=== PATIENT | male | born 1935 | race Caucasian/White ===

== ENCOUNTER → 2016-06-16 | Outpatient (CLI) | payer BC ==
[~2016-06-16] MED LIST: ADVIN10/60 INH; ALBINS/ PO; ASPI81TA28 PO; ATV5X PO; CALC-342 PO; CLOB-65 TOP; CRG25 PO; LEVO112T4 PO; LISI-729 PO; MULT-506 PO; ZLF/50 PO
--- NOTE | 2016-06-16 14:09 | DIAGNOSTIC IMAGING REPORT ---
LEFT HAND MIN 3 VIEWS ROUTINE CLINICAL HISTORY: M12.9 Hand arthritis pain COMPARISON: None. DISCUSSION: Findings of mild marginal erosive change of the interphalangeal joints. Bone mineralization throughout is diminished. Considerable degenerative change first carpometacarpal joint. No evidence for subluxation. Mild soft tissue edema IMPRESSION: Findings suggesting developing rheumatoid change. Electronically signed by: Taurus Jolly M.D. 06/16/2016 2:08 PM Dictated Date/Time: 06/16/2016 2:07 PM
--- NOTE | 2016-06-16 14:10 | DIAGNOSTIC IMAGING REPORT ---
RIGHT HAND MIN 3 VIEWS ROUTINE CLINICAL HISTORY: M12.9 Hand arthritis Right pain COMPARISON: None. DISCUSSION: Moderate degenerative change interphalangeal joints throughout. Multiple marginal erosions. Mineralization throughout is diminished. The 10th IMPRESSION: Moderate rheumatoid change. Mild soft tissue edema Electronically signed by: Taurus Jolly M.D. 06/16/2016 2:09 PM Dictated Date/Time: 06/16/2016 2:08 PM
== END | disposition home or self-care (01) ==
LOC: C.RAD1850 13:32
PROVIDERS: ATTEND Internal Medicine
DX: M12.9 Arthropathy, unspecified (principal)

== ENCOUNTER → 2016-07-26 | Outpatient (CLI) | payer BC ==
[2016-07-26 12:37] LABS: BASO % 0.5 %; BASO ABS # 0.03 K/uL (0-0.2); COMPLETE YES; EOS % 10.1 %; HEMATOCRIT 33.5 % (42-52); IG% 0.2 %; LYMPH % 10.9 %; LYMPH ABS # 0.65 K/uL (1.2-3.4); MEAN CELL VOLUME 85.9 fL (80-100); MEAN CORPUSCULAR HEMOGLOBIN 27.9 pg (25-34); MEAN CORPUSCULAR HGB CONC 32.5 g/dl (32-36); MEAN PLATELET VOLUME 10.7 fL (7.4-10.4); MONO % 5.5 %; NEUT % 72.8 %; PLATELET COUNT 276 K/uL (130-400); WHITE BLOOD COUNT 5.97 K/uL (4.8-10.8)
[2016-07-26 12:45] LABS: BLOOD UREA NITROGEN 33 mg/dl (7-18); BUN/CREATININE RATIO 23.8 (10-20); CALCIUM 8.9 mg/dl (8.5-10.1); CARBON DIOXIDE 30 mmol/L (21-32); CHLORIDE 101 mmol/L (98-107); GLUCOSE 122 mg/dl (70-99); POTASSIUM 4.1 mmol/L (3.5-5.1); SODIUM 139 mmol/L (136-145)
[2016-07-26 12:50] LABS: FERRITIN 123.6 ng/ml (8.0-388.0); RHEUMATOID FACTOR < 10.0 U/mL (0-15); TOTAL IRON BINDING CAPACITY 225 mcg/dl (250-450)
[2016-07-26 13:19] LABS: ESTIMATED AVERAGE GLUCOSE 120 mg/dl; HA1C FLAG Normal (Normal)
--- NOTE | 2016-07-30 12:47 | CODING QUERY MEDICAL NECESSITY ---
SUPPORTING DIAGNOSIS NEEDED A supporting diagnosis is required for the test/procedure performed on this patient in order for us to be reimbursed by the patient's insurance. Please provide a supporting diagnosis for the following test/procedure listed below next to the test name along with your signature. *If there is no additional diagnosis for this patient that would support the following test/procedure please document that below next to the test/procedure. Test(s)/Procedure(s) that require a supporting diagnosis: * VITAMIN B-12 LEVEL DIAGNOSIS: * FOLATE LEVEL DIAGNOSIS: * DOS: 07/26/16 Provider Signature: Date: Thank you Ambkia Thomas Health Information Management Once completed, please kindly fax back to [phone] For questions please call [phone]
== END | disposition home or self-care (01) ==
LOC: C.LABBFT 10:25
PROVIDERS: ATTEND Internal Medicine
DX: D64.9 Anemia, unspecified (principal); R73.9 Hyperglycemia, unspecified; I50.22 Chronic systolic (congestive) heart failure; M12.9 Arthropathy, unspecified; M81.0 Age-related osteoporosis without current pathological fracture

== ENCOUNTER → 2017-01-19 | Outpatient (CLI) | payer BC ==
[2017-01-19 12:11] LABS: BASO % 0.4 %; BASO ABS # 0.04 K/uL (0-0.2); COMPLETE YES; IG% 0.3 %; LYMPH % 3.9 %; LYMPH ABS # 0.35 K/uL (1.2-3.4); MEAN CELL VOLUME 91.7 fL (80-100); MEAN CORPUSCULAR HGB CONC 32.7 g/dl (32-36); MONO % 10.6 %; NEUT % 75.8 %; PLATELET COUNT 297 K/uL (130-400); WHITE BLOOD COUNT 8.96 K/uL (4.8-10.8)
[2017-01-19 12:28] LABS: ALT/SGPT 16 U/L (12-78); AST/SGOT 12 U/L (15-37); BLOOD UREA NITROGEN 44 mg/dl (7-18); BUN/CREATININE RATIO 27.4 (10-20); CALCIUM 8.6 mg/dl (8.5-10.1); CARBON DIOXIDE 27 mmol/L (21-32); CHLORIDE 105 mmol/L (98-107); GLUCOSE 111 mg/dl (70-99); POTASSIUM 4.6 mmol/L (3.5-5.1); SODIUM 139 mmol/L (136-145)
[2017-01-19 12:39] LABS: ALB/GLOB RATIO 0.8 (0.9-2); ALKALINE PHOSPHATASE 49 U/L (45-117); CHOLESTEROL 172 mg/dl (0-200); CHOLESTEROL/HDL RATIO 3.2; HDL CHOLESTEROL 54 mg/dl; LDL CHOLESTEROL CALCULATED 104 mg/dl; THYROID STIMULATING HORMONE 0.682 uIu/ml (0.300-4.500); TRIGLYCERIDES 69 mg/dl (0-150); VERY LOW DENSITY LIPOPROT CALC 14 mg/dl
[2017-01-19 13:45] LABS: ESTIMATED AVERAGE GLUCOSE 111 mg/dl; HA1C FLAG Normal (Normal)
== END | disposition home or self-care (01) ==
LOC: C.LABBFT 10:34
PROVIDERS: ATTEND Internal Medicine
DX: D64.9 Anemia, unspecified (principal); R73.03 Prediabetes; E03.9 Hypothyroidism, unspecified; E78.00 Pure hypercholesterolemia, unspecified

== ENCOUNTER → 2017-01-26 | Outpatient (CLI) | payer BC ==
[2017-01-26 12:38] LABS: BLOOD UREA NITROGEN 35 mg/dl (7-18); BUN/CREATININE RATIO 26.6 (10-20); CALCIUM 8.9 mg/dl (8.5-10.1); CARBON DIOXIDE 28 mmol/L (21-32); CHLORIDE 104 mmol/L (98-107); GLUCOSE 87 mg/dl (70-99); POTASSIUM 4.4 mmol/L (3.5-5.1); SODIUM 140 mmol/L (136-145)
== END ==
LOC: C.LABBFT 08:51
PROVIDERS: ATTEND Internal Medicine
DX: N28.9 Disorder of kidney and ureter, unspecified (principal)

== ENCOUNTER → 2017-05-30 | Outpatient (CLI) | payer BC ==
[2017-05-30 17:39] LABS: BASO % 0.5 %; BASO ABS # 0.04 K/uL (0-0.2); EOS % 4.6 %; EOS ABS # 0.36 K/uL (0-0.5); HEMOGLOBIN 10.4 g/dL (14.0-18.0); IG# 0.01 K/uL (0.00-0.02); LYMPH % 4.2 %; LYMPH ABS # 0.33 K/uL (1.2-3.4); MEAN CELL VOLUME 91.2 fL (80-100); MEAN CORPUSCULAR HEMOGLOBIN 28.7 pg (25-34); MEAN CORPUSCULAR HGB CONC 31.5 g/dl (32-36); MEAN PLATELET VOLUME 10.4 fL (7.4-10.4); MONO % 10.3 %; MONO ABS # 0.81 K/uL (0.11-0.59); NEUT % 80.3 %; NEUT ABS # 6.29 K/uL (1.4-6.5); PLATELET COUNT 244 K/uL (130-400); RED CELL DISTRIBUTION WIDTH CV 15.7 % (11.5-14.5); RED CELL DISTRIBUTION WIDTH SD 52.4 fL (36.4-46.3); RETIC COUNT % 0.7 % (0.5-2.0); WHITE BLOOD COUNT 7.84 K/uL (4.8-10.8)
[2017-05-30 17:50] LABS: ALBUMIN 3.1 gm/dl (3.4-5.0); ALT/SGPT 19 U/L (12-78); BLOOD UREA NITROGEN 32 mg/dl (7-18); CALCIUM 8.4 mg/dl (8.5-10.1); CARBON DIOXIDE 30 mmol/L (21-32); CREATININE 1.62 mg/dl (0.60-1.40); GLUCOSE 79 mg/dl (70-99); POTASSIUM 4.7 mmol/L (3.5-5.1); SODIUM 138 mmol/L (136-145)
[2017-05-30 17:58] LABS: ALKALINE PHOSPHATASE 49 U/L (45-117); AST/SGOT 15 U/L (15-37); TRANSFERRIN 187 mg/dl (200-360)
== END | disposition home or self-care (01) ==
LOC: C.LABBFT 13:47
PROVIDERS: ATTEND Internal Medicine
DX: N18.3 Chronic kidney disease, stage 3 (moderate) (principal); E03.9 Hypothyroidism, unspecified; D64.9 Anemia, unspecified; M81.0 Age-related osteoporosis without current pathological fracture

== ENCOUNTER → 2017-06-15 | Outpatient (CLI) | payer BC ==
--- NOTE | 2017-06-15 13:11 | DIAGNOSTIC IMAGING REPORT ---
EXAMINATION: RENAL ULTRASOUND CLINICAL HISTORY: N18.3 Chronic kidney disease, stage 3 COMPARISON STUDY: CT scan performed April 2013 FINDINGS: The right kidney measures 10 cm. The left kidney measures 10.5 cm. There is no evidence of hydronephrosis. There is mild renal cortical thinning. There is borderline increase in renal cortical echogenicity. There is a 3 cm left renal cyst. Prostate is enlarged. Neither ureteral jet was visualized IMPRESSION : 1. Mild renal cortical thinning and borderline increase in renal cortical echogenicity 2. No evidence of hydronephrosis. 3. 3 cm left renal cyst Electronically signed by: Trenton Claros M.D. 06/15/2017 1:09 PM Dictated Date/Time: 06/15/2017 1:07 PM
== END | disposition home or self-care (01) ==
LOC: C.ULTR 12:11
PROVIDERS: ATTEND Internal Medicine
DX: N18.3 Chronic kidney disease, stage 3 (moderate) (principal); N28.1 Cyst of kidney, acquired

== ENCOUNTER 2020-03-27 14:48 | Inpatient (IN) ==
[2020-03-27] MEDS ORDERED: ACETAMINOPHEN 65 ML IV ONE (15:05)
[2020-03-27] MEDS ORDERED: ONDANSETRON INJ 2 MG/ML 2 ML VIAL IV STA (15:05)
--- NOTE | 2020-03-27 15:09 | Emergency Department Note ---
Impression & Plan Diffuse abdominal pain, Large bowel obstruction, Abdominal distension, Elevated troponin ED Provider Note NAME: OCHOA AMADOR JR AGE: 84 SEX: M : 1935 ARRIVES VIA: Walk-In INFORMANT: [Patient] ED PROVIDER(S): [Colten Kunz MD] CHIEF COMPLAINT: Constipation HISTORY OF PRESENT ILLNESS: The patient is an 84-year-old male who has had 3 days of constipation. He has had 2 days of colicky diffuse abdominal pain and some bloating. No pain radiation. The pain gets as bad as a 9 on a scale of 1 out of 10. Patient tried some milk of magnesia without any relief. The patient does not have a history of constipation. He does not really feel like he has to have a bowel movement. The patient denies any fever, cough or congestion. There has been no chest pain or shortness of breath. There has been some occasional nausea but no vomiting. REVIEW OF SYSTEMS: See HPI for pertinent positives and negatives. A total of ten systems were reviewed and were otherwise negative. PMHx/PSHx: See Below SOCIAL HISTORY: See Below. PHYSICAL EXAM: GENERAL: Patient is in no acute distress. HEENT: No acute trauma, normocephalic atraumatic, mucous membranes moist, no nasal congestion, no scleral icterus. NECK: No stridor, no adenopathy, no meningismus, trachea is midline. LUNGS: Clear to auscultation bilaterally, no wheeze, no rhonchi, breath sounds equal. HEART: 2 or 6 systolic murmur, the rhythm seems regular with an occasional extra beat. Normal rate. ABDOMEN: Soft, mildly diffusely tender, there is significant abdominal distention with tympany to percussion, bowel sounds positive, no hernias, no peritonitis. EXTREMITIES: No cyanosis or edema, full range of motion of all the joints without pain or difficulty, no signs for acute trauma. NEUROLOGIC: Oriented x 3, no acute motor or sensory deficits, no focal weakness. SKIN: No rash, no jaundice, no diaphoresis. Rectal: There is no rectal mass felt. The prostate is enlarged. There is a sc ant amount of stool in the rectal vault. The stool was brown in color. DIFFERENTIAL DIAGNOSIS: Appendicitis, testicular torsion, infections, diverticulitis, UTI, obstruction, mesenteric ischemia, aortic pathology, inflammatory bowel disease, renal colic, PUD, pancreatitis, biliary pathology, hernia, volvulus, constipation, as well as other pathologies. EMERGENCY DEPARTMENT COURSE/PROCEDURES: ECG: Indication was abdominal pain. The ECG shows a sinus bradycardia with some sinus arrhythmia. The rate is 55. The QTc is 447. There are inverted T waves laterally. LVH is present. No ST elevation. Compared to an ECG from 06 November 2015, T wave inversions are more prominent. The rate has decreased. Continuous Cardiac Monitoring: An order was placed for continuous cardiac monitoring. The monitor shows a rate of 59 with sinus bradycardia. Critical Care Note: I have personally spent 39 minutes of critical care time in the direct management of this patient. This includes bedside care, interpretation of diagnostic studies, and testing, discussion with consultants, patient, and family members, and other required patient management activities. This 39 minutes is in excess of all separately billable procedures. MEDICAL DECISION MAKING: There is a slight white blood cell count elevation at 11,000, this would be consistent with his pain or infection. The patient does have an anemia with a hemoglobin of 11.7. The anemia is baseline. There is a normal platelet count. Creatinine is elevated at 1.59, this is baseline looking back at previous testing. No worrisome liver enzyme elevation. ECG shows a sinus bradycardia, no acute ST elevation. He does have a very mild troponin elevation. The elevated troponin could be from from mismatch or possibly from cardiac strain/injury. There was no pancreatitis. Covid testing was negative. Chest film did not show pneumonia, there was no free air. Abdominal and pelvis CT shows a colonic obstruction at the area of the sigmoid. There is no small bowel obstruction seen. No free air. The patient presents with abdominal pain and distention. He was concerned for constipation. On my exam, there was no significant stool in the rectal vault. Patient received a 500 cc saline bolus. He was given IV Zosyn as empiric antibiotic coverage. He received IV Zofran for nausea. He received a dose of IV Tylenol. I spoke with general surgery, I spoke with GI on-call. The patient is going to be hospitalized. He will likely undergo emergent GI intervention for bowel decompression. I spoke to the patient about his findings, he is aware of the diagnosis and our concerns. I did speak with case management. The on-call hospitalist has been consulted. Past Med/Surg History Medical History Anemia CAD, multiple vessel Surgical History Cataract Hx of CABG Family History Mother Hypertension Sister Hyperlipemia Other Coronary heart disease Dementia Heart disease Myocardial infarction Social History Smoking Status: Never smoker Second Hand Exposure: No; Hx Alcohol Use: Yes Hx Substance Use: No Preferred Language: Mauritian Communication Ability: Effective Hearing Ability: Normal marital status: / Current Living Situation: Alone current occupational status: retired Feels Safe at Home: Yes Childhood Exposure to Second-Hand Smoke: No Dental Care, Regularly: Yes Seatbelt Use: always Sunscreen Use: No Allergies Allergies Allergy/AdvReac Type Severity Reaction Status Date / Time atorvastatin Allergy Mild rash Verified 10/25/19 12:04 Sulfa (Sulfonamide Allergy Mild Unverified 10/25/19 12:04 Antibiotics) sulfamethoxazole Allergy Mild Unverified 10/25/19 12:04 theophylline Allergy Mild RASH Verified 10/25/19 12:04 trimethoprim Allergy Mild Unverified 10/25/19 12:04 Home Meds Home Medications Medication Instructions Recorded Confirmed aspirin 81 mg tablet,delayed 81 mg PO QAM tab 01/10/19 03/27/20 release calcium carbonate 600 mg (1,500 1 tab PO BID tab 01/10/19 03/27/20 mg)-vitamin D3 200 unit tablet multivitamin 1 tab PO DAILY 01/10/19 03/27/20 furosemide See Rx Instructions .ROUTE .COMPLEX 03/27/20 03/27/20 levothyroxine 137 mcg PO QAM 03/27/20 03/27/20 lisinopril 5 mg PO DAILY 03/27/20 03/27/20 Previous Rx's Medication Instructions Recorded carvedilol 25 mg tablet 25 mg PO BID #180 tab 10/24/19 Advair Diskus 250 mcg-50 mcg/dose 1 puffs INH BID #60 ea NS 11/27/19 powder for inhalation Results & Data (ED) Vital Signs Vital Signs - 24 hr 03/27/20 14:51 03/27/20 16:02 03/27/20 17:51 Temperature 36.7 C Temperature Source Temporal Artery Scan Pulse Rate 71 52 L 55 L Respiratory Rate 18 24 13 Respiratory Effort / Characteristics Non-Labored Respiratory Depth Normal Blood Pressure 132/81 117/58 L 95/51 L Blood Pressure Mean 98 77 62 Pulse Oximetry 97 Oxygen Delivery Method Sepsis Recent Fever Within 48 Hours No Sepsis New/Unexplained Change in Mental Status No Sepsis Action Taken by Nursing No Action Required 03/27/20 17:52 03/27/20 18:00 03/27/20 18:30 Temperature Temperature Source Pulse Rate 54 L 57 L 55 L Respiratory Rate 13 12 18 Respiratory Effort / Characteristics Respiratory Depth Blood Pressure Blood Pressure Mean Pulse Oximetry Oxygen Delivery Method Sepsis Recent Fever Within 48 Hours Sepsis New/Unexplained Change in Mental Status Sepsis Action Taken by Nursing 03/27/20 18:46 03/27/20 20:04 Temperature Temperature Source Pulse Rate 59 L Respiratory Rate 22 Respiratory Effort / Characteristics Respiratory Depth Blood Pressure 100/53 L Blood Pressure Mean 63 Pulse Oximetry Oxygen Delivery Method Room Air Sepsis Recent Fever Within 48 Hours Sepsis New/Unexplained Change in Mental Status Sepsis Action Taken by [facility] Medications Current Medication List: was personally reviewed by me Laboratory Data Attestation: I reviewed the patient's lab results. Result diagrams: 03/27/20 15:47 03/27/20 15:47 Lab Results 03/27/20 03/27/20 03/27/20 Range/Units 15:47 15:47 18:49 WBC 11.50 H (4.8-10.8) K/uL RBC 3.86 L (4.7-6.1) M/uL Hgb 11.7 L (14.0-18.0) g/dL Hct 35.9 L (42-52) % MCV 93.0 (80-100) fL MCH 30.3 (25-34) pg MCHC 32.6 (32-36) g/dL RDW Std Deviation 56.8 H (36.4-46.3) fL RDW Coeff of Ayaz 16.5 H (11.5-14.5) % Plt Count 234 (130-400) K/uL MPV 10.2 (7.4-10.4) fL Immature Gran % (Auto) 0.2 % Neut % (Auto) 93.3 % Lymph % (Auto) 6.1 % [place] % (Auto) 0.2 % Eos % (Auto) 0.0 % Baso % (Auto) 0.2 % Neut # (Auto) 10.74 H (1.4-6.5) K/uL Lymph # (Auto) 0.70 L (1.2-3.4) K/uL [place] # (Auto) 0.02 L (0.11-0.59) K/uL Eos # (Auto) 0.00 (0-0.5) K/uL Baso # (Auto) 0.02 (0-0.2) K/uL Immature Gran # (Auto) 0.02 (0.00-0.02) K/uL Sodium 141 (136-145) mmol/L Potassium 3.7 (3.5-5.1) mmol/L Chloride 103 (98-107) mmol/L Carbon Dioxide 29 (21-32) mmol/L Anion Gap 9.0 (3-11) BUN 40 H (7-18) mg/dl Creatinine 1.59 H (0.6-1.4) mg/dl Est Cr Clr Drug Dosing 24.1 ml/min Est GFR ( Amer) 44.9 Est GFR (Non-Af Amer) 38.7 BUN/Creatinine Ratio 25.3 H (10-20) Glucose 147 H (70-99) mg/dl Calcium 8.9 (8.5-10.1) mg/dl Total Bilirubin 0.7 (0.2-1) mg/dl AST 11 L (15-37) U/L ALT 14 (12-78) U/L Alkaline Phosphatase 53 (45-117) U/L Troponin I 0.049 H* (0-0.045) ng/ml Total Protein 7.7 (6.4-8.2) gm/dl Albumin 3.1 L (3.4-5.0) gm/dl Globulin 4.6 H (2.5-4.0) gm/dl Albumin/Globulin Ratio 0.7 L (0.9-2) Lipase 76 (73-393) U/L SARS-CoV-2 Ag (Rapid) Negative (Negative) Administered Medications Discontinued Medications Sodium Chloride (Nss) 500 mls @ 999 mls/hr IV .Q31M NAVIN Stop: 03/27/20 15:45 Last Infusion: 03/27/20 16:33 Dose: 0 mls/hr Documented by: [id number] Admin: 03/27/20 15:53 Dose: 999 mls/hr Documented by: [id number] Acetaminophen (Ofirmev) 65 mls @ 200 mls/hr IV NOW ONE; Protocol Stop: 03/27/20 15:24 Last Infusion: 03/27/20 16:32 Dose: 0 mls/hr Documented by: [id number] Admin: 03/27/20 15:59 Dose: 200 mls/hr Documented by: [id number] Piperacillin Sod/Tazobactam Sod (Zosyn) 4.5 gm in 120 mls @ 240 mls/hr IV NOW ONE Stop: 03/27/20 18:50 Last Infusion: 03/27/20 22:15 Dose: 0 mls/hr Documented by: [id number] Admin: 03/27/20 19:35 Dose: 240 mls/hr Documented by: [id number] Mineral Oil (Mineral Oil 30 Ml Udc) Confirm Administered Dose 30 ml .ROUTE .STK- MED ONE Stop: 03/27/20 19:42 Last Admin: 03/27/20 22:17 Dose: Not Given Documented by: [id number] Ondansetron HCl (Ondansetron Inj 2 Mg/Ml 2 Ml Vial) 4 mg IV NOW STA Stop: 03/27/20 15:06 Last Admin: 03/27/20 15:59 Dose: 4 mg Documented by: [id number] Imaging Data Radiologist's Impression: XR chest 1V portable CLINICAL HISTORY: Pain, radiating to the abdomen COMPARISON STUDY: 11/05/2015 FINDINGS: The heart is mildly enlarged. There is no failure. There is no focal pulmonary consolidation. There are no pleural effusions. There are old rib fractures. There is no free intraperitoneal air. There is gaseous distention of the visualized bowel.[ IMPRESSION: 1. No active disease in the chest 2. No evidence of free intraperitoneal air 3. Gaseous distention of the visualized bowel CT SCAN OF THE ABDOMEN AND PELVIS WITHOUT IV CONTRAST CLINICAL HISTORY: Abdominal distention. COMPARISON STUDY: Abdominal CT dated 05/08/2013. TECHNIQUE: CT scan of the abdomen and pelvis is performed from the lung bases to the proximal femora. Images are reviewed in the axial, sagittal, and coronal planes. IV contrast was not administered for this examination. Note that the examination is suboptimal without oral and IV contrast. There is also motion artifact. A dose lowering technique was utilized adhering to the principles of ALARA. CT DOSE: 230.47 mGy.cm FINDINGS: Lung bases: The heart is enlarged and without pericardial effusion. There is trace right pleural effusion. The lung bases are otherwise clear noting bibasilar scarring/atelectasis. A small hiatal hernia is noted. Liver: The unenhanced liver is normal in size, contour, and attenuation. There is no intrahepatic biliary ductal dilatation. Scattered hepatic cysts are unchanged from 2014 and measure up to 1.4 cm. A calcified granuloma is noted in the left lobe. Gallbladder: Unremarkable. Spleen: Normal in size and attenuation. Pancreas: The unenhanced pancreas is moderately atrophic and grossly unremarkable. Adrenal glands: Unremarkable. Kidneys: The unenhanced kidneys are atrophic and without hydronephrosis. There are no renal calculi identified. There is no evidence of contour deforming renal mass lesion. Abdominal vasculature: There is advanced atherosclerotic calcification and mild ectasia of the abdominal aorta. Bowel: The colon is markedly distended, filled with gas and stool. The cecum measures up to 9 cm in diameter. There is a transition point identified in the proximal sigmoid colon on image #267 and the appearance is consistent with a colonic obstruction. The small bowel loops are normal in caliber. There is mild diverticulosis of the colon without CT evidence of acute diverticulitis. Wall thickening of the colon with pericolonic infiltration suggests stercoral colitis. The appendix is not clearly visualized. Peritoneum: There is no intraperitoneal free air or abdominal ascites. Lymphadenopathy: None. Pelvic viscera: The prostate gland is markedly enlarged and heterogeneous noting median lobe hypertrophy. The bladder wall is thickened and trabeculated indicating chronic outlet obstruction. There are bilateral inguinal hernias. The hernia on the right contains a small segment of bowel. Skeletal structures: The skeletal structures are osteopenic. There are chronic appearing supra compression deformities of T12, L2, and L4. No lytic or blastic lesions are seen. Soft tissues: The patient is cachectic. IMPRESSION: 1. Findings are consistent with a distal colonic obstruction at the level of the sigmoid colon. 2. An abrupt transition point in the sigmoid colon could represent stricture or possibly mass lesion. GI follow-up is recommended. 3. Wall thickening of the colon with pericolonic infiltration suggests stercoral colitis. 4. The small bowel loops are normal in caliber. 5. There is no intraperitoneal free air or abdominal ascites. 6. A right inguinal hernia contains a nonobstructed segment of small bowel. 7. Cardiomegaly and trace right pleural effusion. 8. Additional findings as above. Discharge Plan Visit Data Chief Complaint: Constipation Stated Complaint: CONSTIPATION x3DAYS,ABD PAIN ED Provider: Colten Kunz Discharge Problem: Diffuse abdominal pain, Large bowel obstruction, Abdominal distension, Elevated troponin Patient Disposition: Admitted As Inpatient Condition: Fair Discharge Instructions Interventions: ED Discharge Assessment Last Done: 03/27/20 20:04
[2020-03-27] MEDS ORDERED: SODIUM CHLORIDE 0.9% 500 ML IV SCH (15:15)
--- NOTE | 2020-03-27 15:40 | XRay Report ---
XR chest 1V portable CLINICAL HISTORY: Pain, radiating to the abdomen COMPARISON STUDY: 11/05/2015 FINDINGS: The heart is mildly enlarged. There is no failure. There is no focal pulmonary consolidatio n. There are no pleural effusions. There are old rib fractures. There is no free intraperitoneal air. There is gaseous distention of the visualized bowel.[ IMPRESSION: 1. No active disease in the chest 2. No evidence of free intraperitoneal air 3. Gaseous distention of the visualized bowel ACT 112: Negative or not required by law. Electronically signed by: Trenton Claros M.D. 03/27/2020 3:38 PM
[2020-03-27 15:57] LABS: Basophils # (auto) 0.02 K/uL (0-0.2); Basophils % (auto) 0.2 %; Hematocrit (blood only) 35.9 % (42-52); Hemoglobin 11.7 g/dL (14.0-18.0); Immature Granulocytes # (auto) 0.02 K/uL (0.00-0.02); Immature Granulocytes % (auto) 0.2 %; Lymphocytes % (auto) 6.1 %; Mean Corpuscular Hemoglobin 30.3 pg (25-34); Mean Corpuscular Hgb Conc 32.6 g/dL (32-36); Mean Platelet Volume 10.2 fL (7.4-10.4); Monocytes # (auto) 0.02 K/uL (0.11-0.59); Monocytes % (auto) 0.2 %; Neutrophils # (auto) 10.74 K/uL (1.4-6.5); Neutrophils % (auto) 93.3 %; Platelet Count 234 K/uL (130-400); RDW Coefficient of Variation 16.5 % (11.5-14.5); RDW Standard Deviation 56.8 fL (36.4-46.3); Red Blood Count 3.86 M/uL (4.7-6.1)
--- NOTE | 2020-03-27 16:00 | Electrocardiogram Report ---
Test Reason : Blood Pressure : / mmHG Vent. Rate : 055 BPM Atrial Rate : 055 BPM P-R Int : 178 ms QRS Dur : 118 ms QT Int : 468 ms P-R-T Axes : 074 -15 178 degrees QTc Int : 447 ms Sinus bradycardia with marked sinus arrhythmia Left ventricular hypertrophy with QRS widening and repolarization abnormality Abnormal ECG When compared with ECG of 06-NOV-2015 06:55, QRS duration has increased ST no longer depressed in Anterior leads T wave inversion more evident in Lateral leads Confirmed by Keith Espinosa ([id number]) on 03/27/2020 4:00:16 PM Referred By: REFERRED SELF Confirmed By:Sukumar Espinosa
[2020-03-27 16:16] LABS: Albumin Level 3.1 gm/dl (3.4-5.0); BUN Creatinine Ratio 25.3 (10-20); Calcium 8.9 mg/dl (8.5-10.1); Creatinine Clr Calc Pharmacy 24.1 ml/min; Est GFR (African American) 44.9; Est GFR (Non-African American) 38.7; Potassium 3.7 mmol/L (3.5-5.1)
[2020-03-27 16:27] LABS: Albumin Globulin Ratio 0.7 (0.9-2); Bilirubin,Total 0.7 mg/dl (0.2-1); Globulin 4.6 gm/dl (2.5-4.0); Total Protein 7.7 gm/dl (6.4-8.2); Troponin I 0.049 ng/ml (0-0.045)
--- NOTE | 2020-03-27 16:56 | CT Scan Report ---
CT SCAN OF THE ABDOMEN AND PELVIS WITHOUT IV CONTRAST CLINICAL HISTORY: Abdominal distention. COMPARISON STUDY: Abdominal CT dated 05/08/2013. TECHNIQUE: CT scan of the abdomen and pelvis is performed from the lung bases to the proximal femora. Images are reviewed in the axial, sagittal, and coronal planes. IV contrast was not administered for this examination. Note that the examination is suboptimal without oral and IV contrast. There is als o motion artifact. A dose lowering technique was utilized adhering to the principles of ALARA. CT DOSE: 230.47 mGy.cm FINDINGS: Lung bases: The heart is enlarged and without pericardial effusion. There is trace right pleural effu annetta. The lung bases are otherwise clear noting bibasilar scarring/atelectasis. A small hiatal hernia is noted. Liver: The unenhanced liver is normal in size, contour, and attenuation. There is no intrahepatic derek iary ductal dilatation. Scattered hepatic cysts are unchanged from 2014 and measure up to 1.4 cm. A c alcified granuloma is noted in the left lobe. Gallbladder: Unremarkable. Spleen: Normal in size and attenuation. Pancreas: The unenhanced pancreas is moderately atrophic and grossly unremarkable. Adrenal glands: Unremarkable. Kidneys: The unenhanced kidneys are atrophic and without hydronephrosis. There are no renal calculi i dentified. There is no evidence of contour deforming renal mass lesion. Abdominal vasculature: There is advanced atherosclerotic calcification and mild ectasia of the abdomi nal aorta. Bowel: The colon is markedly distended, filled with gas and stool. The cecum measures up to 9 cm in d iameter. There is a transition point identified in the proximal sigmoid colon on image #267 and the a ppearance is consistent with a colonic obstruction. The small bowel loops are normal in caliber. Ther e is mild diverticulosis of the colon without CT evidence of acute diverticulitis. Wall thickening of the colon with pericolonic infiltration suggests stercoral colitis. The appendix is not clearly vis ualized. Peritoneum: There is no intraperitoneal free air or abdominal ascites. Lymphadenopathy: None. Pelvic viscera: The prostate gland is markedly enlarged and heterogeneous noting median lobe hypertro phy. The bladder wall is thickened and trabeculated indicating chronic outlet obstruction. There are bilateral inguinal hernias. The hernia on the right contains a small segment of bowel. Skeletal structures: The skeletal structures are osteopenic. There are chronic appearing supra compre ssion deformities of T12, L2, and L4. No lytic or blastic lesions are seen. Soft tissues: The patient is cachectic. IMPRESSION: 1. Findings are consistent with a distal colonic obstruction at the level of the sigmoid colon. 2. An abrupt transition point in the sigmoid colon could represent stricture or possibly mass lesion. GI follow-up is recommended. 3. Wall thickening of the colon with pericolonic infiltration suggests stercoral colitis. 4. The small bowel loops are normal in caliber. 5. There is no intraperitoneal free air or abdominal ascites. 6. A right inguinal hernia contains a nonobstructed segment of small bowel. 7. Cardiomegaly and trace right pleural effusion. 8. Additional findings as above. ACT 112: Negative or not required by law. Electronically signed by: Colten Lee M.D. 03/27/2020 4:54 PM
--- NOTE | 2020-03-27 18:02 | Surgery Consultation ---
Date of Consultation March 27, 2020 Assessment & Plan (1) Colonic obstruction: pt is a 84 year-old male who presents to ER with 3-4 days constipation , no passed BM, IMP: colonic obstruction Plan, the caused colonic obstruction possible, mass, inflammation, or structure? D/W GI doctor for possible sigmoidoscopy for decompress colon, hospitalist will admit pt to hospital, NPO, IV fluid, Zosyn iv treatment, repeat labs in morning, no emergent surgery indication now, may need surgery depend on GI finding, will F/U, pt agrees with the plan, i answered all questions, D/W ER attending. Present on Admission?: Yes History of Present Illness History of Present Illness CHIEF COMPLAINT: Constipation HISTORY OF PRESENT ILLNESS: The patient is an 84-year-old male who has had 3 days of constipation. He has had 2 days of colicky diffuse abdominal pain and some bloating. No pain radiation. The pain gets as bad as a 9 on a scale of 1 out of 10. Patient tried some milk of magnesia without any relief. The patient does not have a history of constipation. He does not really feel like he has to have a bowel movement. The patient denies any fever, cough or congestion. There has been no chest pain or shortness of breath. There has been some occasional nausea but no vomiting. I ( Celestino Arthur MD) got a call for consult colonic obstruction, I reviewed pt's H/P, labs, CT scan with pt, Allergies Allergy/AdvReac Type Severity Reaction Status Date / Time atorvastatin Allergy Mild rash Verified 10/25/19 12:04 Sulfa (Sulfonamide Allergy Mild Unverified 10/25/19 12:04 Antibiotics) sulfamethoxazole Allergy Mild Unverified 10/25/19 12:04 theophylline Allergy Mild RASH Verified 10/25/19 12:04 trimethoprim Allergy Mild Unverified 10/25/19 12:04 Home Medications Medication Instructions Recorded Confirmed Type aspirin 81 mg tablet,delayed 81 mg PO QAM tab 01/10/19 03/27/20 History release calcium carbonate 600 mg (1,500 1 tab PO BID tab 01/10/19 03/27/20 History mg)-vitamin D3 200 unit tablet multivitamin 1 tab PO DAILY 01/10/19 03/27/20 History carvedilol 25 mg tablet 25 mg PO BID #180 tab 10/24/19 03/27/20 Rx Advair Diskus 250 mcg-50 mcg/dose 1 puffs INH BID #60 ea NS 11/27/19 03/27/20 Rx powder for inhalation furosemide See Rx Instructions .ROUTE .COMPLEX 03/27/20 03/27/20 History levothyroxine 137 mcg PO QAM 03/27/20 03/27/20 History lisinopril 5 mg PO DAILY 03/27/20 03/27/20 History Patient History Medical History (Updated 03/27/20 @ 18:19 by Celestino Arthur MD) Asthma exacerbation Surgical History Cataract Hx of CABG Family History Mother Hypertension Sister Hyperlipemia Other Coronary heart disease Dementia Heart disease Myocardial infarction Social History Smoking Status: Never smoker Second Hand Exposure: No; Hx Alcohol Use: Yes Hx Substance Use: No Preferred Language: Hungarian Communication Ability: Effective Hearing Ability: Normal marital status: / Current Living Situation: Alone current occupational status: retired Feels Safe at Home: Yes Childhood Exposure to Second-Hand Smoke: No Dental Care, Regularly: Yes Seatbelt Use: always Sunscreen Use: No Review of Systems Review of Systems: All systems reviewed & are unremarkable except as noted in HPI & below Constitutional: as per Subjective / HPI and + sweats Eyes: as per Subjective / HPI Ear, Nose, Mouth, Throat: as per Subjective / HPI Respiratory: as per Subjective / HPI Cardiovascular: as per Subjective / HPI Additional Comments: CAD, cardiomyopathy, HTN, ventricular tachycardia, tricuspid regurgitation, ischemic cardiomyopathy, , aneurysm of aortic arch Gastrointestinal: as per Subjective / HPI diverticulosis Genitourinary: + as per Subjective / HPI and + problem reported (elevated PSA, hematuria) Musculoskeletal: as per Subjective / HPI Integumentary: as per Subjective / HPI Neurologic: as per Subjective / HPI Psychiatric: as per Subjective / HPI depression Endocrine: as per Subjective / HPI hypothyroidism, Hematologic / Lymphatic: as per Subjective / HPI anemia Allergy / Immunological: as per Subjective / HPI Physical Exam Constitutional: WD/WN, vitals as above well developed Eyes: PERRL, conjunctivae normal, anicteric sclerae ENMT: external ear and nose normal, oropharynx normal Neck: trachea midline, no thyromegaly Respiratory: normal respiratory effort, lungs clear to auscultation normal respiratory effort Cardiovascular: RRR, no murmur, no edema Rate/Rhythm: regular rate and regular rhythm Gastrointestinal (Abdomen): distend, no significant tenderness and no rebound pain, BS +, rectal exam: normal rectal tone, no palpable mass, no bleeding, Musculoskeletal: no cyanosis or clubbing, extremities motor strength 5/5 Skin: no rashes, warm and dry Neurologic: awake Psychiatric: Orientation: alert and oriented x 3 Results & Data ([facility]) Vital Signs (Past 12 Hours) Vital Signs Temp Pulse Resp BP Pulse Ox 03/27/20 17:51 55 L 13 95/51 L 03/27/20 16:02 52 L 24 117/58 L 03/27/20 14:51 36.7 C 71 18 132/81 97 Laboratory Results Abnormal lab results 03/27/20 03/27/20 Range/Units 15:47 15:47 WBC 11.50 H (4.8-10.8) K/uL RBC 3.86 L (4.7-6.1) M/uL Hgb 11.7 L (14.0-18.0) g/dL Hct 35.9 L (42-52) % RDW Std Deviation 56.8 H (36.4-46.3) fL RDW Coeff of Ayaz 16.5 H (11.5-14.5) % Neut # (Auto) 10.74 H (1.4-6.5) K/uL Lymph # (Auto) 0.70 L (1.2-3.4) K/uL [place] # (Auto) 0.02 L (0.11-0.59) K/uL BUN 40 H (7-18) mg/dl Creatinine 1.59 H (0.6-1.4) mg/dl BUN/Creatinine Ratio 25.3 H (10-20) Glucose 147 H (70-99) mg/dl AST 11 L (15-37) U/L Troponin I 0.049 H* (0-0.045) ng/ml Albumin 3.1 L (3.4-5.0) gm/dl Globulin 4.6 H (2.5-4.0) gm/dl Albumin/Globulin Ratio 0.7 L (0.9-2) Diagnostic Findings CT SCAN OF THE ABDOMEN AND PELVIS WITHOUT IV CONTRAST CLINICAL HISTORY: Abdominal distention. COMPARISON STUDY: Abdominal CT dated 05/08/2013. TECHNIQUE: CT scan of the abdomen and pelvis is performed from the lung bases to the proximal femora. Images are reviewed in the axial, sagittal, and coronal planes. IV contrast was not administered for this examination. Note that the examination is suboptimal without oral and IV contrast. There is also motion artifact. A dose lowering technique was utilized adhering to the principles of ALARA. CT DOSE: 230.47 mGy.cm FINDINGS: Lung bases: The heart is enlarged and without pericardial effusion. There is trace right pleural effusion. The lung bases are otherwise clear noting bibasilar scarring/atelectasis. A small hiatal hernia is noted. Liver: The unenhanced liver is normal in size, contour, and attenuation. There is no intrahepatic biliary ductal dilatation. Scattered hepatic cysts are unchanged from 2014 and measure up to 1.4 cm. A calcified granuloma is noted in the left lobe. Gallbladder: Unremarkable. Spleen: Normal in size and attenuation. Pancreas: The unenhanced pancreas is moderately atrophic and grossly unremarkable. Adrenal glands: Unremarkable. Kidneys: The unenhanced kidneys are atrophic and without hydronephrosis. There are no renal calculi identified. There is no evidence of contour deforming renal mass lesion. Abdominal vasculature: There is advanced atherosclerotic calcification and mild ectasia of the abdominal aorta. Bowel: The colon is markedly distended, filled with gas and stool. The cecum measures up to 9 cm in diameter. There is a transition point identified in the proximal sigmoid colon on image #267 and the appearance is consistent with a colonic obstruction. The small bowel loops are normal in caliber. There is mild diverticulosis of the colon without CT evidence of acute diverticulitis. Wall thickening of the colon with pericolonic infiltration suggests stercoral colitis. The appendix is not clearly visualized. Peritoneum: There is no intraperitoneal free air or abdominal ascites. Lymphadenopathy: None. Pelvic viscera: The prostate gland is markedly enlarged and heterogeneous noting median lobe hypertrophy. The bladder wall is thickened and trabeculated indicating chronic outlet obstruction. There are bilateral inguinal hernias. The hernia on the right contains a small segment of bowel. Skeletal structures: The skeletal structures are osteopenic. There are chronic appearing supra compression deformities of T12, L2, and L4. No lytic or blastic lesions are seen. Soft tissues: The patient is cachectic. IMPRESSION: 1. Findings are consistent with a distal colonic obstruction at the level of the sigmoid colon. 2. An abrupt transition point in the sigmoid colon could represent stricture or possibly mass lesion. GI follow-up is recommended. 3. Wall thickening of the colon with pericolonic infiltration suggests stercoral colitis. 4. The small bowel loops are normal in caliber. 5. There is no intraperitoneal free air or abdominal ascites. 6. A right inguinal hernia contains a nonobstructed segment of small bowel. 7. Cardiomegaly and trace right pleural effusion. 8. Additional findings as above.
[2020-03-27] MEDS ORDERED: PIPERACILLIN/TAZOBACTAM 4.5 GM/120 ML BAG IV ONE (18:21)
[2020-03-27] MEDS ORDERED: PIPERACILL/TAZOBAC CONSULT ACTIVE PRN ×2 (18:21→22:10)
--- NOTE | 2020-03-27 18:51 | History & Physical Report ---
Date of Service March 27, 2020 Assessment & Plan (1) Large bowel obstruction: Patient with large bowel obstruction, stercolic colitis with bowel wall thickening. S/P decompression in OR with GI -PCU -NPO -Gentle hydration and electrolyte repletion -GI consultation appreciated -General Surgery consultation appreciated -Empiric Zosyn Present on Admission?: Yes (2) Hypertension: Chronic. BP low in ER -Hold Lisinopril for now -Continue to monitor Present on Admission?: Yes (3) Hypothyroidism: Chronic -Continue Synthroid Present on Admission?: Yes (4) Ischemic cardiomyopathy: Patient appears euvolemic on exam -Continue Carvedilol -Hold Lilsinopril as above Present on Admission?: Yes (5) Asthma: Chronic. Stable -Continue Advair -Continue to monitor Present on Admission?: Yes (6) CAD, multiple vessel: Chronic. Patient with elevated troponin. EKG with deep TW inversions. He denies chest pain -Telemetry monitoring -Trend troponin -Hold ASA for now for procedure - may resume in AM -Continue Carvedilol -Hold Lisinopril for borderline low blood pressure Present on Admission?: Yes (7) Elevated troponin: Patient denies chest pain -Trend troponin -Hold ASA for now -Continue Carvedilol -Consider Cardiology consult pending troponin trend History of Present Illness Chief Complaint: abdominal pain bloating Primary Care Provider: Keith Soto MD Jose Leo is a pleasant 84yo male with history of CAD, ICM with EF of 20-25% presenting with large bowel obstruction. He reports abdominal bloating and pain as well as nausea for the last few days. Last BM x 1 week ago. Found with large bowel obstruction, distal colon with wall thickening. Allergies Allergy/AdvReac Type Severity Reaction Status Date / Time atorvastatin Allergy Mild rash Verified 10/25/19 12:04 Sulfa (Sulfonamide Allergy Mild Unverified 10/25/19 12:04 Antibiotics) sulfamethoxazole Allergy Mild Unverified 10/25/19 12:04 theophylline Allergy Mild RASH Verified 10/25/19 12:04 trimethoprim Allergy Mild Unverified 10/25/19 12:04 Home Medications Medication Instructions Recorded Confirmed Type aspirin 81 mg tablet,delayed 81 mg PO QAM tab 01/10/19 03/27/20 History release calcium carbonate 600 mg (1,500 1 tab PO BID tab 01/10/19 03/27/20 History mg)-vitamin D3 200 unit tablet multivitamin 1 tab PO DAILY 01/10/19 03/27/20 History carvedilol 25 mg tablet 25 mg PO BID #180 tab 10/24/19 03/27/20 Rx Advair Diskus 250 mcg-50 mcg/dose 1 puffs INH BID #60 ea NS 11/27/19 03/27/20 Rx powder for inhalation furosemide See Rx Instructions .ROUTE .COMPLEX 03/27/20 03/27/20 History levothyroxine 137 mcg PO QAM 03/27/20 03/27/20 History lisinopril 5 mg PO DAILY 03/27/20 03/27/20 History Past Med/Surg History Medical History (Updated 03/27/20 @ 23:33 by Mary Andrade DO) Anemia Aortic stenosis Asthma (12/25/12) CAD, multiple vessel Ischemic cardiomyopathy Surgical History Cataract Hx of CABG Family History Mother Hypertension Sister Hyperlipemia Other Coronary heart disease Dementia Heart disease Myocardial infarction Social History Smoking Status: Never smoker Second Hand Exposure: No; Do You Dip or Chew Tobacco: No; Hx Alcohol Use: No Hx Substance Use: No Preferred Language: Divehi Communication Ability: Effective Hearing Ability: Normal Beliefs That Will Affect Care: None marital status: / Current Living Situation: Alone current occupational status: retired Other Information That Helps Us Care for You: No Feels Safe at Home: Yes Safety Concerns: Feels Safe At This Time Childhood Exposure to Second-Hand Smoke: No Dental Care, Regularly: Yes Seatbelt Use: always Sunscreen Use: No Assistive Devices: None Review of Systems Review of Systems: All systems reviewed & are unremarkable except as noted in HPI & below Physical Exam Physical Exam: General: patient resting comfortably, NAD, non-toxic in appearance, AA&O x 4 Skin: warm, dry, intact, no rashes or lesions HEENT: NC/AT, PERRL, EOMI, anicteric sclera, conjunctiva without injection, external ear normal to inspection and nontender, nares patent, moist mucus membranes, dentition intact, no oropharyngeal lesions, neck supple, trachea midline, no LAD, no thyromegaly, no JVD Heart: +S1/S2, regular,3/6 SANDRINE a left sternal border Lungs: equal air entry bilaterally, no rales/rhonchi/wheezes Abd: +abdominal distention, diminished bowel sounds, soft, diffusely tender without rebound/guarding Ext: warm, 2+ pulses in UE/LE bilaterally, no clubbing/cyanosis or edema Neuro: nonfocal, patient AA&O x 4, speech intact, no facial droop, moving all extremities on command with equal strength 5/5 Results & Data Results & Data ([facility]) Vital Signs (Past 12 Hours) Vital Signs Temp Pulse Resp BP Pulse Ox 03/27/20 18:46 59 L 22 100/53 L 03/27/20 18:30 55 L 18 03/27/20 18:00 57 L 12 03/27/20 17:52 54 L 13 03/27/20 17:51 55 L 13 95/51 L 03/27/20 16:02 52 L 24 117/58 L 03/27/20 14:51 36.7 C 71 18 132/81 97 Laboratory Results Lab Results 03/27/20 03/27/20 03/27/20 Range/Units 15:47 15:47 18:49 WBC 11.50 H (4.8-10.8) K/uL RBC 3.86 L (4.7-6.1) M/uL Hgb 11.7 L (14.0-18.0) g/dL Hct 35.9 L (42-52) % MCV 93.0 (80-100) fL MCH 30.3 (25-34) pg MCHC 32.6 (32-36) g/dL RDW Std Deviation 56.8 H (36.4-46.3) fL RDW Coeff of Ayaz 16.5 H (11.5-14.5) % Plt Count 234 (130-400) K/uL MPV 10.2 (7.4-10.4) fL Immature Gran % (Auto) 0.2 % Neut % (Auto) 93.3 % Lymph % (Auto) 6.1 % Rich % (Auto) 0.2 % Eos % (Auto) 0.0 % Baso % (Auto) 0.2 % Neut # (Auto) 10.74 H (1.4-6.5) K/uL Lymph # (Auto) 0.70 L (1.2-3.4) K/uL Rich # (Auto) 0.02 L (0.11-0.59) K/uL Eos # (Auto) 0.00 (0-0.5) K/uL Baso # (Auto) 0.02 (0-0.2) K/uL Immature Gran # (Auto) 0.02 (0.00-0.02) K/uL Sodium 141 (136-145) mmol/L Potassium 3.7 (3.5-5.1) mmol/L Chloride 103 (98-107) mmol/L Carbon Dioxide 29 (21-32) mmol/L Anion Gap 9.0 (3-11) BUN 40 H (7-18) mg/dl Creatinine 1.59 H (0.6-1.4) mg/dl Est Cr Clr Drug Dosing 24.1 ml/min Est GFR ( Amer) 44.9 Est GFR (Non-Af Amer) 38.7 BUN/Creatinine Ratio 25.3 H (10-20) Glucose 147 H (70-99) mg/dl Lactate (0.4-2.0) mmol/L Calcium 8.9 (8.5-10.1) mg/dl Total Bilirubin 0.7 (0.2-1) mg/dl AST 11 L (15-37) U/L ALT 14 (12-78) U/L Alkaline Phosphatase 53 (45-117) U/L Troponin I 0.049 H* (0-0.045) ng/ml Total Protein 7.7 (6.4-8.2) gm/dl Albumin 3.1 L (3.4-5.0) gm/dl Globulin 4.6 H (2.5-4.0) gm/dl Albumin/Globulin Ratio 0.7 L (0.9-2) Lipase 76 (73-393) U/L SARS-CoV-2 Ag (Rapid) Negative (Negative) 03/27/20 Range/Units 22:45 WBC (4.8-10.8) K/uL RBC (4.7-6.1) M/uL Hgb (14.0-18.0) g/dL Hct (42-52) % MCV (80-100) fL MCH (25-34) pg MCHC (32-36) g/dL RDW Std Deviation (36.4-46.3) fL RDW Coeff of Ayaz (11.5-14.5) % Plt Count (130-400) K/uL MPV (7.4-10.4) fL Immature Gran % (Auto) % Neut % (Auto) % Lymph % (Auto) % Rich % (Auto) % Eos % (Auto) % Baso % (Auto) % Neut # (Auto) (1.4-6.5) K/uL Lymph # (Auto) (1.2-3.4) K/uL Rich # (Auto) (0.11-0.59) K/uL Eos # (Auto) (0-0.5) K/uL Baso # (Auto) (0-0.2) K/uL Immature Gran # (Auto) (0.00-0.02) K/uL Sodium (136-145) mmol/L Potassium (3.5-5.1) mmol/L Chloride (98-107) mmol/L Carbon Dioxide (21-32) mmol/L Anion Gap (3-11) BUN (7-18) mg/dl Creatinine (0.6-1.4) mg/dl Est Cr Clr Drug Dosing ml/min Est GFR ( Amer) Est GFR (Non-Af Amer) BUN/Creatinine Ratio (10-20) Glucose (70-99) mg/dl Lactate 1.9 (0.4-2.0) mmol/L Calcium (8.5-10.1) mg/dl Total Bilirubin (0.2-1) mg/dl AST (15-37) U/L ALT (12-78) U/L Alkaline Phosphatase (45-117) U/L Troponin I (0-0.045) ng/ml Total Protein (6.4-8.2) gm/dl Albumin (3.4-5.0) gm/dl Globulin (2.5-4.0) gm/dl Albumin/Globulin Ratio (0.9-2) Lipase (73-393) U/L SARS-CoV-2 Ag (Rapid) (Negative) Diagnostic Findings CT SCAN OF THE ABDOMEN AND PELVIS WITHOUT IV CONTRAST CLINICAL HISTORY: Abdominal distention. COMPARISON STUDY: Abdominal CT dated 05/08/2013. TECHNIQUE: CT scan of the abdomen and pelvis is performed from the lung bases to the proximal femora. Images are reviewed in the axial, sagittal, and coronal planes. IV contrast was not administered for this examination. Note that the examination is suboptimal without oral and IV contrast. There is also motion artifact. A dose lowering technique was utilized adhering to the principles of ALARA. CT DOSE: 230.47 mGy.cm FINDINGS: Lung bases: The heart is enlarged and without pericardial effusion. There is trace right pleural effusion. The lung bases are otherwise clear noting bibasilar scarring/atelectasis. A small hiatal hernia is noted. Liver: The unenhanced liver is normal in size, contour, and attenuation. There is no intrahepatic biliary ductal dilatation. Scattered hepatic cysts are unchanged from 2014 and measure up to 1.4 cm. A calcified granuloma is noted in the left lobe. Gallbladder: Unremarkable. Spleen: Normal in size and attenuation. Pancreas: The unenhanced pancreas is moderately atrophic and grossly unremarkable. Adrenal glands: Unremarkable. Kidneys: The unenhanced kidneys are atrophic and without hydronephrosis. There are no renal calculi identified. There is no evidence of contour deforming renal mass lesion. Abdominal vasculature: There is advanced atherosclerotic calcification and mild ectasia of the abdominal aorta. Bowel: The colon is markedly distended, filled with gas and stool. The cecum measures up to 9 cm in diameter. There is a transition point identified in the proximal sigmoid colon on image #267 and the appearance is consistent with a colonic obstruction. The small bowel loops are normal in caliber. There is mild diverticulosis of the colon without CT evidence of acute diverticulitis. Wall thickening of the colon with pericolonic infiltration suggests stercoral colitis. The appendix is not clearly visualized. Peritoneum: There is no intraperitoneal free air or abdominal ascites. Lymphadenopathy: None. Pelvic viscera: The prostate gland is markedly enlarged and heterogeneous noting median lobe hypertrophy. The bladder wall is thickened and trabeculated indicating chronic outlet obstruction. There are bilateral inguinal hernias. The hernia on the right contains a small segment of bowel. Skeletal structures: The skeletal structures are osteopenic. There are chronic appearing supra compression deformities of T12, L2, and L4. No lytic or blastic lesions are seen. Soft tissues: The patient is cachectic. IMPRESSION: 1. Findings are consistent with a distal colonic obstruction at the level of the sigmoid colon. 2. An abrupt transition point in the sigmoid colon could represent stricture or possibly mass lesion. GI follow-up is recommended. 3. Wall thickening of the colon with pericolonic infiltration suggests stercoral colitis. 4. The small bowel loops are normal in caliber. 5. There is no intraperitoneal free air or abdominal ascites. 6. A right inguinal hernia contains a nonobstructed segment of small bowel. XR chest 1V portable CLINICAL HISTORY: Pain, radiating to the abdomen COMPARISON STUDY: 11/05/2015 FINDINGS: The heart is mildly enlarged. There is no failure. There is no focal pulmonary consolidation. There are no pleural effusions. There are old rib fractures. There is no free intraperitoneal air. There is gaseous distention of the visualized bowel.[ IMPRESSION: 1. No active disease in the chest 2. No evidence of free intraperitoneal air 3. Gaseous distention of the visualized bowel ACT 112: Negative or not required by law. Electronically signed by: Trenton Claros M.D. 03/27/2020 3:38 PM Dictated: 03/27/20 1538Transcribed: 03/27/201537 Code Status & VTE Plan VTE Prophylaxis Plan VTE Prophylaxis will be ordered: Yes PG Care Time/CCT Total # of Minutes Spent Total Time Spent with Patient: Total time spent is greater than 50% in coordination of care (as documented) at patient's floor/unit and/or counseling patient: Coding Level of Care Code 25031 Initial Inpt Care Lvl 3 Diagnoses Large bowel obstruction K56.609 Hypertension I10 Hypertension type: unspecified Hypothyroidism E03.9 Hypothyroidism type: unspecified Ischemic cardiomyopathy I25.5 Asthma J45.909 Asthma complication type: unspecified Asthma persistence: unspecified Asthma severity: unspecified severity CAD, multiple vessel I25.10 Elevated troponin R77.8 (1) Hypothyroidism Hypothyroidism type: unspecified Qualified Code(s): E03.9 - Hypothyroidism, unspecified (2) Hypertension Hypertension type: unspecified Qualified Code(s): I10 - Essential (primary) hypertension (3) Asthma Asthma complication type: unspecified Asthma persistence: unspecified Asthma severity: unspecified severity Qualified Code(s): J45.909 - Unspecified asthma, uncomplicated
[2020-03-27] MEDS ORDERED: MINERAL OIL 30 ML UDC ONE (19:41)
--- NOTE | 2020-03-27 20:19 | Gastrointestinal Consultation ---
Date of Consultation March 27, 2020 Assessment & Plan (1) Colonic obstruction: Emergent colonoscopy in the OR for decompression and diagnostics. History of Present Illness Reason for Consultation: colonic obstruction Requesting Physician: Dr. Arthur Attending Physician: Geovanny History of Present Illness 84 yo male with CAD who presented to the ER with complaints of worsening abd pain and no BM for 3 days. imaging concerning for sigmoid obstruction. Last colonoscopy over 10 yrs ago. No nausea or vomiting. No fevers. Labs and imaging reviewed. Allergies Allergy/AdvReac Type Severity Reaction Status Date / Time atorvastatin Allergy Mild rash Verified 10/25/19 12:04 Sulfa (Sulfonamide Allergy Mild Unverified 10/25/19 12:04 Antibiotics) sulfamethoxazole Allergy Mild Unverified 10/25/19 12:04 theophylline Allergy Mild RASH Verified 10/25/19 12:04 trimethoprim Allergy Mild Unverified 10/25/19 12:04 Home Medications Medication Instructions Recorded Confirmed Type aspirin 81 mg tablet,delayed 81 mg PO QAM tab 01/10/19 03/27/20 History release calcium carbonate 600 mg (1,500 1 tab PO BID tab 01/10/19 03/27/20 History mg)-vitamin D3 200 unit tablet multivitamin 1 tab PO DAILY 01/10/19 03/27/20 History carvedilol 25 mg tablet 25 mg PO BID #180 tab 10/24/19 03/27/20 Rx Advair Diskus 250 mcg-50 mcg/dose 1 puffs INH BID #60 ea NS 11/27/19 03/27/20 Rx powder for inhalation furosemide See Rx Instructions .ROUTE .COMPLEX 03/27/20 03/27/20 History levothyroxine 137 mcg PO QAM 03/27/20 03/27/20 History lisinopril 5 mg PO DAILY 03/27/20 03/27/20 History Patient History Medical History (Updated 03/27/20 @ 18:19 by Celestino Arthur MD) Asthma exacerbation Surgical History Cataract Hx of CABG Family History Mother Hypertension Sister Hyperlipemia Other Coronary heart disease Dementia Heart disease Myocardial infarction Social History Smoking Status: Never smoker Second Hand Exposure: No; Hx Alcohol Use: Yes Hx Substance Use: No Preferred Language: Kazakh Communication Ability: Effective Hearing Ability: Normal marital status: / Current Living Situation: Alone current occupational status: retired Feels Safe at Home: Yes Childhood Exposure to Second-Hand Smoke: No Dental Care, Regularly: Yes Seatbelt Use: always Sunscreen Use: No Review of Systems Review of Systems: All systems reviewed & are unremarkable except as noted in HPI & below Physical Exam Constitutional: WD/WN, vitals as above Eyes: PERRL, conjunctivae normal, anicteric sclerae Neck: trachea midline, no thyromegaly Respiratory: normal respiratory effort, lungs clear to auscultation Cardiovascular: RRR, no murmur, no edema Gastrointestinal (Abdomen): Inspection/Auscultation: + abdomen distended and + high-pitched sounds Percussion/Palpation: + abdomen tender Musculoskeletal: no cyanosis or clubbing, extremities motor strength 5/5 Neurologic: CN's II-XI intact bilaterally Results & Data ([facility]) Vital Signs (Past 12 Hours) Vital Signs Temp Pulse Resp BP Pulse Ox 03/27/20 18:46 59 L 22 100/53 L 03/27/20 18:30 55 L 18 03/27/20 18:00 57 L 12 03/27/20 17:52 54 L 13 03/27/20 17:51 55 L 13 95/51 L 03/27/20 16:02 52 L 24 117/58 L 03/27/20 14:51 36.7 C 71 18 132/81 97
[2020-03-27] MEDS ORDERED: fentaNYL citrate 100 MCG/2 ML VIAL IV PRN (20:21)
[2020-03-27] MEDS ORDERED: ePHEDrine sulfate 50 MG/ML AMP IV PRN (20:21)
[2020-03-27] MEDS ORDERED: ATROPINE SULFATE 0.1 MG/ML 10ML SYR IV PRN (20:21)
[2020-03-27] MEDS ORDERED: ONDANSETRON INJ 2 MG/ML 2 ML VIAL IV PRN ×2 (20:21→22:10)
--- NOTE | 2020-03-27 20:21 | Anesthesiology Consultation ---
Date of Service March 27, 2020 Assessment & Plan (1) Encounter for pre-operative examination: Chart Review Chart Review: Acceptable Risk for Surgery and Patient NOT seen in Pre Admission Testing Consults Requested none ASA ASA4 Proposed Anesthesia Anesthesia Type: General Risk / Benefits Reviewed With: PT / POA / Parent / Guardian, Accepts Plan and Informed Consent Obtained History Surgery Operation Date: 03/27/20 20:00 Proposed Procedures p Colonoscopy(Not Applicable) - Ofe Small, DO Height/Weight Height: 5 ft 9 in Weight: 51 kg Allergies Allergy/AdvReac Type Severity Reaction Status Date / Time atorvastatin Allergy Mild rash Verified 10/25/19 12:04 Sulfa (Sulfonamide Allergy Mild Unverified 10/25/19 12:04 Antibiotics) sulfamethoxazole Allergy Mild Unverified 10/25/19 12:04 theophylline Allergy Mild RASH Verified 10/25/19 12:04 trimethoprim Allergy Mild Unverified 10/25/19 12:04 Medications Home Medications Medication Instructions Recorded Confirmed Last Taken aspirin 81 mg tablet,delayed 81 mg PO QAM tab 01/10/19 03/27/20 Unknown release calcium carbonate 600 mg (1,500 1 tab PO BID tab 01/10/19 03/27/20 Unknown mg)-vitamin D3 200 unit tablet multivitamin 1 tab PO DAILY 01/10/19 03/27/20 Unknown carvedilol 25 mg tablet 25 mg PO BID #180 tab 10/24/19 03/27/20 Unknown Advair Diskus 250 mcg-50 mcg/dose 1 puffs INH BID #60 ea NS 11/27/19 03/27/20 Unknown powder for inhalation furosemide See Rx Instructions .ROUTE .COMPLEX 03/27/20 03/27/20 Unknown levothyroxine 137 mcg PO QAM 03/27/20 03/27/20 Unknown lisinopril 5 mg PO DAILY 03/27/20 03/27/20 Unknown Past Medical History Medical History (Updated 03/27/20 @ 20:20 by Perez Snow MD) Asthma exacerbation Exercise / Class Metabolic Activity II 4-5 Yardwork/Stairs/Walk up hill Past Family History Family History Mother Hypertension Sister Hyperlipemia Other Coronary heart disease Dementia Heart disease Myocardial infarction Past Surgical History Surgical History Cataract Hx of CABG Past Anesthesia History No Hx of Anesthesia Complications and No Family Hx of Anesthesia Complications History of PONV No Hx of PONV and No Hx of Motion Sickness Social History Smoking Status: Never smoker Hx Alcohol Use: Yes Hx Substance Use: No Physical Exam Vital Signs Last Vital Signs Temp 36.7 C 03/27/20 14:51 Pulse 59 L 03/27/20 18:46 Resp 22 03/27/20 18:46 BP 100/53 L 03/27/20 18:46 Pulse Ox 97 03/27/20 14:51 ENMT Mouth: no dentition abnormality Thyromental Distance: > or= 3.5 Finger Breadths Mallampati Class: II Neck normal visual inspection Respiratory normal respiratory effort Auscultation: lungs clear to auscultation bilaterally Cardiovascular Rate/Rhythm: regular rate and regular rhythm Psychiatric Orientation: alert Testing Laboratory Results 03/27/20 15:47 03/27/20 15:47
[2020-03-27] MEDS ORDERED: PROPOFOL IV EMULSION 10 MG/ML 20 ML VIAL IV ONE (20:28)
[2020-03-27] MEDS ORDERED: fentaNYL citrate 100 MCG/2 ML VIAL ONE (20:28)
[2020-03-27] MEDS ORDERED: LIDOCAINE HCL 2% 2 ML VIAL/AMP(20MG/ML) INFIL ONE (20:28)
[2020-03-27] MEDS ORDERED: ONDANSETRON INJ 2 MG/ML 2 ML VIAL ONE (21:06)
[2020-03-27] MEDS ORDERED: SUCCINYLCHOLINE 100MG/5ML SYR IV ONE (21:06)
--- NOTE | 2020-03-27 21:07 | GI REPORT ---
Patient Name: Jose Leo Procedure Date: 03/27/2020 8:06 PM Date of : 1935 Admit Type: Emergency Department Age: 84 Gender: Male Attending MD: Ofe Small DO Procedure: Colonoscopy Providers: Ofe Small DO Referring MD: Colten Kunz Md Indications: Abnormal CT of the GI tract, Suspected colonic obstruction Medicines: Propofol per Anesthesia Complications: No immediate complications. Estimated blood loss: None. Estimated Blood Loss: Estimated blood loss: none. Procedure: Pre-Anesthesia Assessment: - Prior to the procedure, a History and Physical was performed, and patient medications, allergies and sensitivities were reviewed. The patient's tolerance of previous anesthesia was reviewed. - The risks and benefits of the procedure and the sedation options and risks were discussed with the patient. All questions were answered and informed consent was obtained. - Patient identification and proposed procedure were verified prior to the procedure by the physician and the nurse. The procedure was verified in the pre-procedure area in the procedure room. - Mental Status Examination: alert and oriented. Airway Examination: normal oropharyngeal airway and neck mobility. Respiratory Examination: clear to auscultation. CV Examination: normal. Abdominal Examination: bowel sounds present, abdomen soft and non-tender, no masses or organomegaly noted. - ASA Grade Assessment: E - Emergency. After I obtained informed consent, the scope was passed under direct vision. Throughout the procedure, the patient's blood pressure, pulse, and oxygen saturations were monitored continuously. The Colonoscope was introduced through the anus and advanced to the splenic flexure to examine a stricture. This was the intended extent. The colonoscopy was performed without difficulty. The patient tolerated the procedure well. The quality of the bowel preparation was inadequate. Findings: The perianal and digital rectal examinations were normal. Pertinent negatives include normal sphincter tone and no palpable rectal lesions. Extensive amounts of liquid semi-liquid semi-solid solid stool was found in the entire colon, making visualization difficult. A colonic decompression tube was placed. Multiple small and large-mouthed diverticula were found in the sigmoid colon. A benign-appearing, intrinsic moderate stenosis was found in the sigmoid colon and was traversed. Impression: - Preparation of the colon was inadequate. - Stool in the entire examined colon. - Diverticulosis in the sigmoid colon. - Edematous sigmoid colon with transition point then dilation colon. Air and copious stool aspirated and removed. Decompression tube placed. Recommendation: - Leave decompression tube in place - [facility] patient [facility] for [facility] care. Ofe Small D.O. Ofe Small, 03/27/2020 9:07:01 PM This report has been signed electronically. Note Initiated On: 03/27/2020 8:06 PM Number of Addenda: 0 I attest to the content of the Intraoperative Record and orders documented therein, exceptions below {[id number]}
--- NOTE | 2020-03-27 21:24 | Anesthesiology Progress Note ---
Date of Service March 27, 2020 Anesthesia Post Procedure Vital Signs Vital Signs: Temp Pulse Resp BP Pulse Ox 03/27/20 18:46 59 L 22 100/53 L 03/27/20 18:30 55 L 18 03/27/20 18:00 57 L 12 03/27/20 17:52 54 L 13 03/27/20 17:51 55 L 13 95/51 L 03/27/20 16:02 52 L 24 117/58 L 03/27/20 14:51 36.7 C 71 18 132/81 97 Transfer of Care Handoff Completed per policy Notes Mental Status: alert / awake / arousable Patient Amnestic to Procedure: Yes Nausea / Vomiting: adequately controlled Pain: adequately controlled Airway Patency, RR, SpO2: stable & adequate BP & HR: stable & adequate Hydration State: stable & adequate Anesthetic Complications: no major complications apparent
[2020-03-27] MEDS: PIPERACILLIN/TAZOBACTAM 3.375 GM in DEXTROSE 5% 100 ML IV SCH (23:12)
[2020-03-27] MEDS: carvediloL 25 MG TAB PO SCH (23:12)
[2020-03-28 00:34] LABS: Magnesium 2.8 mg/dl (1.8-2.4); Phosphorus 3.5 mg/dl (2.5-4.9); Troponin I 0.065 ng/ml (0-0.045)
[2020-03-28 00:47] LABS: Appearance Urine Cloudy (Clear); Bacteria Urine Automated 3+ (Negative); Bilirubin Urine Negative (Negative); Blood Urine 1+ (Negative); Color Urine Yellow; Epithelial Cell Urine Auto 0-5 /lpf (0-5); Glucose Urine UA Negative (Negative); Ketones Urine 1+ (Negative); Leukocyte Esterase Urine 1+ (Negative); Nitrite Urine Positive (Negative); Protein Urine 1+ (Negative); Specific Gravity Urine 1.027 (1.000-1.030); Urobilinogen Urine Negative (Negative); WBC Urine Automated >30 /hpf (0-5)
[2020-03-28 01:21] LABS: RBC Urine Automated 0-4 /hpf (0-4)
[2020-03-28] MEDS ORDERED: ALBUTEROL 0.083% NEBU SOLN 3 ML VIAL NEB ONE (05:30)
[2020-03-28] MEDS ORDERED: BUDESONIDE 0.25 MG/2 ML VIAL (PULMICORT) NEB ONE (05:30)
[2020-03-28] MEDS: LEVOTHYROXINE SODIUM 137 MCG TABLET PO SCH (06:07)
[2020-03-28 07:01] LABS: Thyroid Stimulating Hormone 0.107 uIu/ml (0.300-4.500); Troponin I 0.072 ng/ml (0-0.045)
[2020-03-28] MEDS: PIPERACILLIN/TAZOBACTAM 3.375 GM in DEXTROSE 5% 100 ML IV SCH ×3 (08:10→23:11)
--- NOTE | 2020-03-28 08:11 | Hospitalist Progress Note ---
Date of Service March 28, 2020 Assessment & Plan (1) Large bowel obstruction: Patient with large bowel obstruction, stercolic colitis with bowel wall thickening. GI consulted -- * s/p emergent decompression in OR with GI -- edema and possibly related to stricture from possible old diverticulosis (noted on c-scope 2004 but patient unaware of this diagnosis in the past) * Rectal tube in place * Plans for miralax via rectal tube, however patient with large BM this afternoon and rectal tube discontinued * Continue PO miralax BID * Gentle hydration with NSS @80cc/hr for total 500cc (patient with ICM with EF 20-25%) * WBC 11.0K, H/h 10.5/32.6 likely some dilutional from IVF. Cr stable 1.78, up from yesterday but appears around baseline (prior values 1.5-1.84 since May 2017) * Monitor CBC, BMP on AM labs Has been sinus arrhythmia with PACs in the 50s overnight on telemetry Currently 60s with PACs (2) Hypertension: * Chronic. BP low in ER * BP currently 123/62 * Will hold lisinopril 5mg for today as patient NPO, but plan for resuming tomorrow as patient with ICM with ED 20-25% and would like to avoid any CHF exacerbation as patient on IVF today as well. (Of note, dry weight 115 and is 115.9lb currently) * Continue carvedilol 25mg BID * Continue to monitor (3) Hypothyroidism: * Chronic. TSH low at 0.107 (previously low on previous 2 lab draws), but FT4 wnl -- recommend repeat outpatient TFT in 6 weeks with PCP * Continue Synthroid 137mcg daily (4) Ischemic cardiomyopathy: * Patient appears dry on exam and will provide gentle hydration with NSS @80cc/hr for total 500cc * Continue carvedilol 25mg BID. Lisinopril 5mg on hold for today but plans for resuming in AM 12/ * Continue to monitor on telemetry (5) Asthma: * Chronic. Stable * Continue Advair * 94% on RA * Continue to monitor (6) CAD, multiple vessel: * Chronic. GREYSON, 1995. * EKG with deep TW inversions. He denies chest pain. Patient with elevated troponin, likely demand as it peaked at 0.072 and trended back down on repeat 0.062 * Follows with Dr. Barbosa locally * Resume ASA, lisinopril in AM. Continue carvedilol BID as above * Continue to monitor on telemetry (7) Elevated troponin: * Patient denies chest pain * See above under CAD * Will hold off on cardiology consult at this time Of note, elevated WBC could be related to LBO, however urine does look like he may have cystitis as he denies any urinary symptoms. 1+ protein, ketone, blood, nitrite, leuk esterase. >30WBC, 10-30 hyaline case. 3+ bacteria. Unasyn should be adequate but will need to follow culture -- pending currently Dispo: repeat KUB in AM Admission and Anticipated Discharge Date Admission Date: March 27, 2020 Subjective Patient evaluated this morning. Pain 10/02 currently (reportedly controlled) compared to 02/01 yesterday prior to emergent colonoscopy. No further nausea or vomiting, just pain. Asking when rectal tube can be discontinued. Discussed will depend on output but possibly later today vs tomorrow and will obtain repeat imaging. No fever, chills, chest pain, shortness of breath, nausea, vomiting, or dysuria or other urinary symptoms reported. Review of Systems Review of Systems: All systems reviewed & are unremarkable except as noted in HPI & below Physical Exam Constitutional: + thin, + cachectic and cooperative; no acute distress Eyes: PERRL, conjunctivae normal, anicteric sclerae ENMT: Mallampati Class: II dry mm Neck: trachea midline, no thyromegaly normal visual inspection and trachea midline Respiratory: normal respiratory effort; no respiratory distress and no labored breathing Auscultation: lungs clear to auscultation bilaterally and + diminished lung sounds Cardiovascular: Rate/Rhythm: regular rate and regular rhythm Heart Sounds: + murmur (systolic, 3/6 ejection murmur LUSB) Vessels: no JVD Extremities: no edema Gastrointestinal (Abdomen): Inspection/Auscultation: + abdomen distended and + high-pitched sounds Percussion/Palpation: + abdomen tender (improved from yesterday) and abdomen soft; no guarding and abdomen not rigid rectal tube with smear in bag, minimal in tubing Musculoskeletal: no cyanosis or clubbing, extremities motor strength 5/5 Skin: no rashes, warm and dry Neurologic: CN's II-XI intact bilaterally and awake Psychiatric: Orientation: alert and oriented x 3 Results & Data Results & Data ([facility]) Vital Signs (Past 12 Hours) Vital Signs Temp Pulse Pulse Resp BP BP Pulse Ox 03/28/20 07:47 36.8 C 64 19 120/60 96 03/28/20 05:59 78 16 94 03/28/20 03:02 37.1 C 56 L 18 122/60 96 03/28/20 01:58 37.1 C 53 L 18 118/49 L 95 03/28/20 00:56 37.2 C 52 L 18 127/46 L 95 03/28/20 00:36 67 03/28/20 00:01 37.1 C 54 L 18 118/57 L 95 03/27/20 23:00 36.9 C 52 L 18 143/62 H 96 03/27/20 22:30 36.9 C 50 L 18 130/55 L 98 03/27/20 22:00 37.0 C 51 L 18 135/51 L 96 03/27/20 21:40 36.6 C 59 L 18 120/60 94 03/27/20 21:30 68 18 116/63 99 03/27/20 21:20 59 L 18 136/61 99 03/27/20 21:10 36.6 C 69 18 135/65 99 Laboratory Results 03/28/20 03/28/20 03/28/20 Range/Units 07:00 06:05 06:05 WBC (4.8-10.8) K/uL RBC (4.7-6.1) M/uL Hgb (14.0-18.0) g/dL Hct (42-52) % MCV (80-100) fL MCH (25-34) pg MCHC (32-36) g/dL RDW Std Deviation (36.4-46.3) fL RDW Coeff of Ayaz (11.5-14.5) % Plt Count (130-400) K/uL MPV (7.4-10.4) fL Immature Gran % (Auto) % Neut % (Auto) % Lymph % (Auto) % [place] % (Auto) % Eos % (Auto) % Baso % (Auto) % Neut # (Auto) (1.4-6.5) K/uL Lymph # (Auto) (1.2-3.4) K/uL [place] # (Auto) (0.11-0.59) K/uL Eos # (Auto) (0-0.5) K/uL Baso # (Auto) (0-0.2) K/uL Immature Gran # (Auto) (0.00-0.02) K/uL Sodium (136-145) mmol/L Potassium (3.5-5.1) mmol/L Chloride (98-107) mmol/L Carbon Dioxide (21-32) mmol/L Anion Gap (3-11) BUN (7-18) mg/dl Creatinine (0.6-1.4) mg/dl Est Cr Clr Drug Dosing ml/min Est GFR ( Amer) Est GFR (Non-Af Amer) BUN/Creatinine Ratio (10-20) Glucose (70-99) mg/dl POC Glucose 113 H (70-99) mg/dl Lactate (0.4-2.0) mmol/L Calcium (8.5-10.1) mg/dl Phosphorus (2.5-4.9) mg/dl Magnesium (1.8-2.4) mg/dl Total Bilirubin (0.2-1) mg/dl AST (15-37) U/L ALT (12-78) U/L Alkaline Phosphatase (45-117) U/L Troponin I 0.072 H* (0-0.045) ng/ml Total Protein (6.4-8.2) gm/dl Albumin (3.4-5.0) gm/dl Globulin (2.5-4.0) gm/dl Albumin/Globulin Ratio (0.9-2) Lipase (73-393) U/L TSH 0.107 L Cancelled Urine Color Urine Appearance (Clear) Urine pH (4.5-7.5) Ur Specific [place] (1.000-1.030) Urine Protein (Negative) Urine Glucose (UA) (Negative) Urine Ketones (Negative) Urine Blood (Negative) Urine Nitrite (Negative) Urine Bilirubin (Negative) Urine Urobilinogen (Negative) Ur Leukocyte Esterase (Negative) Urine WBC (Auto) (0-5) /hpf Urine RBC (Auto) (0-4) /hpf U Hyaline Cast (Auto) (0-5) /lpf U Epithel Cells (Auto) (0-5) /lpf Urine Bacteria (Auto) (Negative) SARS-CoV-2 Ag (Rapid) (Negative) Blood Type Antibody Screen 03/28/20 03/28/20 03/27/20 Range/Units 00:25 00:00 22:45 WBC (4.8-10.8) K/uL RBC (4.7-6.1) M/uL Hgb (14.0-18.0) g/dL Hct (42-52) % MCV (80-100) fL MCH (25-34) pg MCHC (32-36) g/dL RDW Std Deviation (36.4-46.3) fL RDW Coeff of Ayaz (11.5-14.5) % Plt Count (130-400) K/uL MPV (7.4-10.4) fL Immature Gran % (Auto) % Neut % (Auto) % Lymph % (Auto) % [place] % (Auto) % Eos % (Auto) % Baso % (Auto) % Neut # (Auto) (1.4-6.5) K/uL Lymph # (Auto) (1.2-3.4) K/uL [place] # (Auto) (0.11-0.59) K/uL Eos # (Auto) (0-0.5) K/uL Baso # (Auto) (0-0.2) K/uL Immature Gran # (Auto) (0.00-0.02) K/uL Sodium (136-145) mmol/L Potassium (3.5-5.1) mmol/L Chloride (98-107) mmol/L Carbon Dioxide (21-32) mmol/L Anion Gap (3-11) BUN (7-18) mg/dl Creatinine (0.6-1.4) mg/dl Est Cr Clr Drug Dosing ml/min Est GFR ( Amer) Est GFR (Non-Af Amer) BUN/Creatinine Ratio (10-20) Glucose (70-99) mg/dl POC Glucose 132 H (70-99) mg/dl Lactate (0.4-2.0) mmol/L Calcium (8.5-10.1) mg/dl Phosphorus 3.5 (2.5-4.9) mg/dl Magnesium 2.8 H (1.8-2.4) mg/dl Total Bilirubin (0.2-1) mg/dl AST (15-37) U/L ALT (12-78) U/L Alkaline Phosphatase (45-117) U/L Troponin I 0.065 H* (0-0.045) ng/ml Total Protein (6.4-8.2) gm/dl Albumin (3.4-5.0) gm/dl Globulin (2.5-4.0) gm/dl Albumin/Globulin Ratio (0.9-2) Lipase (73-393) U/L TSH Urine Color Yellow Urine Appearance Cloudy A (Clear) Urine pH 5.0 (4.5-7.5) Ur Specific [place] 1.027 (1.000-1.030) Urine Protein 1+ H (Negative) Urine Glucose (UA) Negative (Negative) Urine Ketones 1+ H (Negative) Urine Blood 1+ H (Negative) Urine Nitrite Positive A (Negative) Urine Bilirubin Negative (Negative) Urine Urobilinogen Negative (Negative) Ur Leukocyte Esterase 1+ H (Negative) Urine WBC (Auto) >30 H (0-5) /hpf Urine RBC (Auto) 0-4 (0-4) /hpf U Hyaline Cast (Auto) 10-30 H (0-5) /lpf U Epithel Cells (Auto) 0-5 (0-5) /lpf Urine Bacteria (Auto) 3+ H (Negative) SARS-CoV-2 Ag (Rapid) (Negative) Blood Type Antibody Screen 03/27/20 03/27/20 03/27/20 Range/Units 22:45 22:45 18:49 WBC (4.8-10.8) K/uL RBC (4.7-6.1) M/uL Hgb (14.0-18.0) g/dL Hct (42-52) % MCV (80-100) fL MCH (25-34) pg MCHC (32-36) g/dL RDW Std Deviation (36.4-46.3) fL RDW Coeff of Ayaz (11.5-14.5) % Plt Count (130-400) K/uL MPV (7.4-10.4) fL Immature Gran % (Auto) % Neut % (Auto) % Lymph % (Auto) % [place] % (Auto) % Eos % (Auto) % Baso % (Auto) % Neut # (Auto) (1.4-6.5) K/uL Lymph # (Auto) (1.2-3.4) K/uL [place] # (Auto) (0.11-0.59) K/uL Eos # (Auto) (0-0.5) K/uL Baso # (Auto) (0-0.2) K/uL Immature Gran # (Auto) (0.00-0.02) K/uL Sodium (136-145) mmol/L Potassium (3.5-5.1) mmol/L Chloride (98-107) mmol/L Carbon Dioxide (21-32) mmol/L Anion Gap (3-11) BUN (7-18) mg/dl Creatinine (0.6-1.4) mg/dl Est Cr Clr Drug Dosing ml/min Est GFR ( Amer) Est GFR (Non-Af Amer) BUN/Creatinine Ratio (10-20) Glucose (70-99) mg/dl POC Glucose (70-99) mg/dl Lactate 1.9 (0.4-2.0) mmol/L Calcium (8.5-10.1) mg/dl Phosphorus (2.5-4.9) mg/dl Magnesium (1.8-2.4) mg/dl Total Bilirubin (0.2-1) mg/dl AST (15-37) U/L ALT (12-78) U/L Alkaline Phosphatase (45-117) U/L Troponin I (0-0.045) ng/ml Total Protein (6.4-8.2) gm/dl Albumin (3.4-5.0) gm/dl Globulin (2.5-4.0) gm/dl Albumin/Globulin Ratio (0.9-2) Lipase (73-393) U/L TSH Urine Color Urine Appearance (Clear) Urine pH (4.5-7.5) Ur Specific [place] (1.000-1.030) Urine Protein (Negative) Urine Glucose (UA) (Negative) Urine Ketones (Negative) Urine Blood (Negative) Urine Nitrite (Negative) Urine Bilirubin (Negative) Urine Urobilinogen (Negative) Ur Leukocyte Esterase (Negative) Urine WBC (Auto) (0-5) /hpf Urine RBC (Auto) (0-4) /hpf U Hyaline Cast (Auto) (0-5) /lpf U Epithel Cells (Auto) (0-5) /lpf Urine Bacteria (Auto) (Negative) SARS-CoV-2 Ag (Rapid) Negative (Negative) Blood Type A Negative Antibody Screen NEGATIVE 03/27/20 03/27/20 Range/Units 15:47 15:47 WBC 11.50 H (4.8-10.8) K/uL RBC 3.86 L (4.7-6.1) M/uL Hgb 11.7 L (14.0-18.0) g/dL Hct 35.9 L (42-52) % MCV 93.0 (80-100) fL MCH 30.3 (25-34) pg MCHC 32.6 (32-36) g/dL RDW Std Deviation 56.8 H (36.4-46.3) fL RDW Coeff of Ayaz 16.5 H (11.5-14.5) % Plt Count 234 (130-400) K/uL MPV 10.2 (7.4-10.4) fL Immature Gran % (Auto) 0.2 % Neut % (Auto) 93.3 % Lymph % (Auto) 6.1 % [place] % (Auto) 0.2 % Eos % (Auto) 0.0 % Baso % (Auto) 0.2 % Neut # (Auto) 10.74 H (1.4-6.5) K/uL Lymph # (Auto) 0.70 L (1.2-3.4) K/uL [place] # (Auto) 0.02 L (0.11-0.59) K/uL Eos # (Auto) 0.00 (0-0.5) K/uL Baso # (Auto) 0.02 (0-0.2) K/uL Immature Gran # (Auto) 0.02 (0.00-0.02) K/uL Sodium 141 (136-145) mmol/L Potassium 3.7 (3.5-5.1) mmol/L Chloride 103 (98-107) mmol/L Carbon Dioxide 29 (21-32) mmol/L Anion Gap 9.0 (3-11) BUN 40 H (7-18) mg/dl Creatinine 1.59 H (0.6-1.4) mg/dl Est Cr Clr Drug Dosing 24.1 ml/min Est GFR ( Amer) 44.9 Est GFR (Non-Af Amer) 38.7 BUN/Creatinine Ratio 25.3 H (10-20) Glucose 147 H (70-99) mg/dl POC Glucose (70-99) mg/dl Lactate (0.4-2.0) mmol/L Calcium 8.9 (8.5-10.1) mg/dl Phosphorus (2.5-4.9) mg/dl Magnesium (1.8-2.4) mg/dl Total Bilirubin 0.7 (0.2-1) mg/dl AST 11 L (15-37) U/L ALT 14 (12-78) U/L Alkaline Phosphatase 53 (45-117) U/L Troponin I 0.049 H* (0-0.045) ng/ml Total Protein 7.7 (6.4-8.2) gm/dl Albumin 3.1 L (3.4-5.0) gm/dl Globulin 4.6 H (2.5-4.0) gm/dl Albumin/Globulin Ratio 0.7 L (0.9-2) Lipase 76 (73-393) U/L TSH Urine Color Urine Appearance (Clear) Urine pH (4.5-7.5) Ur Specific [place] (1.000-1.030) Urine Protein (Negative) Urine Glucose (UA) (Negative) Urine Ketones (Negative) Urine Blood (Negative) Urine Nitrite (Negative) Urine Bilirubin (Negative) Urine Urobilinogen (Negative) Ur Leukocyte Esterase (Negative) Urine WBC (Auto) (0-5) /hpf Urine RBC (Auto) (0-4) /hpf U Hyaline Cast (Auto) (0-5) /lpf U Epithel Cells (Auto) (0-5) /lpf Urine Bacteria (Auto) (Negative) SARS-CoV-2 Ag (Rapid) (Negative) Blood Type Antibody Screen Diagnostic Findings CT SCAN OF THE ABDOMEN AND PELVIS WITHOUT IV CONTRAST CLINICAL HISTORY: Abdominal distention. COMPARISON STUDY: Abdominal CT dated 05/08/2013. TECHNIQUE: CT scan of the abdomen and pelvis is performed from the lung bases to the proximal femora. Images are reviewed in the axial, sagittal, and coronal planes. IV contrast was not administered for this examination. Note that the examination is suboptimal without oral and IV contrast. There is also motion ar tifact. A dose lowering technique was utilized adhering to the principles of ALARA. FINDINGS: Lung bases: The heart is enlarged and without pericardial effusion. There is trace right pleural effusion. The lung bases are otherwise clear noting bibasilar scarring/atelectasis. A small hiatal hernia is noted. Liver: The unenhanced liver is normal in size, contour, and attenuation. There is no intrahepatic biliary ductal dilatation. Scattered hepatic cysts are unchanged from 2014 and measure up to 1.4 cm. A calcified granuloma is noted in the left lobe. Gallbladder: Unremarkable. Spleen: Normal in size and attenuation. Pancreas: The unenhanced pancreas is moderately atrophic and grossly unremarkable.Adrenal glands: Unremarkable. Kidneys: The unenhanced kidneys are atrophic and without hydronephrosis. There are no renal calculi identified. There is no evidence of contour deforming renal mass lesion. Abdominal vasculature: There is advanced atherosclerotic calcification and mild ectasia of the abdominal aorta. Bowel: The colon is markedly distended, filled with gas and stool. The cecum measures up to 9 cm in diameter. There is a transition point identified in the proximal sigmoid colon on image #[id number] and the appearance is consistent with a colonic obstruction. The small bowel loops are normal in caliber. There is mild diverticulosis of the colon without CT evidence of acute diverticulitis. Wall thickening of the colon with pericolonic infiltration suggests stercoral colitis. The appendix is not clearly visualized. Peritoneum: There is no intraperitoneal free air or abdominal ascites. Lymphadenopathy: None. Pelvic viscera: The prostate gland is markedly enlarged and heterogeneous noting median lobe hypertrophy. The bladder wall is thickened and trabeculated indicating chronic outlet obstruction. There are bilateral inguinal hernias. The hernia on the right contains a small segment of bowel. Skeletal structures: The skeletal structures are osteopenic. There are chronic appearing supra compression deformities of T12, L2, and L4. No lytic or blastic lesions are seen. Soft tissues: The patient is cachectic. IMPRESSION: 1. Findings are consistent with a distal colonic obstruction at the level of the sigmoid colon. 2. An abrupt transition point in the sigmoid colon could represent stricture or possibly mass lesion. GI follow-up is recommended. 3. Wall thickening of the colon with pericolonic infiltration suggests stercoral colitis. 4. The small bowel loops are normal in caliber. 5. There is no intraperitoneal free air or abdominal ascites. 6. A right inguinal hernia contains a nonobstructed segment of small bowel. 7. Cardiomegaly and trace right pleural effusion. 8. Additional findings as above. CXR 03/27 IMPRESSION: 1. No active disease in the chest 2. No evidence of free intraperitoneal air 3. Gaseous distention of the visualized bowel KUB 03/28 IMPRESSION: 1. Interval placement of a colonic tube 2. Mild gaseous distention of the colon. The cecum measures 11 cm PG Care Time/CCT Total # of Minutes Spent Total Time Spent with Patient: Total time spent is greater than 50% in coordination of care (as documented) at patient's floor/unit and/or counseling patient: Coding Level of Care Code 67116 Subseq Hosp Care Lvl 2 Diagnoses Large bowel obstruction K56.609 Hypertension I10 Hypertension type: unspecified Hypothyroidism E03.9 Hypothyroidism type: unspecified Ischemic cardiomyopathy I25.5 Asthma J45.909 Asthma severity: unspecified severity Asthma persistence: unspecified Asthma complication type: unspecified CAD, multiple vessel I25.10 Elevated troponin R77.8 (1) Hypertension Hypertension type: unspecified Qualified Code(s): I10 - Essential (primary) hypertension (2) Hypothyroidism Hypothyroidism type: unspecified Qualified Code(s): E03.9 - Hypothyroidism, unspecified (3) Asthma Asthma severity: unspecified severity Asthma persistence: unspecified Asthma complication type: unspecified Qualified Code(s): J45.909 - Unspecified asthma, uncomplicated
[2020-03-28] MEDS: carvediloL 25 MG TAB PO SCH ×2 (08:13→20:24)
[2020-03-28] MEDS: FLUTICASONE/VILANTEROL 200/25MCG 14 PUFFS/INHALER INH SCH (08:14)
--- NOTE | 2020-03-28 08:32 | Gastroenterology Progress Note ---
Date of Service March 28, 2020 Assessment & Plan (1) Large bowel obstruction: 84 year old male admitted w/ abd pain, distention, constipation, CTAP w/ large bowel obstruction S/P decompression in OR with GI w/ evidence of edema but no mass/lesion appreciated - Appreciate general surgery consultation - ANDREW this AM - Gentle hydration and electrolyte repletion - Gentle bowel regimen w/ miralax flush up rectal tube when present and miralax 1 capful twice daily PO - Will follow. Admission and Anticipated Discharge Date Admission Date: March 27, 2020 Supervising Physician Co-Signing Physician Notes Abdomen soft nt nd +bs Feels like he could pass a bowel movement. Trial of miralax flushes today - would attempt to keep tube in and see how he does. Agree with further plan of care as per Liliana's plan of care. Subjective S/P colon for decompression No obvious mass or lesion but inflammation Able to pass scope Tube placed No black or bloody stools No report of prior blood work Last colon 2004 w/ sigmoid diverticulosis Review of Systems Constitutional: no fever, no chills and no fatigue Respiratory: no cough and no dyspnea Cardiovascular: no chest pain and no dyspnea Physical Exam Constitutional: no acute distress Neck: trachea midline Gastrointestinal (Abdomen): Percussion/Palpation: + abdomen tender (improved from yesterday) and abdomen soft; no guarding and abdomen not rigid Results & Data ([facility]) Vital Signs (Past 12 Hours) Vital Signs Temp Pulse Pulse Resp BP BP Pulse Ox 03/28/20 07:47 36.8 C 64 19 120/60 96 03/28/20 05:59 78 16 94 03/28/20 03:02 37.1 C 56 L 18 122/60 96 03/28/20 01:58 37.1 C 53 L 18 118/49 L 95 03/28/20 00:56 37.2 C 52 L 18 127/46 L 95 03/28/20 00:36 67 03/28/20 00:01 37.1 C 54 L 18 118/57 L 95 03/27/20 23:00 36.9 C 52 L 18 143/62 H 96 03/27/20 22:30 36.9 C 50 L 18 130/55 L 98 03/27/20 22:00 37.0 C 51 L 18 135/51 L 96 03/27/20 21:40 36.6 C 59 L 18 120/60 94 03/27/20 21:30 68 18 116/63 99 03/27/20 21:20 59 L 18 136/61 99 03/27/20 21:10 36.6 C 69 18 135/65 99 Laboratory Results 03/28/20 03/28/20 03/28/20 Range/Units 07:00 06:05 06:05 WBC Pending (4.8-10.8) K/uL RBC Pending (4.7-6.1) M/uL Hgb Pending (14.0-18.0) g/dL Hct Pending (42-52) % MCV Pending (80-100) fL MCH Pending (25-34) pg MCHC Pending (32-36) g/dL RDW Std Deviation (36.4-46.3) fL RDW Coeff of Ayaz (11.5-14.5) % Plt Count Pending (130-400) K/uL MPV (7.4-10.4) fL Immature Gran % (Auto) % Neut % (Auto) % Lymph % (Auto) % Scott % (Auto) % Eos % (Auto) % Baso % (Auto) % Neut # (Auto) (1.4-6.5) K/uL Lymph # (Auto) (1.2-3.4) K/uL Scott # (Auto) (0.11-0.59) K/uL Eos # (Auto) (0-0.5) K/uL Baso # (Auto) (0-0.2) K/uL Immature Gran # (Auto) (0.00-0.02) K/uL Sodium Pending (136-145) mmol/L Potassium Pending (3.5-5.1) mmol/L Chloride Pending (98-107) mmol/L Carbon Dioxide Pending (21-32) mmol/L Anion Gap Pending (3-11) BUN Pending (7-18) mg/dl Creatinine Pending (0.6-1.4) mg/dl Est Cr Clr Drug Dosing Pending ml/min Est GFR ( Amer) Pending Est GFR (Non-Af Amer) Pending BUN/Creatinine Ratio Pending (10-20) Glucose Pending (70-99) mg/dl POC Glucose 113 H (70-99) mg/dl Lactate (0.4-2.0) mmol/L Calcium Pending (8.5-10.1) mg/dl Phosphorus Pending (2.5-4.9) mg/dl Magnesium Pending (1.8-2.4) mg/dl Total Bilirubin Pending (0.2-1) mg/dl AST Pending (15-37) U/L ALT Pending (12-78) U/L Alkaline Phosphatase Pending (45-117) U/L Troponin I (0-0.045) ng/ml Total Protein Pending (6.4-8.2) gm/dl Albumin Pending (3.4-5.0) gm/dl Globulin Pending (2.5-4.0) gm/dl Albumin/Globulin Ratio Pending (0.9-2) Lipase (73-393) U/L TSH Free T4 Pending Urine Color Urine Appearance (Clear) Urine pH (4.5-7.5) Ur Specific [place] (1.000-1.030) Urine Protein (Negative) Urine Glucose (UA) (Negative) Urine Ketones (Negative) Urine Blood (Negative) Urine Nitrite (Negative) Urine Bilirubin (Negative) Urine Urobilinogen (Negative) Ur Leukocyte Esterase (Negative) Urine WBC (Auto) (0-5) /hpf Urine RBC (Auto) (0-4) /hpf U Hyaline Cast (Auto) (0-5) /lpf U Epithel Cells (Auto) (0-5) /lpf Urine Bacteria (Auto) (Negative) SARS-CoV-2 Ag (Rapid) (Negative) Blood Type Antibody Screen 03/28/20 03/28/20 03/28/20 Range/Units 06:05 06:05 00:25 WBC (4.8-10.8) K/uL RBC (4.7-6.1) M/uL Hgb (14.0-18.0) g/dL Hct (42-52) % MCV (80-100) fL MCH (25-34) pg MCHC (32-36) g/dL RDW Std Deviation (36.4-46.3) fL RDW Coeff of Ayaz (11.5-14.5) % Plt Count (130-400) K/uL MPV (7.4-10.4) fL Immature Gran % (Auto) % Neut % (Auto) % Lymph % (Auto) % Scott % (Auto) % Eos % (Auto) % Baso % (Auto) % Neut # (Auto) (1.4-6.5) K/uL Lymph # (Auto) (1.2-3.4) K/uL Scott # (Auto) (0.11-0.59) K/uL Eos # (Auto) (0-0.5) K/uL Baso # (Auto) (0-0.2) K/uL Immature Gran # (Auto) (0.00-0.02) K/uL Sodium (136-145) mmol/L Potassium (3.5-5.1) mmol/L Chloride (98-107) mmol/L Carbon Dioxide (21-32) mmol/L Anion Gap (3-11) BUN (7-18) mg/dl Creatinine (0.6-1.4) mg/dl Est Cr Clr Drug Dosing ml/min Est GFR ( Amer) Est GFR (Non-Af Amer) BUN/Creatinine Ratio (10-20) Glucose (70-99) mg/dl POC Glucose (70-99) mg/dl Lactate (0.4-2.0) mmol/L Calcium (8.5-10.1) mg/dl Phosphorus (2.5-4.9) mg/dl Magnesium (1.8-2.4) mg/dl Total Bilirubin (0.2-1) mg/dl AST (15-37) U/L ALT (12-78) U/L Alkaline Phosphatase (45-117) U/L Troponin I 0.072 H* (0-0.045) ng/ml Total Protein (6.4-8.2) gm/dl Albumin (3.4-5.0) gm/dl Globulin (2.5-4.0) gm/dl Albumin/Globulin Ratio (0.9-2) Lipase (73-393) U/L TSH 0.107 L Cancelled Free T4 Urine Color Yellow Urine Appearance Cloudy A (Clear) Urine pH 5.0 (4.5-7.5) Ur Specific [place] 1.027 (1.000-1.030) Urine Protein 1+ H (Negative) Urine Glucose (UA) Negative (Negative) Urine Ketones 1+ H (Negative) Urine Blood 1+ H (Negative) Urine Nitrite Positive A (Negative) Urine Bilirubin Negative (Negative) Urine Urobilinogen Negative (Negative) Ur Leukocyte Esterase 1+ H (Negative) Urine WBC (Auto) >30 H (0-5) /hpf Urine RBC (Auto) 0-4 (0-4) /hpf U Hyaline Cast (Auto) 10-30 H (0-5) /lpf U Epithel Cells (Auto) 0-5 (0-5) /lpf Urine Bacteria (Auto) 3+ H (Negative) SARS-CoV-2 Ag (Rapid) (Negative) Blood Type Antibody Screen 03/28/20 03/27/20 03/27/20 Range/Units 00:00 22:45 22:45 WBC (4.8-10.8) K/uL RBC (4.7-6.1) M/uL Hgb (14.0-18.0) g/dL Hct (42-52) % MCV (80-100) fL MCH (25-34) pg MCHC (32-36) g/dL RDW Std Deviation (36.4-46.3) fL RDW Coeff of Ayaz (11.5-14.5) % Plt Count (130-400) K/uL MPV (7.4-10.4) fL Immature Gran % (Auto) % Neut % (Auto) % Lymph % (Auto) % Scott % (Auto) % Eos % (Auto) % Baso % (Auto) % Neut # (Auto) (1.4-6.5) K/uL Lymph # (Auto) (1.2-3.4) K/uL Scott # (Auto) (0.11-0.59) K/uL Eos # (Auto) (0-0.5) K/uL Baso # (Auto) (0-0.2) K/uL Immature Gran # (Auto) (0.00-0.02) K/uL Sodium (136-145) mmol/L Potassium (3.5-5.1) mmol/L Chloride (98-107) mmol/L Carbon Dioxide (21-32) mmol/L Anion Gap (3-11) BUN (7-18) mg/dl Creatinine (0.6-1.4) mg/dl Est Cr Clr Drug Dosing ml/min Est GFR ( Amer) Est GFR (Non-Af Amer) BUN/Creatinine Ratio (10-20) Glucose (70-99) mg/dl POC Glucose 132 H (70-99) mg/dl Lactate (0.4-2.0) mmol/L Calcium (8.5-10.1) mg/dl Phosphorus 3.5 (2.5-4.9) mg/dl Magnesium 2.8 H (1.8-2.4) mg/dl Total Bilirubin (0.2-1) mg/dl AST (15-37) U/L ALT (12-78) U/L Alkaline Phosphatase (45-117) U/L Troponin I 0.065 H* (0-0.045) ng/ml Total Protein (6.4-8.2) gm/dl Albumin (3.4-5.0) gm/dl Globulin (2.5-4.0) gm/dl Albumin/Globulin Ratio (0.9-2) Lipase (73-393) U/L TSH Free T4 Urine Color Urine Appearance (Clear) Urine pH (4.5-7.5) Ur Specific [place] (1.000-1.030) Urine Protein (Negative) Urine Glucose (UA) (Negative) Urine Ketones (Negative) Urine Blood (Negative) Urine Nitrite (Negative) Urine Bilirubin (Negative) Urine Urobilinogen (Negative) Ur Leukocyte Esterase (Negative) Urine WBC (Auto) (0-5) /hpf Urine RBC (Auto) (0-4) /hpf U Hyaline Cast (Auto) (0-5) /lpf U Epithel Cells (Auto) (0-5) /lpf Urine Bacteria (Auto) (Negative) SARS-CoV-2 Ag (Rapid) (Negative) Blood Type A Negative Antibody Screen NEGATIVE 03/27/20 03/27/20 03/27/20 Range/Units 22:45 18:49 15:47 WBC (4.8-10.8) K/uL RBC (4.7-6.1) M/uL Hgb (14.0-18.0) g/dL Hct (42-52) % MCV (80-100) fL MCH (25-34) pg MCHC (32-36) g/dL RDW Std Deviation (36.4-46.3) fL RDW Coeff of Ayaz (11.5-14.5) % Plt Count (130-400) K/uL MPV (7.4-10.4) fL Immature Gran % (Auto) % Neut % (Auto) % Lymph % (Auto) % Scott % (Auto) % Eos % (Auto) % Baso % (Auto) % Neut # (Auto) (1.4-6.5) K/uL Lymph # (Auto) (1.2-3.4) K/uL Scott # (Auto) (0.11-0.59) K/uL Eos # (Auto) (0-0.5) K/uL Baso # (Auto) (0-0.2) K/uL Immature Gran # (Auto) (0.00-0.02) K/uL Sodium 141 (136-145) mmol/L Potassium 3.7 (3.5-5.1) mmol/L Chloride 103 (98-107) mmol/L Carbon Dioxide 29 (21-32) mmol/L Anion Gap 9.0 (3-11) BUN 40 H (7-18) mg/dl Creatinine 1.59 H (0.6-1.4) mg/dl Est Cr Clr Drug Dosing 24.1 ml/min Est GFR ( Amer) 44.9 Est GFR (Non-Af Amer) 38.7 BUN/Creatinine Ratio 25.3 H (10-20) Glucose 147 H (70-99) mg/dl POC Glucose (70-99) mg/dl Lactate 1.9 (0.4-2.0) mmol/L Calcium 8.9 (8.5-10.1) mg/dl Phosphorus (2.5-4.9) mg/dl Magnesium (1.8-2.4) mg/dl Total Bilirubin 0.7 (0.2-1) mg/dl AST 11 L (15-37) U/L ALT 14 (12-78) U/L Alkaline Phosphatase 53 (45-117) U/L Troponin I 0.049 H* (0-0.045) ng/ml Total Protein 7.7 (6.4-8.2) gm/dl Albumin 3.1 L (3.4-5.0) gm/dl Globulin 4.6 H (2.5-4.0) gm/dl Albumin/Globulin Ratio 0.7 L (0.9-2) Lipase 76 (73-393) U/L TSH Free T4 Urine Color Urine Appearance (Clear) Urine pH (4.5-7.5) Ur Specific [place] (1.000-1.030) Urine Protein (Negative) Urine Glucose (UA) (Negative) Urine Ketones (Negative) Urine Blood (Negative) Urine Nitrite (Negative) Urine Bilirubin (Negative) Urine Urobilinogen (Negative) Ur Leukocyte Esterase (Negative) Urine WBC (Auto) (0-5) /hpf Urine RBC (Auto) (0-4) /hpf U Hyaline Cast (Auto) (0-5) /lpf U Epithel Cells (Auto) (0-5) /lpf Urine Bacteria (Auto) (Negative) SARS-CoV-2 Ag (Rapid) Negative (Negative) Blood Type Antibody Screen 03/27/20 Range/Units 15:47 WBC 11.50 H (4.8-10.8) K/uL RBC 3.86 L (4.7-6.1) M/uL Hgb 11.7 L (14.0-18.0) g/dL Hct 35.9 L (42-52) % MCV 93.0 (80-100) fL MCH 30.3 (25-34) pg MCHC 32.6 (32-36) g/dL RDW Std Deviation 56.8 H (36.4-46.3) fL RDW Coeff of Ayaz 16.5 H (11.5-14.5) % Plt Count 234 (130-400) K/uL MPV 10.2 (7.4-10.4) fL Immature Gran % (Auto) 0.2 % Neut % (Auto) 93.3 % Lymph % (Auto) 6.1 % Scott % (Auto) 0.2 % Eos % (Auto) 0.0 % Baso % (Auto) 0.2 % Neut # (Auto) 10.74 H (1.4-6.5) K/uL Lymph # (Auto) 0.70 L (1.2-3.4) K/uL Scott # (Auto) 0.02 L (0.11-0.59) K/uL Eos # (Auto) 0.00 (0-0.5) K/uL Baso # (Auto) 0.02 (0-0.2) K/uL Immature Gran # (Auto) 0.02 (0.00-0.02) K/uL Sodium (136-145) mmol/L Potassium (3.5-5.1) mmol/L Chloride (98-107) mmol/L Carbon Dioxide (21-32) mmol/L Anion Gap (3-11) BUN (7-18) mg/dl Creatinine (0.6-1.4) mg/dl Est Cr Clr Drug Dosing ml/min Est GFR ( Amer) Est GFR (Non-Af Amer) BUN/Creatinine Ratio (10-20) Glucose (70-99) mg/dl POC Glucose (70-99) mg/dl Lactate (0.4-2.0) mmol/L Calcium (8.5-10.1) mg/dl Phosphorus (2.5-4.9) mg/dl Magnesium (1.8-2.4) mg/dl Total Bilirubin (0.2-1) mg/dl AST (15-37) U/L ALT (12-78) U/L Alkaline Phosphatase (45-117) U/L Troponin I (0-0.045) ng/ml Total Protein (6.4-8.2) gm/dl Albumin (3.4-5.0) gm/dl Globulin (2.5-4.0) gm/dl Albumin/Globulin Ratio (0.9-2) Lipase (73-393) U/L TSH Free T4 Urine Color Urine Appearance (Clear) Urine pH (4.5-7.5) Ur Specific [place] (1.000-1.030) Urine Protein (Negative) Urine Glucose (UA) (Negative) Urine Ketones (Negative) Urine Blood (Negative) Urine Nitrite (Negative) Urine Bilirubin (Negative) Urine Urobilinogen (Negative) Ur Leukocyte Esterase (Negative) Urine WBC (Auto) (0-5) /hpf Urine RBC (Auto) (0-4) /hpf U Hyaline Cast (Auto) (0-5) /lpf U Epithel Cells (Auto) (0-5) /lpf Urine Bacteria (Auto) (Negative) SARS-CoV-2 Ag (Rapid) (Negative) Blood Type Antibody Screen
[2020-03-28 08:44] LABS: Albumin Level 2.8 gm/dl (3.4-5.0); Basophils # (auto) 0.02 K/uL (0-0.2); Basophils % (auto) 0.2 %; Calcium 8.5 mg/dl (8.5-10.1); Creatinine Clr Calc Pharmacy 22.2 ml/min; Eosinophils # (auto) 0.02 K/uL (0-0.5); Eosinophils % (auto) 0.2 %; Est GFR (African American) 39.2; Est GFR (Non-African American) 33.8; Hematocrit (blood only) 32.6 % (42-52); Hemoglobin 10.5 g/dL (14.0-18.0); Immature Granulocytes # (auto) 0.02 K/uL (0.00-0.02); Immature Granulocytes % (auto) 0.2 %; Lymphocytes # (auto) 0.59 K/uL (1.2-3.4); Lymphocytes % (auto) 5.4 %; Magnesium 2.9 mg/dl (1.8-2.4); Mean Corpuscular Hemoglobin 30.3 pg (25-34); Mean Corpuscular Hgb Conc 32.2 g/dL (32-36); Mean Corpuscular Volume 94.2 fL (80-100); Mean Platelet Volume 10.8 fL (7.4-10.4); Monocytes # (auto) 0.81 K/uL (0.11-0.59); Monocytes % (auto) 7.4 %; Neutrophils # (auto) 9.56 K/uL (1.4-6.5); Neutrophils % (auto) 86.6 %; Platelet Count 234 K/uL (130-400); Potassium 3.9 mmol/L (3.5-5.1); RDW Coefficient of Variation 16.8 % (11.5-14.5); RDW Standard Deviation 57.7 fL (36.4-46.3); Red Blood Count 3.46 M/uL (4.7-6.1); White Blood Count 11.02 K/uL (4.8-10.8)
[2020-03-28 08:54] LABS: Albumin Globulin Ratio 0.7 (0.9-2); Bilirubin,Total 0.7 mg/dl (0.2-1); Globulin 4.1 gm/dl (2.5-4.0); Phosphorus 2.8 mg/dl (2.5-4.9); T4 Free Thyroxine 1.41 ng/dl (0.8-1.6); Total Protein 6.9 gm/dl (6.4-8.2)
[2020-03-28] MEDS ORDERED: FLUTICASONE/SALMETEROL 250/50 (ADVAIR) 14 PUFF/1 INHALER INH SCH (09:00)
[2020-03-28] MEDS ORDERED: FLUTICASONE/VILANTEROL 200/25MCG 14 PUFFS/INHALER INH SCH (09:00)
--- NOTE | 2020-03-28 09:07 | Anesthesiology Progress Note ---
Date of Service March 28, 2020 Anesthesia Post Procedure Vital Signs Vital Signs: Temp Pulse Pulse Resp BP BP BP 03/28/20 07:47 36.8 C 64 19 120/60 03/28/20 05:59 78 16 03/28/20 03:02 37.1 C 56 L 18 122/60 03/28/20 01:58 37.1 C 53 L 18 118/49 L 03/28/20 00:56 37.2 C 52 L 18 127/46 L 03/28/20 00:36 67 03/28/20 00:01 37.1 C 54 L 18 118/57 L 03/27/20 23:00 36.9 C 52 L 18 143/62 H 03/27/20 22:30 36.9 C 50 L 18 130/55 L 03/27/20 22:00 37.0 C 51 L 18 135/51 L 03/27/20 21:40 36.6 C 59 L 18 120/60 03/27/20 21:30 68 18 116/63 03/27/20 21:20 59 L 18 136/61 03/27/20 21:10 36.6 C 69 18 135/65 03/27/20 18:46 59 L 22 100/53 L 03/27/20 18:30 55 L 18 03/27/20 18:00 57 L 12 03/27/20 17:52 54 L 13 03/27/20 17:51 55 L 13 95/51 L 03/27/20 16:02 52 L 24 117/58 L 03/27/20 14:51 36.7 C 71 18 132/81 Pulse Ox 03/28/20 07:47 96 03/28/20 05:59 94 03/28/20 03:02 96 03/28/20 01:58 95 03/28/20 00:56 95 03/28/20 00:36 03/28/20 00:01 95 03/27/20 23:00 96 03/27/20 22:30 98 03/27/20 22:00 96 03/27/20 21:40 94 03/27/20 21:30 99 03/27/20 21:20 99 03/27/20 21:10 99 03/27/20 18:46 03/27/20 18:30 03/27/20 18:00 03/27/20 17:52 03/27/20 17:51 03/27/20 16:02 03/27/20 14:51 97 Transfer of Care Handoff Completed per policy Notes Mental Status: alert / awake / arousable Patient Amnestic to Procedure: Yes Nausea / Vomiting: adequately controlled Pain: adequately controlled Airway Patency, RR, SpO2: stable & adequate BP & HR: stable & adequate Hydration State: stable & adequate Anesthetic Complications: no major complications apparent
--- NOTE | 2020-03-28 09:32 | XRay Report ---
XR KUB/Abdomen 1 view CLINICAL HISTORY: s/p colonic decompression COMPARISON STUDY: CT scan dated 04/23/2020 FINDINGS: There has been interval placement of a colonic tube. The tube loops back upon itself at the splenic flexure with the distal tip being located at the sigmoid level. There is gaseous prominence of colon. The cecum measures 11 cm IMPRESSION: 1. Interval placement of a colonic tube 2. Mild gaseous distention of the colon. The cecum measures 11 cm ACT 112: Negative or not required by law. Electronically signed by: Trenton Claros M.D. 03/28/2020 9:31 AM
--- NOTE | 2020-03-28 11:07 | Surgery Progress Note ---
Date of Service S/P colonoscopy, rectal tube insertion, pt feels better, no significant abdominal pain, less distend, no nausea, no vomiting, March 28, 2020 Assessment & Plan (1) Colonic obstruction: pt is a 84 year-old male who presents to ER with 3-4 days constipation , no passed BM, IMP: colonic obstruction Plan, the caused colonic obstruction possible, mass, inflammation, or structure? D/W GI doctor for possible sigmoidoscopy for decompress colon, hospitalist will admit pt to hospital, NPO, IV fluid, Zosyn iv treatment, repeat labs in morning, no emergent surgery indication now, may need surgery depend on GI finding, will F/U, pt agrees with the plan, i answered all questions, D/W ER attending. 03/28/2020 11:04am S/P colonoscopy, rectal tube insertion, feels better, continue treatment, IV fluid, may try miralax 17 Gm po, senior professional services consultant surgeon cover this weekend, Thanks Admission and Anticipated Discharge Date Admission Date: March 27, 2020 Subjective S/P colon for decompression No obvious mass or lesion but inflammation Able to pass scope Tube placed No black or bloody stools No report of prior blood work Last colon 2004 w/ sigmoid diverticulosis Review of Systems Constitutional: as per Subjective / HPI and + sweats Eyes: as per Subjective / HPI Ear, Nose, Mouth, Throat: as per Subjective / HPI Respiratory: as per Subjective / HPI Cardiovascular: as per Subjective / HPI Additional Comments: CAD, cardiomyopathy, HTN, ventricular tachycardia, tricuspid regurgitation, ischemic cardiomyopathy, , aneurysm of aortic arch Gastrointestinal: as per Subjective / HPI diverticulosis Genitourinary: + as per Subjective / HPI and + problem reported (elevated PSA, hematuria) Musculoskeletal: as per Subjective / HPI Integumentary: as per Subjective / HPI Neurologic: as per Subjective / HPI Psychiatric: as per Subjective / HPI depression Endocrine: as per Subjective / HPI hypothyroidism, Hematologic / Lymphatic: as per Subjective / HPI anemia Allergy / Immunological: as per Subjective / HPI Physical Exam Constitutional: WD/WN, vitals as above well developed Eyes: PERRL, conjunctivae normal, anicteric sclerae ENMT: external ear and nose normal, oropharynx normal Neck: trachea midline, no thyromegaly Respiratory: normal respiratory effort, lungs clear to auscultation normal respiratory effort Cardiovascular: RRR, no murmur, no edema Rate/Rhythm: regular rate and regular rhythm Gastrointestinal (Abdomen): normal bowel sounds, soft, nontender, no hepatosplenomegaly Percussion/Palpation: abdomen soft mild distend, BS +, rectal tube in placed. no tenderness, no rebound pain, Musculoskeletal: no cyanosis or clubbing, extremities motor strength 5/5 Skin: no rashes, warm and dry Neurologic: awake Psychiatric: Orientation: alert and oriented x 3 Results & Data ([facility]) Vital Signs (Past 12 Hours) Vital Signs Temp Pulse Pulse Resp BP BP Pulse Ox 03/28/20 08:00 63 03/28/20 07:47 36.8 C 64 19 120/60 96 03/28/20 05:59 78 16 94 03/28/20 03:02 37.1 C 56 L 18 122/60 96 03/28/20 01:58 37.1 C 53 L 18 118/49 L 95 03/28/20 00:56 37.2 C 52 L 18 127/46 L 95 03/28/20 00:36 67 03/28/20 00:01 37.1 C 54 L 18 118/57 L 95
[2020-03-28] MEDS: SODIUM CHLORIDE 0.9% 1000ML 1,000 ML IV SCH ×2 (11:10→23:11)
[2020-03-28] MEDS: POLYETHYLENE (MIRALAX) 17 GM PACK PO SCH (12:16)
[2020-03-29] MEDS: PIPERACILLIN/TAZOBACTAM 3.375 GM in DEXTROSE 5% 100 ML IV SCH ×3 (08:00→23:28)
[2020-03-29] MEDS: carvediloL 25 MG TAB PO SCH ×2 (09:00→20:39)
[2020-03-29] MEDS: FLUTICASONE/VILANTEROL 200/25MCG 14 PUFFS/INHALER INH SCH (09:00)
[2020-03-29] MEDS: ASPIRIN 81 MG ECTAB PO SCH (09:00)
[2020-03-29] MEDS: POLYETHYLENE (MIRALAX) 17 GM PACK PO SCH (09:00)
[2020-03-29] MEDS: lisinopril 5 MG TAB PO SCH (09:00)
--- NOTE | 2020-03-29 18:03 | Hospitalist Progress Note ---
Date of Service March 29, 2020 Assessment & Plan (1) Large bowel obstruction: Patient with large bowel obstruction, stercolic colitis with bowel wall thickening. General surgery consulted-- adv to clear diet today GI consulted -- * POD #2 s/p emergent decompression in OR with GI on 03/27 -- edema and possibly related to stricture from possible old diverticulosis (noted on c-scope 2004 but patient unaware of this diagnosis in the past) * Rectal tube in place * Plans for miralax via rectal tube, however patient with large BM this afternoon and rectal tube discontinued * Continue PO miralax BID * Clear liquid diet * D/C IVF now that patient with PO intake (Hx ICM with EF 20-25%) * WBC 11.0K, H/h 10.5/32.6 likely some dilutional from IVF. Cr stable 1.78, up from yesterday but appears around baseline (prior values 1.5-1.84 since May 2017) * Monitor CBC, BMP on AM labs -- had not been drawn this morning. Added to system and will monitor, replace electrolytes as needed. (2) Hypertension: * Chronic. BP low in ER * BP currently 117/65 * Resumed lisinopril 5mg this morning as patient with ICM with ED 20-25% and would like to avoid any CHF exacerbation as patient on IVF today as well. (Of note, dry weight 115 and is 115.9lb currently) * Continue carvedilol 25mg BID * Continue to monitor (3) Hypothyroidism: * Chronic. TSH low at 0.107 (previously low on previous 2 lab draws), but FT4 wnl -- recommend repeat outpatient TFT in 6 weeks with PCP * Continue Synthroid 137mcg daily (4) Ischemic cardiomyopathy: * Patient appears dry on exam and will provide gentle hydration with NSS @80cc/hr for total 500cc * Continue carvedilol 25mg BID. Lisinopril 5mg * Continue to monitor on telemetry (5) Asthma: * Chronic. Stable * Continue Advair * 94% on RA * Continue to monitor (6) CAD, multiple vessel: * Chronic. GREYSON, 1995. * EKG with deep TW inversions. He denies chest pain. Patient with elevated troponin, likely demand as it peaked at 0.072 and trended back down on repeat 0.062 * Follows with Dr. Barbosa locally * Resumed ASA, lisinopril today * Continue carvedilol BID as above * Continue to monitor on telemetry (7) Elevated troponin: * Patient denies chest pain * See above under CAD * Will hold off on cardiology consult at this time Of note, elevated WBC could be related to LBO, however urine does look like he may have cystitis as he denies any urinary symptoms. 1+ protein, ketone, blood, nitrite, leuk esterase. >30WBC, 10-30 hyaline case. 3+ bacteria. Unasyn should be adequate but will need to follow culture -- pending currently Dispo: repeat KUB in AM Admission and Anticipated Discharge Date Admission Date: March 27, 2020 Subjective Patient seen this morning. Still with pain but much more comfortable now with rectal tube out. 4+ liquid BM this morning. Tolerated clear liquids for breakfast but reports broth too salty and he is to limit his salt intake given his ICM and EF 25%. Will change diet. No fever, chill, cp, sob, n/v reported. States he is making adequate urine and did have unmeasured void this morning. Review of Systems Review of Systems: All systems reviewed & are unremarkable except as noted in HPI & below Physical Exam Constitutional: WD/WN, vitals as above + thin, + cachectic and cooperative; no acute distress Eyes: PERRL, conjunctivae normal, anicteric sclerae ENMT: Mallampati Class: II Neck: trachea midline, no thyromegaly normal visual inspection and trachea midline Respiratory: normal respiratory effort; no respiratory distress and no labored breathing Auscultation: lungs clear to auscultation bilaterally and + diminished lung sounds Cardiovascular: Rate/Rhythm: regular rate and regular rhythm Heart Sounds: + murmur (systolic, 3/6 ejection murmur LUSB) Vessels: no JVD Extremities: no edema Gastrointestinal (Abdomen): Inspection/Auscultation: + abdomen distended and + high-pitched sounds Percussion/Palpation: + abdomen tender (improved from yesterday) and abdomen soft; no guarding and abdomen not rigid Musculoskeletal: no cyanosis or clubbing, extremities motor strength 5/5 Skin: no rashes, warm and dry Neurologic: CN's II-XI intact bilaterally and awake Psychiatric: Orientation: alert and oriented x 3 PG Care Time/CCT Total # of Minutes Spent Total Time Spent with Patient: Total time spent is greater than 50% in coordination of care (as documented) at patient's floor/unit and/or counseling patient: Coding Level of Care Code 27279 Subseq Hosp Care Lvl 2 Diagnoses Large bowel obstruction K56.609 Hypertension I10 Hypertension type: unspecified Hypothyroidism E03.9 Hypothyroidism type: unspecified Ischemic cardiomyopathy I25.5 Asthma J45.909 Asthma severity: unspecified severity Asthma persistence: unspecified Asthma complication type: unspecified CAD, multiple vessel I25.10 Elevated troponin R77.8 (1) Hypertension Hypertension type: unspecified Qualified Code(s): I10 - Essential (primary) hypertension (2) Hypothyroidism Hypothyroidism type: unspecified Qualified Code(s): E03.9 - Hypothyroidism, unspecified (3) Asthma Asthma severity: unspecified severity Asthma persistence: unspecified Asthma complication type: unspecified Qualified Code(s): J45.909 - Unspecified asthma, uncomplicated
[2020-03-29 19:16] LABS: Hematocrit (blood only) 30.3 % (42-52); Hemoglobin 9.5 g/dL (14.0-18.0); Mean Corpuscular Hemoglobin 30.1 pg (25-34); Mean Corpuscular Hgb Conc 31.4 g/dL (32-36); Mean Corpuscular Volume 95.9 fL (80-100); Mean Platelet Volume 10.1 fL (7.4-10.4); Platelet Count 188 K/uL (130-400); RDW Coefficient of Variation 16.6 % (11.5-14.5); RDW Standard Deviation 58.9 fL (36.4-46.3); Red Blood Count 3.16 M/uL (4.7-6.1); White Blood Count 6.51 K/uL (4.8-10.8)
[2020-03-29 19:34] LABS: BUN Creatinine Ratio 19.9 (10-20); Calcium 7.7 mg/dl (8.5-10.1); Creatinine Clr Calc Pharmacy 22.8 ml/min; Est GFR (African American) 40.5; Potassium 4.2 mmol/L (3.5-5.1)
--- NOTE | 2020-03-29 20:34 | XRay Report ---
XR KUB CLINICAL HISTORY: Abdominal distention COMPARISON STUDY: 03/28/2020 FINDINGS: There is been interval removal of the colonic tube. There is persistent gaseous distention of the colon. The cecum measures 11 cm in diameter. IMPRESSION: 1. Persistent gaseous distention of the colon. The cecum measures 11 cm 2. Interval removal of the colonic tube ACT 112: Negative or not required by law. Electronically signed by: Trenton Claros M.D. 03/29/2020 9:16 AM REGGIE
[2020-03-29] MEDS: SODIUM CHLORIDE 0.9% 1000ML 1,000 ML IV SCH (21:39)
--- NOTE | 2020-03-30 06:27 | Surgery Progress Note ---
Date of Service March 30, 2020 Assessment & Plan (1) Large bowel obstruction: -pt. s/p colonoscopy with rectal tube decompression -clinical improvement noted -continue with slow diet advancement -currently no need for surgical intervention Dr. Devine-patient is having bowel movements, his abdomen is soft-he does not have any complaints and is tolerating his liquids His colon is gas-filled with a moderately dilated cecum he is asymptomatic Advance to full liquids and then as per medical team. MiraLAX is ordered but was not given yesterday likely secondary to having bowel movements Admission and Anticipated Discharge Date Admission Date: March 27, 2020 Subjective Pt. notes he is tolerating liquids without N/V or worsening abdominal pain. He reports having a BM this am. Physical Exam Gastrointestinal (Abdomen): Inspection/Auscultation: normal bowel sounds Percussion/Palpation: abdomen soft; abdomen nontender no pin with palpation Results & Data ([facility]) Vital Signs (Past 12 Hours) Vital Signs Temp Pulse Pulse Resp BP Pulse Ox 03/30/20 03:17 36.7 C 64 18 119/58 L 96 03/29/20 23:20 37.1 C 59 L 18 109/58 L 96 03/29/20 23:19 59 L 03/29/20 20:01 37 C 62 20 95/48 L 96 PG Care Time/CCT Total # of Minutes Spent Total Time Spent with Patient: Total time spent is greater than 50% in coordination of care (as documented) at patient's floor/unit and/or counseling patient: Coding Level of Care Code 63344 Subseq Hosp Care Lvl 1 Diagnoses Large bowel obstruction K56.609
[2020-03-30] MEDS: lisinopril 5 MG TAB PO SCH (07:33)
[2020-03-30] MEDS: carvediloL 25 MG TAB PO SCH ×2 (07:33→20:36)
[2020-03-30] MEDS: ASPIRIN 81 MG ECTAB PO SCH (07:33)
[2020-03-30] MEDS: FLUTICASONE/VILANTEROL 200/25MCG 14 PUFFS/INHALER INH SCH (07:35)
[2020-03-30] MEDS: POLYETHYLENE (MIRALAX) 17 GM PACK PO SCH (07:37)
[2020-03-30] MEDS: PIPERACILLIN/TAZOBACTAM 3.375 GM in DEXTROSE 5% 100 ML IV SCH ×3 (07:45→23:40)
--- NOTE | 2020-03-30 08:37 | Hospitalist Progress Note ---
Date of Service March 30, 2020 Assessment & Plan (1) Large bowel obstruction: Patient with large bowel obstruction, stercolic colitis with bowel wall thickening. General surgery consulted-- tolerating adv diet GI consulted -- * s/p emergent decompression in OR with GI on 03/27 -- edema and possibly related to stricture from old diverticulosis (noted on c-scope 2004 but patient unaware of this diagnosis in the past) * patient with large BM 03/29 and rectal tube discontinued * Continues on PO miralax BID * advancing diet * remains on bowel appropriate zosyn (2) Hypertension: * lisinopril 5mg * ICD with EF 20-25% * carvedilol 25mg BID (3) Hypothyroidism: * Chronic. TSH low at 0.107 (previously low on previous 2 lab draws), but FT4 wnl -- recommend repeat outpatient TFT in 6 weeks with PCP * Continue Synthroid 137mcg daily (4) Ischemic cardiomyopathy: (5) Asthma: * Chronic. Stable Advair (6) CAD, multiple vessel: * Chronic. GREYSON, 1995. * EKG with deep TW inversions. elevated troponin, likely demand as it peaked at 0.072 and trended back down on repeat 0.062 * ASA, lisinopril carvedilol BID, typically follows with Familia (7) DVT prophylaxis: will have encouraged ambulation and PT evaluation Admission and Anticipated Discharge Date Admission Date: March 27, 2020 Subjective Patient has been having multiple bowel movements have has had improvement in his distention his abdomen is tolerating food and is eager to walk about Review of Systems Review of Systems: Mild distress and fatigue no headache, blurry or double vision no speech or swallowing issues no chest pain, pressure or palpitations no shortness of breath, cough or wheezes Lessening abdominal pain, without nausea or vomiting, is having frequent bowel movements no dysuria, hematuria or frequency no focal joint pain or swelling no back pain, CVA tenderness or radicular pain no bruising, bleeding or rashes no focal signs of weakness or numbness or altered sensation no complaints of anxiety or depression.. Physical Exam Physical Exam: The patient appeared well nourished and normally developed. Vital signs as documented. Head exam is normocephalic atraumatic no scleral icterus Neck is without JVD, thyromegaly, or carotid bruits. Lungs are clear minutes at the bases, no focal loss of breath sounds Cardiac exam, Rhythm is regular.. systolic ejection murmur Abdominal exam reveals normal bowel sounds, still with slight distention, soft non tender, no masses Extremities are nonedematous and both pedal pulses are present Neurologic exam is alert and oriented, no focal loss of strength or sensation Skin is without bruises or rashes Psychologically is without concerns for anxiety or depression. Results & Data Results & Data ([facility]) Vital Signs (Past 12 Hours) Vital Signs Temp Pulse Pulse Resp BP Pulse Ox 03/30/20 07:26 98.4 F 59 L 18 95/53 L 96 03/30/20 07:18 51 L 03/30/20 03:17 98.1 F 64 18 119/58 L 96 03/29/20 23:20 98.8 F 59 L 18 109/58 L 96 03/29/20 23:19 59 L PG Care Time/CCT Total # of Minutes Spent Total Time Spent with Patient: Total time spent is greater than 50% in coordination of care (as documented) at patient's floor/unit and/or counseling patient: Coding Level of Care Code 26954 Subseq Hosp Care Lvl 2 Diagnoses Large bowel obstruction K56.609 Hypertension I10 Hypertension type: unspecified Hypothyroidism E03.9 Hypothyroidism type: unspecified Ischemic cardiomyopathy I25.5 Asthma J45.909 Asthma complication type: unspecified Asthma persistence: unspecified Asthma severity: unspecified severity CAD, multiple vessel I25.10 DVT prophylaxis Z29.9 (1) Hypothyroidism Hypothyroidism type: unspecified Qualified Code(s): E03.9 - Hypothyroidism, unspecified (2) Hypertension Hypertension type: unspecified Qualified Code(s): I10 - Essential (primary) hypertension (3) Asthma Asthma complication type: unspecified Asthma persistence: unspecified Asthma severity: unspecified severity Qualified Code(s): J45.909 - Unspecified asthma, uncomplicated
--- NOTE | 2020-03-30 09:03 | XRay Report ---
KUB CLINICAL HISTORY: f/u LBO COMPARISON STUDY: CT of the abdomen and pelvis March 27, 2020. KUB March 29, 2020. FINDINGS: Colonic distention has moderately improved since exam of March 29, 2020. Cecum measures 6 .7 cm in diameter. There is persistent mild colonic dilatation. No dilated loops of small bowel are n oted. Although sensitivity is diminished on this supine exam, there is no evidence for free air. IMPRESSION: Moderate improvement in colonic dilatation since exam of March 29, 2020. Mild residual colonic dilatation. ACT 112: Negative or not required by law. Electronically signed by: Smith Crisostomo M.D. 03/30/2020 9:01 AM
[2020-03-30] MEDS: HEPARIN SOD 5,000 UNIT/0.5 ML VIAL SQ SCH ×2 (09:17→20:36)
[2020-03-31] MEDS: LEVOTHYROXINE SODIUM 137 MCG TABLET PO SCH (06:27)
[2020-03-31 06:56] LABS: Creatinine Clr Calc Pharmacy 31.9 ml/min; Est GFR (African American) 61.8; Est GFR (Non-African American) 53.4
[2020-03-31] MEDS: POLYETHYLENE (MIRALAX) 17 GM PACK PO SCH (08:57)
[2020-03-31] MEDS: PIPERACILLIN/TAZOBACTAM 3.375 GM in DEXTROSE 5% 100 ML IV SCH (08:58)
[2020-03-31] MEDS: FLUTICASONE/VILANTEROL 200/25MCG 14 PUFFS/INHALER INH SCH (08:58)
[2020-03-31] MEDS: ASPIRIN 81 MG ECTAB PO SCH (08:58)
[2020-03-31] MEDS: HEPARIN SOD 5,000 UNIT/0.5 ML VIAL SQ SCH (08:59)
[2020-03-31] MEDS: lisinopril 5 MG TAB PO SCH (08:59)
[2020-03-31] MEDS: carvediloL 25 MG TAB PO SCH (08:59)
--- NOTE | 2020-03-31 12:28 | Surgery Progress Note ---
Date of Service doing better, passed BM, no abdominal pain, no nausea, no vomiting, tolerated diet. March 31, 2020 Assessment & Plan (1) Colonic obstruction: pt is a 84 year-old male who presents to ER with 3-4 days constipation , no passed BM, IMP: colonic obstruction Plan, the caused colonic obstruction possible, mass, inflammation, or structure? D/W GI doctor for possible sigmoidoscopy for decompress colon, hospitalist will admit pt to hospital, NPO, IV fluid, Zosyn iv treatment, repeat labs in morning, no emergent surgery indication now, may need surgery depend on GI finding, will F/U, pt agrees with the plan, i answered all questions, D/W ER attending. 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 Trial of miralax flushes today - would attempt to keep tube in and see how he does. Agree with further plan of care as per Liliana's plan of care. Subjective Patient has been having multiple bowel movements have has had improvement in his distention his abdomen is tolerating food and is eager to walk about Review of Systems Constitutional: as per Subjective / HPI and + sweats Eyes: as per Subjective / HPI Ear, Nose, Mouth, Throat: as per Subjective / HPI Respiratory: as per Subjective / HPI Cardiovascular: as per Subjective / HPI Additional Comments: CAD, cardiomyopathy, HTN, ventricular tachycardia, tricuspid regurgitation, ischemic cardiomyopathy, , aneurysm of aortic arch Gastrointestinal: as per Subjective / HPI diverticulosis Genitourinary: + as per Subjective / HPI and + problem reported (elevated PSA, hematuria) Musculoskeletal: as per Subjective / HPI Integumentary: as per Subjective / HPI Neurologic: as per Subjective / HPI Psychiatric: as per Subjective / HPI depression Endocrine: as per Subjective / HPI hypothyroidism, Hematologic / Lymphatic: as per Subjective / HPI anemia Allergy / Immunological: as per Subjective / HPI Physical Exam Constitutional: WD/WN, vitals as above well developed Eyes: PERRL, conjunctivae normal, anicteric sclerae ENMT: external ear and nose normal, oropharynx normal Neck: trachea midline, no thyromegaly Respiratory: normal respiratory effort, lungs clear to auscultation normal respiratory effort Cardiovascular: RRR, no murmur, no edema Rate/Rhythm: regular rate and regular rhythm Gastrointestinal (Abdomen): normal bowel sounds, soft, nontender, no hepatosplenomegaly Percussion/Palpation: abdomen soft no distend Musculoskeletal: no cyanosis or clubbing, extremities motor strength 5/5 Skin: no rashes, warm and dry Neurologic: awake Psychiatric: Orientation: alert and oriented x 3 Results & Data ([facility]) Vital Signs (Past 12 Hours) Vital Signs Temp Pulse Resp BP Pulse Ox 03/31/20 07:31 36.3 C L 50 L 18 118/65 97
--- NOTE | 2020-03-31 12:54 | Discharge Summary ---
Date of Service March 31, 2020 Admission HPI Per Admitting Provider Jose Leo is a pleasant 84yo male with history of CAD, ICM with EF of 20-25% presenting with large bowel obstruction. He reports abdominal bloating and pain as well as nausea for the last few days. Last BM x 1 week ago. Found with large bowel obstruction, distal colon with wall thickening. Principal Diagnosis Pt is doing well today. No further abd pain/bloating. He has been tolerating PO without issue. He had 2 bowel movements this morning at 8am and 11am. He would like to go home. Pt denies fever, SOB, chest pain, n/v/c/d, LE pain or swelling. Discharge Exam Constitutional WD/WN, vitals as above Eyes normal visual mckeon by confrontation and + anicteric sclerae Neck normal visual inspection and trachea midline Respiratory normal respiratory effort, lungs clear to auscultation Cardiovascular Rate/Rhythm: regular rate and regular rhythm Gastrointestinal (Abdomen) Inspection/Auscultation: abdomen not distended Percussion/Palpation: abdomen soft; abdomen nontender Musculoskeletal Head/Neck/Chest: normocephalic and head atraumatic Skin no rashes, warm and dry Neurologic awake; not confused Speech / Cognition: normal speech Psychiatric A+Ox3, euthymic affect Discharge Data Allergies Allergy/AdvReac Type Severity Reaction Status Date / Time atorvastatin Allergy Mild rash Verified 10/25/19 12:04 Sulfa (Sulfonamide Allergy Mild Unverified 10/25/19 12:04 Antibiotics) sulfamethoxazole Allergy Mild Unverified 10/25/19 12:04 theophylline Allergy Mild RASH Verified 10/25/19 12:04 trimethoprim Allergy Mild Unverified 10/25/19 12:04 Consultations 03/27/20 18:14 ED Decision to Admit Stat 03/27/20 22:10 Consult Gastroenterology Routine Consult General Surgery Routine Procedures Performed Operation Date: 03/27/20 20:00 Actual Procedures p Colonoscopy(Not Applicable) - Ofe Small DO Ordered Studies 03/27/20 15:05 CT abd pelvis wo con Stat Hospital Course (1) Large bowel obstruction: Patient with large bowel obstruction, stercolic colitis with bowel wall thickening. General surgery consulted-- tolerating adv diet GI consulted -- * s/p emergent decompression in OR with GI on 03/27 -- edema and possibly related to stricture from old diverticulosis (noted on c-scope 2004 but patient unaware of this diagnosis in the past) * patient with large BM 03/29 and rectal tube discontinued * Continues on PO miralax BID * advancing diet * was on zosyn through 03/31, no signs of perf * Request for f/u with Dr. Arthur in 2 weeks (2) Hypertension: * lisinopril 5mg * ICD with EF 20-25% * carvedilol 25mg BID (3) Hypothyroidism: * Chronic. TSH low at 0.107 (previously low on previous 2 lab draws), but FT4 wnl -- recommend repeat outpatient TFT in 6 weeks with PCP * Continue Synthroid 137mcg daily (4) Ischemic cardiomyopathy: * Patient appears dry on exam and will provide gentle hydration with NSS @80cc/hr for total 500cc * Continue carvedilol 25mg BID. Lisinopril 5mg * Continue to monitor on telemetry (5) Asthma: * Chronic. Stable Advair (6) CAD, multiple vessel: * Chronic. RUBI, 1995. * EKG with deep TW inversions. elevated troponin, likely demand as it peaked at 0.072 and trended back down on repeat 0.062 * ASA, lisinopril carvedilol BID, typically follows with Dr. Barbosa (7) DVT prophylaxis: will have encouraged ambulation and PT evaluation (8) UTI (urinary tract infection): Noted on cx done at admission Cx is >100K ecoli and bradford sensitive, will finish 14 day course with keflex after having zosyn since admission on 03/27 Total Time Total Time Spent Total Time Spent (In Minutes): >30 Total Time Includes: Examination of the Patient, Discharge Planning, Medication Reconciliation, Communication With Other Providers and Other Discharge Plan Discharge Items Patient Disposition: Home - Self-Care Reason For Visit: LARGE BOWEL OBSTRUCTION Discharge Diagnosis: Large bowel obstruction, UTI Condition on Discharge: Fair Activity: Resume your previous activity Non-emergency contact: Primary Care Provider and Surgeon Call non-emergency contact if: you have any medication questions, your symptoms worsen and your pain is not controlled Follow-up/Referrals: Vik Soto MD [Primary Care Provider] - 04/02/20 10:50 am (2-3 days ) Celestino Arthur MD [Physician] - 04/23/20 11:00 am (2 weeks) Diet: Heart Healthy Add Attending Provider Instructions: You should follow up with Dr. Arthur in 2 weeks You should follow up with Dr. Soto in 2-3 days You should eat small meals for the next 2 weeks to allow your gut time to rest after this obstruction. You should also eat more "light" foods that are lower in fat and easier to digest, avoiding greasy or fried foods or large amounts of very fibrous foods like lettuce, broccoli, or cauliflower. You should start taking a probiotic, especially while you are taking an antibiotic. The one I recommend for most patients is Jarrow EPS 5 billion. It is a mix of 8 different bacteria. You can find this product at [employer] in [place]. You should start with 1 a day and you should take it away from your antibiotic--30 minutes prior to taking the antibiotic is a good timing. If you begin to have diarrhea while you are on the antibiotic, you should take an additional probiotic. The goal is to have 1 solid bowel movement a day. If you are unable to get that specific probiotic, you should look for one that is a mix of bacteria, speficially Lactobacillus and Bifidobacter families. This should be listed in the ingredients label on the packaging, but if not, a pharmacist should be able to help you find this information. Pending Studies at Discharge: No Stand-Alone Forms: My [facility], Smoking Cessation, Virtual Emergency Department, Important Visit Information Medications and DC Order Prescriptions: New cephalexin [Keflex] 750 mg capsule 750 mg PO Q12H 10 Days Qty: 20 RF: 0 Continued carvedilol 25 mg tablet 25 mg PO BID Qty: 180 RF: 3 fluticasone propion-salmeterol [Advair Diskus] 250-50 mcg/dose blister with device 1 puffs INH BID Qty: 60 RF: 5 aspirin 81 mg tablet,delayed release (DR/EC) 81 mg PO QAM RF: 0 calcium carbonate-vitamin D3 600 mg(1,500mg) -200 unit tablet 1 tab PO BID RF: 0 multivitamin tablet 1 tab PO DAILY RF: 0 levothyroxine 137 mcg tablet 137 mcg PO QAM RF: 0 lisinopril 5 mg tablet 5 mg PO DAILY RF: 0 furosemide 20 mg tablet See Rx Instructions .ROUTE .COMPLEX RF: 0 Discharge Orders: Discharge Order (Routine); Ordered 03/31/20 Ordered By: Teresa Olivares Admission Data Admit Date/Time: 03/27/20 20:05 Attending Provider: Teresa Olivares Admit Provider: Mary Andrade Primary Care Provider: Vik Soto Other Providers: Mary Andrade ; Ofe Small ; Celestino Arthur Other Interventions: Discharge Summary Assessment (RN) Last Done: 03/31/20 12:43 Coding Level of Care Code D/C Day Management >30 mins Diagnoses Large bowel obstruction K56.609 Hypertension I10 Hypertension type: unspecified Hypothyroidism E03.9 Hypothyroidism type: unspecified Ischemic cardiomyopathy I25.5 Asthma J45.909 Asthma complication type: unspecified Asthma persistence: unspecified Asthma severity: unspecified severity CAD, multiple vessel I25.10 DVT prophylaxis Z29.9 UTI (urinary tract infection) N39.0
== END 2020-03-31 14:35 | disposition home or self-care (01) | DRG 389 ==
LOC: ED 14:48 → ASU 20:04 → SUATTDRO 20:05 → 2S 20:05 → 3N 03-30 16:26

== ENCOUNTER 2020-06-09 12:13 | Inpatient (IN) ==
--- NOTE | 2020-06-09 12:52 | XRay Report ---
XR knee LT 1 or 2V routine CLINICAL HISTORY: injury COMPARISON: None FINDINGS: There is valgus left knee deformity. An acute significantly depressed lateral tibial plate au fracture is noted. Fracture also extends to the medial tibial plateau. A large left knee joint eff usion with lipohemarthrosis is noted. There is also an acute proximal left fibular fracture. This inv olves the head and neck of the left fibula. IMPRESSION: 1. Acute significantly depressed lateral tibial plateau fracture. Fracture also extends to the medial tibial plateau. 2. Associated large left knee joint effusion with lipohemarthrosis. 3. Acute minimally displaced proximal left fibular fracture. ACT 112: Negative or not required by law. Electronically signed by: Smith Crisostomo M.D. 06/09/2020 12:51 PM
--- NOTE | 2020-06-09 12:52 | XRay Report ---
XR tibia fibula LT 2V CLINICAL HISTORY: Left lower leg pain status post trauma COMPARISON: None. DISCUSSION: The bones are osteopenic. There is a comminuted depressed fracture of the lateral tibial plateau. There is also a probable fracture the medial tibial plateau There is a nondisplaced proximal fibular fracture. No distal fractures are evident. IMPRESSION: Comminuted depressed lateral tibial plateau fracture. A fracture the medial plateau may a lso be present. Nondisplaced proximal fibular fracture. ACT 112: Negative or not required by law. Electronically signed by: Trenton Claros M.D. 06/09/2020 12:51 PM
--- NOTE | 2020-06-09 12:59 | Emergency Department Note ---
History of Present Illness General Chief Complaint: Fall Time Seen by Provider: 06/09/20 12:15 Source: patient Mode of arrival: ambulatory Limitations: no limitations History of Present Illness Provider complaint: fall This is an 84-year-old male who presents to the ED with a chief complaint of left knee pain after a fall this morning. The patient states that he was going down his driveway to get his mail when he slipped and he fell onto his left knee. He states that he was outside for about 20 minutes until someone drove by and helped him get to his house. The patient reports left knee pain. He was transported here by EMS. His pain is worse with movement. Denies other injuries. Did not strike his head or have a loss of consciousness. Denies any neck or back pains. No chest pains or shortness of breath. No abdominal pains. No other extremity injuries. Home Medications Medication Instructions Recorded Confirmed Type aspirin 81 mg tablet,delayed 81 mg PO QAM tab 01/10/19 06/09/20 History release calcium carbonate 600 mg (1,500 1 tab PO BID tab 01/10/19 06/09/20 History mg)-vitamin D3 200 unit tablet multivitamin 1 tab PO QAM 01/10/19 06/09/20 History carvedilol 25 mg tablet 25 mg PO BID #180 tab 10/24/19 06/09/20 Rx furosemide See Rx Instructions .ROUTE .COMPLEX 03/27/20 06/09/20 History levothyroxine 137 mcg PO QAM 03/27/20 06/09/20 History lisinopril 5 mg PO QAM 03/27/20 06/09/20 History polyethylene glycol 3350 17 17 g PO DAILY PRN #510 g 04/02/20 06/09/20 Rx gram/dose oral powder Advair Diskus 250 mcg-50 mcg/dose 1 inh INH BID #180 ea NS 05/16/20 06/09/20 Rx powder for inhalation Allergies Allergy/AdvReac Type Severity Reaction Status Date / Time atorvastatin Allergy Mild rash Verified 04/04/20 12:21 Sulfa (Sulfonamide Allergy Mild Unknown Unverified 04/04/20 12:21 Antibiotics) sulfamethoxazole Allergy Mild Unknown Unverified 04/04/20 12:21 theophylline Allergy Mild RASH Verified 04/04/20 12:21 trimethoprim Allergy Mild Unknown Unverified 04/04/20 12:21 Past Med/Surg History Medical History Anemia Aortic stenosis Asthma (12/25/12) CAD, multiple vessel Constipated Ischemic cardiomyopathy Surgical History Cataract Hx of CABG Family History Mother Hypertension Sister Hyperlipemia Other Coronary heart disease Dementia Heart disease Myocardial infarction Social History Smoking Status: Never smoker Second Hand Exposure: No; Hx Alcohol Use: No Hx Substance Use: No Preferred Language: Gambian Communication Ability: Effective Visual Impairment: No Limitations Hearing Ability: Normal Beliefs That Will Affect Care: None marital status: / Current Living Situation: Alone current occupational status: retired Feels Safe at Home: Yes Childhood Exposure to Second-Hand Smoke: No Dental Care, Regularly: Yes Seatbelt Use: always Sunscreen Use: No Assistive Devices: None Review of Systems A total of 10 systems reviewed and were otherwise negative Physical Exam Vital Signs Vital Signs - 24 hr 06/09/20 12:22 Temperature 36.4 C L Temperature Source Oral Pulse Rate 54 L Pulse Rhythm Regular Pulse Strength Normal Respiratory Rate 16 Respiratory Effort / Characteristics Non-Labored Respiratory Depth Normal Respiratory Pattern Regular Blood Pressure 139/66 Blood Pressure Mean 90 Blood Pressure Position Lying Pulse Oximetry 100 Oxygen Delivery Method Room Air Sepsis Recent Fever Within 48 Hours No Sepsis New/Unexplained Change in Mental Status N/A Sepsis Action Taken by Nursing No Action Required CONSTITUTIONAL/VITAL SIGNS: Reviewed / noted above. GENERAL: Non-toxic in appearance. INTEGUMENTARY: Warm, dry, and [place]. HEAD: Normocephalic. EYES: without scleral icterus or trauma. ENT/OROPHARYNX: clear and moist. LYMPHADENOPATHY/NECK: Is supple without lymphadenopathy or meningismus. RESPIRATORY: Lungs clear and equal. CARDIOVASCULAR: Regular rate and rhythm. GI/ABDOMEN: Soft and nontender. No organomegaly or pulsatile mass. No rebound or guarding. Normal bowel sounds. EXTREMITIES: Warm and well perfused. The patient has deformity to the left lateral knee with tenderness on palpation. Limited range of motion due to pain. No open wounds. BACK: No CVA tenderness. NEUROLOGICAL: Intact without focal deficits. PSYCHIATRIC: normal affect. MUSCULOSKELETAL: Normally developed with good muscle tone. TRIAGE NURSING DOCUMENTATION REVIEWED. Medical Decision Making Differential Diagnosis Fracture, subluxation, dislocation, contusion, ligamentous injury, neurovascular, compartment syndrome, rhabdomyolysis, as well as other pathologies. Medical Records Attestation: I reviewed the patient's medical records. Home Medications Current Medication List: was personally reviewed by me Imaging Data Attestation: I personally reviewed and interpreted this imaging study as follows: My Impression: Left tibial plateau fracture Radiologist's Impression: XR tibia fibula LT 2V CLINICAL HISTORY: Left lower leg pain status post trauma COMPARISON: None. DISCUSSION: The bones are osteopenic. There is a comminuted depressed fracture of the lateral tibial plateau. There is also a probable fracture the medial tibial plateau There is a nondisplaced proximal fibular fracture. No distal fractures are evident. IMPRESSION: Comminuted depressed lateral tibial plateau fracture. A fracture the medial plateau may also be present. Nondisplaced proximal fibular fracture. XR knee LT 1 or 2V routine CLINICAL HISTORY: injury COMPARISON: None FINDINGS: There is valgus left knee deformity. An acute significantly depressed lateral tibial plateau fracture is noted. Fracture also extends to the medial tibial plateau. A large left knee joint effusion with lipohemarthrosis is noted. There is also an acute proximal left fibular fracture. This involves the head and neck of the left fibula. IMPRESSION: 1. Acute significantly depressed lateral tibial plateau fracture. Fracture also extends to the medial tibial plateau. 2. Associated large left knee joint effusion with lipohemarthrosis. 3. Acute minimally displaced proximal left fibular fracture. MDM Narrative Patient presents after fall. Left knee injury. X-ray shows a significant depressed lateral tibial plateau fracture. This is consistent with the patient's abnormal exam. There is also a medial tibial plateau fracture and a large left knee joint effusion with lipohemarthrosis as well as an acute minimally displaced proximal left fibula fracture. The patient was evaluated in the emergency department by orthopedic service. They will admit the patient for further evaluation and care. Impression & Plan Closed fracture of tibial plateau, Fibula fracture Discharge Plan Visit Data Chief Complaint: Fall ED Provider: Michael Seth Discharge Problem: Closed fracture of tibial plateau, Fibula fracture Patient Disposition: Being Evaluated by Surgeon Forms Stand Alone Forms: My [facility] Prescriptions Prescriptions: No Action carvedilol 25 mg tablet 25 mg PO BID Qty: 180 RF: 3 fluticasone propion-salmeterol [Advair Diskus] 250-50 mcg/dose blister with device 1 inh INH BID Qty: 180 RF: 1 polyethylene glycol 3350 [Miralax] 17 gram/dose powder 17 g PO DAILY PRN (Reason: constipation) Qty: 510 RF: 0 aspirin 81 mg tablet,delayed release (DR/EC) 81 mg PO QAM RF: 0 calcium carbonate-vitamin D3 600 mg(1,500mg) -200 unit tablet 1 tab PO BID RF: 0 multivitamin tablet 1 tab PO QAM RF: 0 levothyroxine 137 mcg tablet 137 mcg PO QAM RF: 0 lisinopril 5 mg tablet 5 mg PO QAM RF: 0 furosemide 20 mg tablet See Rx Instructions .ROUTE .COMPLEX RF: 0 Referrals Referrals: Vik Soto MD [Primary Care Provider] -
--- NOTE | 2020-06-09 13:19 | CT Scan Report ---
CT knee LT wo con CT DOSE: 153.32 mGy.cm CLINICAL HISTORY: Left knee pain status post trauma TECHNIQUE: Helical images were acquired in transverse plane. Sagittal coronal reformatted images were reviewed. A dose lowering technique was utilized adhering to the principles of ALARA. COMPARISON STUDY: Conventional x-ray study performed same day FINDINGS: The bones are osteopenic. There is a lipohemarthrosis. There is essentially nondisplaced proximal fibular fracture. There is a comminuted lateral tibial plateau fracture with 14 mm of maximal depression. The fracture extends to the tibial spines to the level of the lateral aspect of the medial tibial plateau. IMPRESSION: 1. Comminuted lateral tibial plateau fracture demonstrating approximately 14 mm of depression. The fr acture extends through the base of the the tibial spines to the lateral aspect of the medial tibial p lateau 2. Nondisplaced proximal fibular fracture 3. Lipohemarthrosis ACT 112: Negative or not required by law. Electronically signed by: Trenton Claros M.D. 06/09/2020 1:18 PM
--- NOTE | 2020-06-09 16:12 | History & Physical Report ---
Date of Service June 09, 2020 Assessment & Plan (1) Tibial plateau fracture, left: After speaking with the patient, we are going to proceed to admit him to the hospital. Patient states that he is indepenent and ambulated without difficulty prior to fall today. He lives alone. We will plan on an ORIF of his left tibial plateau tomorrow pending cardiac and covid clearance. Patient has a hx of cardiac disease and has a hx of a CABG. Denies being a diabetic. History of Present Illness Chief Complaint: Patent presents with an acute injury do his left lower extremity s/p fall in driveway Primary Care Provider: Keith Soto MD Jose is an 84 y/o male who fell around 11am this morning in his driveway. He states that is was icy in his driveway and his left leg slipped out to the side. He says that he was unable to get up from that point due to pain in his LLE. Patient states that he is an independent ambulator. He lives alone and is very self sufficient. He states that he has basement stairs in his house he uses frequently Allergies Allergy/AdvReac Type Severity Reaction Status Date / Time atorvastatin Allergy Mild rash Verified 04/04/20 12:21 Sulfa (Sulfonamide Allergy Mild Unknown Unverified 04/04/20 12:21 Antibiotics) sulfamethoxazole Allergy Mild Unknown Unverified 04/04/20 12:21 theophylline Allergy Mild RASH Verified 04/04/20 12:21 trimethoprim Allergy Mild Unknown Unverified 04/04/20 12:21 Home Medications Medication Instructions Recorded Confirmed Type aspirin 81 mg tablet,delayed 81 mg PO QAM tab 01/10/19 06/09/20 History release calcium carbonate 600 mg (1,500 1 tab PO BID tab 01/10/19 06/09/20 History mg)-vitamin D3 200 unit tablet multivitamin 1 tab PO QAM 01/10/19 06/09/20 History carvedilol 25 mg tablet 25 mg PO BID #180 tab 10/24/19 06/09/20 Rx furosemide See Rx Instructions .ROUTE .COMPLEX 03/27/20 06/09/20 History levothyroxine 137 mcg PO QAM 03/27/20 06/09/20 History lisinopril 5 mg PO QAM 03/27/20 06/09/20 History polyethylene glycol 3350 17 17 g PO DAILY PRN #510 g 04/02/20 06/09/20 Rx gram/dose oral powder Advair Diskus 250 mcg-50 mcg/dose 1 inh INH BID #180 ea NS 05/16/20 06/09/20 Rx powder for inhalation Past Med/Surg History Medical History Anemia Aortic stenosis Asthma (12/25/12) CAD, multiple vessel Constipated Ischemic cardiomyopathy Surgical History Cataract Hx of CABG Family History Mother Hypertension Sister Hyperlipemia Other Coronary heart disease Dementia Heart disease Myocardial infarction Social History Smoking Status: Never smoker Second Hand Exposure: No; Hx Alcohol Use: No Hx Substance Use: No Preferred Language: Tamaz[place] Communication Ability: Effective Visual Impairment: No Limitations Hearing Ability: Normal Beliefs That Will Affect Care: None marital status: / Current Living Situation: Alone current occupational status: retired Feels Safe at Home: Yes Childhood Exposure to Second-Hand Smoke: No Dental Care, Regularly: Yes Seatbelt Use: always Sunscreen Use: No Assistive Devices: None Review of Systems All systems reviewed & are unremarkable except as noted in HPI & below. Physical Exam Swelling distal to his left knee. Pain with palpation over the proximal and lateral tibia. No obvious deformities. Pain with flexion and extension of his left knee. Unable to test ligaments due to pain. Neurovascularly intact LLE Results & Data Results & Data Laboratory Results . Diagnostic Findings Xrays of knee demonstrate comminuted and impacted fracture of the left proximal and lateral tibia. Displaced fracture of proximal fibular head. PG Care Time/CCT Total # of Minutes Spent Total Time Spent with Patient: Total time spent is greater than 50% in coordination of care (as documented) at patient's floor/unit and/or counseling patient: Supervising Physician Co-Signing Physician Notes Ravindra Gates DO Coding Level of Care Code 59829 Initial Inpt Care Lvl 3 Diagnoses Tibial plateau fracture, left S82.142A
[2020-06-09] MEDS ORDERED: METOCLOPRAMIDE HCL INJ 5 MG/ML 2 ML VIAL IV PRN (18:03)
[2020-06-09] MEDS ORDERED: ONDANSETRON INJ 2 MG/ML 2 ML VIAL IV PRN (18:03)
--- NOTE | 2020-06-09 18:07 | XRay Report ---
XR chest 1V portable HISTORY: 84 years-old Male Resp sx c/w COVID-19 acute sepsis. COVID Positive. COMPARISON: Acute abdominal series radiographs 04/04/2020 TECHNIQUE: Portable AP view of the chest FINDINGS: Cardiac right is enlarged. Single sternotomy wire is noted. Trace pleural effusions. No pneumot horax or overt pulmonary edema. Hyperinflation with mild chronic interstitial coarsening. Chronic rig ht-sided rib fracture deformities. Degenerative changes of the shoulders and spine. IMPRESSION: Cardiomegaly with trace pleural effusions. ACT 112: Negative or not required by law. The above report was generated using voice recognition software. It may contain grammatical, syntax o r spelling errors. Electronically signed by: Dheeraj Hansen M.D. 06/09/2020 6:05 PM
--- NOTE | 2020-06-09 18:39 | Hospitalist Consultation ---
Date of Consultation June 09, 2020 Assessment & Plan (1) Closed fracture of tibial plateau: Revised cardiac risk score 2 - 10.1% 30 day risk of , [place] or cardiac arrest. He is medically optimized for surgery at this time. Appreciate orthopedics management of this. Pain medication per orthopedics - close monitoring of BM given recent history of bowel obstruction, start MiraLAX daily. (2) Hypertension: Hold furosemide pre-operatively, can likely be resumed POD #1 pending stable BP. (3) Hypothyroidism: TSH recently low in setting of small bowel obstruction however free T4 normal. Recommend repeating as outpatient. Continue levothyroxine 137 mcg PO QAM. (4) Ischemic cardiomyopathy: LVEF 20-25% per last cardiology note with mild aortic stenosis. Continue carvedilol 25mg PO BID and lisinopril 5mg PO daily with hold parameters (5) Aortic stenosis: Mild per last cardiology note. No symptoms of this getting worse. (6) CAD, multiple vessel: Remote CABG in 1995. Follows with cardiology and last seen by Dr Barbosa in 10/2019 with stable symptoms at that time. No recent worsening of symptoms to suggest progression. No further cardiac workup required. (7) Osteoporosis: Notable history of such. Consider outpatient DEXA scan as not recently performed on EHR. Vitamin D level WNL in 2019, will repeat with AM labs. Continue supplementation. (8) Asthma: No recent exacerbation of such. Continue Advair Diskus or hospital formulary equivalent. (9) DVT prophylaxis: Deferred to orthopedics History of Present Illness Reason for Consultation: Medical clearance for surgery Attending Physician: Ravindra Gates, History of Present Illness Jose Leo is an 84-year-old male who presents to the ER earlier today after a fall at 11 AM after slipping on ice. Admitted under orthopedics but medicine consulted for preoperative clearance. He denies any shortness of breath, chest pain or dizziness prior to falling. He has a history of prediabetes, asthma, hyperlipidemia, coronary artery disease s/p CABG (RUBI to LAD in 1995), ischemic cardiomyopathy (20-25%), osteoporosis, seizure disorder, hypothyroidism, prurigo nodularis, CKD, elevated PSA, hypertension and anemia. He was recently admitted in March 2020 for large bowel obstruction and underwent colonoscopy with subsequent colonic decompression tube placed and intrinsic moderate stenosis found. No pathology taken at that time. He reports having regular bowel movements since this time, no nausea, vomiting or abdominal pain. With regards to his coronary artery disease he reports no chest pains or shortness of breath on exertion. He walks up and down stairs to his basement all the time without any problems. He lives alone and is independant of activities of daily living. Pre-operative labs are stable. EKG shows no change and CXR appears unremarkable. Allergies Allergy/AdvReac Type Severity Reaction Status Date / Time atorvastatin Allergy Mild rash Verified 04/04/20 12:21 Sulfa (Sulfonamide Allergy Mild Unknown Unverified 04/04/20 12:21 Antibiotics) sulfamethoxazole Allergy Mild Unknown Unverified 04/04/20 12:21 theophylline Allergy Mild RASH Verified 04/04/20 12:21 trimethoprim Allergy Mild Unknown Unverified 04/04/20 12:21 Home Medications Medication Instructions Recorded Confirmed Type aspirin 81 mg tablet,delayed 81 mg PO QAM tab 01/10/19 06/09/20 History release calcium carbonate 600 mg (1,500 1 tab PO BID tab 01/10/19 06/09/20 History mg)-vitamin D3 200 unit tablet multivitamin 1 tab PO QAM 01/10/19 06/09/20 History carvedilol 25 mg tablet 25 mg PO BID #180 tab 10/24/19 06/09/20 Rx furosemide See Rx Instructions .ROUTE .COMPLEX 03/27/20 06/09/20 History levothyroxine 137 mcg PO QAM 03/27/20 06/09/20 History lisinopril 5 mg PO QAM 03/27/20 06/09/20 History polyethylene glycol 3350 17 17 g PO DAILY PRN #510 g 04/02/20 06/09/20 Rx gram/dose oral powder Advair Diskus 250 mcg-50 mcg/dose 1 inh INH BID #180 ea NS 05/16/20 06/09/20 Rx powder for inhalation Patient History Medical History Anemia Aortic stenosis Asthma (12/25/12) CAD, multiple vessel Constipated Ischemic cardiomyopathy Surgical History Cataract Hx of CABG Family History Mother Hypertension Sister Hyperlipemia Other Coronary heart disease Dementia Heart disease Myocardial infarction Social History Smoking Status: Never smoker Second Hand Exposure: No; Do You Dip or Chew Tobacco: No; Hx Alcohol Use: No Hx Substance Use: No Preferred Language: Austrian Communication Ability: Effective Visual Impairment: No Limitations Hearing Ability: Normal Contract Assistant Required: No Beliefs That Will Affect Care: None marital status: / Current Living Situation: Alone current occupational status: retired Other Information That Helps Us Care for You: No Feels Safe at Home: Yes Safety Concerns: Feels Safe At This Time Childhood Exposure to Second-Hand Smoke: No Dental Care, Regularly: Yes Seatbelt Use: always Sunscreen Use: No Assistive Devices: Glasses Review of Systems Review of Systems: All systems reviewed & are unremarkable except as noted in HPI & below Physical Exam Constitutional: well developed and well nourished; no acute distress Eyes: + anicteric sclerae; normal pupil size ENMT: external ear and nose normal, oropharynx normal Neck: trachea midline Respiratory: normal respiratory effort, lungs clear to auscultation Cardiovascular: Rate/Rhythm: regular rate and regular rhythm Heart Sounds: + murmur (systolic 2/6 LUSB) Vessels: no JVD Extremities: normal capillary refill and + pedal edema (trace pre-tibial); no calf tenderness Gastrointestinal (Abdomen): normal bowel sounds, soft, nontender, no hepatosplenomegaly Musculoskeletal: Knee: + effusion (Left, pain on palpation but comfortable at rest) NV intact distal to fracture Skin: no rashes, warm and dry Neurologic: moves all extremities (LLE extremity not examined due to fracture) and awake; not confused Psychiatric: A+Ox3, euthymic affect Results & Data Results & Data ([facility]) Vital Signs (Past 12 Hours) Vital Signs Temp Pulse Resp BP Pulse Ox 06/09/20 12:22 36.4 C L 54 L 16 139/66 100 Diagnostic Findings XR chest 1V portable IMPRESSION: Cardiomegaly with trace pleural effusions. Medications Administered ER Medications Given: None ECG Indication: other (Pre-op clearance) Rate (beats per minute): 79 Rhythm: normal sinus Findings: + ST depression (Lateral) and + T-wave inversion (Lateral) Comparison ECG Date: from (Mar 27, 2020) Change: no significant change PG Care Time/CCT Total # of Minutes Spent Total Time Spent with Patient: Total time spent is greater than 50% in coordination of care (as documented) at patient's floor/unit and/or counseling patient: Coding Level of Care Code 90351 Inpt Consult Level 4 Diagnoses Closed fracture of tibial plateau S82.142A Encounter type: initial encounter Laterality: left Hypertension I10 Hypertension type: unspecified Hypothyroidism E03.9 Hypothyroidism type: unspecified Ischemic cardiomyopathy I25.5 Aortic stenosis I35.0 CAD, multiple vessel I25.10 Osteoporosis M81.0 Asthma J45.909 Asthma severity: unspecified severity Asthma persistence: unspecified Asthma complication type: unspecified DVT prophylaxis Z29.9 (1) Hypothyroidism Hypothyroidism type: unspecified Qualified Code(s): E03.9 - Hypothyroidism, unspecified (2) Closed fracture of tibial plateau Encounter type: initial encounter Laterality: left Qualified Code(s): S82.142A - Displaced bicondylar fracture of left tibia, initial encounter for closed fracture (3) Hypertension Hypertension type: unspecified Qualified Code(s): I10 - Essential (primary) hypertension (4) Asthma Asthma severity: unspecified severity Asthma persistence: unspecified Asthma complication type: unspecified Qualified Code(s): J45.909 - Unspecified asthma, uncomplicated
[2020-06-09 18:43] LABS: Basophils # (auto) 0.03 K/uL (0-0.2); Basophils % (auto) 0.3 %; Eosinophils % (auto) 2.2 %; Hematocrit (blood only) 33.6 % (42-52); Hemoglobin 10.9 g/dL (14.0-18.0); Immature Granulocytes # (auto) 0.01 K/uL (0.00-0.02); Immature Granulocytes % (auto) 0.1 %; Lymphocytes % (auto) 13.5 %; Mean Corpuscular Hemoglobin 30.8 pg (25-34); Mean Corpuscular Hgb Conc 32.4 g/dL (32-36); Mean Corpuscular Volume 94.9 fL (80-100); Mean Platelet Volume 9.9 fL (7.4-10.4); Monocytes # (auto) 0.17 K/uL (0.11-0.59); Monocytes % (auto) 1.9 %; Neutrophils # (auto) 7.28 K/uL (1.4-6.5); Platelet Count 257 K/uL (130-400); RDW Coefficient of Variation 15.7 % (11.5-14.5); RDW Standard Deviation 54.9 fL (36.4-46.3); Red Blood Count 3.54 M/uL (4.7-6.1); White Blood Count 8.89 K/uL (4.8-10.8)
[2020-06-09] MEDS: SODIUM CHLORIDE 0.9% 1000ML 1,000 ML IV SCH (18:46)
[2020-06-09 18:54] LABS: Prothrombin Time 9.8 Seconds (9.0-12.0)
[2020-06-09 19:00] LABS: BUN Creatinine Ratio 25.4 (10-20); Creatinine Clr Calc Pharmacy 25.9 ml/min; Est GFR (African American) 51.5; Est GFR (Non-African American) 44.4; Potassium 5.1 mmol/L (3.5-5.1)
--- NOTE | 2020-06-09 19:25 | XRay Report ---
XR chest 1V not portable HISTORY: 84 years-old Male pre-op preoperative exam COMPARISON: Chest radiograph of same day at 5:09 PM, CT chest 01/25/2015 TECHNIQUE: Lateral view of th e chest was obtained FINDINGS: Blunting of the posterior costophrenic angles. Hyperinflation with diaphragmatic flattening. No airsp santhosh consolidation. Demineralized appearance of the bones with numerous likely chronic mid thoracic co mpression deformities. Prior median sternotomy with surgical clips projecting over the anterior media stinum. IMPRESSION: 1. Cardiomegaly. 2. Hypoinflation with chronic blunting of the costophrenic angles suggestive of atelectasis versus tr santhosh effusions. ACT 112: Negative or not required by law. The above report was generated using voice recognition software. It may contain grammatical, syntax o r spelling errors. Electronically signed by: Dheeraj Hansen M.D. 06/09/2020 7:23 PM
[2020-06-09] MEDS: CALCIUM 600MG + VIT D 400 IU TAB PO SCH (21:43)
[2020-06-09] MEDS: carvediloL 25 MG TAB PO SCH (21:43)
[2020-06-10] MEDS: SODIUM CHLORIDE 0.9% 1000ML 1,000 ML IV SCH ×2 (05:47→18:27)
[2020-06-10] MEDS: LEVOTHYROXINE SODIUM 137 MCG TABLET PO SCH (05:47)
[2020-06-10] MEDS ORDERED: ceFAZolin 2000MG 2,000 MG/15 ML SYR IV SCH (06:00)
[2020-06-10] MEDS ORDERED: POLYETHYLENE (MIRALAX) 17 GM PACK PO SCH (09:00)
[2020-06-10] MEDS ORDERED: FUROSEMIDE 20 MG TAB PO SCH (09:00)
[2020-06-10] MEDS ORDERED: ASPIRIN 81 MG ECTAB PO SCH (09:00)
[2020-06-10] MEDS: FLUTICASONE/VILANTEROL 200/25MCG 14 PUFFS/INHALER INH SCH (09:14)
[2020-06-10] MEDS: CALCIUM 600MG + VIT D 400 IU TAB PO SCH ×2 (09:15→21:08)
[2020-06-10] MEDS: carvediloL 25 MG TAB PO SCH ×2 (09:15→21:07)
[2020-06-10] MEDS: MULTIVITAMIN TAB PO SCH (09:15)
[2020-06-10] MEDS: lisinopril 5 MG TAB PO SCH ×2 (09:15→10:25)
--- NOTE | 2020-06-10 10:38 | Anesthesiology Consultation ---
Date of Service June 10, 2020 Covid 19 negative on 06/09/20. I spoke with Colten Cobb, the patient was slightly confused this morning but is now oriented. He has been hemodynamically stable and was given his carvedilol while his lisinopril was withheld. Assessment & Plan (1) Encounter for pre-operative examination: Chart Review Chart Review: Acceptable Risk for Surgery and Patient NOT seen in Pre Admission Testing Consults Requested none medicine is following History Surgery Operation Date: 06/10/20 07:00 Proposed Procedures p Left ORIF Tibial Plateau Fracture - Michael Rabago MD Height/Weight Height: 5 ft 4 in Weight: 49 kg Allergies Allergy/AdvReac Type Severity Reaction Status Date / Time atorvastatin Allergy Mild rash Verified 06/10/20 11:44 Sulfa (Sulfonamide Allergy Mild Rash Verified 06/10/20 11:44 Antibiotics) sulfamethoxazole Allergy Mild Rash Verified 06/10/20 11:44 theophylline Allergy Mild RASH Verified 06/10/20 11:44 trimethoprim Allergy Mild Rash Verified 06/10/20 11:44 Medications Home Medications Medication Instructions Recorded Confirmed Last Taken aspirin 81 mg tablet,delayed 81 mg PO QAM tab 01/10/19 06/09/20 04/04/20 release calcium carbonate 600 mg (1,500 1 tab PO BID tab 01/10/19 06/09/20 04/04/20 mg)-vitamin D3 200 unit tablet multivitamin 1 tab PO QAM 01/10/19 06/09/20 04/04/20 carvedilol 25 mg tablet 25 mg PO BID #180 tab 10/24/19 06/09/20 04/04/20 furosemide See Rx Instructions .ROUTE .COMPLEX 03/27/20 06/09/20 04/04/20 levothyroxine 137 mcg PO QAM 03/27/20 06/09/20 04/04/20 lisinopril 5 mg PO QAM 03/27/20 06/09/20 04/04/20 polyethylene glycol 3350 17 17 g PO DAILY PRN #510 g 04/02/20 06/09/20 04/03/20 16:00 gram/dose oral powder Advair Diskus 250 mcg-50 mcg/dose 1 inh INH BID #180 ea NS 05/16/20 06/09/20 Unknown powder for inhalation Active Medications Generic Name Dose Route Start Last Admin Trade Name Freq PRN Reason Stop Dose Admin Aspirin 81 mg 06/10/20 09:00 06/10/20 09:15 Aspirin 81 Mg Ectab PO 07/10/20 08:59 81 mg QAM NAVIN Administration Carvedilol 25 mg 06/09/20 21:00 06/10/20 09:15 Carvedilol 25 Mg Tab PO 07/09/20 20:59 25 mg BID NAVIN Administration Fluticasone/Vilanterol 1 puffs 06/10/20 09:00 06/10/20 09:14 Fluticasone/Vilanterol 200/25mcg 14 Puffs/Inhaler INH 07/10/20 08:59 1 puffs DAILY NAVIN Administration Protocol Sodium Chloride 1,000 mls @ 80 mls/hr 06/09/20 18:03 06/10/20 05:47 Nss 1000ml IV 07/09/20 18:02 80 mls/hr .[id number] NAVIN Administration Levothyroxine Sodium 137 mcg 06/10/20 06:30 06/10/20 05:47 Levothyroxine Sodium 137 Mcg Tablet PO 07/10/20 06:29 137 mcg DAILYBB NAVIN Administration Lisinopril 5 mg 06/10/20 09:00 06/10/20 10:25 Lisinopril 5 Mg Tab PO 07/10/20 08:59 Not Given QAM [facility] Multivitamins 1 tab 06/10/20 09:00 06/10/20 09:15 Multivitamin Tab PO 07/10/20 08:59 1 tab QAM NAVIN Administration Multivitamins/Minerals 1 tab 06/09/20 21:00 06/10/20 09:15 Calcium 600mg + Vit D 400 Iu Tab PO 07/09/20 20:59 1 tab BID NAVIN Administration Polyethylene Glycol 17 gm 06/10/20 09:00 06/10/20 09:03 Polyethylene (Miralax) 17 Gm Pack PO 07/10/20 08:59 Not Given QAM [facility] Past Medical History Medical History Anemia Aortic stenosis mild Asthma (12/25/12) CAD, multiple vessel Constipated History of intestinal obstruction Ischemic cardiomyopathy EF 20-25% Systolic heart failure EF 20-25% from ischemic cardiomyopathy Past Family History Family History Mother Hypertension Sister Hyperlipemia Other Coronary heart disease Dementia Heart disease Myocardial infarction Past Surgical History Surgical History Cataract Hx of CABG Social History Smoking Status: Never smoker Do You Dip or Chew Tobacco: No Hx Alcohol Use: No alcohol intake frequency: 0-2 drinks per day Hx Substance Use: No Physical Exam Vital Signs Last Vital Signs Temp 37 C 06/10/20 11:44 Pulse 66 06/10/20 11:44 Resp 18 06/10/20 11:44 BP 111/58 L 06/10/20 11:44 Pulse Ox 95 06/10/20 11:44 Testing Laboratory Results 06/09/20 18:34 06/09/20 18:34 PT 9.8 Seconds (9.0-12.0) 06/09/20 18:34 INR 1.0 (0.9-1.1) 06/09/20 18:34 Blood Type A Negative 06/10/20 07:16 Antibody Screen NEGATIVE 06/10/20 07:16
--- NOTE | 2020-06-10 10:45 | Hospitalist Progress Note ---
Date of Service June 10, 2020 Assessment & Plan (1) Closed fracture of tibial plateau: Impression: This is an 84-year-old male that lives in [facility]. Yesterday he fell on the ice at 11 AM and presented to the emergency department for evaluation treatment. He was found to have a tibial plateau fracture. Orthopedics was consulted. It is anticipated that he will be an add-on for surgical stabilization later today. Whole leg immobilizer placed on the left leg Dr. 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 Follows with [facility] [place] Continue home medications with hold parameters (4) Asthma: No recent exacerbation Patient is not on any pulmonary medications or inhalers or nebulizer treatments at home Empirically started on Brio Ellipta (ICS/LABA) No bronchospasm on exam No record of pulmonary function testing or pulmonary follow-up No need for optimizing prior to surgery Oxygenating well on room air (5) Hypertension: Systolic blood pressure 120 this morning Home medications include carvedilol, lisinopril, furosemide Lisinopril held this morning Continue to monitor vital signs per protocol (6) Seizure disorder: No recent seizures per patient report No antiepileptic medications on his home record (7) Hypothyroidism: Continue levothyroxine at 137 mcg daily TSH 0.107 (8) Polymyalgia rheumatica: Patient is not on any regular NSAIDs Is not on any methotrexate or other medication No current complaints today (9) DVT prophylaxis: Patient is currently on aspirin 81 mg p.o. daily for CAD Further chemical prophylaxis per orthopedics Consider SCDs/DAY vigil Thank you for including us in the care of this patient. We will continue to follow along with you perioperatively. Admission and Anticipated Discharge Date Admission Date: June 09, 2020 Subjective Attending: Dr. Dumont Patient seen and examined at bedside. He is still having some left lower extremity pain from his fracture. He has good sensation in the foot. He has no feelings of coolness or chilliness of that leg. He does appear to have some level of dementia but overall answers questions appropriately. He denies any fever or chills. He has no nausea or vomiting. He has no shortness of breath. He has no chest pain. Blood pressure is stable this morning with a systolic blood pressure of 120. He is unaware of any arrhythmias. He has no other acute complaints. Review of Systems Review of Systems: All systems reviewed & are unremarkable except as noted in Subjective Physical Exam Physical Exam: GENERAL : No acute distress EYES: No icterus, gaze conjugate NOSE: No evidence of epistaxis MOUTH: No lesions or candidiasis NECK: Supple LUNGS: CTA B/L, no wheezes or rhonchi. No appreciation of any rales at the bases. HEART: Regular, rate controlled. No murmurs gallops or rubs appreciated. ABDOMEN: Soft, NT, ND, BS Present EXTREMITIES: No RLE edema, pedal pulses intact and equal bilaterally. There is some edema of the left lower extremity consistent with fracture. NEURO: Awake and alert. Does have some periods of confusion but easily reoriented. Results & Data Results & Data ([facility]) Vital Signs (Past 12 Hours) Vital Signs Temp Pulse Resp BP Pulse Ox 06/10/20 07:13 36.6 C 79 16 120/69 94 06/09/20 22:48 37.7 C H 90 16 104/64 94 Laboratory Results 06/09/20 18:34 06/09/20 18:34 Diagnostic Findings XR tibia fibula LT 2V CLINICAL HISTORY: Left lower leg pain status post trauma COMPARISON: None. DISCUSSION: The bones are osteopenic. There is a comminuted depressed fracture of the lateral tibial plateau. There is also a probable fracture the medial tibial plateau There is a nondisplaced proximal fibular fracture. No distal fractures are evident. IMPRESSION: Comminuted depressed lateral tibial plateau fracture. A fracture the medial plateau may also be present. Nondisplaced proximal fibular fracture. Electronically signed by: Trenton Claros M.D. 06/09/2020 12:51 PM XR chest 1V not portable HISTORY: 84 years-old Male pre-op preoperative exam COMPARISON: Chest radiograph of same day at 5:09 PM, CT chest 01/25/2015 TECHNIQUE: Lateral view of the chest was obtained FINDINGS: Blunting of the posterior costophrenic angles. Hyperinflation with diaphragmatic flattening. No airspace consolidation. Demineralized appearance of the bones with numerous likely chronic mid thoracic compression deformities. Prior median sternotomy with surgical clips projecting over the anterior mediastinum. IMPRESSION: 1. Cardiomegaly. 2. Hypoinflation with chronic blunting of the costophrenic angles suggestive of atelectasis versus trace effusions. Electronically signed by: Dheeraj Hansen M.D. 06/09/2020 7:23 PM PG Care Time/CCT Total # of Minutes Spent Total Time Spent with Patient: Total time spent is greater than 50% in coordination of care (as documented) at patient's floor/unit and/or counseling patient: 25 minutes including discussion with nursing staff and other providers. 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 I25.812 Asthma J45.909 Asthma severity: unspecified severity Asthma persistence: unspecified Asthma complication type: unspecified Hypertension I10 Hypertension type: unspecified Seizure disorder G40.909 Hypothyroidism E03.9 Hypothyroidism type: unspecified Polymyalgia rheumatica M35.3 DVT prophylaxis Z29.9 Time Spent (min) 25 (1) Closed fracture of tibial plateau Encounter type: initial encounter Laterality: left Qualified Code(s): S82.142A - Displaced bicondylar fracture of left tibia, initial encounter for closed fracture (2) Asthma Asthma severity: unspecified severity Asthma persistence: unspecified Asthma complication type: unspecified Qualified Code(s): J45.909 - Unspecified asthma, uncomplicated (3) Hypertension Hypertension type: unspecified Qualified Code(s): I10 - Essential (primary) hypertension (4) Hypothyroidism Hypothyroidism type: unspecified Qualified Code(s): E03.9 - Hypothyroidism, unspecified
[2020-06-10] MEDS ORDERED: ONDANSETRON INJ 2 MG/ML 2 ML VIAL IV PRN (12:05)
[2020-06-10] MEDS ORDERED: fentaNYL citrate 100 MCG/2 ML VIAL IV PRN (12:05)
[2020-06-10] MEDS ORDERED: MEPERIDINE HCL 25 MG/ML CARP/VIAL IV PRN (12:05)
[2020-06-10] MEDS ORDERED: ePHEDrine sulfate 50 MG/ML AMP IV PRN (12:05)
[2020-06-10] MEDS ORDERED: LABETALOL HCL IV 5 MG/ML 20ML IV PRN (12:05)
[2020-06-10] MEDS ORDERED: HYDROmorphone INJ 1 MG/ML SYRINGE IV PRN (12:05)
[2020-06-10] MEDS ORDERED: PHENYLEPHRINE 100MCG/ML 5ML SYR IV PRN (12:05)
[2020-06-10] MEDS ORDERED: ATROPINE SULFATE 0.1 MG/ML 10ML SYR IV PRN (12:05)
--- NOTE | 2020-06-10 12:47 | History & Physical Bridge Note ---
Date of Service June 10, 2020 History & Physical Bridge Note I have examined the patient, reviewed the History & Physical and in the interval since the performance of the History & Physical I have noted the following changes of clinical significance: no changes noted. Patient is aware of COVID-19 risks. Patient is asymptomatic for COVID-19. Patient has been tested for COVID-19 - [NEGATIVE]. I evaluated and discussed the diagnosis and surgical plan with Mr. Leo. I explained the risks and benefits of LEFT TIBIAL PLATEAU ORIF WITH POSSIBLE USE OF ALLOGRAFT BONE OR BONE CEMENT in detail. Informed consent was documented in the preop area. I will assume care from Dr. Gates.
[2020-06-10] MEDS ORDERED: ONDANSETRON INJ 2 MG/ML 2 ML VIAL ONE (12:53)
[2020-06-10] MEDS ORDERED: fentaNYL citrate 100 MCG/2 ML VIAL ONE ×2 (12:53→15:02)
[2020-06-10] MEDS ORDERED: GLYCOPYRROLATE 0.2 MG/ML VIAL ONE (12:53)
[2020-06-10] MEDS ORDERED: ROCURONIUM BROMIDE 10 MG/ML 5 ML VIAL IV ONE (12:53)
[2020-06-10] MEDS ORDERED: NEOSTIGMINE METHYLSULFATE 5 MG/5 ML SYR ONE (12:53)
[2020-06-10] MEDS ORDERED: PROPOFOL IV EMULSION 10 MG/ML 20 ML VIAL IV ONE (12:53)
[2020-06-10] MEDS ORDERED: LIDOCAINE HCL 2% 2 ML VIAL/AMP(20MG/ML) INFIL ONE (12:53)
[2020-06-10] MEDS ORDERED: BUPIVACAINE 0.25% 30 ML VIAL ONE (13:20)
[2020-06-10] MEDS ORDERED: EPINEPHrine INJ 1 MG/ML AMP ONE (13:20)
[2020-06-10] MEDS ORDERED: BUPIVACAINE 0.5 % 5 MG/1 ML MPF 30ML VIAL ONE (13:26)
[2020-06-10] MEDS ORDERED: ACETAMINOPHEN 1000 MG/100 ML IV IV ONE (15:31)
--- NOTE | 2020-06-10 16:21 | Fluoroscopy Report ---
FL tibia/fibula LT 2V CLINICAL HISTORY: LT ORIF TIBIAL PLATEAU FX COMPARISON STUDY: Left knee CT 06/09/2020. FLUOROSCOPY TIME: 1 minute and 33 seconds. FINDINGS: 4 fluoroscopic spot images of the left lower leg were submitted. There is a lateral cortica l plate and screws transfixing a tibial plateau fracture. There is also cement placement at the tibia l plateau fracture. The hardware appears intact. IMPRESSION: Fluoroscopy provided for internal fixation of a lateral tibial plateau fracture. ACT 112: Negative or not required by law. Electronically signed by: James Bowen M.D. 06/10/2020 4:19 PM
--- NOTE | 2020-06-10 16:45 | Post Operative Brief Note ---
PG Immediate Post Op with CF Date of Surgery June 10, 2020 Pre & Post Diagnosis Operation Date: 06/10/20 07:00 Pre-Op Diagnosis: LEFT TIBIAL PLATEAU FRACTURE Post-Op Diagnosis: LEFT TIBIAL PLATEAU FRACTURE I identified the patient and participated in the time-out.: Yes Procedure Operation Date: 06/10/20 07:00 Actual Procedures p Left Open Reduction Internal Fixation Tibial Plateau Fracture, allograft bone impaction(Left) - Michael Rabago MD Surgeon Michael Rabago MD Manager Universal Angel Luis Garcia PA-C Estimated Blood Loss 100 Findings See Below Specimens Specimen Description: None Drains Salazar Catheter and Butch-Stauffer Drain (15 fr round)
--- NOTE | 2020-06-10 16:58 | Operative Report ---
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 There was no viable lateral tibial cortex. All Synthes implants: 3.5 mm proximal tibial lobe and lateral locking plate, 3.5 locking screws, 3.5 cortex screws, 30 cc of allograft cancellous chips, and 5 cc of Norian calcium phosphate cement. Specimens none Drains 14 Somali round JOÃO drain Anesthesia Type General Complications none Disposition Accompanied Patient To Recovery: No Disposition: Recovery Room Indications 84-year-old male sustained a slip and fall in his driveway resulting immediate pain and inability ambulate. He was taken to the [facility] emergency room where a lateral tibial plateau fracture was diagnosed. Orthopedics admitted the patient under Dr. Gates for operative fixation. Based on the OR schedule, I was more available and able to take on this fracture. I had a new discussion on the diagnosis, prognosis and treatment recommendation for open reduction and fixation with use of allograft bone and calcium phosphate cement with the patient in the preoperative holding area. The patient was in agreement to proceed today with surgery with me. Informed consent was documented preop holding area. Description of Procedure On the day of surgery, the patient was greeted in the preoperative holding area. The informed consent was reviewed and confirmed by myself and the patient. The patient identified the surgical site and was marked by me. The patient was then turned over to anesthesia. He was taken the operative room, placed on the OR table, and anesthesia was induced. The airway was secured. He was positioned supine. All bony problems were well-padded. A radial arterial line was established by anesthesia. Nonsterile tourniquet is placed high in the operative thigh. The left lower extremities then prepped and draped in usual sterile. Incision was planned to include a lateral approach to the tibia. The Esmarch bandage used to exsanguinate the extremity and tourniquet was inflated to 250 mmHg for a total of 2 hours. Incision was made over the lateral tibial plateau and carried distally towards the diaphyseal crest. Bovie electrocautery was used for hemostasis through the subcutaneous dissection. The anterior compartment was approached. It was dissected using electrocautery off the lateral tibia to expose the fracture fragments. The main anterior facing fracture line was then booked open using lamina spreaders to access the medullary space. We irrigated the hematoma using gravity flow irrigation. There was abundant hematoma that was evacuated. A lot of comminuted bone is also easily washed away unfortunately. There is a severe comminution and fragmentation of the lateral wall and there was no viable reducible fragment. The lateral rim had no significant structural bone and there was only a thin layer periosteum to pull back into the reduction. The lateral tibial plateau articular segment was significantly impacted by several centimeters into the metaphysis. A Peters elevator was used to reduce this the best we could under fluoroscopic guidance. This left an extreme avoid to the metaphysis. Allograft bone chips were then impacted underneath this fragment. The seem to lose reduction with the impacted fragment followed back down to the metaphysis. Therefore placed a provisional K wire from lateral to medial underneath the main articular fragment and then proceeded to pack more bone chips underneath it. The metaphysis again was cavernous and seemed to take all the bone graft. We then try to provisionally place a plate however the K wire was blocking our access. Placed another K wire from anterior to posterior to hold the articular fragment. Again had to place more cancellous bone chips. Fracture was then closed down once again. I placed a 3.5 mm proximal tibia lobe and lateral locking plate under fluoroscopic guidance. The fracture once again seem to lose reduction despite the impact of bone chips. Plate was then left in place and the periarticular clamp was then used to compress and lift the lateral plateau. This did seem to reduce the fracture better. K wires removed. The bone tamp was used once again with the plate in place to tamp up the articular segment. I then placed the cortical screw in the sliding hole of the tibia plate. This fixed the plate the bone is able to advance the plate up more the lateral column. The seem to position it well. We evaluated under fluoroscopy. The plate seem to be in suboptimal position and needed to slide more proximal. For that reason the sliding hole screw was loosened and the plate was advanced further under fluoroscopic guidance and I placed another cortical screw to fix the plate down to bone which did position a more anatomical location. The seem to reduce the joint line better. At that point I placed rafting screws in the most proximal locking holes. There was very poor bone quality in the far medial cortex. The kickstand screws were then placed next. Then, additional shaft screws were placed. Due to bone quality use locking screws distally. Total of 3 locking screws and 1 cortical screw was used in the distal shaft. We used all the kickstand screws and all 4 rafting screws of the plate. On fluoroscopic visualization, it did seem to be some loss of reduction until final fixation. At that point though I felt was adequately restored to some reasonable anatomy for bone stock. Additional allograft chips were then placed underneath the plate and impacted firmly. There still was a significant void in the proximal tibia so I called for the Norian calcium phosphate bone cement. The periosteal and fascial layers were then approximated around the plate to give it some closure using #1 Vicryl suture in an interrupted fashion. The Norian bone cement was mixed on the back table and loaded into a Sandeep syringe. I used an anterior access point at the bend of the plate to infuse the Norian on under fluoroscopic imaging. It did seem to fill the cavity well and did not have any apparent joint infiltration. Final fluoroscopic views were taken. Seem to be acceptable elevation of the articular fragment and stabilization with the plate was secured. At that point thorough gravity flow irrigation was carried out. Wound closure was accomplished using 2-0 Vicryl suture in the deep dermal layer followed by interrupted 2-0 nylon suture in a vertical mattress fashion. We did have to place 2 trauma sutures to pull skin edges in approximation. Closure was performed over a 14 Somali round JOÃO drain in case of hematoma formation. Drain stitch was placed at its exit point in the lateral thigh. Wounds were dressed with sterile Xeroform, sterile gauze, ABD and contained by web roll. An David wrap was placed from toes to thigh. Extremities placed back into his knee immobilizer. The patient tolerated procedure well, was extubated after without complication, and transported the PACU in stable condition. Disposition: The patient will return to the floor for postoperative recovery. We will monitor his H&H and drain output for 24 to 48 hours. He should be nonweightbearing and remain in the knee immobilizer for all ambulatory activity. The knee immobilizer can be removed while in bed and he can be range of motion as tolerated. We will begin DVT prophylaxis on postop day 1 consisting of Lovenox 40 mg daily, with weight adjustment by the pharmacy. He can likely be discharged on twice daily aspirin and then stop Lovenox. Physician assistant operations manager attestation: Angel Luis Garcia PA-C was present and scrubbed for the duration of the case. He was essential to prepping/draping, patient positioning, retraction, and assistance with wound closure. I attest to the content of the Intraoperative Record and any orders documented therein. Any exceptions are noted below.
--- NOTE | 2020-06-10 17:25 | Anesthesiology Progress Note ---
Date of Service June 10, 2020 Anesthesia Post Procedure Vital Signs Vital Signs: Temp Pulse Pulse Resp BP Pulse Ox 06/10/20 17:20 55 L 23 101/53 L 99 06/10/20 17:10 57 L 24 103/51 L 98 06/10/20 17:00 59 L 19 98/47 L 99 06/10/20 16:50 97.3 F L 62 16 109/60 99 06/10/20 11:44 98.6 F 66 18 111/58 L 95 06/10/20 07:13 97.9 F 79 16 120/69 94 06/09/20 22:48 99.9 F H 90 16 104/64 94 06/09/20 21:42 72 101/61 06/09/20 18:24 98.4 F 62 16 111/58 L 99 Pain Intensity Left Leg: Pain Intensity: 0 Transfer of Care Handoff Completed per policy Notes Mental Status: alert / awake / arousable and participated in evaluation Patient Amnestic to Procedure: Yes Nausea / Vomiting: adequately controlled Pain: adequately controlled Airway Patency, RR, SpO2: stable & adequate BP & HR: stable & adequate Hydration State: stable & adequate Anesthetic Complications: no major complications apparent and Pt Satisfied with anesthetic care
[2020-06-10] MEDS ORDERED: ACETAMINOPHEN 500 MG TAB PO PRN (17:57)
[2020-06-10] MEDS ORDERED: HYDROmorphone INJ 0.5 MG/0.5 ML SYR IV PRN (17:57)
--- NOTE | 2020-06-10 18:16 | XRay Report ---
XR knee LT 1 or 2V routine CLINICAL HISTORY: Post-op. Left tibial plateau fracture. COMPARISON STUDY: CT Left knee 06/09/2020 FINDINGS: Status post internal fixation of a left tibial plateau fracture with cortical plate and scr ews. There is cement both within and adjacent to the lateral tibial plateau. There is persistent depr ession of the lateral tibial plateau measuring up to 8 mm. Left fibular neck fracture is also noted. A surgical drain is in place. IMPRESSION: Status post internal fixation of the lateral tibial plateau fracture with a cortical sherine te, screws, and cement. The lateral tibial plateau remains depressed up to 8 mm. ACT 112: Negative or not required by law. Electronically signed by: James Bowen M.D. 06/10/2020 6:15 PM
[2020-06-10] MEDS ORDERED: ceFAZolin 2000MG 2,000 MG/15 ML SYR IV ONE (21:00)
[2020-06-11] MEDS: SODIUM CHLORIDE 0.9% 1000ML 1,000 ML IV SCH ×2 (05:58→18:29)
[2020-06-11] MEDS: LEVOTHYROXINE SODIUM 137 MCG TABLET PO SCH (05:58)
--- NOTE | 2020-06-11 06:02 | Electrocardiogram Report ---
Test Reason : Blood Pressure : / mmHG Vent. Rate : 079 BPM Atrial Rate : 079 BPM P-R Int : 188 ms QRS Dur : 118 ms QT Int : 420 ms P-R-T Axes : 067 004 169 degrees QTc Int : 481 ms Normal sinus rhythm Left ventricular hypertrophy with QRS widening and repolarization abnormality Abnormal ECG When compared with ECG of 27-MAR-2020 15:33, No significant change was found Confirmed by Kranthi Moran ([id number]) on 06/11/2020 6:02:23 AM Referred By: REFERRED SELF Confirmed By:Kranthi Moran
[2020-06-11 08:12] LABS: Hemoglobin 8.5 g/dL (14.0-18.0)
[2020-06-11] MEDS: carvediloL 25 MG TAB PO SCH ×2 (08:20→19:54)
[2020-06-11] MEDS: lisinopril 5 MG TAB PO SCH (08:20)
[2020-06-11] MEDS: MULTIVITAMIN TAB PO SCH (08:20)
[2020-06-11] MEDS: CALCIUM 600MG + VIT D 400 IU TAB PO SCH ×2 (08:20→19:57)
[2020-06-11] MEDS: FUROSEMIDE 20 MG TAB PO SCH (08:20)
[2020-06-11] MEDS: FLUTICASONE/VILANTEROL 200/25MCG 14 PUFFS/INHALER INH SCH (08:21)
[2020-06-11] MEDS: ENOXAPARIN INJ 40 MG/0.4 ML SYR SQ SCH (08:21)
--- NOTE | 2020-06-11 08:30 | Anesthesiology Progress Note ---
Date of Service June 11, 2020 Anesthesia Post Procedure Vital Signs Vital Signs: Temp Pulse Pulse Pulse Resp BP Pulse Ox 06/11/20 07:24 37.0 C 95 H 16 111/65 98 06/11/20 04:03 36.6 C 95 H 20 111/67 98 06/11/20 00:00 58 L 06/10/20 22:54 36.6 C 66 18 129/64 100 06/10/20 20:20 36.4 C L 58 L 16 118/56 L 100 06/10/20 19:19 36.3 C L 56 L 18 104/50 L 100 06/10/20 18:18 36.4 C L 56 L 18 110/55 L 100 06/10/20 18:03 36.5 C 55 L 18 108/50 L 100 06/10/20 17:45 36.4 C L 54 L 18 113/64 100 06/10/20 17:30 36.3 C L 55 L 21 111/50 L 99 06/10/20 17:20 55 L 23 101/53 L 99 06/10/20 17:10 57 L 24 103/51 L 98 06/10/20 17:00 59 L 19 98/47 L 99 06/10/20 16:50 36.3 C L 62 16 109/60 99 06/10/20 11:44 37 C 66 18 111/58 L 95 Pain Intensity Left Leg: Pain Intensity: 0 Notes Mental Status: alert / awake / arousable and participated in evaluation Patient Amnestic to Procedure: Yes Nausea / Vomiting: see Notes below Pain: adequately controlled Airway Patency, RR, SpO2: stable & adequate BP & HR: stable & adequate Hydration State: stable & adequate Anesthetic Complications: no major complications apparent and Pt Satisfied with anesthetic care
[2020-06-11 08:44] LABS: BUN Creatinine Ratio 18.8 (10-20); Calcium 8.3 mg/dl (8.5-10.1); Creatinine Clr Calc Pharmacy 30.9 ml/min; Est GFR (African American) 62.5; Est GFR (Non-African American) 53.9; Potassium 4.6 mmol/L (3.5-5.1)
--- NOTE | 2020-06-11 09:07 | Orthopedic Progress Note ---
Date of Service June 11, 2020 Assessment & Plan (1) Closed fracture of tibial plateau: Making good progress on POD1 - expected blood loss that needs to be monitored but so far asymptomatic. - Finish 24h abx ppx - Begin DVT ppx today - OOB with PT/OT - NWBing to LLE. May place foot for balance only. May be ROM as tolerated when NWBing. - Plan for continued JOÃO drain monitoring - likely d/c with dressing change tomorrow by ortho team - Appreciate Hospitalist Consult - continue monitored bed at least until H/H is stabilized Dispo: Continue inpatient monitoring for drain output, progress with PT/OT, acute blood loss of fracture and surgery. Expect to need SNF vs Rehab for next level of care. Repeat xrays in ortho clinic in 10-14 days. Subjective Reports that he feels 'fine.' Only has pain if he moves. No complaints. Good appetite Review of Systems All systems reviewed & are unremarkable except as noted in HPI & below. Physical Exam LLE: knee immobilizer and dressing c/d/i. JOÃO drain with serosanguinous drainage - 10-12 ml. + DF/PF/EHL. Constitutional WD/WN, vitals as above no acute distress and not intoxicated appearing Respiratory normal respiratory effort; no labored breathing Cardiovascular Extremities: normal capillary refill Results & Data Results & Data Laboratory Results H & H 06/09/20 06/11/20 Range/Units 18:34 08:03 Hgb 10.9 L 8.5 L (14.0-18.0) g/dL Hct 33.6 L 26.0 L (42-52) % Coagulation 06/09/20 Range/Units 18:34 INR 1.0 (0.9-1.1) Diagnostic Findings . PG Care Time/CCT Total # of Minutes Spent Total Time Spent with Patient: Total time spent is greater than 50% in coordination of care (as documented) at patient's floor/unit and/or counseling patient: Coding Level of Care Code 81548 Post Operative Follow-Up Diagnoses Closed fracture of tibial plateau S82.142A Encounter type: initial encounter Laterality: left (1) Closed fracture of tibial plateau Encounter type: initial encounter Laterality: left Qualified Code(s): S82.142A - Displaced bicondylar fracture of left tibia, initial encounter for closed fracture
--- NOTE | 2020-06-11 10:58 | Hospitalist Progress Note ---
Date of Service June 11, 2020 Assessment & Plan (1) Closed fracture of tibial plateau: Impression: This is an 84-year-old male that lives in [facility]. Yesterday he fell on the ice at 11 AM and presented to the emergency department for evaluation treatment. He was found to have a tibial plateau fracture. Orthopedics was consulted. It is anticipated that he will be an add-on for surgical stabilization later today. Whole leg immobilizer placed on the left leg POD #1 from open reduction internal fixation with Dr. Rabago. Further management per orthopedics including ice and elevation Patient is starting to complain of some pain at the left knee. Continue with pain control per orthopedics JOÃO drain in place. 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 Follows with [facility] cardiology Continue all home medications with hold parameters (4) Asthma: Patient denies any shortness of breath Benign exam with auscultation Patient is not on any pulmonary medications or inhalers or nebulizer treatments at home Empirically started on Brio Ellipta (ICS/LABA) No bronchospasm on exam No record of pulmonary function testing or pulmonary follow-up No need for optimizing prior to surgery Oxygenating well on room air (5) Hypertension: Systolic blood pressure 111 this morning Home medications include carvedilol, lisinopril, furosemide We will continue all home medications with hold parameters Continue to monitor vital signs per protocol (6) Seizure disorder: No recent seizures per patient report No antiepileptic medications on his home record (7) Hypothyroidism: Continue levothyroxine at 137 mcg daily TSH 0.107 (8) Polymyalgia rheumatica: Patient is not on any regular NSAIDs Is not on any methotrexate or other medication No current complaints today (9) DVT prophylaxis: Patient is currently on aspirin 81 mg p.o. daily for CAD Further chemical prophylaxis per orthopedics Consider SCDs/DAY vigil Thank you for including us in the care of this patient. We will continue to follow along with you perioperatively. (10) Anemia: Patient had a drop in hemoglobin of 2 g/Carlos EBL was 100 cc This is most likely dilutional We will check a repeat H&H at 1400 Hemodynamically stable We will not consider transfusion unless hemoglobin drops below 7 g/Carlos or realization of active bleeding Thank you for including us in the care of this patient. We will continue to follow along with you. Admission and Anticipated Discharge Date Admission Date: June 09, 2020 Subjective Attending: Dr. Dumont Patient seen and examined at bedside. He is postoperative day #1 from a closed tibial plateau fracture repair with Dr. Rabago. JOÃO drain is in place with minimal drainage in the bulb. Patient does state that he is starting to have some pain of his left knee area. He has no fever chills. He has no chest pain or tightness. He has no shortness of breath. He denies any nausea or vomiting. He is very pleased with the surgical outcome in the process yesterday. He is complaining of a mild sore throat. He has no other acute complaints at this time. Review of Systems Review of Systems: All systems reviewed & are unremarkable except as noted in Subjective Physical Exam Physical Exam: GENERAL : No acute distress. Pleasant. Talkative EYES: No icterus, gaze conjugate NOSE: No evidence of epistaxis MOUTH: No lesions or candidiasis. Mucosa is moist. No evidence of irritation of the posterior oropharynx. No evidence of infection. NECK: Supple LUNGS: CTA B/L, no wheezes, rales or rhonchi. Good inspiratory effort HEART: Regular, rate controlled ABDOMEN: Soft, NT, ND, BS Present EXTREMITIES: No LE edema, pedal pulses intact and equal bilaterally. There is an David wrap down to the toes on the left leg. There is also a complete leg immobilizer on the left leg. JOÃO drain has minimal drainage that is serosanguineous. Patient does have some tenderness to light palpation over the left tibial plateau. NEURO: A&OX3 Results & Data Results & Data ([facility]) Vital Signs (Past 12 Hours) Vital Signs Temp Pulse Pulse Pulse Resp BP Pulse Ox 06/11/20 08:37 85 06/11/20 07:24 37.0 C 95 H 16 111/65 98 06/11/20 04:03 36.6 C 95 H 20 111/67 98 06/11/20 00:00 58 L Laboratory Results 06/11/20 08:03 06/11/20 08:03 Diagnostic Findings No new diagnostic imaging since yesterday. 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 I25.812 Asthma J45.909 Asthma severity: unspecified severity Asthma persistence: unspecified Asthma complication type: unspecified Hypertension I10 Hypertension type: unspecified Seizure disorder G40.909 Hypothyroidism E03.9 Hypothyroidism type: unspecified Polymyalgia rheumatica M35.3 DVT prophylaxis Z29.9 Anemia D64.9 Time Spent (min) 20 (1) Closed fracture of tibial plateau Encounter type: initial encounter Laterality: left Qualified Code(s): S82.142A - Displaced bicondylar fracture of left tibia, initial encounter for closed fracture (2) Asthma Asthma severity: unspecified severity Asthma persistence: unspecified Asthma complication type: unspecified Qualified Code(s): J45.909 - Unspecified asthma, uncomplicated (3) Hypertension Hypertension type: unspecified Qualified Code(s): I10 - Essential (primary) hypertension (4) Hypothyroidism Hypothyroidism type: unspecified Qualified Code(s): E03.9 - Hypothyroidism, unspecified
[2020-06-11] MEDS: oxyCODONE HCL IR 5 MG TAB (IMMEDIATE RELEASE) PO PRN ×2 (11:15→17:29)
[2020-06-11 14:39] LABS: Hemoglobin 7.5 g/dL (14.0-18.0)
[2020-06-11 20:20] LABS: Hematocrit (blood only) 21.8 % (42-52); Hemoglobin 7.1 g/dL (14.0-18.0)
[2020-06-12] MEDS: LEVOTHYROXINE SODIUM 137 MCG TABLET PO SCH (05:37)
[2020-06-12] MEDS: SODIUM CHLORIDE 0.9% 1000ML 1,000 ML IV SCH (06:35)
[2020-06-12 07:00] LABS: Hematocrit (blood only) 23.3 % (42-52); Hemoglobin 7.6 g/dL (14.0-18.0); Mean Corpuscular Hemoglobin 30.6 pg (25-34); Mean Corpuscular Hgb Conc 32.6 g/dL (32-36); Mean Platelet Volume 10.3 fL (7.4-10.4); Platelet Count 192 K/uL (130-400); RDW Coefficient of Variation 15.8 % (11.5-14.5); Red Blood Count 2.48 M/uL (4.7-6.1); White Blood Count 8.37 K/uL (4.8-10.8)
--- NOTE | 2020-06-12 07:33 | Orthopedic Progress Note ---
Date of Service June 12, 2020 Assessment & Plan (1) Tibial plateau fracture, left: (2) Fibula fracture: Making good progress on POD2 - expected blood loss that needs to be monitored but so far asymptomatic. - Continue DVT ppx today - OOB with PT/OT - NWBing to LLE. May place foot for balance only. May be ROM as tolerated when NWBing. - Plan for continued JOÃO drain monitoring - likely d/c with dressing change tomorrow by ortho team - Appreciate Hospitalist Consult - continue monitored bed at least until H/H is stabilized Dispo: Continue inpatient monitoring for drain output, progress with PT/OT, acute blood loss of fracture and surgery. Expect to need SNF vs Rehab for next level of care. Repeat xrays in ortho clinic in 10-14 days. Subjective 84 year old white male who is POD #2 of left tibia plateau ORIF. He is doing well this morning. He has no complaints or concerns. He says that he has been working with PT. Nursing reports that he has had about 110 cc of fluid from his JOÃO drain in the last 24 hours and 55 cc of fluid in the last 8 hours. Review of Systems All systems reviewed & are unremarkable except as noted in HPI & below. Physical Exam Pleasant. Awake. Alert and Oriented MSK: Neurovascularly intact left lower extremity and is able to wiggle his toes with sensation to touch grossly intact. No pain with log roll. Immobilizer is in place over the left knee. JOÃO drain shows about 10 cc of erythematous fluid. Results & Data Results & Data Laboratory Results H&H at 7.6 & 23.3 are up from previous lab draw down yesterday which had H&H at 7.1 & 21.8. Diagnostic Findings . PG Care Time/CCT Total # of Minutes Spent Total Time Spent with Patient: Total time spent is greater than 50% in coordination of care (as documented) at patient's floor/unit and/or counseling patient: Supervising Physician Co-Signing Physician Notes Patient seen and dressing change performed with Angel Luis Garcia PA-C. He is making uncomplicated progress. Due to output, continue drain until at least tomorrow am - will pull if <30cc/8hr. Continue to mobilize. Likely ready for transition to rehab tomorrow. Coding Level of Care Code 67211 Post Operative Follow-Up Diagnoses Tibial plateau fracture, left S82.142A Fibula fracture S82.832A Encounter type: initial encounter Fibula location: proximal Fracture morphology: unspecified fracture morphology Fracture type: closed Laterality: left (1) Fibula fracture Encounter type: initial encounter Fibula location: proximal Fracture mo rphology: unspecified fracture morphology Fracture type: closed Laterality: left Qualified Code(s): S82.832A - Other fracture of upper and lower end of left fibula, initial encounter for closed fracture
[2020-06-12] MEDS: CALCIUM 600MG + VIT D 400 IU TAB PO SCH ×2 (08:58→20:10)
[2020-06-12] MEDS: FUROSEMIDE 20 MG TAB PO SCH (08:58)
[2020-06-12] MEDS: MULTIVITAMIN TAB PO SCH (08:58)
[2020-06-12] MEDS: lisinopril 5 MG TAB PO SCH (08:58)
[2020-06-12] MEDS: FLUTICASONE/VILANTEROL 200/25MCG 14 PUFFS/INHALER INH SCH (08:59)
[2020-06-12] MEDS: carvediloL 25 MG TAB PO SCH ×2 (08:59→20:08)
[2020-06-12] MEDS: ENOXAPARIN INJ 40 MG/0.4 ML SYR SQ SCH (09:00)
--- NOTE | 2020-06-12 12:51 | Discharge Summary ---
Date of Service June 12, 2020 Admission HPI (Per Admitting) Jose is an 84 y/o male who fell around 11am this morning in his driveway. He states that is was icy in his driveway and his left leg slipped out to the side. He says that he was unable to get up from that point due to pain in his LLE. Patient states that he is an independent ambulator. He lives alone and is very self sufficient. He states that he has basement stairs in his house he uses frequently Admission Exam (Per Admitting) Swelling distal to his left knee. Pain with palpation over the proximal and lateral tibia. No obvious deformities. Pain with flexion and extension of his left knee. Unable to test ligaments due to pain. Neurovascularly intact LLE Principal Diagnosis Same as "Discharge Diagnosis" noted below under Discharge Instructions. Discharge Exam Pleasant. Awake. Alert and Oriented MSK: Neurovascularly intact left lower extremity and is able to wiggle his toes with sensation to touch grossly intact. No pain with log roll. Immobilizer is in place over the left knee. The JOÃO drain have been removed. His wound was well approximated without erythema or active drainage. Sutures remain in place. Discharge Data Consultations 06/09/20 16:16 ED Decision to Admit Stat 06/09/20 18:03 Consult Case Management - Discharge Planning Routine Consult Internal Medicine Routine Procedures Performed Operation Date: 06/10/20 07:00 Actual Procedures p Left Open Reduction Internal Fixation Tibial Plateau Fracture(Left) - Michael Rabago MD Ordered Studies 06/09/20 12:40 CT knee LT wo con Stat 06/10/20 12:30 FL fluoroscopy <1hr Routine FL tibia/fibula LT 2V Routine Hospital Course (1) Fibula fracture: Treated with stabilization of the tibia. Encounter type: initial encounter Fibula location: proximal Fracture morphology: unspecified fracture morphology Fracture type: closed Laterality: left Qualified Code(s): S82.832A - Other fracture of upper and lower end of left fibula, initial encounter for closed fracture (2) Tibial plateau fracture, left: Patient was admitted preoperatively for pain control and medical optimization for open reduction of fixation. I assumed care on the day of surgery from Dr. Gates. Hospitalist consult was obtained for his cardiac and pulmonary history. Anesthesia consult was also placed preoperatively. He underwent uncomplicated open reduction internal fixation of the left lateral tibial plateau point 06/10/2020. He remained inpatient for pain control, postoperative mobilization, and observation of his blood loss and drain output. On postoperative day 3, he was found stable for discharge to inpatient rehabilitation. Unfortunately, he developed significant anxiety in the morning of postop day 4. Cardiology consult was obtained. Evaluation demonstrate he may have had a myocardial infarction. He remained inpatient for several days for diuresis and management. Once he was found medically stable for discharge, arrangements have been made for him to go to inpatient rehab. 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 If you need to change this appointment, please call [phone].) Vik Soto MD [Primary Care Provider] - Helen Burgess PA-C [Physician Heeler Machine] - 06/25/20 2:00 pm (Congestive Heart Failure Program Appointment Information Early follow up is essential to managing your heart failure. An appointment has been scheduled for you with the [facility] within 7 days of discharge. Anticipate this visit to be 30-60 minutes long. Please expect a street light lamp cleaner phone call from one of our nurses approximately 48 hours from discharge. They will also be placing an order for lab work to be completed 1-2 days prior to your heart failure follow up appointment. Please be sure to have this done so we can go over the results when you come in. Office Location The cardiology office building is located in front of the hospital at [address]. Bring the following with you to your follow-up doctor appointments: Please bring your daily weight log any discharge paperwork all of your medication bottles with you to this visit. ) Diet: Regular Addtl Attending Provider Instructions: Non-weight bearing on the left leg. Range of motion as tolerated. Knee immobilizer at all times for ambulation. Lovenox 40 mg inj subcut once daily for 30 days. Follow-up with Dr. Rabago in 2-3 weeks with x-ray and suture removal Addtl Nutrition Director Provider Instructions: Call your Primary Care doctor if any of the following symptoms or problems start or get worse: * Shortness of breath or difficulty breathing * Wake up at night short of breath * Chest pain * Cough * Swelling of your hands, feet, or legs * More fatigued or tired with your normal activity * Palpitations - sudden fast heart beats WEIGHT * Weigh yourself every morning after using the bathroom. * Use the same scale. * Wear the same amount of clothing. * Write your weight down on a chart. * Call your Primary Care doctor if you gain more than 2-3 pounds in 1-2 days. MEDICATIONS * Use this discharge instruction sheet for medication instructions. * Take your medications at the time your doctor ordered. * Do not skip a dose of your medicines. * If you miss a dose of medicine, take it as soon as possible, but DO NOT DOUBLE A DOSE. * Read your medicine information when you get home. * Know all of the side effects of your medicine. If in doubt, ask your pharmacist * Call your Primary Care doctor's office if you have any side effects. * Be sure all of your doctors know what medicine and herbs you take (including cold, flu, and herbal medicine). Take the following with you to your follow-up doctor appointments: * Weight Chart * Medication List * List of questions Do not drink excessive alcohol, beer or wine. Pending Studies at Discharge: No Stand-Alone Forms: My [facility] Skilled Items Patient informed of condition?: Yes DNR: Yes Discharge Level of Care: Acute rehab Communicable Disease: No Discharge Prognosis: Stable Lines: None Urinary Catheter: No Medications and DC Order Prescriptions: New oxycodone 5 mg Tablet 5 mg PO Q4H PRN (Reason: pain) Qty: 10 RF: 0 acetaminophen 500 mg Tablet 500 mg PO Q4H PRN (Reason: pain) Qty: 30 RF: 0 ferrous gluconate 324 mg (38 mg iron) Tablet 324 mg PO BIDM Qty: 60 RF: 0 clopidogrel 75 mg Tablet 75 mg PO QAM Qty: 30 RF: 0 ipratropium-albuterol 0.5 mg-3 mg(2.5 mg base)/3 mL Solution For Nebulization 3 ml NEB Q4R PRN (Reason: shortness of breath) Qty: 15 RF: 0 aspirin 81 mg tablet,delayed release (DR/EC) 81 mg PO BID Qty: 60 RF: 0 Continued carvedilol 25 mg tablet 25 mg PO BID Qty: 180 RF: 3 fluticasone propion-salmeterol [Advair Diskus] 250-50 mcg/dose blister with device 1 inh INH BID Qty: 180 RF: 1 polyethylene glycol 3350 [Miralax] 17 gram/dose powder 17 g PO DAILY PRN (Reason: constipation) Qty: 510 RF: 0 calcium carbonate-vitamin D3 600 mg(1,500mg) -200 unit tablet 1 tab PO BID RF: 0 multivitamin tablet 1 tab PO QAM RF: 0 levothyroxine 137 mcg tablet 137 mcg PO QAM RF: 0 lisinopril 5 mg tablet 5 mg PO QAM RF: 0 Changed furosemide 20 mg tablet 20 mg PO DAILY Qty: 30 RF: 5 Discharge Orders: Discharge Order (Routine); Ordered 06/18/20 Ordered By: Tim Cavazos Admission Data Admit Date/Time: 06/09/20 16:24 Attending Provider: Ravindra Gates Admit Provider: Ravindra Gates Primary Care Provider: Vik Soto Other Providers: Ravindra Gates ; [facility] ; [facility], ; [facility] ; [facility] ; [facility] ; Deangelo Young ; Martin Wang ; Jnoes Barbosa ; [place] ; Denilson Teran ; Jm Kim Jr ; Kranthi Moran ; Kisha Centeno ; Kortney Galicia ; Vik Carlos ; Vik Espinosa ; Dany Mcgee ; Gomez Vizcarra ; Helen Burgess ; Una Mae ; Glenn Hugo ; Raymond Lepe ; Jhonny Kendrick ; Tim Cavazos. Other Interventions: Discharge Summary Assessment (RN) Last Done: 06/18/20 14:02
--- NOTE | 2020-06-12 12:54 | Hospitalist Progress Note ---
Date of Service June 12, 2020 Assessment & Plan (1) Closed fracture of tibial plateau: Postoperative day #2 after open reduction internal fixation of left tibial plateau fracture. Orthopedic management. Pain control measures. (2) Hypertension: Lasix held preoperatively and restarted postoperatively. Lisinopril dosage decreased due to low blood pressure. (3) Hypothyroidism: TSH recently low in setting of small bowel obstruction however free T4 normal. Recommend repeating as outpatient. Continue levothyroxine 137 mcg PO QAM. (4) Ischemic cardiomyopathy: LVEF 20-25% per last cardiology note with mild aortic stenosis. Continue carvedilol 25mg PO BID and lisinopril 2.5mg PO daily with hold parameters (5) Aortic stenosis: Mild per last cardiology note. No symptoms of this getting worse. (6) CAD, multiple vessel: Remote CABG in 1995. Follows with cardiology and last seen by Dr Barbosa in 10/2019 with stable symptoms at that time. No recent worsening of symptoms to suggest progression. No further cardiac workup required. (7) Osteoporosis: Notable history of such. Consider outpatient DEXA scan as not recently performed on EHR. Vitamin D level WNL in 2019, will repeat with AM labs. Continue supplementation. (8) Asthma: No recent exacerbation of such. Continue Advair Diskus or hospital formulary equivalent. (9) DVT prophylaxis: Deferred to orthopedics (10) Anemia: Acute postoperative blood loss anemia. IV fluids discontinued which may be contributing. Start iron replacement. Serial lab studies. Admission and Anticipated Discharge Date Admission Date: June 09, 2020 Subjective Alert and pleasant. Eating well. Continuous IV fluids discontinued. Will avoid overhydration and fluid overload due to known systolic dysfunction with ejection fraction of 25%. Blood pressure is on the low side. Lisinopril dose decreased today. Hemoglobin remains low postoperatively from acute blood loss anemia. Iron replacement started. Review of Systems Review of Systems: Constitutional-no fever or chills ENT-no blurred vision, no double vision, no epistaxis, no sore throat Respiratory-no cough, no wheezing, no shortness of breath Cardiac-no palpitations, no chest pain, no syncope GI-no nausea, vomiting, diarrhea, melena, hematochezia -no urinary retention, no urinary incontinence, no dysuria, no hematuria Musculoskeletal-left knee brace in place with limited range of motion. Skin-no bruising, no rashes, no pruritus Neuro-no isolated weakness, no paresthesia, no weakness Psych-no depression, no anxiety Physical Exam Physical Exam: General-alert and oriented x3, no fevers, no chills HEENT-head atraumatic and normocephalic, TMs intact bilaterally, pupils equal and reactive to light, extraocular muscles intact Neck-no lymphadenopathy or thyromegaly, trachea midline Chest-clear to auscultation percussion. No rales wheezing or rhonchi Cardiac-regular rate and rhythm, normal S1 and S2, no murmurs Abdomen-normal bowel sounds, nontender, no hepatosplenomegaly Extremities-left knee brace in place with limited range of motion Neuro-cranial nerves II through XII intact, motor and sensory function within normal limits, strength symmetrical 5/5, no focal deficits Psych-normal affect, normal mood Results & Data Results & Data ([facility]) Vital Signs (Past 12 Hours) Vital Signs Temp Pulse Pulse Pulse Resp BP Pulse Ox 06/12/20 11:17 36.9 C 98 H 18 88/58 L 92 06/12/20 07:59 37.0 C 101 H 18 99/64 L 92 06/12/20 07:09 103 H 06/12/20 04:12 36.8 C 97 H 18 93/51 L 95 Laboratory Results 06/12/20 06:36 06/11/20 08:03 PG Care Time/CCT Total # of Minutes Spent Total Time Spent with Patient: Total time spent is greater than 50% in coordination of care (as documented) at patient's floor/unit and/or counseling patient: Coding Level of Care Code 11349 Subs Hosp Care Lvl 3 Diagnoses Closed fracture of tibial plateau S82.142A Encounter type: initial encounter Laterality: left Hypertension I10 Hypertension type: unspecified Hypothyroidism E03.9 Hypothyroidism type: unspecified Ischemic cardiomyopathy I25.5 Aortic stenosis I35.0 CAD, multiple vessel I25.10 Osteoporosis M81.0 Asthma J45.909 Asthma severity: unspecified severity Asthma persistence: unspecified Asthma complication type: unspecified DVT prophylaxis Z29.9 Anemia D64.9 (1) Closed fracture of tibial plateau Encounter type: initial encounter Laterality: left Qualified Code(s): S82.142A - Displaced bicondylar fracture of left tibia, initial encounter for closed fracture (2) Hypertension Hypertension type: unspecified Qualified Code(s): I10 - Essential (primary) hypertension (3) Hypothyroidism Hypothyroidism type: unspecified Qualified Code(s): E03.9 - Hypothyroidism, unspecified (4) Asthma Asthma severity: unspecified severity Asthma persistence: unspecified Asthma complication type: unspecified Qualified Code(s): J45.909 - Unspecified asthma, uncomplicated
[2020-06-12] MEDS ORDERED: ALBUT/IPRATROP 3MG/0.5MG NEB 3 ML VIAL ONE (13:58)
[2020-06-12] MEDS: ALBUT/IPRATROP 3MG/0.5MG NEB 3 ML VIAL NEB PRN ×2 (14:02→18:18)
[2020-06-12] MEDS: FERROUS GLUCONATE 324 MG TAB PO SCH (18:09)
[2020-06-13] MEDS: ALBUT/IPRATROP 3MG/0.5MG NEB 3 ML VIAL NEB PRN ×3 (00:12→09:07)
[2020-06-13] MEDS: LEVOTHYROXINE SODIUM 137 MCG TABLET PO SCH (06:19)
[2020-06-13 07:18] LABS: Basophils # (auto) 0.05 K/uL (0-0.2); Basophils % (auto) 0.7 %; Eosinophils # (auto) 0.04 K/uL (0-0.5); Eosinophils % (auto) 0.6 %; Hematocrit (blood only) 22.5 % (42-52); Hemoglobin 7.5 g/dL (14.0-18.0); Immature Granulocytes # (auto) 0.02 K/uL (0.00-0.02); Immature Granulocytes % (auto) 0.3 %; Lymphocytes # (auto) 0.31 K/uL (1.2-3.4); Lymphocytes % (auto) 4.3 %; Mean Corpuscular Hemoglobin 30.9 pg (25-34); Mean Corpuscular Hgb Conc 33.3 g/dL (32-36); Mean Corpuscular Volume 92.6 fL (80-100); Mean Platelet Volume 10.4 fL (7.4-10.4); Monocytes # (auto) 1.12 K/uL (0.11-0.59); Monocytes % (auto) 15.5 %; Neutrophils # (auto) 5.68 K/uL (1.4-6.5); Neutrophils % (auto) 78.6 %; Platelet Count 227 K/uL (130-400); RDW Coefficient of Variation 15.5 % (11.5-14.5); RDW Standard Deviation 52.7 fL (36.4-46.3); Red Blood Count 2.43 M/uL (4.7-6.1); White Blood Count 7.22 K/uL (4.8-10.8)
[2020-06-13 07:44] LABS: BUN Creatinine Ratio 23.2 (10-20); Calcium 8.3 mg/dl (8.5-10.1); Est GFR (African American) 50.2; Est GFR (Non-African American) 43.3; Potassium 4.4 mmol/L (3.5-5.1)
[2020-06-13 07:45] LABS: Hypochromasia Present
[2020-06-13] MEDS: FERROUS GLUCONATE 324 MG TAB PO SCH ×2 (08:17→16:36)
[2020-06-13] MEDS: CALCIUM 600MG + VIT D 400 IU TAB PO SCH ×2 (08:17→20:54)
[2020-06-13] MEDS: FUROSEMIDE 20 MG TAB PO SCH (08:17)
[2020-06-13] MEDS: MULTIVITAMIN TAB PO SCH (08:18)
[2020-06-13] MEDS: lisinopril 2.5 MG TAB PO SCH (08:18)
[2020-06-13] MEDS: ENOXAPARIN INJ 40 MG/0.4 ML SYR SQ SCH (08:18)
[2020-06-13] MEDS: carvediloL 25 MG TAB PO SCH ×2 (08:18→20:54)
[2020-06-13] MEDS: FLUTICASONE/VILANTEROL 200/25MCG 14 PUFFS/INHALER INH SCH (08:18)
--- NOTE | 2020-06-13 09:36 | Orthopedic Progress Note ---
Date of Service June 13, 2020 Assessment & Plan (1) Closed fracture of tibial plateau: (2) Fibula fracture: Making good progress on POD3 - expected blood loss that needs to be monitored but so far asymptomatic. - Continue DVT ppx - OOB with PT/OT - NWBing to LLE. May place foot for balance only. May be ROM as tolerated when NWBing. - I did remove his JOÃO drain today after cutting the suture tying in place. The drain slid out easily. I covered the wound with Xeroform and a sterile 4 x 4 before covering it with an David wrap. He tolerated this well. - Appreciate Hospitalist Consult - continue monitored bed at least until H/H is stabilized Dispo: progress with PT/OT, acute blood loss of fracture and surgery. Expect to need SNF vs Rehab for next level of care. Repeat xrays in ortho clinic in 10-14 days. Subjective 84-year-old pleasant gentleman who is postop day #4 from his left tibial plateau ORIF. I saw him this morning. He was doing well at that time. I reviewed his input and output from his JOÃO drain which was only 20 cc of fluid in the last 8 hours. He has no questions or concerns and is awaiting discharge to extended- care facility. Review of Systems All systems reviewed & are unremarkable except as noted in HPI & below. Physical Exam On physical exam he is neurovascular intact left lower extremity. Is able to move the left ankle. Dressing is in place and immobilizer is in place over the left knee. JOÃO drain is still in place with minimal amount of fluid noted since it had last been emptied. No erythema, tenderness, or warmth are noted in the left lower extremity. Results & Data Results & Data Laboratory Results H&H is down to 7.5 & 22.5 which is down from yesterday mornings draw. Diagnostic Findings . PG Care Time/CCT Total # of Minutes Spent Total Time Spent with Patient: Total time spent is greater than 50% in coordination of care (as documented) at patient's floor/unit and/or counseling patient: Coding Level of Care Code 60276 Post Operative Follow-Up Diagnoses Closed fracture of tibial plateau S82.142A Encounter type: initial encounter Laterality: left Fibula fracture S82.832A Encounter type: initial encounter Fibula location: proximal Fracture morphology: unspecified fracture morphology Fracture type: closed Laterality: left (1) Closed fracture of tibial plateau Encounter type: initial encounter Laterality: left Qualified Code(s): S82.142A - Displaced bicondylar fracture of left tibia, initial encounter for closed fracture (2) Fibula fracture Encounter type: initial encounter Fibula location: proximal Fracture morphology: unspecified fracture morphology Fracture type: closed Laterality: left Qualified Code(s): S82.832A - Other fracture of upper and lower end of left fibula, initial encounter for closed fracture
[2020-06-13] MEDS ORDERED: LORazepam 0.5 MG TAB ONE (09:39)
--- NOTE | 2020-06-13 09:49 | XRay Report ---
XR chest 1V portable CLINICAL HISTORY: Shortness of breath COMPARISON STUDY: 06/09/2020 FINDINGS: The heart is enlarged. There is a sternal suture. There are old right-sided rib fractures. There is no failure. There is no lobar consolidation. There is blunting of both lateral costophrenic angle suggesting trace effusions[ IMPRESSION: Cardiomegaly and trace bilateral pleural effusions. No evidence of focal pulmonary consol idation ACT 112: Negative or not required by law. Electronically signed by: Trenton Claros M.D. 06/13/2020 9:48 AM
[2020-06-13] MEDS ORDERED: OPTIRAY 320 125ml IV ONE (10:11)
--- NOTE | 2020-06-13 10:23 | CT Scan Report ---
CT ANGIOGRAM OF THE CHEST CLINICAL HISTORY: Cough, shortness of breath. Possible pulmonary embolism COMPARISON STUDY: Chest x-ray dated 06/13/2020, CT scan dated 01/25/2015 TECHNIQUE: Following the IV administration of 120 mL of Optiray-320, CT angiogram of the thorax was p erformed from the thoracic inlet to the lung bases utilizing the pulmonary embolus protocol. Images a re reviewed in the axial, sagittal, and coronal planes. IV contrast was administered without complica tion. MIP imaging was performed. A dose lowering technique was utilized adhering to the principles o f ALARA. CT DOSE: 249.92 mGy.cm FINDINGS: The heart is enlarged. There are coronary artery calcifications. No pathologically enlarged axillary mediastinal or hilar lymph nodes were visualized. There was no evidence of thoracic aortic dilatation. 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 The study is comp romised due to respiratory motion artifact. There are small bilateral pleural effusions. There are basilar airspace opacities, likely atelectatic. There is reflux of contrast into the IVC and hepatic veins. This suggests elevated right heart pressu res. The bones are osteopenic. Multiple vertebral body compression fractures are visualized. These are lik raquel old. IMPRESSION: 1. Motion degraded study 2. No evidence of acute pulmonary embolism given the technical limitations of the examination 3. Small bilateral pleural effusions and bibasilar opacities likely atelectatic 4. Cardiomegaly and coronary artery calcifications. ACT 112: Negative or not required by law. Electronically signed by: Trenton Claros M.D. 06/13/2020 10:22 AM
[2020-06-13] MEDS ORDERED: Heparin IV Adult Wt-Based Standard *NO* Bolus Protocol IV SCH (12:45)
[2020-06-13] MEDS ORDERED: SODIUM CHLORIDE 0.9% 250 ML IV PRN (12:45)
--- NOTE | 2020-06-13 12:58 | Hospitalist Progress Note ---
Date of Service June 13, 2020 Assessment & Plan (1) Closed fracture of tibial plateau: Postoperative day #3 after open reduction internal fixation of left tibial plateau fracture. Orthopedic management. Pain control measures. (2) Hypertension: Lasix held preoperatively and restarted postoperatively. Lisinopril dosage decreased due to low blood pressure. (3) Hypothyroidism: TSH recently low in setting of small bowel obstruction however free T4 normal. Recommend repeating as outpatient. Continue levothyroxine 137 mcg PO QAM. (4) Ischemic cardiomyopathy: LVEF 20-25% per last cardiology note with mild aortic stenosis. Continue carvedilol 25mg PO BID and lisinopril 2.5mg PO daily with hold parameters (5) Aortic stenosis: Mild per last cardiology note. No symptoms of this getting worse. (6) CAD, multiple vessel: Remote CABG in 1995. Follows with cardiology and last seen by Dr Barbosa in 10/2019 with stable symptoms at that time. No recent worsening of symptoms to suggest progression. No further cardiac workup required. (7) Osteoporosis: Notable history of such. Consider outpatient DEXA scan as not recently performed on EHR. Vitamin D level WNL in 2019, will repeat with AM labs. Continue supplementation. (8) Asthma: No recent exacerbation of such. Continue Advair Diskus or hospital formulary equivalent. (9) DVT prophylaxis: Deferred to orthopedics (10) Anemia: Acute postoperative blood loss anemia. Continue iron replacement. Serial lab studies. Transfused 2 units packed red blood cells today, June 13 (11) Acute myocardial infarction: Shortness of breath and vague chest discomfort developed this morning. Chest x-ray negative for CHF and chest CTA negative for PE. Troponin however is markedly elevated. Cardiology consultation requested along with cardiac echo. We will start heparin infusion and transfused 2 units packed red blood cells for hemoglobin 7.5 which is due to postoperative anemia. Continue other medications Present on Admission?: No Admission and Anticipated Discharge Date Admission Date: June 09, 2020 Subjective The patient was short of breath and anxious this morning. Vague chest discomfort. Stat chest x-ray negative for CHF. Stat chest CTA negative for PE. However the troponin is markedly elevated consistent with [place]. He has known severe underlying coronary artery disease with ischemic cardiomyopathy and known severe left ventricular systolic dysfunction with estimated EF 25%. Cardiology consult requested along with cardiac echo. We will start heparin drip if okay with orthopedics after recent left tibial plateau fracture surgery, postoperative day #3. Transfuse 2 units packed red blood cells for hemoglobin 7.5. Serial troponins ordered. Review of Systems Review of Systems: Constitutional-no fever or chills ENT-no blurred vision, no double vision, no epistaxis, no sore throat Respiratory-no cough, no wheezing. Shortness of breath Cardiac-no palpitations, no syncope. The patient describes vague chest discom fort GI-no nausea, vomiting, diarrhea, melena, hematochezia -no urinary retention, no urinary incontinence, no dysuria, no hematuria Musculoskeletal-no joint pain, no muscle tenderness Skin-no bruising, no rashes, no pruritus Neuro-no isolated weakness, no paresthesia, no weakness Psych-anxious Physical Exam Physical Exam: General-alert and oriented x3, appears anxious. Appears short of breath at rest HEENT-head atraumatic and normocephalic, TMs intact bilaterally, pupils equal and reactive to light, extraocular muscles intact Neck-no lymphadenopathy or thyromegaly, trachea midline Chest-clear to auscultation percussion. No rales , wheezing or rhonchi Cardiac-mildly tachycardic rate, regular rhythm. Normal S1 and S2 Abdomen-normal bowel sounds, nontender, no hepatosplenomegaly Extremities-left knee immobilized with brace Neuro-cranial nerves II through XII intact, motor and sensory function within normal limits, no focal deficits Psych-appears anxious Results & Data Results & Data ([facility]) Vital Signs (Past 12 Hours) Vital Signs Temp Pulse Pulse Pulse Resp BP BP 06/13/20 11:41 36.1 C L 98 H 18 98/64 L 06/13/20 09:07 100 H 26 H 06/13/20 09:00 100 H 20 136/89 06/13/20 07:41 36.7 C 97 H 18 104/69 06/13/20 07:23 96 H 06/13/20 04:00 36.7 C 95 H 18 107/67 06/13/20 03:16 91 H 18 06/13/20 03:14 84 Pulse Ox 06/13/20 11:41 100 06/13/20 09:07 99 06/13/20 09:00 99 06/13/20 07:41 92 06/13/20 07:23 06/13/20 04:00 97 06/13/20 03:16 96 06/13/20 03:14 Laboratory Results 06/13/20 07:00 PG Care Time/CCT Total # of Minutes Spent Total Time Spent with Patient: Total time spent is greater than 50% in coordination of care (as documented) at patient's floor/unit and/or counseling patient: Coding Level of Care Code 42451 Subseq Hosp Care Lvl 3 Diagnoses Closed fracture of tibial plateau S82.142A Encounter type: initial encounter Laterality: left Hypertension I10 Hypertension type: unspecified Hypothyroidism E03.9 Hypothyroidism type: unspecified Ischemic cardiomyopathy I25.5 Aortic stenosis I35.0 CAD, multiple vessel I25.10 Osteoporosis M81.0 Asthma J45.909 Asthma severity: unspecified severity Asthma persistence: unspecified Asthma complication type: unspecified DVT prophylaxis Z29.9 Anemia D64.9 Acute myocardial infarction I21.9 (1) Closed fracture of tibial plateau Encounter type: initial encounter Laterality: left Qualified Code(s): S82.142A - Displaced bicondylar fracture of left tibia, initial encounter for closed fracture (2) Hypertension Hypertension type: unspecified Qualified Code(s): I10 - Essential (primary) hypertension (3) Hypothyroidism Hypothyroidism type: unspecified Qualified Code(s): E03.9 - Hypothyroidism, unspecified (4) Asthma Asthma severity: unspecified severity Asthma persistence: unspecified Asthma complication type: unspecified Qualified Code(s): J45.909 - Unspecified asthma, uncomplicated
[2020-06-13] MEDS: HEPARIN SODIUM/DEXTROSE 25,000 UNITS/500 ML BAG IV SCH ×2 (13:13→23:35)
--- NOTE | 2020-06-13 15:17 | Cardiology Consultation ---
Date of Consultation June 13, 2020 Assessment & Plan (1) Non-ST elevation (NSTEMI) myocardial infarction: (2) CAD (coronary artery disease): (3) Hx of CABG: (4) Chronic systolic CHF (congestive heart failure): (5) Aortic stenosis: (6) Ischemic cardiomyopathy: (7) Hypercholesterolemia: (8) Hypertension: ASSESSMENT/PLAN: 1. NSTEMI: Postop HI, with symptom consisting of acute shortness of breath. Currently now only dyspneic on exertion and otherwise comfortable in bed. No o rthopnea and appears euvolemic on exam. Recommend restarting aspirin 81 mg daily. Recommend that he receive beta-ellen. Hold parameters were adjusted to hold carvedilol for heart rate less than 50 and systolic blood pressure less than 90. If he meets these parameters, recommend discussion with provider so that the dose can be adjusted if appropriate at that time. He is intolerant or has declined statin therapy in the past. We discussed treatment strategies overall and he prefers medical therapy. He does not wish to undergo cardiac catheterization. His HI is likely due to the stress of his overall fracture/surgery, in the setting of acute blood loss anemia and underlying CAD. Agree with transfusion. Echo interpretation pending. 2. CAD s/p CABG (RUBI): Details of his CABG are not known but 1 vessel bypass in 1995. No angina but did present with acute shortness of breath today. Treatment as above. Appears euvolemic on examination. He prefers medical therapy. Heparin drip has been started by the hospitalist service after conferring with orthopedics. Can continue heparin drip for 48 hours. Continue beta-ellen as noted. 3. Chronic systolic CHF: He appears euvolemic. Monitor volume status carefully, especially with transfusion. Low-sodium diet. 4. Cardiomyopathy: Reported history of ischemic cardiomyopathy. Continue carvedilol as noted. On low-dose lisinopril, as tolerated. He has declined ICD for primary prevention. 5. Aortic stenosis: Reported in the past is non severe. A repeat echo was ordered by hospitalist service and pending interpretation. 6. Dyslipidemia: Apparently did not tolerate atorvastatin in the past and has refused other treatment per primary cardiology note. 7. Hypertension: Has a history of hypertension but has been normotensive or mildly hypotensive here. Plan as above. 8. Disposition: I will be away from the hospital after today. Please contact Dr. Espinosa who will be on-call for [facility] for any questions or concerns. Patient care communicated with Dr. Cabezas of the hospitalist service. Highly complex medical issues. Thank you for allowing me to participate in the care of your patient. Please call for any other questions or concerns. Sincerely, Azael Moran M.D. History of Present Illness Reason for Consultation: Acute HI post op Requesting Physician: Dr. Cabezas Attending Physician: Ravindra Gates, History of Present Illness Mr. Leo is a very pleasant 84-year-old gentleman with history significant for CAD s/p CABG (RUBI in 1995), ischemic cardiomyopathy (reported EF 20-25%), aortic stenosis, dyslipidemia (intolerant to statin), chronic systolic CHF, and hypertension. His primary hair machine operator is Dr. Barbosa. He was admitted on 06/09/2020 after falling on the ice and undergoing a closed fracture of his left tibial plateau. He denies syncope and states that the fall was mechanical. He lives alone and is active at his home, denying chest pain or shortness of breath. He underwent a left open reduction and internal fixation of his tibial plateau fracture on 06/10/[address] Rabago. He apparently did well until this morning. He reports acute shortness of breath this morning and then later stated it only occurs when out of bed to do physical therapy. According to a neighboring patient, he was in bed when he first started feeling short of breath at approximately 7:00 a.m. this morning. Mr. Leo denies any sort of chest discomfort, cleaning only shortness of breath. He denies orthopnea but according to nursing notes, stated that he felt as though he may today. A troponin was checked by the hospitalist service and found to be elevated at 17.1 late this morning. When I presented to the bedside this afternoon, he was just returning to bed from physical therapy. He was visibly tachypneic at that time but within a few minutes, appeared much improved. After sitting for a few minutes he denies shortness of breath. He continues to deny chest pain. He was noted to have a hemoglobin 7.5 this morning and a low of 7.1 last evening. 2 units of packed red blood cells have been ordered, but not yet given. His baseline hemoglobin appears to be 10-11. He denies syncope, near-syncope, palpitations, edema, or bleeding. During this hospitalization, aspirin therapy was held. Carvedilol was held on 5 separate occasions as well due to heart rate in the 50s or mild hypotension with systolic blood pressure in the 90s. During our conversation, he made it clear that he prefers conservative management stating hell I'm almost 85. Review of systems: As above. Review of systems otherwise negative/unremarkable. Family history: Positive for CAD. Social history: Denies tobacco, alcohol, or drug abuse. . Lives alone. One daughter who works as a laboratory scientist for [employer]. No grandchildren. Allergies Allergy/AdvReac Type Severity Reaction Status Date / Time atorvastatin Allergy Mild rash Verified 06/10/20 11:44 Sulfa (Sulfonamide Allergy Mild Rash Verified 06/10/20 11:44 Antibiotics) sulfamethoxazole Allergy Mild Rash Verified 06/10/20 11:44 theophylline Allergy Mild RASH Verified 06/10/20 11:44 trimethoprim Allergy Mild Rash Verified 06/10/20 11:44 Home Medications Medication Instructions Recorded Confirmed Type aspirin 81 mg tablet,delayed 81 mg PO QAM tab 01/10/19 06/09/20 History release calcium carbonate 600 mg (1,500 1 tab PO BID tab 01/10/19 06/09/20 History mg)-vitamin D3 200 unit tablet multivitamin 1 tab PO QAM 01/10/19 06/09/20 History carvedilol 25 mg tablet 25 mg PO BID #180 tab 10/24/19 06/09/20 Rx furosemide See Rx Instructions .ROUTE .COMPLEX 03/27/20 06/09/20 History levothyroxine 137 mcg PO QAM 03/27/20 06/09/20 History lisinopril 5 mg PO QAM 03/27/20 06/09/20 History polyethylene glycol 3350 17 17 g PO DAILY PRN #510 g 04/02/20 06/09/20 Rx gram/dose oral powder Advair Diskus 250 mcg-50 mcg/dose 1 inh INH BID #180 ea NS 05/16/20 06/09/20 Rx powder for inhalation Patient History Medical History Anemia Aortic stenosis Asthma (12/25/12) CAD (coronary artery disease) Chronic systolic CHF (congestive heart failure) Constipated History of intestinal obstruction Hypercholesterolemia Hypertension Hypothyroidism (12/25/12) Ischemic cardiomyopathy EF 20-25% Surgical History (Updated 06/13/20 @ 15:36 by Kranthi Moran MD) Cataract Hx of CABG Family History Mother Hypertension Sister Hyperlipemia Other Coronary heart disease Dementia Heart disease Myocardial infarction Social History Smoking Status: Never smoker Second Hand Exposure: No; Do You Dip or Chew Tobacco: No; Hx Alcohol Use: No Hx Substance Use: No Preferred Language: Scottish Communication Ability: Effective Visual Impairment: No Limitations Hearing Ability: Normal [employer] Scientist Required: No Beliefs That Will Affect Care: None marital status: Current Living Situation: Alone current occupational status: retired Other Information That Helps Us Care for You: No Feels Safe at Home: Yes Safety Concerns: Feels Safe At This Time Childhood Exposure to Second-Hand Smoke: No Dental Care, Regularly: Yes Seatbelt Use: always Sunscreen Use: No Assistive Devices: Brace/Splint/Immobilizer and Glasses Results & Data ([facility]) Vital Signs (Past 12 Hours) Vital Signs Temp Pulse Pulse Pulse Resp BP BP 06/13/20 11:41 36.1 C L 98 H 18 98/64 L 06/13/20 09:07 100 H 26 H 06/13/20 09:00 100 H 20 136/89 06/13/20 07:41 36.7 C 97 H 18 104/69 06/13/20 07:23 96 H 06/13/20 04:00 36.7 C 95 H 18 107/67 06/13/20 03:16 91 H 18 Pulse Ox 06/13/20 11:41 100 06/13/20 09:07 99 06/13/20 09:00 99 06/13/20 07:41 92 06/13/20 07:23 06/13/20 04:00 97 06/13/20 03:16 96 Laboratory Results Laboratory Results - last 24 hr 06/13/20 06/13/20 06/13/20 07:00 07:00 11:36 WBC 7.22 RBC 2.43 L Hgb 7.5 L Hct 22.5 L MCV 92.6 MCH 30.9 MCHC 33.3 RDW Std Deviation 52.7 H RDW Coeff of Ayaz 15.5 H Plt Count 227 MPV 10.4 Immature Gran % (Auto) 0.3 Neut % (Auto) 78.6 Lymph % (Auto) 4.3 [place] % (Auto) 15.5 Eos % (Auto) 0.6 Baso % (Auto) 0.7 Neut # (Auto) 5.68 Lymph # (Auto) 0.31 L [place] # (Auto) 1.12 H Eos # (Auto) 0.04 Baso # (Auto) 0.05 Immature Gran # (Auto) 0.02 Hypochromasia Present Sodium 140 Potassium 4.4 Chloride 110 H Carbon Dioxide 23 Anion Gap 7.0 BUN 34 H Creatinine 1.45 H Est Cr Clr Drug Dosing 26.0 Est GFR ( Amer) 50.2 Est GFR (Non-Af Amer) 43.3 BUN/Creatinine Ratio 23.2 H Glucose 102 H Calcium 8.3 L Troponin I 17.100 H* Blood Type Antibody Screen Crossmatch 06/13/20 12:57 WBC RBC Hgb Hct MCV MCH MCHC RDW Std Deviation RDW Coeff of Ayaz Plt Count MPV Immature Gran % (Auto) Neut % (Auto) Lymph % (Auto) [place] % (Auto) Eos % (Auto) Baso % (Auto) Neut # (Auto) Lymph # (Auto) [place] # (Auto) Eos # (Auto) Baso # (Auto) Immature Gran # (Auto) Hypochromasia Sodium Potassium Chloride Carbon Dioxide Anion Gap BUN Creatinine Est Cr Clr Drug Dosing Est GFR ( Amer) Est GFR (Non-Af Amer) BUN/Creatinine Ratio Glucose Calcium Troponin I Blood Type A Negative Antibody Screen NEGATIVE Crossmatch See Detail Diagnostic Findings Telemetry personally reviewed: Sinus rhythm with occasional episodes of tachycardia with widened QRS that persists even in sinus rhythm for some time, possibly rate related. Morphology remained similar, suggesting atrial rhythm. ECGs personally reviewed: ECG 06/10/2020 at 6:50 a.m.: Sinus rhythm 79 beats per minute. LVH with repolarization abnormality. Inferolateral ST/T-wave abnormality. ECG 06/13/2020 at 9:19 a.m.: Sinus rhythm with PACs at 98 beats per minute. RBBB. Inferior infarct. Lateral ST/T-wave abnormality. CTA chest 06/13/2020: Motion degraded study. No PE per Radiology. Small bilateral pleural effusions and bibasilar opacities, likely atelectatic. Chest x-ray 06/13/2020 personally reviewed: No obvious infiltrate. Per Radiology, no evidence of CHF. Medications Administered Current Inpatient Medications Acetaminophen (Acetaminophen 500 Mg Tab) 500 mg PO Q4H PRN PRN Reason: pain Stop: 07/10/20 17:56 Albuterol (Albut/Ipratrop 3mg/0.5mg Neb 3 Ml Vial) 3 ml NEB Q4R PRN PRN Reason: Shortness Of Breath Or Wheezing Stop: 07/12/20 14:59 Last Admin: 06/13/20 09:07 Dose: 3 ml Documented by: Aspirin (Aspirin 81 Mg Ectab) 81 mg PO QAM [facility] Stop: 07/13/20 15:59 Carvedilol (Carvedilol 25 Mg Tab) 25 mg PO BID NAVIN Stop: 07/09/20 20:59 Last Admin: 06/13/20 08:18 Dose: 25 mg Documented by: Ferrous Gluconate (Ferrous Gluconate 324 Mg Tab) 324 mg PO BIDM NAVIN Stop: 07/12/20 16:59 Last Admin: 06/13/20 08:17 Dose: 324 mg Documented by: Fluticasone/Vilanterol (Fluticasone/Vilanterol 200/25mcg 14 Puffs/Inhaler) 1 puffs INH DAILY [facility]; Protocol Stop: 07/10/20 08:59 Last Admin: 06/13/20 08:18 Dose: 1 puffs Documented by: Furosemide (Furosemide 20 Mg Tab) 20 mg PO DAILY NAVIN Stop: 07/11/20 08:59 Last Admin: 06/13/20 08:17 Dose: 20 mg Documented by: Hydromorphone HCl (Hydromorphone Inj 0.5 Mg/0.5 Ml Syr) 0.5 mg IV Q3H PRN PRN Reason: Breakthrough Pain Stop: 06/24/20 17:56 Sodium Chloride (Nss) 250 mls @ 15 mls/hr IV .[id number] PRN PRN Reason: For Transfusion Stop: 06/13/20 22:45 Heparin Sodium/Dextrose (Heparin Sodium/Dextrose) 25,000 units in 500 mls @ 18 mls/hr IV .Q24H NAVIN; Protocol Stop: 07/13/20 12:59 Last Admin: 06/13/20 13:13 Dose: 900 units/hr, 18 mls/hr Documented by: Levothyroxine Sodium (Levothyroxine Sodium 137 Mcg Tablet) 137 mcg PO DAILYBB [facility] Stop: 07/10/20 06:29 Last Admin: 06/13/20 06:19 Dose: 137 mcg Documented by: Lisinopril (Lisinopril 2.5 Mg Tab) 2.5 mg PO QAM [facility] Stop: 07/13/20 08:59 Last Admin: 06/13/20 08:18 Dose: 2.5 mg Documented by: Lorazepam (Lorazepam 0.5 Mg Tab) 0.5 mg PO Q6 PRN PRN Reason: Anxiety Stop: 07/13/20 09:35 Multivitamins (Multivitamin Tab) 1 tab PO QAM [facility] Stop: 07/10/20 08:59 Last Admin: 06/13/20 08:18 Dose: 1 tab Documented by: Multivitamins/Minerals (Calcium 600mg + Vit D 400 Iu Tab) 1 tab PO BID [facility] Stop: 07/09/20 20:59 Last Admin: 06/13/20 08:17 Dose: 1 tab Documented by: Ondansetron HCl (Ondansetron Inj 2 Mg/Ml 2 Ml Vial) 4 mg IV Q6H PRN PRN Reason: Nausea/Vomiting Stop: 07/09/20 18:02 Oxycodone HCl (Oxycodone Hcl Ir 5 Mg Tab (Immediate Release)) 5 mg PO Q4H PRN PRN Reason: Pain Stop: 06/24/20 17:56 Last Admin: 06/11/20 17:29 Dose: 5 mg Documented by: Polyethylene Glycol (Polyethylene (Miralax) 17 Gm Pack) 17 gm PO DAILY PRN PRN Reason: constipation Stop: 07/09/20 18:02 PG Care Time/CCT Total # of Minutes Spent Total Time Spent with Patient: Total time spent is greater than 50% in coord ination of care (as documented) at patient's floor/unit and/or counseling patient: Coding Level of Care Code 77325 Initial Inpt Care Lvl 3 Diagnoses Non-ST elevation (NSTEMI) myocardial infarction I21.4 CAD (coronary artery disease) I25.10 Hx of CABG Z95.1 Chronic systolic CHF (congestive heart failure) I50.22 Aortic stenosis I35.0 Ischemic cardiomyopathy I25.5 Hypercholesterolemia E78.00 Hypertension I10 Hypertension type: unspecified (1) Hypertension Hypertension type: unspecified Qualified Code(s): I10 - Essential (primary) hypertension
[2020-06-13] MEDS: ASPIRIN 81 MG ECTAB PO SCH (16:36)
--- NOTE | 2020-06-13 19:02 | XCELERA ---
[id number] \\[id number]
[2020-06-13 23:18] LABS: Partial Thromboplastin Ratio 1.7; Partial Thromboplastin Time 44.4 Seconds (21.0-31.0)
[2020-06-14] MEDS: ALBUT/IPRATROP 3MG/0.5MG NEB 3 ML VIAL NEB PRN ×3 (04:35→18:14)
--- NOTE | 2020-06-14 05:13 | Electrocardiogram Report ---
Test Reason : Blood Pressure : / mmHG Vent. Rate : 098 BPM Atrial Rate : 098 BPM P-R Int : 176 ms QRS Dur : 158 ms QT Int : 416 ms P-R-T Axes : 057 -86 089 degrees QTc Int : 531 ms Sinus rhythm with Premature atrial complexes Left axis deviation Right bundle branch block Inferior infarct , age undetermined T wave abnormality, consider lateral ischemia Abnormal ECG When compared with ECG of 10-JUN-2020 06:50, Premature atrial complexes are now Present Right bundle branch block is now Present Inferior infarct is now Present Confirmed by Kranthi Moran ([id number]) on 06/14/2020 5:13:06 AM Referred By: REFERRED SELF Confirmed By:Kranthi Moran
[2020-06-14] MEDS: LEVOTHYROXINE SODIUM 137 MCG TABLET PO SCH (06:04)
[2020-06-14 06:34] LABS: Basophils # (auto) 0.02 K/uL (0-0.2); Basophils % (auto) 0.2 %; Eosinophils # (auto) 0.01 K/uL (0-0.5); Eosinophils % (auto) 0.1 %; Hemoglobin 10.5 g/dL (14.0-18.0); Immature Granulocytes # (auto) 0.03 K/uL (0.00-0.02); Immature Granulocytes % (auto) 0.3 %; Lymphocytes % (auto) 6.5 %; Mean Corpuscular Hemoglobin 30.6 pg (25-34); Mean Corpuscular Hgb Conc 33.9 g/dL (32-36); Mean Corpuscular Volume 90.4 fL (80-100); Mean Platelet Volume 10.9 fL (7.4-10.4); Monocytes # (auto) 0.46 K/uL (0.11-0.59); Neutrophils # (auto) 8.08 K/uL (1.4-6.5); Neutrophils % (auto) 87.9 %; Platelet Count 230 K/uL (130-400); RDW Coefficient of Variation 15.7 % (11.5-14.5); RDW Standard Deviation 52.4 fL (36.4-46.3); Red Blood Count 3.43 M/uL (4.7-6.1)
[2020-06-14 07:09] LABS: BUN Creatinine Ratio 23.5 (10-20); Calcium 8.4 mg/dl (8.5-10.1); Est GFR (African American) 43.2; Est GFR (Non-African American) 37.3; Potassium 4.3 mmol/L (3.5-5.1); Troponin I 15.2 ng/ml (0-0.045)
[2020-06-14 07:59] LABS: Partial Thromboplastin Time 78.4 Seconds (21.0-31.0)
[2020-06-14] MEDS: carvediloL 25 MG TAB PO SCH ×2 (08:16→20:55)
[2020-06-14] MEDS: FLUTICASONE/VILANTEROL 200/25MCG 14 PUFFS/INHALER INH SCH (08:16)
[2020-06-14] MEDS: MULTIVITAMIN TAB PO SCH (08:17)
[2020-06-14] MEDS: FUROSEMIDE 20 MG TAB PO SCH (08:17)
[2020-06-14] MEDS: CALCIUM 600MG + VIT D 400 IU TAB PO SCH ×2 (08:17→20:55)
[2020-06-14] MEDS: lisinopril 2.5 MG TAB PO SCH (08:17)
[2020-06-14] MEDS: FERROUS GLUCONATE 324 MG TAB PO SCH ×2 (08:17→16:06)
--- NOTE | 2020-06-14 09:16 | Orthopedic Progress Note ---
Date of Service June 14, 2020 Assessment & Plan (1) Closed fracture of tibial plateau: Overall he is doing as well as expected with his left knee. He is to be nonweightbearing on his left leg but he can be a little toe-touch for balance. There is a bed available for him at [facility]. Unfortunately he had elevated troponin levels yesterday and he is currently staying for cardiac reasons. From an orthopedic standpoint he is stable for discharge. He can be discharged to [facility] when medically ready. Abeba Garcia was seen and examined at bedside this morning. Overall he is doing fairly well. Is not having much pain in the left knee. He is wearing his knee immobilizer as instructed. He has no complaints.. Review of Systems All systems reviewed & are unremarkable except as noted in HPI & below. Physical Exam On physical examination of the left leg, there is a little bit of swelling around his ankle and his foot. He has active dorsiflexion plantarflexion of his left ankle. Sensations intact throughout.. Results & Data Results & Data Laboratory Results . Diagnostic Findings . PG Care Time/CCT Total # of Minutes Spent Total Time Spent with Patient: Total time spent is greater than 50% in coordination of care (as documented) at patient's floor/unit and/or counseling patient: Coding Level of Care Code 49877 Post Operative Follow-Up Diagnoses Closed fracture of tibial plateau S82.142A Encounter type: initial encounter Laterality: left (1) Closed fracture of tibial plateau Encounter type: initial encounter Laterality: left Qualified Code(s): S82.1 42A - Displaced bicondylar fracture of left tibia, initial encounter for closed fracture
[2020-06-14] MEDS: oxyCODONE HCL IR 5 MG TAB (IMMEDIATE RELEASE) PO PRN (09:18)
[2020-06-14] MEDS: ASPIRIN 81 MG ECTAB PO SCH (09:19)
--- NOTE | 2020-06-14 10:46 | Cardiology Progress Note ---
Date of Service June 14, 2020 Assessment & Plan (1) Non-ST elevation (NSTEMI) myocardial infarction: (2) CAD (coronary artery disease): (3) Hx of CABG: (4) Chronic systolic CHF (congestive heart failure): (5) Aortic stenosis: (6) Ischemic cardiomyopathy: (7) Hypercholesterolemia: (8) Hypertension: ASSESSMENT/PLAN: 1. NSTEMI: Unclear etiology. Certainly could be related to the stress of surgery, the anemia, has underlying ischemic heart disease and absence of beta-blockade for few days. His biomarkers are slowly trending down words which would suggest that any acute event occurred earlier than previously recognized. He is not currently have symptoms of angina or ongoing ischemia. Think we will continue his heparin for another day. Continue his beta-ellen and aspirin. 2. CAD s/p CABG (RUBI): Known coronary disease with prior bypass surgery. Unclear if his recent event represent an acute coronary syndrome. In any event, he was not interested in invasive evaluation. I think at this point will simply monitor his response to medical therapy. He is otherwise stable we can consider initiating dual anti-platelet therapy. 3. Chronic systolic CHF: He is not appear volume overloaded although he did receive a blood transfusion. His lung examination is relatively benign but he does report significant breathing difficulty with activity. This continues to be true despite a normal hemoglobin currently. Would have a low threshold for additional attempts at diuresis. We will need to monitor his volume status quite closely. 4. Cardiomyopathy: Ejection fraction 20 25% on echocardiogram performed yesterday. This is consistent with prior evaluations. Will continue his heart failure therapy consisting of carvedilol and lisinopril. Monitor his volume status closely as noted in 3.. 5. Aortic stenosis: Only sclerosis noted on echocardiogram performed yesterday. 6. Dyslipidemia: Intolerant prior therapies. 7. Hypertension: Currently normotensive Admission and Anticipated Discharge Date Admission Date: June 09, 2020 Subjective This morning the patient states that he had significant breathing difficulty even with minimal activity such as bathing and sitting up in bed. He has not ambulated due to symptoms associated with ambulation earlier this week. He denies dizziness. No symptoms at rest. No chest pain. Review of Systems Review of Systems: Per HPI Physical Exam Physical Exam: The patient is alert and oriented. Mood and affect appeared normal. He answered all questions appropriately. HEENT: Pupils are equal and reactive to light and accommodation. Extraocular movements are intact. The sclerae are anicteric. Neuro: Cranial nerves intact Neck: Patient's neck is supple. He has palpable carotid pulses bilaterally without bruits on auscultation. There is no evidence of jugular venous distention. The thyroid is not enlarged. Lungs: Clear to auscultation bilaterally. He has good air movement without use of accessory muscles. No rales wheezes or rhonchi. Cardiac: Heart demonstrates a regular rate and rhythm. Normal S1 and S2. Very soft crescendo systolic murmur Pulses: The patient has palpable radial pulses bilaterally that are equal in intensity Extremities: There was no evidence of hypoperfusion. There is no cyanosis or clubbing. There is no edema. Skin: I did not appreciate any rashes on examination today. Results & Data ([facility]) Vital Signs (Past 12 Hours) Vital Signs Temp Pulse Pulse Pulse Resp BP BP 06/14/20 07:21 91 H 06/14/20 07:19 37.0 C 92 H 18 113/62 06/14/20 04:40 89 18 06/14/20 04:34 36.4 C L 90 18 125/83 06/14/20 01:01 86 Pulse Ox 06/14/20 07:21 06/14/20 07:19 96 06/14/20 04:40 98 06/14/20 04:34 99 06/14/20 01:01 Laboratory Results Abnormal Lab Results 06/13/20 06/13/20 06/13/20 11:36 12:57 19:02 WBC RBC Hgb Hct MCV MCH MCHC RDW Std Deviation RDW Coeff of Ayaz Plt Count MPV Immature Gran % (Auto) Neut % (Auto) Lymph % (Auto) [place] % (Auto) Eos % (Auto) Baso % (Auto) Neut # (Auto) Lymph # (Auto) [place] # (Auto) Eos # (Auto) Baso # (Auto) Immature Gran # (Auto) APTT PTT Ratio Sodium Potassium Chloride Carbon Dioxide Anion Gap BUN Creatinine Est Cr Clr Drug Dosing Est GFR ( Amer) Est GFR (Non-Af Amer) BUN/Creatinine Ratio Glucose Calcium Troponin I 17.100 H* 16.600 H* Specimen Hemolysis Blood Type A Negative Antibody Screen NEGATIVE Crossmatch See Detail 06/13/20 06/14/20 06/14/20 19:02 05:53 05:53 WBC 9.20 RBC 3.43 L Hgb 10.5 L D Hct 31.0 L MCV 90.4 MCH 30.6 MCHC 33.9 RDW Std Deviation 52.4 H RDW Coeff of Ayaz 15.7 H Plt Count 230 MPV 10.9 H Immature Gran % (Auto) 0.3 Neut % (Auto) 87.9 Lymph % (Auto) 6.5 [place] % (Auto) 5.0 Eos % (Auto) 0.1 Baso % (Auto) 0.2 Neut # (Auto) 8.08 H Lymph # (Auto) 0.60 L [place] # (Auto) 0.46 Eos # (Auto) 0.01 Baso # (Auto) 0.02 Immature Gran # (Auto) 0.03 H APTT 44.4 H PTT Ratio 1.7 Sodium 139 Potassium 4.3 Chloride 107 Carbon Dioxide 23 Anion Gap 9.0 BUN 39 H Creatinine 1.64 H Est Cr Clr Drug Dosing 23.0 Est GFR ( Amer) 43.2 Est GFR (Non-Af Amer) 37.3 BUN/Creatinine Ratio 23.5 H Glucose 101 H Calcium 8.4 L Troponin I 15.200 H* Specimen Hemolysis Blood Type Antibody Screen Crossmatch 06/14/20 07:01 WBC RBC Hgb Hct MCV MCH MCHC RDW Std Deviation RDW Coeff of Ayaz Plt Count MPV Immature Gran % (Auto) Neut % (Auto) Lymph % (Auto) [place] % (Auto) Eos % (Auto) Baso % (Auto) Neut # (Auto) Lymph # (Auto) [place] # (Auto) Eos # (Auto) Baso # (Auto) Immature Gran # (Auto) APTT 78.4 H* PTT Ratio 3.0 Sodium Potassium Chloride Carbon Dioxide Anion Gap BUN Creatinine Est Cr Clr Drug Dosing Est GFR ( Amer) Est GFR (Non-Af Amer) BUN/Creatinine Ratio Glucose Calcium Troponin I Specimen Hemolysis Blood Type Antibody Screen Crossmatch PG Care Time/CCT Total # of Minutes Spent Total Time Spent with Patient: Total time spent is greater than 50% in coordination of care (as documented) at patient's floor/unit and/or counseling patient: Coding Level of Care Code 87359 Subseq Hosp Care Lvl 3 Diagnoses Non-ST elevation (NSTEMI) myocardial infarction I21.4 CAD (coronary artery disease) I25.10 Hx of CABG Z95.1 Chronic systolic CHF (congestive heart failure) I50.22 Aortic stenosis I35.0 Ischemic cardiomyopathy I25.5 Hypercholesterolemia E78.00 Hypertension I10 Hypertension type: unspecified (1) Hypertension Hypertension type: unspecified Qualified Code(s): I10 - Essential (primary) hypertension
[2020-06-14] MEDS: POLYETHYLENE (MIRALAX) 17 GM PACK PO PRN (12:19)
[2020-06-14 14:33] LABS: Partial Thromboplastin Ratio 2.7
[2020-06-14] MEDS: HEPARIN SODIUM/DEXTROSE 25,000 UNITS/500 ML BAG IV SCH (17:16)
[2020-06-14] MEDS: LORazepam 0.5 MG TAB PO PRN (20:56)
[2020-06-14 21:26] LABS: Partial Thromboplastin Ratio 2.1
[2020-06-14 21:43] LABS: Partial Thromboplastin Time 55.9 Seconds (21.0-31.0)
[2020-06-15 04:02] LABS: Basophils # (auto) 0.02 K/uL (0-0.2); Basophils % (auto) 0.2 %; Eosinophils # (auto) 0.05 K/uL (0-0.5); Eosinophils % (auto) 0.6 %; Hemoglobin 10.3 g/dL (14.0-18.0); Immature Granulocytes # (auto) 0.03 K/uL (0.00-0.02); Immature Granulocytes % (auto) 0.4 %; Lymphocytes # (auto) 0.77 K/uL (1.2-3.4); Lymphocytes % (auto) 9.6 %; Mean Corpuscular Hemoglobin 31.4 pg (25-34); Mean Corpuscular Hgb Conc 34.3 g/dL (32-36); Mean Corpuscular Volume 91.5 fL (80-100); Mean Platelet Volume 10.9 fL (7.4-10.4); Monocytes # (auto) 0.33 K/uL (0.11-0.59); Monocytes % (auto) 4.1 %; Neutrophils # (auto) 6.84 K/uL (1.4-6.5); Neutrophils % (auto) 85.1 %; Platelet Count 248 K/uL (130-400); RDW Coefficient of Variation 15.7 % (11.5-14.5); RDW Standard Deviation 52.5 fL (36.4-46.3); Red Blood Count 3.28 M/uL (4.7-6.1); White Blood Count 8.04 K/uL (4.8-10.8)
[2020-06-15 04:21] LABS: BUN Creatinine Ratio 28.8 (10-20); Calcium 8.1 mg/dl (8.5-10.1); Creatinine Clr Calc Pharmacy 25.8 ml/min; Est GFR (African American) 43.9; Est GFR (Non-African American) 37.9; Potassium 3.9 mmol/L (3.5-5.1)
[2020-06-15 04:28] LABS: Partial Thromboplastin Ratio 2.5
[2020-06-15 04:37] LABS: Partial Thromboplastin Time 66.1 Seconds (21.0-31.0)
[2020-06-15] MEDS: LEVOTHYROXINE SODIUM 137 MCG TABLET PO SCH (05:49)
--- NOTE | 2020-06-15 08:13 | Orthopedic Progress Note ---
Date of Service June 15, 2020 Assessment & Plan (1) Closed fracture of tibial plateau: With regards to his left leg he is doing as well as expected. He is supposed to be nonweightbearing on his left leg but he can toe-touch for transfers. He is to be in the knee immobilizer at all times when he is up and out of bed. He is orthopedically ready for discharge, however, he will be staying an extra day on heparin due to his AL. Full orthopedic discharge instructions are in the discharge summary. Abeba Garcia was seen and examined at bedside this morning. He was having some trouble breathing and was requesting a respiratory treatment. He has been refusing physical therapy but is waiting to do it when he gets discharged to a rehab facility. He has no new complaints with regards to his left knee. Review of Systems All systems reviewed & are unremarkable except as noted in HPI & below. Physical Exam On physical examination of the left knee, the knee immobilizer is in place. His legs in full extension. He has active dorsiflexion and plantarflexion of the left ankle.. Results & Data Results & Data Laboratory Results . Diagnostic Findings . PG Care Time/CCT Total # of Minutes Spent Total Time Spent with Patient: Total time spent is greater than 50% in coordinat ion of care (as documented) at patient's floor/unit and/or counseling patient: Coding Level of Care Code 01881 Post Operative Follow-Up Diagnoses Closed fracture of tibial plateau S82.142A Encounter type: initial encounter Laterality: left (1) Closed fracture of tibial plateau Encounter type: initial encounter Laterality: left Qualified Code(s): S82.142A - Displaced bicondylar fracture of left tibia, initial encounter for closed fracture
[2020-06-15] MEDS: ALBUT/IPRATROP 3MG/0.5MG NEB 3 ML VIAL NEB PRN ×2 (08:19→21:34)
[2020-06-15] MEDS: ASPIRIN 81 MG ECTAB PO SCH (09:00)
[2020-06-15] MEDS: lisinopril 2.5 MG TAB PO SCH (09:00)
[2020-06-15] MEDS: MULTIVITAMIN TAB PO SCH (09:00)
[2020-06-15] MEDS: carvediloL 25 MG TAB PO SCH ×2 (09:00→21:06)
[2020-06-15] MEDS: FUROSEMIDE 20 MG TAB PO SCH (09:00)
[2020-06-15] MEDS: FERROUS GLUCONATE 324 MG TAB PO SCH ×2 (09:01→16:56)
[2020-06-15] MEDS: CALCIUM 600MG + VIT D 400 IU TAB PO SCH ×2 (09:01→21:06)
[2020-06-15] MEDS: FLUTICASONE/VILANTEROL 200/25MCG 14 PUFFS/INHALER INH SCH (09:01)
[2020-06-15] MEDS: LORazepam 0.5 MG TAB PO PRN (09:06)
--- NOTE | 2020-06-15 09:30 | XRay Report ---
XR chest 1V portable HISTORY: 84 years-old Male Shortness of breath, increased work of kumar acute shortness of breath COMPARISON: Chest radiograph and CTA chest 06/13/2020 TECHNIQUE: Portable AP view of the chest FINDINGS: Cardiac silhouette is enlarged. Pulmonary vascular congestion. Right greater than left pleural effusi ons have mildly increased in size from comparison. Right greater left bibasilar consolidation. No pne umothorax. Degenerative changes of the shoulders and spine. Chronic right-sided rib fractures. IMPRESSION: 1. Cardiomegaly with pulmonary vascular congestion. 2. Right greater than left bilateral pleural effusions with bibasilar consolidation. ACT 112: Negative or not required by law. The above report was generated using voice recognition software. It may contain grammatical, syntax o r spelling errors. Electronically signed by: Dheeraj Hansen M.D. 06/15/2020 9:29 AM
[2020-06-15 09:31] LABS: HCO3 VBG 23 mmol/L; PCO2 VBG 38 mmHg (38-50); PO2 VBG 26 mmHg; pH VBG 7.39 (7.36-7.41)
[2020-06-15 09:32] LABS: Oxygen Saturation VBG < 60.0 %
[2020-06-15 09:55] LABS: NT Pro B Type Natriuretic Pept > 35000 pg/ml (0-1800)
[2020-06-15] MEDS ORDERED: FUROSEMIDE 40 MG in SYRINGE 0 ML IV ONE ×2 (10:45→16:45)
--- NOTE | 2020-06-15 10:55 | Hospitalist Progress Note ---
Date of Service June 15, 2020 Assessment & Plan (1) Closed fracture of tibial plateau: S/p open reduction internal fixation of left tibial plateau fracture on 06/[address] Gates. - Orthopedic management. - Pain control measures. Per ortho: * Non-weightbearing on his left leg but he can toe-touch for transfers. * He is to be in the knee immobilizer at all times when he is up and out of bed. Stable for discharge from ortho standpoint. (2) Ischemic cardiomyopathy: LVEF 20-25% per echo on 06/13 with akinesis of inferolateral wall, inferior wall, basal inferoseptum, and apex, global hypokinesis, & mild aortic stenosis. - Continue carvedilol 25 mg PO BID - Continue lisinopril 2.5 mg PO daily - Lasix 40 mg IV x1 added by cardiology on 06/15 for shortness of breath. Exam not overtly overloaded, but with poor EF probably has low tolerance for hypervolemia. (3) Acute myocardial infarction: Shortness of breath and vague chest discomfort developed on 06/13. Chest x-ray negative for CHF and chest CTA negative for PE. Troponin was elevated to 17. - Cardiology consultation requested along with cardiac echo. - Presently on heparin infusion with plan to end today. - Transfused 2 units packed red blood cells at that time. - Cardiology following - Appreciate recs. - Continua ASA - Rash with atorvastatin (4) Anemia: Acute postoperative blood loss anemia. Transfused 2 units of PRBCs on 06/13 for anemia in the setting of ACS. - Continue iron replacement. - Monitor -> Hgb > 10 mg/dL on 06/15. (5) Chronic kidney disease, stage 3: Baseline Cr ~1.2 - 1.6. - Presently on upper end of baseline. - Monitor with diuresis (6) Hypertension: BP today is 130/80. - Continue beta-ellen and ACEi as above - Lasix as above (7) Hypothyroidism: TSH recently low (0.11 in 03/2020) in setting of small bowel obstruction; however, free T4 normal. Recommend repeating as outpatient. - Continue levothyroxine 137 mcg PO QAM. (8) CAD, multiple vessel: Remote CABG in 1995. Follows with cardiology and last seen by Dr. Barbosa in 10/2019 with stable symptoms at that time. - As above for NSTEMI (9) Osteoporosis: Notable history of such. Vitamin D was 76 this admission. - Consider outpatient DEXA scan as not recently performed on EHR. - Continue supplementation. (10) Asthma: No recent exacerbation. - Continue Advair Diskus or hospital formulary equivalent. - DuoNebs PRN (11) DVT prophylaxis: Presently on heparin gtt Admission and Anticipated Discharge Date Admission Date: June 09, 2020 Subjective Feeling very short of breath. No pain though. Reports no fevers/chills, chest pain, abdominal pain, nausea, or vomiting. Physical Exam Constitutional: WD/WN, vitals as above Eyes: EOM intact bilaterally; no conjunctival abnormality ENMT: external ear and nose normal, oropharynx normal Neck: trachea midline, no thyromegaly normal visual inspection Respiratory: + labored breathing; no respiratory distress Auscultation: + diminished lung sounds; no wheezes Cardiovascular: RRR, no murmur, no edema Gastrointestinal (Abdomen): Inspection/Auscultation: abdomen normal to inspection; abdomen not distended Musculoskeletal: no cyanosis or clubbing, extremities motor strength 5/5 Skin: no rashes, warm and dry Neurologic: moves all extremities and awake Psychiatric: Orientation: alert, oriented to person and cooperative Results & Data Results & Data ([facility]) Vital Signs (Past 12 Hours) Vital Signs Temp Pulse Pulse Pulse Resp BP BP 06/15/20 09:33 36.4 C L 92 H 22 114/78 06/15/20 08:20 91 H 18 06/15/20 07:15 36.7 C 86 18 128/78 06/15/20 07:12 87 06/15/20 04:13 36.4 C L 88 16 130/81 06/14/20 23:14 36.3 C L 92 H 18 109/68 Pulse Ox 06/15/20 09:33 100 06/15/20 08:20 98 06/15/20 07:15 96 06/15/20 07:12 06/15/20 04:13 98 06/14/20 23:14 97 PG Care Time/CCT Total # of Minutes Spent Total Time Spent with Patient: Total time spent is greater than 50% in coordination of care (as documented) at patient's floor/unit and/or counseling patient: Coding Level of Care Code 47383 Subseq Hosp Care Lvl 3 Diagnoses Closed fracture of tibial plateau S82.142A Encounter type: initial encounter Laterality: left Ischemic cardiomyopathy I25.5 Acute myocardial infarction I21.9 Anemia D64.9 Chronic kidney disease, stage 3 N18.3 Hypertension I10 Hypertension type: unspecified Hypothyroidism E03.9 Hypothyroidism type: unspecified CAD, multiple vessel I25.10 Osteoporosis M81.0 Asthma J45.909 Asthma severity: unspecified severity Asthma persistence: unspecified Asthma complication type: unspecified DVT prophylaxis Z29.9 (1) Closed fracture of tibial plateau Encounter type: initial encounter Laterality: left Qualified Code(s): S82.142A - Displaced bicondylar fracture of left tibia, initial encounter for closed fracture (2) Hypertension Hypertension type: unspecified Qualified Code(s): I10 - Essential (primary) hypertension (3) Hypothyroidism Hypothyroidism type: unspecified Qualified Code(s): E03.9 - Hypothyroidism, u nspecified (4) Asthma Asthma severity: unspecified severity Asthma persistence: unspecified Asthma complication type: unspecified Qualified Code(s): J45.909 - Unspecified asthma, uncomplicated
[2020-06-15] MEDS ORDERED: FUROSEMIDE 40 MG/4 ML VIAL IV SCH (11:00)
[2020-06-15 11:30] LABS: Partial Thromboplastin Ratio 2.6
[2020-06-15 11:34] LABS: Partial Thromboplastin Time 68.9 Seconds (21.0-31.0)
--- NOTE | 2020-06-15 13:33 | Electrocardiogram Report ---
Test Reason : Blood Pressure : / mmHG Vent. Rate : 092 BPM Atrial Rate : 092 BPM P-R Int : 178 ms QRS Dur : 128 ms QT Int : 416 ms P-R-T Axes : 087 -11 189 degrees QTc Int : 514 ms Normal sinus rhythm Possible Left atrial enlargement Non-specific intra-ventricular conduction block Cannot rule out Anterior infarct , age undetermined T wave abnormality, consider inferolateral ischemia Abnormal ECG When compared with ECG of 13-JUN-2020 09:19, Premature atrial complexes are no longer Present Non-specific intra-ventricular conduction block has replaced Right bundle branch block Criteria for Inferior infarct are no longer Present Confirmed by Keith Espinosa ([id number]) on 06/15/2020 1:32:52 PM Referred By: REFERRED SELF Confirmed By:Sukumar Espinosa
--- NOTE | 2020-06-15 16:05 | Cardiology Progress Note ---
Date of Service June 15, 2020 Assessment & Plan (1) Non-ST elevation (NSTEMI) myocardial infarction: (2) CAD (coronary artery disease): (3) Hx of CABG: (4) Chronic systolic CHF (congestive heart failure): (5) Aortic stenosis: (6) Ischemic cardiomyopathy: (7) Hypercholesterolemia: (8) Hypertension: ASSESSMENT/PLAN: 1. NSTEMI: Unclear etiology. Possibly plaque rupture event, possibly demand ischemia. In any event, he has been on heparin now for over 48 hours. I think we can discontinue the heparin. Will continue his beta-ellen and aspirin and add Plavix. 2. CAD s/p CABG (RUBI): Known coronary disease with prior bypass surgery. 3. Chronic systolic CHF: He has worsening dyspnea. He has a known severe cardiomyopathy. There is some suggestion of pulmonary vascular congestion on exam and N terminal proBNP is markedly elevated. Think we will attempt diuresis with intravenous Lasix and monitor his response. Have to watch his kidney function closely. 4. Cardiomyopathy: Ejection fraction 20 25% on echocardiogram performed yesterday. This is consistent with prior evaluations. Will continue his heart failure therapy consisting of carvedilol and lisinopril. Monitor his volume status closely as noted in 3. 5. Aortic stenosis: Only sclerosis noted on echocardiogram performed yesterday. 6. Dyslipidemia: Intolerant prior therapies. 7. Hypertension: Currently normotensive Admission and Anticipated Discharge Date Admission Date: June 09, 2020 Subjective This morning the patient claims to have more trouble with breathing. He states that even at rest he feels somewhat dyspneic. He had received breathing treatment prior to my interview but this did not appear to change his symptoms much. He has not been out of bed. No symptoms of chest pain. Review of Systems Review of Systems: Per HPI Physical Exam Physical Exam: The patient is alert and oriented. Mood and affect appeared normal. He answered all questions appropriately. HEENT: Pupils are equal and reactive to light and accommodation. Extraocular movements are intact. The sclerae are anicteric. Neuro: Cranial nerves intact Neck: Patient's neck is supple. He has palpable carotid pulses bilaterally without bruits on auscultation. There is no evidence of jugular venous distention. The thyroid is not enlarged. Lungs: No rales but he does have expiratory wheezing. Somewhat increased respiratory effort. Cardiac: Heart demonstrates a regular rate and rhythm. Normal S1 and S2. Very soft crescendo systolic murmur Pulses: The patient has palpable radial pulses bilaterally that are equal in intensity Extremities: There was no evidence of hypoperfusion. There is no cyanosis or clubbing. There is no edema. Skin: I did not appreciate any rashes on examination today. Results & Data ([facility]) Vital Signs (Past 12 Hours) Vital Signs Temp Pulse Pulse Pulse Resp BP BP 06/15/20 14:41 06/15/20 14:38 100 H 18 130/88 06/15/20 10:58 36.5 C 81 20 127/80 06/15/20 09:33 36.4 C L 92 H 22 114/78 06/15/20 08:20 91 H 18 06/15/20 07:15 36.7 C 86 18 128/78 06/15/20 07:12 87 06/15/20 04:13 36.4 C L 88 16 130/81 Pulse Ox 06/15/20 14:41 89 L 06/15/20 14:38 100 06/15/20 10:58 98 06/15/20 09:33 100 06/15/20 08:20 98 06/15/20 07:15 96 06/15/20 07:12 06/15/20 04:13 98 Laboratory Results Abnormal Lab Results 06/14/20 06/15/20 06/15/20 20:42 03:42 03:42 WBC 8.04 RBC 3.28 L Hgb 10.3 L Hct 30.0 L MCV 91.5 MCH 31.4 MCHC 34.3 RDW Std Deviation 52.5 H RDW Coeff of Ayaz 15.7 H Plt Count 248 MPV 10.9 H Immature Gran % (Auto) 0.4 Neut % (Auto) 85.1 Lymph % (Auto) 9.6 [place] % (Auto) 4.1 Eos % (Auto) 0.6 Baso % (Auto) 0.2 Neut # (Auto) 6.84 H Lymph # (Auto) 0.77 L [place] # (Auto) 0.33 Eos # (Auto) 0.05 Baso # (Auto) 0.02 Immature Gran # (Auto) 0.03 H APTT 55.9 H* PTT Ratio 2.1 VBG pH VBG pCO2 VBG pO2 VBG HCO3 VBG O2 Saturation VBG Base Excess Barometric Pressure Sodium 138 Potassium 3.9 Chloride 107 Carbon Dioxide 22 Anion Gap 9.0 BUN 47 H Creatinine 1.62 H Est Cr Clr Drug Dosing 25.8 Est GFR ( Amer) 43.9 Est GFR (Non-Af Amer) 37.9 BUN/Creatinine Ratio 28.8 H Glucose 129 H Calcium 8.1 L Troponin I NT-Pro-B Natriuret Pep Procalcitonin 06/15/20 06/15/20 06/15/20 03:42 09:17 09:17 WBC RBC Hgb Hct MCV MCH MCHC RDW Std Deviation RDW Coeff of Ayaz Plt Count MPV Immature Gran % (Auto) Neut % (Auto) Lymph % (Auto) [place] % (Auto) Eos % (Auto) Baso % (Auto) Neut # (Auto) Lymph # (Auto) [place] # (Auto) Eos # (Auto) Baso # (Auto) Immature Gran # (Auto) APTT 66.1 H* PTT Ratio 2.5 VBG pH VBG pCO2 VBG pO2 VBG HCO3 VBG O2 Saturation VBG Base Excess Barometric Pressure Sodium Potassium Chloride Carbon Dioxide Anion Gap BUN Creatinine Est Cr Clr Drug Dosing Est GFR ( Amer) Est GFR (Non-Af Amer) BUN/Creatinine Ratio Glucose Calcium Troponin I 6.830 H* NT-Pro-B Natriuret Pep > 69581 H Procalcitonin Cancelled 06/15/20 06/15/20 06/15/20 09:17 10:11 11:01 WBC RBC Hgb Hct MCV MCH MCHC RDW Std Deviation RDW Coeff of Ayaz Plt Count MPV Immature Gran % (Auto) Neut % (Auto) Lymph % (Auto) [place] % (Auto) Eos % (Auto) Baso % (Auto) Neut # (Auto) Lymph # (Auto) [place] # (Auto) Eos # (Auto) Baso # (Auto) Immature Gran # (Auto) APTT 68.9 H* PTT Ratio 2.6 VBG pH 7.39 VBG pCO2 38 VBG pO2 26 VBG HCO3 23 VBG O2 Saturation < 60.0 VBG Base Excess -2.0 Barometric Pressure 745.4 Sodium Potassium Chloride Carbon Dioxide Anion Gap BUN Creatinine Est Cr Clr Drug Dosing Est GFR ( Amer) Est GFR (Non-Af Amer) BUN/Creatinine Ratio Glucose Calcium Troponin I NT-Pro-B Natriuret Pep Procalcitonin 1.40 H Diagnostic Findings Obtained today suggested cardiomegaly with pulmonary vascular congestion. Chest CT performed 2 days ago did not reveal any evidence of pulmonary embolus. PG Care Time/CCT Total # of Minutes Spent Total Time Spent with Patient: Total time spent is greater than 50% in coordination of care (as documented) at patient's floor/unit and/or counseling patient: Coding Level of Care Code 13755 Subseq Hosp Care Lvl 3 Diagnoses Non-ST elevation (NSTEMI) myocardial infarction I21.4 CAD (coronary artery disease) I25.10 Hx of CABG Z95.1 Chronic systolic CHF (congestive heart failure) I50.22 Aortic stenosis I35.0 Ischemic cardiomyopathy I25.5 Hypercholesterolemia E78.00 Hypertension I10 Hypertension type: unspecified (1) Hypertension Hypertension type: unspecified Qualified Code(s): I10 - Essential (primary) hypertension
[2020-06-15] MEDS ORDERED: CLOPIDOGREL BISULFATE 75 MG TAB PO ONE (16:30)
[2020-06-15] MEDS: POLYETHYLENE (MIRALAX) 17 GM PACK PO PRN (18:13)
[2020-06-16] MEDS: LEVOTHYROXINE SODIUM 137 MCG TABLET PO SCH (06:01)
[2020-06-16 07:08] LABS: Hematocrit (blood only) 30.6 % (42-52); Hemoglobin 10.3 g/dL (14.0-18.0); Mean Corpuscular Hemoglobin 30.8 pg (25-34); Mean Corpuscular Hgb Conc 33.7 g/dL (32-36); Mean Corpuscular Volume 91.6 fL (80-100); Mean Platelet Volume 10.5 fL (7.4-10.4); Platelet Count 250 K/uL (130-400); RDW Coefficient of Variation 15.5 % (11.5-14.5); RDW Standard Deviation 51.2 fL (36.4-46.3); Red Blood Count 3.34 M/uL (4.7-6.1); White Blood Count 7.62 K/uL (4.8-10.8)
[2020-06-16 07:45] LABS: BUN Creatinine Ratio 28.7 (10-20); Calcium 8.1 mg/dl (8.5-10.1); Creatinine Clr Calc Pharmacy 28.9 ml/min; Est GFR (African American) 52.8; Est GFR (Non-African American) 45.6; Magnesium 2.1 mg/dl (1.8-2.4)
[2020-06-16] MEDS: FLUTICASONE/VILANTEROL 200/25MCG 14 PUFFS/INHALER INH SCH (08:28)
[2020-06-16] MEDS: CLOPIDOGREL BISULFATE 75 MG TAB PO SCH (08:29)
[2020-06-16] MEDS: FUROSEMIDE 20 MG TAB PO SCH (08:29)
[2020-06-16] MEDS: CALCIUM 600MG + VIT D 400 IU TAB PO SCH ×2 (08:29→20:08)
[2020-06-16] MEDS: ASPIRIN 81 MG ECTAB PO SCH ×2 (08:29→20:08)
[2020-06-16] MEDS: FERROUS GLUCONATE 324 MG TAB PO SCH ×2 (08:29→16:34)
[2020-06-16] MEDS: carvediloL 25 MG TAB PO SCH ×2 (08:29→20:08)
[2020-06-16] MEDS: MULTIVITAMIN TAB PO SCH (08:29)
[2020-06-16] MEDS: lisinopril 2.5 MG TAB PO SCH (08:29)
[2020-06-16] MEDS ORDERED: POTASSIUM CHLORIDE 10 MEQ / 100ML WTR IV STA (08:30)
--- NOTE | 2020-06-16 08:30 | Hospitalist Progress Note ---
Date of Service June 16, 2020 Assessment & Plan (1) Closed fracture of tibial plateau: 06/10/20 Left Open Reduction Internal Fixation Tibial Plateau Fracture Surgeon: Michael Rabago Per ortho: * Non-weightbearing on his left leg but he can toe-touch for transfers. * He is to be in the knee immobilizer at all times when he is up and out of bed. Stable for discharge from ortho standpoint. (2) Ischemic cardiomyopathy: LVEF 20-25% per echo on 06/13 with akinesis of inferolateral wall, inferior wall, basal inferoseptum, and apex, global hypokinesis, & mild aortic stenosis. - Continue carvedilol 25 mg PO BID - Continue lisinopril 2.5 mg PO daily - Lasix 40 mg IV x1 added by cardiology on 06/15 for shortness of breath. (3) Acute myocardial infarction: NSTemi in face of known cad and Cardiomyopathy, completed heparin gtt, continues on asa,plavix and coreg - Transfused 2 units packed red blood cells at that time. - Cardiology following - intolerance to statins due to rash (4) Anemia: Acute postoperative blood loss anemia. Transfused 2 units of PRBCs on 06/13 for anemia in the setting of ACS. - Continue iron replacement. - Monitor -> Hgb > 10 mg/dL on 06/15. (5) Chronic kidney disease, stage 3: Baseline Cr ~1.2 - 1.6. - Presently on upper end of baseline. - Monitor with diuresis (6) Hypertension: BP today is 130/80. - Continue beta-ellen and ACEi as above - Lasix as above (7) Hypothyroidism: TSH recently low (0.11 in 03/2020) in setting of small bowel obstruction; however, free T4 normal. Recommend repeating as outpatient. - Continue levothyroxine 137 mcg PO QAM. (8) CAD, multiple vessel: Remote CABG in 1995. Follows with cardiology and last seen by Dr. Barbosa in 10/2019 with stable symptoms at that time. - As above for NSTEMI (9) Osteoporosis: Notable history of such. Vitamin D was 76 this admission. - Consider outpatient DEXA scan as not recently performed on EHR. - Continue supplementation. (10) Asthma: No recent exacerbation. - Continue Advair Diskus or hospital formulary equivalent. - DuoNebs PRN (11) DVT prophylaxis: once off heparin gtt ortho preference for DVT prevention Admission and Anticipated Discharge Date Admission Date: June 09, 2020 Subjective Patient is in good spirits today still having some left knee pain which prohibits him walking is looking forward to rehab Review of Systems Review of Systems: Mild distress and fatigue difficulty standing and walking no headache, blurry or double vision no speech or swallowing issues no chest pain, pressure or palpitations no shortness of breath, cough or wheezes no abdominal pain, nausea or vomiting, diarrhea or constipation no dysuria, hematuria or frequency Left knee pain mild swelling no back pain, CVA tenderness or radicular pain no bruising, bleeding or rashes no focal signs of weakness or numbness occultly with persistent knee pain causing problems with ambulation no complaints of anxiety or depression.. Physical Exam Physical Exam: The patient appeared stated age and mildly underweight Vital signs as documented. Head exam is normocephalic atraumatic no scleral icterus Neck is without JVD, thyromegaly, or carotid bruits. Lungs are clear to auscultation, no focal loss of breath sounds Cardiac exam, Rhythm is regular.. No murmurs, rubs or gallops. Abdominal exam reveals normal bowel sounds, soft non tender, no masses Extremity left knee is bruised and swollen surgical site is clean dry and intact Neurologic exam is alert and oriented, no focal loss of strength or sensation Skin is without bruises or rashes Psychologically is without concerns for anxiety or depression Results & Data Results & Data ([facility]) Vital Signs (Past 12 Hours) Vital Signs Temp Pulse Pulse Pulse Resp BP BP 06/16/20 07:11 97.7 F 82 20 127/74 06/16/20 03:46 97.3 F L 81 16 109/64 06/15/20 22:50 88 06/15/20 22:45 98.2 F 82 18 103/66 06/15/20 21:34 83 18 06/15/20 20:46 76 116/6 L Pulse Ox 06/16/20 07:11 94 06/16/20 03:46 95 06/15/20 22:50 06/15/20 22:45 95 06/15/20 21:34 99 06/15/20 20:46 99 PG Care Time/CCT Total # of Minutes Spent Total Time Spent with Patient: Total time spent is greater than 50% in coordination of care (as documented) at patient's floor/unit and/or counseling patient: Coding Level of Care Code 34230 Subseq Hosp Care Lvl 2 Diagnoses Closed fracture of tibial plateau S82.142A Encounter type: initial encounter Laterality: left Ischemic cardiomyopathy I25.5 Acute myocardial infarction I21.9 Anemia D64.9 Chronic kidney disease, stage 3 N18.3 Hypertension I10 Hypertension type: unspecified Hypothyroidism E03.9 Hypothyroidism type: unspecified CAD, multiple vessel I25.10 Osteoporosis M81.0 Asthma J45.909 Asthma complication type: unspecified Asthma persistence: unspecified Asthma severity: unspecified severity DVT prophylaxis Z29.9 (1) Hypothyroidism Hypothyroidism type: unspecified Qualified Code(s): E03.9 - Hypothyroidism, unspecified (2) Closed fracture of tibial plateau Encounter type: initial encounter Laterality: left Qualified Code(s): S82.142A - Displaced bicondylar fracture of left tibia, initial encounter for closed fracture (3) Hypertension Hypertension type: unspecified Qualified Code(s): I10 - Essential (primary) hypertension (4) Asthma Asthma complication type: unspecified Asthma persistence: unspecified Asthma severity: unspecified severity Qualified Code(s): J45.909 - Unspecified asthma, uncomplicated
[2020-06-16] MEDS: POTASSIUM CHLORIDE / WTR 10 MEQ/100 ML PLCT IV SCH ×3 (08:57→10:58)
[2020-06-16] MEDS: POTASSIUM CHLORIDE CRTAB 20 MEQ TABCR PO SCH ×2 (08:57→20:08)
[2020-06-16] MEDS ORDERED: MAGNESIUM SULFATE / D5W 1 GM/100 ML BAG IV ONE (09:00)
--- NOTE | 2020-06-16 10:05 | Cardiology Progress Note ---
Date of Service June 16, 2020 Assessment & Plan (1) Non-ST elevation (NSTEMI) myocardial infarction: (2) CAD (coronary artery disease): (3) Hx of CABG: (4) Chronic systolic CHF (congestive heart failure): (5) Aortic stenosis: (6) Ischemic cardiomyopathy: (7) Hypercholesterolemia: (8) Hypertension: ASSESSMENT/PLAN: 1. NSTEMI: Unclear etiology. Possibly plaque rupture event, possibly demand ischemia. No current symptoms of angina. Will get better sense of his overall symptoms when he is more ambulatory and mobile. Will continue beta-ellen and dual anti-platelet therapy. 2. CAD s/p CABG (RUBI): Known coronary disease with prior bypass surgery. 3. Chronic systolic CHF: It seems that his symptoms of dyspnea yesterday were likely related to pulmonary vascular congestion. He diuresed well and his symptoms improved. However, he did encounter significant hypokalemia. I think we need to Re supplement his potassium before considering additional diuretic administration. He likely will require some continued diuresis. Perhaps doubling his oral diuretic would be adequate. 4. Cardiomyopathy: Ejection fraction 20 25% on echocardiogram performed yesterday. This is consistent with prior evaluations. Will continue his heart failure therapy consisting of carvedilol and lisinopril. Renal function actually improved with diuresis. 5. Aortic stenosis: Only sclerosis noted on echocardiogram performed yesterday. 6. Dyslipidemia: Intolerant prior therapies. 7. Hypertension: Currently normotensive Admission and Anticipated Discharge Date Admission Date: June 09, 2020 Subjective This morning the patient states his breathing is much better. He is not appear dyspneic at rest. No pain unless he is mobile. Review of Systems Review of Systems: Per HPI Physical Exam Physical Exam: The patient is alert and oriented. Mood and affect appeared normal. He answered all questions appropriately. HEENT: Pupils are equal and reactive to light and accommodation. Extraocular movements are intact. The sclerae are anicteric. Neuro: Cranial nerves intact Lungs: Some very mild expiratory wheezing. Bases appear clear. Normal respiratory effort. Cardiac: Heart demonstrates a regular rate and rhythm. Normal S1 and S2. Soft systolic ejection murmur Pulses: The patient has palpable radial pulses bilaterally that are equal in intensity Extremities: There was no evidence of hypoperfusion. There is no cyanosis or clubbing. There is no edema. Skin: I did not appreciate any rashes on examination today. Results & Data ([facility]) Vital Signs (Past 12 Hours) Vital Signs Temp Pulse Pulse Resp BP BP Pulse Ox 06/16/20 07:11 36.5 C 82 20 127/74 94 06/16/20 03:46 36.3 C L 81 16 109/64 95 06/15/20 22:50 88 06/15/20 22:45 36.8 C 82 18 103/66 95 Laboratory Results Abnormal Lab Results 06/15/20 06/15/20 06/16/20 10:11 11:01 06:43 WBC 7.62 RBC 3.34 L Hgb 10.3 L Hct 30.6 L MCV 91.6 MCH 30.8 MCHC 33.7 RDW Std Deviation 51.2 H RDW Coeff of Ayaz 15.5 H Plt Count 250 MPV 10.5 H APTT 68.9 H* PTT Ratio 2.6 Sodium Potassium Chloride Carbon Dioxide Anion Gap BUN Creatinine Est Cr Clr Drug Dosing Est GFR ( Amer) Est GFR (Non-Af Amer) BUN/Creatinine Ratio Glucose Calcium Magnesium Procalcitonin 1.40 H 06/16/20 06:43 WBC RBC Hgb Hct MCV MCH MCHC RDW Std Deviation RDW Coeff of Ayaz Plt Count MPV APTT PTT Ratio Sodium 139 Potassium 3.0 L D Chloride 103 Carbon Dioxide 27 Anion Gap 9.0 BUN 40 H Creatinine 1.39 Est Cr Clr Drug Dosing 28.9 Est GFR ( Amer) 52.8 Est GFR (Non-Af Amer) 45.6 BUN/Creatinine Ratio 28.7 H Glucose 85 Calcium 8.1 L Magnesium 2.1 Procalcitonin PG Care Time/CCT Total # of Minutes Spent Total Time Spent with Patient: Total time spent is greater than 50% in coordination of care (as documented) at patient's floor/unit and/or counseling patient: Coding Level of Care Code 91999 Subseq Obs Care Lvl 2 Diagnoses Non-ST elevation (NSTEMI) myocardial infarction I21.4 CAD (coronary artery disease) I25.10 Hx of CABG Z95.1 Chronic systolic CHF (congestive heart failure) I50.22 Aortic stenosis I35.0 Ischemic cardiomyopathy I25.5 Hypercholesterolemia E78.00 Hypertension I10 Hypertension type: unspecified (1) Hypertension Hypertension type: unspecified Qualified Code(s): I10 - Essential (primary) hypertension
[2020-06-16] MEDS: ALBUT/IPRATROP 3MG/0.5MG NEB 3 ML VIAL NEB PRN ×2 (11:50→20:55)
--- NOTE | 2020-06-16 12:47 | Orthopedic Progress Note ---
Date of Service June 16, 2020 Assessment & Plan (1) Closed fracture of tibial plateau: Changes to the orthopedic plan of care. He appears to respond well to the transfusion. He stable orthopedically for discharge. I defer to the hospitalist service as well as cardiology with regard to his readiness for the next phase of care. Subjective But he does not feel short of breath this morning. He denies any chest pain. He was sitting at the side of his bed and he leaned back to take a nap. Review of Systems All systems reviewed & are unremarkable except as noted in HPI & below. Physical Exam Lying sideways across the bed but was easily awakened and set upright. He denies any significant pain Left lower extremity: Knee immobilizer and dressing are clean dry and intact. He is neurovascular intact to his foot. Results & Data Results & Data Laboratory Results . H & H 06/09/20 06/11/20 06/11/20 Range/Units 18:34 08:03 14:04 Hgb 10.9 L 8.5 L 7.5 L (14.0-18.0) g/dL Hct 33.6 L 26.0 L 23.0 L (42-52) % 06/11/20 06/12/20 06/13/20 Range/Units 20:04 06:36 07:00 Hgb 7.1 L 7.6 L 7.5 L (14.0-18.0) g/dL Hct 21.8 L 23.3 L 22.5 L (42-52) % 06/14/20 06/15/20 06/16/20 Range/Units 05:53 03:42 06:43 Hgb 10.5 L D 10.3 L 10.3 L (14.0-18.0) g/dL Hct 31.0 L 30.0 L 30.6 L (42-52) % Coagulation 06/09/20 Range/Units 18:34 INR 1.0 (0.9-1.1) Diagnostic Findings . PG Care Time/CCT Total # of Minutes Spent Total Time Spent with Patient: Total time spent is greater than 50% in coordination of care (as documented) at patient's floor/unit and/or counseling patient: Coding Level of Care Code 17484 Post Operative Follow-Up Diagnoses Closed fracture of tibial plateau S82.142A Encounter type: initial encounter Laterality: left (1) Closed fracture of tibial plateau Encounter type: initial encounter Laterality: left Qualified Code(s): S82.142A - Displaced bicondylar fracture of left tibia, initial encounter for closed fracture
[2020-06-16] MEDS: POLYETHYLENE (MIRALAX) 17 GM PACK PO PRN (16:34)
[2020-06-17] MEDS: LEVOTHYROXINE SODIUM 137 MCG TABLET PO SCH (06:29)
[2020-06-17] MEDS: lisinopril 2.5 MG TAB PO SCH (07:47)
[2020-06-17] MEDS: FLUTICASONE/VILANTEROL 200/25MCG 14 PUFFS/INHALER INH SCH (07:47)
[2020-06-17] MEDS: CLOPIDOGREL BISULFATE 75 MG TAB PO SCH (07:47)
[2020-06-17] MEDS: FUROSEMIDE 20 MG TAB PO SCH (07:47)
[2020-06-17] MEDS: carvediloL 25 MG TAB PO SCH ×2 (07:48→20:16)
[2020-06-17] MEDS: POTASSIUM CHLORIDE CRTAB 20 MEQ TABCR PO SCH (07:48)
[2020-06-17] MEDS: ASPIRIN 81 MG ECTAB PO SCH ×2 (07:48→20:16)
[2020-06-17] MEDS: CALCIUM 600MG + VIT D 400 IU TAB PO SCH ×2 (07:48→20:16)
[2020-06-17] MEDS: MULTIVITAMIN TAB PO SCH (07:48)
[2020-06-17] MEDS: FERROUS GLUCONATE 324 MG TAB PO SCH ×2 (07:48→16:43)
[2020-06-17] MEDS: ALBUT/IPRATROP 3MG/0.5MG NEB 3 ML VIAL NEB PRN ×3 (08:00→15:03)
[2020-06-17 09:57] LABS: BUN Creatinine Ratio 27.5 (10-20); Calcium 7.9 mg/dl (8.5-10.1); Creatinine Clr Calc Pharmacy 30.5 ml/min; Est GFR (African American) 56.7; Potassium 3.7 mmol/L (3.5-5.1)
--- NOTE | 2020-06-17 13:04 | Orthopedic Progress Note ---
Date of Service June 17, 2020 Assessment & Plan (1) Closed fracture of tibial plateau: He stable orthopedically for discharge. Awaiting clearance from hospitalist service as well as cardiology with regard to his readiness for the next phase of care. Continue with PT/OT Use knee immobilizer when out of bed. Non-weight bearing on the left side. Subjective 84 year old white male who is status post left plateau ORIF. He is doing well this morning. He has no complaints in regards to his knee. He is awaiting d/c to ECF. He says that he has not been working with PT. No chest pain or shortness of breath. Review of Systems All systems reviewed & are unremarkable except as noted in HPI & below. Physical Exam Left lower leg is neurovascularly intact. He is able to wiggle his toes and has sensation to touch, grossly intact. Left knee has immobilizer in place. PG Care Time/CCT Total # of Minutes Spent Total Time Spent with Patient: Total time spent is greater than 50% in coordination of care (as documented) at patient's floor/unit and/or counseling patient: Supervising Physician Co-Signing Physician Notes I was able to round this afternoon and happened to be at the bedside with Dr. Johnson's evaluation per cardiology. Mr. Leo stated that he still felt short of breath with any attempts at standing. I asked about pain he says he thinks it is fine as long as he is not moving. He has not been able to ambulate with the assistance of PT/OT due to anxiety and shortness of breath. Otherwise has been no significant changes in his plan. I agree with my physician lead recreation assistant's note and assessment. No changes from the orthopedic plan of care. We will continue to follow along while the medical team is optimized him for his next stage of care. Coding Level of Care Code 84144 Post Operative Follow-Up Diagnoses Closed fracture of tibial plateau S82.142A Encounter type: initial encounter Laterality: left (1) Closed fracture of tibial plateau Encounter type: initial encounter Laterality: left Qualified Code(s): S82.142A - Displaced bicondylar fracture of left tibia, initial encounter for closed fracture
--- NOTE | 2020-06-17 15:50 | Cardiology Progress Note ---
Date of Service June 17, 2020 Assessment & Plan (1) Non-ST elevation (NSTEMI) myocardial infarction: (2) CAD (coronary artery disease): (3) Hx of CABG: (4) Chronic systolic CHF (congestive heart failure): (5) Aortic stenosis: (6) Ischemic cardiomyopathy: (7) Hypercholesterolemia: (8) Hypertension: ASSESSMENT/PLAN: 1. NSTEMI: Unclear etiology. Possibly plaque rupture event, possibly demand ischemia. Will continue beta-ellen and dual anti-platelet therapy. 2. CAD s/p CABG (RUBI): Known coronary disease with prior bypass surgery. 3. Chronic systolic CHF: Some of the symptoms are likely related to pulmonary vascular congestion. He continues to have wheezing on exam and he may have an element of COPD and airway disease as well. I think we can continue his diuresis now as his potassiums been supplemented. I will give him some additional potassium and another dose of Lasix. We will watch his electrolytes and renal function closely. 4. Cardiomyopathy: Ejection fraction 20 25% on echocardiogram performed yesterday. This is consistent with prior evaluations. Will continue his heart failure therapy consisting of carvedilol and lisinopril. Renal function actually improved with diuresis. 5. Aortic stenosis: Only sclerosis noted on echocardiogram performed yesterday. 6. Dyslipidemia: Intolerant prior therapies. 7. Hypertension: Currently normotensive Admission and Anticipated Discharge Date Admission Date: June 09, 2020 Subjective This afternoon the patient continued to have significant dyspnea. While resting in bed he felt fairly comfortable, but with even minimal activity he became severely dyspneic. No associated chest pain. Some pain in the hip with movement. Review of Systems Review of Systems: Per HPI Physical Exam Physical Exam: The patient is alert and oriented. Mood and affect appeared normal. He answered all questions appropriately. HEENT: Pupils are equal and reactive to light and accommodation. Extraocular movements are intact. The sclerae are anicteric. Neuro: Cranial nerves intact Lungs: Some very mild expiratory wheezing. Bases appear clear. Normal respiratory effort. Cardiac: Heart demonstrates a regular rate and rhythm. Normal S1 and S2. Soft systolic ejection murmur Pulses: The patient has palpable radial pulses bilaterally that are equal in intensity Extremities: There was no evidence of hypoperfusion. There is no cyanosis or clubbing. There is no edema. Skin: I did not appreciate any rashes on examination today. Results & Data ([facility]) Vital Signs (Past 12 Hours) Vital Signs Temp Pulse Resp BP Pulse Ox 06/17/20 15:05 72 14 98 06/17/20 14:59 36.7 C 86 18 97/60 L 95 06/17/20 13:48 99 06/17/20 11:06 36.6 C 104 H 20 122/86 100 06/17/20 10:49 78 18 98 06/17/20 08:02 77 14 98 06/17/20 07:10 36.7 C 83 18 120/71 94 Laboratory Results Abnormal Lab Results 06/17/20 09:03 Sodium 139 Potassium 3.7 D Chloride 106 Carbon Dioxide 24 Anion Gap 9.0 BUN 36 H Creatinine 1.31 Est Cr Clr Drug Dosing 30.5 Est GFR ( Amer) 56.7 Est GFR (Non-Af Amer) 49.0 BUN/Creatinine Ratio 27.5 H Glucose 113 H Calcium 7.9 L PG Care Time/CCT Total # of Minutes Spent Total Time Spent with Patient: Total time spent is greater than 50% in coordination of care (as documented) at patient's floor/unit and/or counseling patient: Coding Level of Care Code 03692 Subseq Hosp Care Lvl 3 Diagnoses Non-ST elevation (NSTEMI) myocardial infarction I21.4 CAD (coronary artery disease) I25.10 Hx of CABG Z95.1 Chronic systolic CHF (congestive heart failure) I50.22 Aortic stenosis I35.0 Ischemic cardiomyopathy I25.5 Hypercholesterolemia E78.00 Hypertension I10 Hypertension type: unspecified (1) Hypertension Hypertension type: unspecified Qualified Code(s): I10 - Essential (primary) hypertension
[2020-06-17] MEDS ORDERED: FUROSEMIDE 40 MG in SYRINGE 0 ML IV ONE (16:00)
[2020-06-17] MEDS ORDERED: POTASSIUM CHLORIDE CRTAB 20 MEQ TABCR PO ONE (16:00)
--- NOTE | 2020-06-17 17:25 | Hospitalist Progress Note ---
Date of Service June 17, 2020 Assessment & Plan (1) Closed fracture of tibial plateau: 06/10/20 Left Open Reduction Internal Fixation Tibial Plateau Fracture Surgeon: Michael Rabago Per ortho: * Non-weightbearing on his left leg but he can toe-touch for transfers. * He is to be in the knee immobilizer at all times when he is up and out of bed. Stable for discharge from ortho standpoint. pt now does not wish to go to rehab but wants to go home with home health and PT (2) Ischemic cardiomyopathy: LVEF 20-25% per echo on 06/13 with akinesis of inferolateral wall, inferior wall, basal inferoseptum, and apex, global hypokinesis, & mild aortic stenosis. - Continue carvedilol 25 mg PO BID - Continue lisinopril 2.5 mg PO daily - Lasix 40 mg IV x1 added by cardiology on 06/15 for shortness of breath. (3) Acute myocardial infarction: NSTemi in face of known cad and Cardiomyopathy, completed heparin gtt, continues on asa,plavix and coreg - Transfused 2 units packed red blood cells at that time. - Cardiology following - intolerance to statins due to rash (4) Anemia: Acute postoperative blood loss anemia. Transfused 2 units of PRBCs on 06/13 for anemia in the setting of ACS. - Continue iron replacement. - Monitor -> Hgb > 10 mg/dL on 06/15. (5) Chronic kidney disease, stage 3: Baseline Cr ~1.2 - 1.6. - Presently on upper end of baseline. - Monitor with diuresis (6) Hypertension: BP today is 130/80. - Continue beta-ellen and ACEi as above - Lasix as above (7) Hypothyroidism: TSH recently low (0.11 in 03/2020) in setting of small bowel obstruction; however, free T4 normal. Recommend repeating as outpatient. - Continue levothyroxine 137 mcg PO QAM. (8) CAD, multiple vessel: Remote CABG in 1995. Follows with cardiology and last seen by Dr. aBrbosa in 10/2019 with stable symptoms at that time. - As above for NSTEMI (9) Osteoporosis: Notable history of such. Vitamin D was 76 this admission. - Consider outpatient DEXA scan as not recently performed on EHR. - Continue supplementation. (10) Asthma: pt feels slight tightness, wishes to have advair if able - Continue Advair Diskus or hospital formulary equivalent. - Jhonatan PRN (11) DVT prophylaxis: aspirin bid for dvt prevention Admission and Anticipated Discharge Date Admission Date: June 09, 2020 Subjective this pt feels his dyspnea has improved dramatically and has asked for his advair to be restarted not sure if not able due to formulary restrictions Review of Systems Review of Systems: Mild distress and fatigue difficulty standing and walking no headache, blurry or double vision no speech or swallowing issues no chest pain, pressure or palpitations no shortness of breath, cough or wheezes no abdominal pain, nausea or vomiting, diarrhea or constipation no dysuria, hematuria or frequency Left knee pain mild swelling no back pain, CVA tenderness or radicular pain no bruising, bleeding or rashes no focal signs of weakness or numbness occultly with persistent knee pain causing problems with ambulation no complaints of anxiety or depression.. Physical Exam Physical Exam: The patient appeared stated age and mildly underweight Vital signs as documented. Head exam is normocephalic atraumatic no scleral icterus Neck is without JVD, thyromegaly, or carotid bruits. Lungs are clear to auscultation, no focal loss of breath sounds Cardiac exam, Rhythm is regular.. No murmurs, rubs or gallops. Abdominal exam reveals normal bowel sounds, soft non tender, no masses Extremity left knee is bruised and swollen surgical site is clean dry and intact Neurologic exam is alert and oriented, no focal loss of strength or sensation Skin is without bruises or rashes Psychologically is without concerns for anxiety or depression Results & Data Results & Data ([facility]) Vital Signs (Past 12 Hours) Vital Signs Temp Pulse Resp BP Pulse Ox 06/17/20 16:42 78 110/67 06/17/20 15:05 72 14 98 06/17/20 14:59 98.1 F 86 18 97/60 L 95 06/17/20 13:48 99 06/17/20 11:06 97.9 F 104 H 20 122/86 100 06/17/20 10:49 78 18 98 06/17/20 08:02 77 14 98 06/17/20 07:10 98.1 F 83 18 120/71 94 PG Care Time/CCT Total # of Minutes Spent Total Time Spent with Patient: Total time spent is greater than 50% in coordination of care (as documented) at patient's floor/unit and/or counseling patient: Coding Level of Care Code 81719 Subseq Hosp Care Lvl 2 Diagnoses Closed fracture of tibial plateau S82.142A Encounter type: initial encounter Laterality: left Ischemic cardiomyopathy I25.5 Acute myocardial infarction I21.9 Anemia D64.9 Chronic kidney disease, stage 3 N18.3 Hypertension I10 Hypertension type: unspecified Hypothyroidism E03.9 Hypothyroidism type: unspecified CAD, multiple vessel I25.10 Osteoporosis M81.0 Asthma J45.909 Asthma severity: unspecified severity Asthma persistence: unspecified Asthma complication type: unspecified DVT prophylaxis Z29.9 (1) Closed fracture of tibial plateau Encounter type: initial encounter Laterality: left Qualified Code(s): S82.142A - Displaced bicondylar fracture of left tibia, initial encounter for closed fracture (2) Hypertension Hypertension type: unspecified Qualified Code(s): I10 - Essential (primary) hypertension (3) Hypothyroidism Hypothyroidism type: unspecified Qualified Code(s): E03.9 - Hypothyroidism, unspecified (4) Asthma Asthma severity: unspecified severity Asthma persistence: unspecified Asthma complication type: unspecified Qualified Code(s): J45.909 - Unspecified asthma, uncomplicated
[2020-06-17] MEDS ORDERED: BUDESONIDE/FORMOTEROL FUMARATE 160/4.5 60 PUFFS/INHALER INH SCH (21:00)
[2020-06-17] MEDS: POLYETHYLENE (MIRALAX) 17 GM PACK PO PRN (21:01)
[2020-06-18] MEDS: LEVOTHYROXINE SODIUM 137 MCG TABLET PO SCH (06:29)
[2020-06-18] MEDS: FUROSEMIDE 20 MG TAB PO SCH (07:24)
[2020-06-18] MEDS: CALCIUM 600MG + VIT D 400 IU TAB PO SCH (07:24)
[2020-06-18] MEDS: lisinopril 2.5 MG TAB PO SCH (07:24)
[2020-06-18] MEDS: carvediloL 25 MG TAB PO SCH (07:24)
[2020-06-18] MEDS: ASPIRIN 81 MG ECTAB PO SCH (07:25)
[2020-06-18] MEDS: CLOPIDOGREL BISULFATE 75 MG TAB PO SCH (07:25)
[2020-06-18] MEDS: MULTIVITAMIN TAB PO SCH (07:25)
[2020-06-18] MEDS: FERROUS GLUCONATE 324 MG TAB PO SCH (07:25)
[2020-06-18] MEDS: ALBUT/IPRATROP 3MG/0.5MG NEB 3 ML VIAL NEB PRN ×2 (08:58→14:25)
--- NOTE | 2020-06-18 09:26 | Hospitalist Progress Note ---
Date of Service June 18, 2020 Assessment & Plan (1) Closed fracture of tibial plateau: 06/10/20 Left Open Reduction Internal Fixation Tibial Plateau Fracture Surgeon: Michael Rabago Per ortho: * Non-weightbearing on his left leg but he can toe-touch for transfers. * He is to be in the knee immobilizer at all times when he is up and out of bed. Stable for discharge from ortho standpoint. pt now does not wish to go to rehab but wants to go home with home health and PT (2) Ischemic cardiomyopathy: LVEF 20-25% per echo on 06/13 with akinesis of inferolateral wall, inferior wall, basal inferoseptum, and apex, global hypokinesis, & mild aortic stenosis. acute on chronic systolic and diastolic heart failure - Continue carvedilol 25 mg PO BID - Continue lisinopril 2.5 mg PO daily - Lasix 40 mg IV x1 added by cardiology on 06/15 for shortness of breath. (3) Acute myocardial infarction: NSTemi in face of known cad and Cardiomyopathy, completed heparin gtt, continues on asa,plavix and coreg - Transfused 2 units packed red blood cells at that time. - Cardiology following - intolerance to statins due to rash (4) Anemia: Acute postoperative blood loss anemia. Transfused 2 units of PRBCs on 06/13 for anemia in the setting of ACS. - Continue iron replacement. - Monitor -> Hgb > 10 mg/dL on 06/15. (5) Chronic kidney disease, stage 3: Baseline Cr ~1.2 - 1.6. - Presently on upper end of baseline. - Monitor with diuresis (6) Hypertension: BP today is 130/80. - Continue beta-ellen and ACEi as above - Lasix as above (7) Hypothyroidism: TSH recently low (0.11 in 03/2020) in setting of small bowel obstruction; however, free T4 normal. Recommend repeating as outpatient. - Continue levothyroxine 137 mcg PO QAM. (8) CAD, multiple vessel: Remote CABG in 1995. Follows with cardiology and last seen by Dr. Barbosa in 10/2019 with stable symptoms at that time. - As above for NSTEMI (9) Osteoporosis: Notable history of such. Vitamin D was 76 this admission. - Consider outpatient DEXA scan as not recently performed on EHR. - Continue supplementation. (10) Asthma: pt feels slight tightness, wishes to have advair if able - Continue Advair Diskus or hospital formulary equivalent. - Jhonatan PRN (11) DVT prophylaxis: aspirin bid for dvt prevention Admission and Anticipated Discharge Date Admission Date: June 09, 2020 Results & Data Results & Data ([facility]) Vital Signs (Past 12 Hours) Vital Signs Temp Pulse Pulse Resp BP Pulse Ox 06/18/20 08:59 73 16 97 06/18/20 08:00 79 06/18/20 07:01 97.7 F 80 17 114/67 97 06/18/20 04:01 97.5 F L 83 16 111/70 96 06/17/20 23:07 77 06/17/20 23:06 97.9 F 80 16 103/67 96 PG Care Time/CCT Total # of Minutes Spent Total Time Spent with Patient: Total time spent is greater than 50% in coordination of care (as documented) at patient's floor/unit and/or counseling patient: Coding Diagnoses Closed fracture of tibial plateau S82.142A Encounter type: initial encounter Laterality: left Ischemic cardiomyopathy I25.5 Acute myocardial infarction I21.9 Anemia D64.9 Chronic kidney disease, stage 3 N18.3 Hypertension I10 Hypertension type: unspecified Hypothyroidism E03.9 Hypothyroidism type: unspecified CAD, multiple vessel I25.10 Osteoporosis M81.0 Asthma J45.909 Asthma severity: unspecified severity Asthma persistence: unspecified Asthma complication type: unspecified DVT prophylaxis Z29.9 (1) Closed fracture of tibial plateau Encounter type: initial encounter Laterality: left Qualified Code(s): S82.142A - Displaced bicondylar fracture of left tibia, initial encounter for closed fracture (2) Hypertension Hypertension type: unspecified Qualified Code(s): I10 - Essential (primary) hypertension (3) Hypothyroidism Hypothyroidism type: unspecified Qualified Code(s): E03.9 - Hypothyroidism, unspecified (4) Asthma Asthma severity: unspecified severity Asthma persistence: unspecified Asthma complication type: unspecified Qualified Code(s): J45.909 - Unspecified asthma, uncomplicated
[2020-06-18 11:25] LABS: BUN Creatinine Ratio 29.1 (10-20); Calcium 8.3 mg/dl (8.5-10.1); Creatinine Clr Calc Pharmacy 29.4 ml/min; Est GFR (African American) 54.2; Est GFR (Non-African American) 46.8; Potassium 4.1 mmol/L (3.5-5.1)
--- NOTE | 2020-06-18 13:01 | Heart Failure Progress Note ---
Date of Service June 18, 2020 Assessment & Plan (1) Chronic systolic CHF (congestive heart failure): (2) Ischemic cardiomyopathy: Patient appears near euvolemic on exam. He continues to report shortness of breath. Would recommend discharge on Lasix 40 mg daily. Plan to check BMP, magnesium, and ProBNP in 7-10 days. Patient is going to [facility]. Would recommend continued close monitoring of weight and volume status. Plan to follow up with the heart failure program next week. Appointment has been scheduled for 06/25/20 at 1400. Continue guideline directed medical therapy. Will continue to titrate as outpatient. Will consider transition of Lisinopril to Entresto. Admission and Anticipated Discharge Date Admission Date: June 09, 2020 Subjective Mr. Leo is a very pleasant 84-year-old gentleman with history significant for CAD s/p CABG (RUBI in 1995), ischemic cardiomyopathy (reported EF 20-25%), aortic stenosis, dyslipidemia (intolerant to statin), chronic systolic CHF, and hypertension. His primary scholarship counselor is Dr. Barbosa. Recent cardiac studies: 1. 06/13/20 Echo: Normal LV size, reduced systolic function. EF 20-25%. Akinesis of the inferolateral wall, inferior wall, basal inferoseptum, and apex. Otherwise global hypokinesis. Severe left atrial dilation. Mild right atrial dilation. Sclerotic aortic valve without stenosis. Moderate MR. Mild-Mod TR. Mild pulmonary hypertension. Patient was initially admitted on 06/10/20 for tibial plateau fracture and subsequent ORIF. Patient then sustained a post op NSTEMI on 06/13/20.He opted for medical therapy rather than cardiac catheterization. Echocardiogram demonstrates reduced left ventricular systolic function which is stable from previous. He was on Carvedilol and Lisinopril. Initially he was euvolemic but then developed worsening dyspnea after blood transfusion. ProBNP > 35k. He was initiated on IV diuretics. Today he reports he's comfortable but slightly more short of breath today. He's not requiring any supplemental oxygen. He has lower extremity edema on the left, consistent with his post op status. He reports he slept well and was able to lay flat through the night. He has a positive cumulative fluid balance but is negative 1500 ml in the last 24 hours. Weight is 117 by bed scale WITH knee immobilizer. He denies chest pain, palpitations, or lightheadedness. Physical Exam Physical Exam: The patient is alert and oriented. Mood and affect appeared normal. He answered all questions appropriately. HEENT: Pupils are equal and reactive to light and accommodation. Extraocular movements are intact. The sclerae are anicteric. Neuro: Cranial nerves intact Lungs: Bases appear clear. Normal respiratory effort. Cardiac: Heart demonstrates a regular rate and rhythm. Normal S1 and S2. Soft systolic ejection murmur Pulses: The patient has palpable radial pulses bilaterally that are equal in intensity Extremities: There was no evidence of hypoperfusion. There is no cyanosis or clubbing. There is no edema on the right. 1+ edema on the left. Knee immobilizer in place. Skin: No rashes or lesions. Results & Data ([facility]) Vital Signs (Past 12 Hours) Vital Signs Temp Pulse Pulse Resp BP Pulse Ox 06/18/20 11:15 97.7 F 67 17 95/49 L 97 06/18/20 08:59 73 16 97 06/18/20 08:00 79 06/18/20 07:01 97.7 F 80 17 114/67 97 06/18/20 04:01 97.5 F L 83 16 111/70 96 PG Care Time/CCT Total # of Minutes Spent Total Time Spent with Patient: Total time spent is greater than 50% in coordination of care (as documented) at patient's floor/unit and/or counseling patient: Heart Failure Data/Metrics Heart Failure Type: Systolic Ejection Fraction: 20-25% NYHA classification: II: Sx w/ usual activity Risk Stratification: B Dry Weight: 115 lb Pacemaker: No Implanted Cardiac Defibrillator (ICD): No Bi-V Pacemaker: No Bi-V Defibrillator: No Diabetes Mellitus: No Evidenced Based Beta Godfrey Therapy Beta Godfrey Therapy: Yes Beta Godfrey Name: Carvedilol Beta Godfrey Target Therapy: Target Therapy SARAH/ARB/ARNI Therapy SARAH/ARB/ARNI Therapy: Yes (Lisinopril 2.5 mg daily) SARAH/ARB/ARNI Target Therapy: Not at Target Therapy Coding Level of Care Code None Diagnoses Chronic systolic CHF (congestive heart failure) I50.22 Ischemic cardiomyopathy I25.5
--- NOTE | 2020-06-18 14:15 | Cardiology Progress Note ---
Date of Service June 18, 2020 Assessment & Plan (1) CAD (coronary artery disease): ASSESSMENT/PLAN: 1. NSTEMI: Unclear etiology. Possibly plaque rupture event, possibly demand ischemia. Will continue beta-ellen and dual anti-platelet therapy. 2. CAD s/p CABG (RUBI): Known coronary disease with prior bypass surgery. 3. Chronic systolic CHF: I think he is improved. He affected a good diuresis yesterday. Electrolytes and renal function are stable. I think as long as he is in the hospital increasing his daily diuretic dose to 40 mg IV Lasix would be reasonable. When he is ready for discharge perhaps I would increase his outpatient Lasix dose to 40 mg daily. 4. Cardiomyopathy: Continue carvedilol and lisinopril.. 5. Aortic stenosis: Only sclerosis noted on echocardiogram performed yesterday. 6. Dyslipidemia: Intolerant prior therapies. 7. Hypertension: Currently normotensive Admission and Anticipated Discharge Date Admission Date: June 09, 2020 Subjective This afternoon he claims to be feeling better overall. There was an attempt to sit up in ambulate again today. He states that this was rough. He had both discomfort at the site of his fracture as well as dyspnea. No exertional chest discomfort. Much more comfortable in bed afterwards. Poor appetite Review of Systems Review of Systems: Per HPI Physical Exam Physical Exam: The patient is alert and oriented. Mood and affect appeared normal. He answered all questions appropriately. Neuro: Cranial nerves intact Lungs: Some very mild expiratory wheezing. Bases appear clear. Normal respiratory effort. Cardiac: Heart demonstrates a regular rate and rhythm. Normal S1 and S2. Soft systolic ejection murmur Pulses: The patient has palpable radial pulses bilaterally that are equal in intensity Extremities: There was no evidence of hypoperfusion. There is no cyanosis or clubbing. There is no edema involving the left leg. Skin: I did not appreciate any rashes on examination today. Results & Data ([facility]) Vital Signs (Past 12 Hours) Vital Signs Temp Pulse Pulse Resp BP BP Pulse Ox 06/18/20 14:02 36.5 C 67 17 95/49 L 127/74 97 06/18/20 11:15 36.5 C 67 17 95/49 L 97 06/18/20 08:59 73 16 97 06/18/20 08:00 79 06/18/20 07:01 36.5 C 80 17 114/67 97 06/18/20 04:01 36.4 C L 83 16 111/70 96 Laboratory Results Abnormal Lab Results 06/18/20 10:44 Sodium 139 Potassium 4.1 Chloride 105 Carbon Dioxide 26 Anion Gap 8.0 BUN 40 H Creatinine 1.36 Est Cr Clr Drug Dosing 29.4 Est GFR ( Amer) 54.2 Est GFR (Non-Af Amer) 46.8 BUN/Creatinine Ratio 29.1 H Glucose 108 H Calcium 8.3 L PG Care Time/CCT Total # of Minutes Spent Total Time Spent with Patient: Total time spent is greater than 50% in coordination of care (as documented) at patient's floor/unit and/or counseling patient: Coding Level of Care Code 60601 Subseq Obs Care Lvl 2 Diagnoses CAD (coronary artery disease) I25.10
--- NOTE | 2020-06-18 18:38 | Discharge Summary ---
Date of Service June 18, 2020 Principal Diagnosis right tibial fracture from fall n stemi acute on chronic systolic and diastolic heart failure treated with lasix Discharge Exam The patient appeared chronically ill debilitated thin Vital signs as documented. Lungs are some expiratory wheezing patient attributes to not having his Advair while in the hospital as it is nonformulary Cardiac exam, Rhythm is regular.. Systolic murmur is heard no gallops Abdominal exam reveals normal bowel sounds, soft non tender, no masses Extremities are with significant left knee tenderness and some ecchymosis Neurologic exam is alert and oriented, patient's ambulation is specific definitely diminished Skin is with bruises to his lower legs from his recent fall and surgery Psychologically is without concerns for anxiety or depression. Discharge Data Allergies Allergy/AdvReac Type Severity Reaction Status Date / Time atorvastatin Allergy Mild rash Verified 06/10/20 11:44 Sulfa (Sulfonamide Allergy Mild Rash Verified 06/10/20 11:44 Antibiotics) sulfamethoxazole Allergy Mild Rash Verified 06/10/20 11:44 theophylline Allergy Mild RASH Verified 06/10/20 11:44 trimethoprim Allergy Mild Rash Verified 06/10/20 11:44 Consultations 06/09/20 16:16 ED Decision to Admit Stat 06/09/20 18:03 Consult Case Management - Discharge Planning Routine Consult Internal Medicine Routine 06/13/20 12:45 Consult Cardiology Routine 06/18/20 09:20 [facility] CHF Program Referral Routine Procedures Performed Operation Date: 06/10/20 07:00 Actual Procedures p Left Open Reduction Internal Fixation Tibial Plateau Fracture(Left) - Michael Rabago MD Ordered Studies 06/09/20 12:40 CT knee LT wo con Stat 06/10/20 12:30 FL fluoroscopy <1hr Routine FL tibia/fibula LT 2V Routine 06/13/20 09:52 CT angio chest PE protocol Stat Hospital Course (1) Closed fracture of tibial plateau: 06/10/20 Left Open Reduction Internal Fixation Tibial Plateau Fracture Surgeon: Michael Rabago Per ortho: * Non-weightbearing on his left leg but he can toe-touch for transfers. * He is to be in the knee immobilizer at all times when he is up and out of bed. Stable for discharge from ortho standpoint. pt now does not wish to go to rehab but wants to go home with home health and PT (2) Ischemic cardiomyopathy: LVEF 20-25% per echo on 06/13 with akinesis of inferolateral wall, inferior wall, basal inferoseptum, and apex, global hypokinesis, & mild aortic stenosis. acute on chronic systolic and diastolic heart failure - Continue carvedilol 25 mg PO BID - Continue lisinopril 5 mg PO daily - lasix will be 20 mg a day and follow for response and renal function if face of increasing santhosh i (3) Acute myocardial infarction: NSTemi in face of known cad and Cardiomyopathy, completed heparin gtt, continues on asa,plavix and coreg - Transfused 2 units packed red blood cells at that time. - Cardiology will be following after discharge from rehab - intolerance to statins due to rash (4) Anemia: Acute postoperative blood loss anemia. Transfused 2 units of PRBCs on 06/13 for anemia in the setting of ACS. - Continue iron replacement. (5) Chronic kidney disease, stage 3: Baseline Cr ~1.2 - 1.6. - Presently on upper end of baseline. -follow with use of santhosh i (6) Hypertension: BP today is 130/80. - Continue beta-ellen and ACEi as above - Lasix as above (7) Hypothyroidism: TSH recently low (0.11 in 03/2020) in setting of small bowel obstruction; however, free T4 normal. Recommend repeating as outpatient. - Continue levothyroxine 137 mcg PO QAM. (8) CAD, multiple vessel: Remote CABG in 1995. Follows with cardiology and last seen by Dr. Barbosa in 10/2019 with stable symptoms at that time. - As above for NSTEMI (9) Osteoporosis: Notable history of such. Vitamin D was 76 this admission. - Consider outpatient DEXA scan as not recently performed on EHR. (10) Asthma: pt feels slight tightness, wishes to have advair if able - Continue Advair Diskus or hospital formulary equivalent. - DuoNebs PRN (11) DVT prophylaxis: aspirin bid for dvt prevention Total Time Total Time Spent Total Time Spent (In Minutes): It required greater than 30 minutes to prepare this patient for discharge Discharge Plan Discharge Items Patient Disposition: Transfer Inpatient Rehab Fac Reason For Visit: LEFT TIBIAL PLATEAU FRACTURE Discharge Diagnosis: L tibial plateau fracture s/p repair n stemi acute on chronic bisystolic heart failure Activity: Per Instructions section Non-emergency contact: Surgeon Call non-emergency contact if: you have any medication questions, your pain is not controlled and your temperature is above 101.5 Follow-up/Referrals: Jones Barbosa MD [Physician] - 06/20/20 1:30 pm (Your appointment is with the physician junior administrative assistant, Kortney Cobian. If you need to change this appointment, please call [phone].) Vik Soto MD [Primary Care Provider] - Helen Burgess PA-C [Physician International Logistics Manager] - 06/25/20 2:00 pm (Congestive Heart Failure Program Appointment Information Early follow up is essential to managing your heart failure. An appointment has been scheduled for you with the [facility] Heart Failure Program within 7 days of discharge. Anticipate this visit to be 30-60 minutes long. Please expect a traffic control supervisor phone call from one of our nurses approximately 48 hours from discharge. They will a lso be placing an order for lab work to be completed 1-2 days prior to your heart failure follow up appointment. Please be sure to have this done so we can go over the results when you come in. Office Location The cardiology office building is located in front of the hospital at [address]. Bring the following with you to your follow-up doctor appointments: Please bring your daily weight log any discharge paperwork all of your medication bottles with you to this visit. ) Diet: Regular Addtl Attending Provider Instructions: Non-weight bearing on the left leg. Range of motion as tolerated. Knee immobilizer at all times for ambulation. Lovenox 40 mg inj subcut once daily for 30 days. Follow-up with Dr. Rabago in 2-3 weeks with x-ray and suture removal Addtl Manager Multicultural Provider Instructions: Call your Primary Care doctor if any of the following symptoms or problems start or get worse: * Shortness of breath or difficulty breathing * Wake up at night short of breath * Chest pain * Cough * Swelling of your hands, feet, or legs * More fatigued or tired with your normal activity * Palpitations - sudden fast heart beats WEIGHT * Weigh yourself every morning after using the bathroom. * Use the same scale. * Wear the same amount of clothing. * Write your weight down on a chart. * Call your Primary Care doctor if you gain more than 2-3 pounds in 1-2 days. MEDICATIONS * Use this discharge instruction sheet for medication instructions. * Take your medications at the time your doctor ordered. * Do not skip a dose of your medicines. * If you miss a dose of medicine, take it as soon as possible, but DO NOT DOUBLE A DOSE. * Read your medicine information when you get home. * Know all of the side effects of your medicine. If in doubt, ask your pharmacist * Call your Primary Care doctor's office if you have any side effects. * Be sure all of your doctors know what medicine and herbs you take (including cold, flu, and herbal medicine). Take the following with you to your follow-up doctor appointments: * Weight Chart * Medication List * List of questions Do not drink excessive alcohol, beer or wine. Pending Studies at Discharge: No Stand-Alone Forms: My [facility] [employer] Skilled Items Patient informed of condition?: Yes DNR: Yes Discharge Level of Care: Acute rehab Communicable Disease: No Discharge Prognosis: Stable Lines: None Urinary Catheter: No Medications and DC Order Prescriptions: New oxycodone 5 mg Tablet 5 mg PO Q4H PRN (Reason: pain) Qty: 10 RF: 0 acetaminophen 500 mg Tablet 500 mg PO Q4H PRN (Reason: pain) Qty: 30 RF: 0 ferrous gluconate 324 mg (38 mg iron) Tablet 324 mg PO BIDM Qty: 60 RF: 0 clopidogrel 75 mg Tablet 75 mg PO QAM Qty: 30 RF: 0 ipratropium-albuterol 0.5 mg-3 mg(2.5 mg base)/3 mL Solution For Nebulization 3 ml NEB Q4R PRN (Reason: shortness of breath) Qty: 15 RF: 0 aspirin 81 mg tablet,delayed release (DR/EC) 81 mg PO BID Qty: 60 RF: 0 Continued carvedilol 25 mg tablet 25 mg PO BID Qty: 180 RF: 3 fluticasone propion-salmeterol [Advair Diskus] 250-50 mcg/dose blister with device 1 inh INH BID Qty: 180 RF: 1 polyethylene glycol 3350 [Miralax] 17 gram/dose powder 17 g PO DAILY PRN (Reason: constipation) Qty: 510 RF: 0 calcium carbonate-vitamin D3 600 mg(1,500mg) -200 unit tablet 1 tab PO BID RF: 0 multivitamin tablet 1 tab PO QAM RF: 0 levothyroxine 137 mcg tablet 137 mcg PO QAM RF: 0 lisinopril 5 mg tablet 5 mg PO QAM RF: 0 Changed furosemide 20 mg tablet 20 mg PO DAILY Qty: 30 RF: 5 Discharge Orders: Discharge Order (Routine); Ordered 06/18/20 Ordered By: Tim Cavazos Admission Data Admit Date/Time: 06/09/20 16:24 Attending Provider: Ravindra Gates Admit Provider: Ravindra Gates Primary Care Provider: Vik Soto Other Providers: Ravindra Gates ; [facility] [place] ; [facility], ; [facility] ; [facility] ; [facility] [place] ; Deangelo Young ; Martin Wang ; Jones Barbosa ; [place] ; Denilson Teran ; Jm Kim Jr ; Kranthi Moran ; Kisha Centeno ; Kortney Galicia ; Vik Carlos ; Vik Espinosa ; Dany Mcgee ; Gomez Vizcarra ; Helen Burgess ; Una Mae ; Glenn Hugo ; Raymond Lepe ; Jhonny Kendrick ; Tim Cavazos Other Interventions: Discharge Summary Assessment (RN) Last Done: 06/18/20 14:02 Coding Level of Care Code D/C Day Management >30 mins Diagnoses Closed fracture of tibial plateau S82.142A Encounter type: initial encounter Laterality: left Ischemic cardiomyopathy I25.5 Acute myocardial infarction I21.9 Anemia D64.9 Chronic kidney disease, stage 3 N18.3 Hypertension I10 Hypertension type: unspecified Hypothyroidism E03.9 Hypothyroidism type: unspecified CAD, multiple vessel I25.10 Osteoporosis M81.0 Asthma J45.909 Asthma severity: unspecified severity Asthma persistence: unspecified Asthma complication type: unspecified DVT prophylaxis Z29.9
--- NOTE | 2020-06-26 11:30 | Coding Query ---
PRESENT ON ADMISSION QUERY To promote full compliance with coding requirements relating to pateint care, physician participation is requested in all cases of associate director of nursing uncertainty. Please assist us with the question(s) below: Please place an X within the parenthesis (x). The following diagnosis listed in this patient's medical record require physician assistance to determine if they were present on admission (POA) or not. Please advise for each diagnosis whether it was present on admission, not present on admission, or if it was clinically undetermined. 1. ACUTE ON CHRONIC SYSTOLIC AND DIASTOLIC HEART FAILURE (xxx ) Present On Admission ( ) Not Present On Admission ( ) Clinically Undetermined Thank you Radha Hagen *Definition of the present on admission (POA)-Present on admission is defined as present at the time the order for inpatient admission occurs. Conditions that develop during an outpatient encounter prior to a written order for inpatient admission (including emergency department, observation, or outpatient surgery) are considered present on admission. MTDD
--- NOTE | 2020-06-26 11:34 | Coding Query ---
CODING QUERY To promote full compliance with coding requirements relating to patient care, provider participation is requested in all cases of temp recruiter uncertainty. Please assist us with the question(s) below: Coding Question(s): The 06/13/20 Cardiology Consultation documents, "NSTEMI: Postop OH". Please specify below, in your clinical opinion, regarding the NSTEMI. (x) NSTEMI is likely a Postoperative Complication ( ) NSTEMI is Not a Postoperative Complication ( ) Other: Please Specify Physician's Response(s): Thank you Radha Hagen Principal Diagnosis: "that condition established after study, to be chiefly responsible for occasioning the admission of the patient to the hospital for care." Co-Existing Principal Diagnosis: "when two or more diagnoses equally meet the criteria for principal diagnosis as determined by the circumstances of admission, diagnostic work up, and/or therapy provided, and the Alphabetic Index, Tabular List, or another coding guideline does not provide sequencing direction, any one of the diagnoses may be sequenced first." "When the physician has documented what appears to be a current diagnosis in the body of the record, but has not included the diagnosis in the final diagnostic statement, the physician should be asked whether the diagnosis should be added." (Source Coding [facility] 2 QTR90. p3-4) REGGIE
== END 2020-06-18 15:12 ==
LOC: ED 12:13 → 3E 16:24 → 2N 06-10 17:47

== ENCOUNTER 2020-08-24 08:22 | Inpatient (IN) ==
--- NOTE | 2020-08-24 08:55 | XRay Report ---
XR chest 1V portable CLINICAL HISTORY: Dyspnea COMPARISON STUDY: 06/15/2020 FINDINGS: The heart remains enlarged. There is no overt failure. There is no lobar consolidation. The re is interval decrease in size and small bilateral pleural effusions. There are minor basilar atelec tatic changes.[There are old rib deformities. IMPRESSION: 1. Cardiomegaly and interval decrease in the size of bilateral pleural effusions 2. Improving aeration of the lung bases with suspected mild atelectatic change 3. No current evidence of failure ACT 112: Negative or not required by law. Electronically signed by: Trenton Claros M.D. 08/24/2020 8:53 AM
[2020-08-24 09:12] LABS: Basophils # (auto) 0.04 K/uL (0-0.2); Basophils % (auto) 0.7 %; Eosinophils # (auto) 0.58 K/uL (0-0.5); Eosinophils % (auto) 10.2 %; Hematocrit (blood only) 31.9 % (42-52); Hemoglobin 10.3 g/dL (14.0-18.0); Lymphocytes # (auto) 0.62 K/uL (1.2-3.4); Lymphocytes % (auto) 10.9 %; Mean Corpuscular Hemoglobin 30.2 pg (25-34); Mean Corpuscular Hgb Conc 32.3 g/dL (32-36); Mean Corpuscular Volume 93.5 fL (80-100); Mean Platelet Volume 10.1 fL (7.4-10.4); Monocytes # (auto) 0.34 K/uL (0.11-0.59); Neutrophils % (auto) 72.2 %; Platelet Count 309 K/uL (130-400); RDW Coefficient of Variation 16.3 % (11.5-14.5); RDW Standard Deviation 56.2 fL (36.4-46.3); Red Blood Count 3.41 M/uL (4.7-6.1); White Blood Count 5.68 K/uL (4.8-10.8)
--- NOTE | 2020-08-24 09:23 | Emergency Department Note ---
Impression & Plan Acute respiratory distress, Pleural effusion ED Provider Note NAME: OCHOA AMADOR JR AGE: 84 SEX: M : 1935 ARRIVES VIA: Ambulance INFORMANT: Patient, ED PROVIDER(S): Jones Barrera DO CHIEF COMPLAINT: Shortness of breath HPI: The patient is an 84-year-old male who presented to the emergency department for an evaluation of shortness of breath. The patient has had ongoing symptoms throughout the night. He states he has very significant orthopnea. The patient was placed on supplemental oxygen with significant improvement of his symptoms. The patient denies having any lower extremity pain but does complain of worsening lower extremity swelling. He denies having any abdominal pain. He denies having any chest pain. The patient was seen by his primary care physician recently and at that time he was feeling better. The patient denies having any fever. He denies having any cough. He was vaccinated against COVID-19 earlier in the year. The patient states his symptoms were moderate to severe prior to arrival but they appear to be improved significantly after supplemental oxygen and sitting upright. ROS: See above HPI for pertinent positives & negatives. A total of 10 systems reviewed and were otherwise negative. PAST MEDICAL HISTORY: See Below PAST SURGICAL HISTORY: See Below FAMILY HISTORY: See Below SOCIAL HISTORY: See Below HOME MEDICATIONS: See Below ALLERGIES: See Below VITALS: See Below PHYSICAL EXAMINATION: GENERAL: Patient is awake and alert. The patient is somewhat anxious appearing. EYES: The conjunctivae are clear. The pupils are round and reactive. EARS, NOSE, MOUTH AND THROAT: The nose is without any evidence of any deformity. NECK: The neck is nontender and supple. RESPIRATORY: Conversational dyspnea was noted. There were rales noted throughout. There were retractions noted. CARDIOVASCULAR: Regular rate and rhythm noted there no murmurs rubs or gallops normal S1 normal S2. GASTROINTESTINAL: The abdomen is soft. Abdomen is nontender. MUSCULOSKELETAL/EXTREMITIES: There is no evidence of gross deformity full range of motion is noted in the hips and shoulders. SKIN: Pedal edema was noted bilaterally. Skin was cool and diaphoretic. NEUROLOGIC: Patient is awake alert and oriented x3. MEDICAL DECISION MAKING: Patient is an 84-year-old male who presented to the emergency department for an evaluation of difficulty breathing. The patient was experiencing shortness of breath. The patient was diaphoretic and very tachypneic when he initially arrived in the emergency department. The patient was treated with supplemental oxygen and was significantly improved. I discussed the patient's laboratory and radiographic studies with him. I do feel the patient's condition is due to the symptomatic nature of his pleural effusions. He was orthopneic and had lower extremity edema. His blood pressure was not significantly elevated and I do not feel the patient requires diuresis at this time. I discussed the patient's condition with the on-call [facility] hospitalist. They have agreed to evaluate the patient in the emergency department for further management and disposition. Triage Nursing notes reviewed. Prior medical records reviewed Vital Signs: reviewed and remarkable for tachypnea. Differential diagnosis: Reactive airway disease, pneumonia, pneumothorax, COPD, CHF, infections, cardiac ischemia, pulmonary embolism, musculoskeletal, gastrointestinal, as well as other pathologies. ER treatment provided: See below Diagnostics interpreted by me: ECG: EKG was obtained in the emergency department. My interpretation is sinus tachycardia 102 bpm. There was no ectopy. LVH was suggested by voltage criteria. Lateral ST depressions with T wave versions were noted. This was compared to a tracing from June 152020. No significant changes were noted. Cardiac Monitoring: An order was placed for continuous cardiac monitoring. The monitor shows a rate of 85 bpm with sinus rhythm. Laboratory studies: As stated above and show below. Imaging studies: See below Consultation(s): Dr. Cornelius was notified about the patient. He is agreed to evaluate the patient in the emergency department for further management and disposition. Past Med/Surg History Medical History Anemia Aortic stenosis Asthma (12/25/12) CAD (coronary artery disease) Chronic systolic CHF (congestive heart failure) Constipated History of intestinal obstruction Hypercholesterolemia Hypertension Hypothyroidism (12/25/12) Ischemic cardiomyopathy EF 20-25% Surgical History Cataract Hx of CABG Family History Mother Hypertension Sister Hyperlipemia Other Coronary heart disease Dementia Heart disease Myocardial infarction Denies family history of Ovarian cancer Prostate cancer Breast cancer Colorectal cancer Social History Smoking Status: Never smoker Second Hand Exposure: No; Hx Alcohol Use: No Hx Substance Use: No Preferred Language: Malay Communication Ability: Effective Visual Impairment: No Limitations Hearing Ability: Normal 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 Required: No Beliefs That Will Affect Care: None marital status: Current Living Situation: Alone current occupational status: retired Feels Safe at Home: Yes Childhood Exposure to Second-Hand Smoke: No Dental Care, Regularly: Yes Seatbelt Use: always Sunscreen Use: No Assistive Devices: Brace/Splint/Immobilizer Allergies Allergies Allergy/AdvReac Type Severity Reaction Status Date / Time atorvastatin Allergy Mild rash Verified 08/24/20 11:33 Sulfa (Sulfonamide Allergy Mild Rash Verified 08/24/20 11:33 Antibiotics) sulfamethoxazole Allergy Mild Rash Verified 08/24/20 11:33 theophylline Allergy Mild RASH Verified 08/24/20 11:33 trimethoprim Allergy Mild Rash Verified 08/24/20 11:33 Home Meds Home Medications Medication Instructions Recorded Confirmed multivitamin 1 tab PO QAM 01/10/19 08/24/20 levothyroxine 137 mcg PO QAM 03/27/20 08/24/20 lisinopril 5 mg PO QAM 03/27/20 08/24/20 furosemide 20 mg PO DAILY 08/24/20 08/24/20 Previous Rx's Medication Instructions Recorded carvedilol 25 mg tablet 25 mg PO BID #180 tab 10/24/19 polyethylene glycol 3350 17 17 g PO DAILY PRN #510 g 04/02/20 gram/dose oral powder Advair Diskus 250 mcg-50 mcg/dose 1 inh INH BID #180 ea NS 05/16/20 powder for inhalation aspirin 81 mg PO BID #60 tab 06/18/20 clopidogrel 75 mg PO QAM #30 tab 06/18/20 ipratropium-albuterol 3 ml NEB Q4R PRN #15 ml 06/18/20 oxycodone 5 mg PO Q4H PRN #10 tab 06/18/20 Results & Data (ED) Vital Signs Vital Signs - 24 hr 08/24/20 08:25 08/24/20 08:29 08/24/20 08:30 Temperature Temperature Source Pulse Rate 101 H 101 H 103 H Pulse Rate [Apical] Pulse Rate from SpO2 Sensor Respiratory Rate 34 H 30 H 25 H Blood Pressure 129/102 H Blood Pressure [Right Arm] Blood Pressure Mean 111 Blood Pressure Mean [Right Arm] Pulse Oximetry Oxygen Delivery Method Oxygen Flow Rate Sepsis Recent Fever Within 48 Hours Sepsis New/Unexplained Change in Mental Status Sepsis Action Taken by Nursing 08/24/20 08:34 08/24/20 08:40 08/24/20 08:50 Temperature 36.8 C Temperature Source Oral Pulse Rate 103 H 99 H 90 Pulse Rate [Apical] Pulse Rate from SpO2 Sensor 100 H 91 H Respiratory Rate 22 30 H 25 H Blood Pressure 129/102 H Blood Pressure [Right Arm] Blood Pressure Mean 111 Blood Pressure Mean [Right Arm] Pulse Oximetry 94 100 99 Oxygen Delivery Method Room Air Oxygen Flow Rate Sepsis Recent Fever Within 48 Hours No Sepsis New/Unexplained Change in Mental Status N/A Sepsis Action Taken by Nursing No Action Required 08/24/20 09:00 08/24/20 09:10 08/24/20 09:20 Temperature Temperature Source Pulse Rate 87 80 70 Pulse Rate [Apical] Pulse Rate from SpO2 Sensor 89 82 70 Respiratory Rate 21 16 18 Blood Pressure Blood Pressure [Right Arm] Blood Pressure Mean Blood Pressure Mean [Right Arm] Pulse Oximetry 98 100 100 Oxygen Delivery Method Oxygen Flow Rate Sepsis Recent Fever Within 48 Hours Sepsis New/Unexplained Change in Mental Status Sepsis Action Taken by Nursing 08/24/20 09:30 08/24/20 09:40 08/24/20 09:50 Temperature Temperature Source Pulse Rate 66 67 72 Pulse Rate [Apical] Pulse Rate from SpO2 Sensor 66 67 71 Respiratory Rate 18 18 20 Blood Pressure Blood Pressure [Right Arm] Blood Pressure Mean Blood Pressure Mean [Right Arm] Pulse Oximetry 100 100 100 Oxygen Delivery Method Oxygen Flow Rate Sepsis Recent Fever Within 48 Hours Sepsis New/Unexplained Change in Mental Status Sepsis Action Taken by Nursing 08/24/20 10:00 08/24/20 10:01 08/24/20 10:06 Temperature Temperature Source Pulse Rate 71 70 Pulse Rate [Apical] 68 Pulse Rate from SpO2 Sensor 69 68 Respiratory Rate 13 19 18 Blood Pressure 98/63 L Blood Pressure [Right Arm] 98/63 L Blood Pressure Mean 74 Blood Pressure Mean [Right Arm] 74 Pulse Oximetry 99 100 100 Oxygen Delivery Method Nasal Cannula Oxygen Flow Rate 2 Sepsis Recent Fever Within 48 Hours Sepsis New/Unexplained Change in Mental Status Sepsis Action Taken by Nursing 08/24/20 10:10 08/24/20 10:20 08/24/20 10:30 Temperature Temperature Source Pulse Rate 67 73 71 Pulse Rate [Apical] Pulse Rate from SpO2 Sensor 65 72 71 Respiratory Rate 17 18 16 Blood Pressure 115/68 Blood Pressure [Right Arm] Blood Pressure Mean 83 Blood Pressure Mean [Right Arm] Pulse Oximetry 100 100 100 Oxygen Delivery Method Oxygen Flow Rate Sepsis Recent Fever Within 48 Hours Sepsis New/Unexplained Change in Mental Status Sepsis Action Taken by Nursing 08/24/20 10:31 08/24/20 10:40 08/24/20 10:50 Temperature Temperature Source Pulse Rate 71 71 69 Pulse Rate [Apical] Pulse Rate from SpO2 Sensor 70 70 68 Respiratory Rate 17 16 16 Blood Pressure Blood Pressure [Right Arm] Blood Pressure Mean Blood Pressure Mean [Right Arm] Pulse Oximetry 100 100 100 Oxygen Delivery Method Oxygen Flow Rate Sepsis Recent Fever Within 48 Hours Sepsis New/Unexplained Change in Mental Status Sepsis Action Taken by Nursing 08/24/20 11:00 08/24/20 11:01 08/24/20 11:10 Temperature Temperature Source Pulse Rate 70 72 69 Pulse Rate [Apical] Pulse Rate from SpO2 Sensor 71 71 69 Respiratory Rate 16 20 14 Blood Pressure 114/69 Blood Pressure [Right Arm] Blood Pressure Mean 84 Blood Pressure Mean [Right Arm] Pulse Oximetry 100 100 100 Oxygen Delivery Method Oxygen Flow Rate Sepsis Recent Fever Within 48 Hours Sepsis New/Unexplained Change in Mental Status Sepsis Action Taken by Nursing 08/24/20 11:20 08/24/20 11:30 08/24/20 11:31 Temperature Temperature Source Pulse Rate 73 75 75 Pulse Rate [Apical] Pulse Rate from SpO2 Sensor 72 75 76 Respiratory Rate 17 23 22 Blood Pressure 116/67 Blood Pressure [Right Arm] Blood Pressure Mean 83 Blood Pressure Mean [Right Arm] Pulse Oximetry 100 100 100 Oxygen Delivery Method Oxygen Flow Rate Sepsis Recent Fever Within 48 Hours Sepsis New/Unexplained Change in Mental Status Sepsis Action Taken by Nursing 08/24/20 11:40 08/24/20 11:50 08/24/20 12:09 Temperature Temperature Source Pulse Rate 76 74 82 Pulse Rate [Apical] Pulse Rate from SpO2 Sensor 73 72 Respiratory Rate 23 23 23 Blood Pressure Blood Pressure [Right Arm] Blood Pressure Mean Blood Pressure Mean [Right Arm] Pulse Oximetry 100 100 Oxygen Delivery Method Oxygen Flow Rate Sepsis Recent Fever Within 48 Hours Sepsis New/Unexplained Change in Mental Status Sepsis Action Taken by Nursing 08/24/20 12:10 08/24/20 12:11 08/24/20 12:20 Temperature Temperature Source Pulse Rate 81 79 79 Pulse Rate [Apical] Pulse Rate from SpO2 Sensor 81 81 77 Respiratory Rate 22 22 20 Blood Pressure 116/66 Blood Pressure [Right Arm] Blood Pressure Mean 82 Blood Pressure Mean [Right Arm] Pulse Oximetry 100 100 100 Oxygen Delivery Method Oxygen Flow Rate Sepsis Recent Fever Within 48 Hours Sepsis New/Unexplained Change in Mental Status Sepsis Action Taken by Nursing 08/24/20 12:30 08/24/20 12:31 08/24/20 12:40 Temperature Temperature Source Pulse Rate 66 78 73 Pulse Rate [Apical] Pulse Rate from SpO2 Sensor 72 77 73 Respiratory Rate 17 17 15 Blood Pressure 112/71 Blood Pressure [Right Arm] Blood Pressure Mean 84 Blood Pressure Mean [Right Arm] Pulse Oximetry 100 100 100 Oxygen Delivery Method Oxygen Flow Rate Sepsis Recent Fever Within 48 Hours Sepsis New/Unexplained Change in Mental Status Sepsis Action Taken by Long-Term Medications Current Medication List: was personally reviewed by me Laboratory Data Attestation: I reviewed the patient's lab results. Result diagrams: 08/24/20 09:05 08/24/20 09:05 Lab Results 08/24/20 08/24/20 08/24/20 Range/Units 09:05 09:05 09:05 WBC 5.68 (4.8-10.8) K/uL RBC 3.41 L (4.7-6.1) M/uL Hgb 10.3 L (14.0-18.0) g/dL Hct 31.9 L (42-52) % MCV 93.5 (80-100) fL MCH 30.2 (25-34) pg MCHC 32.3 (32-36) g/dL RDW Std Deviation 56.2 H (36.4-46.3) fL RDW Coeff of Ayaz 16.3 H (11.5-14.5) % Plt Count 309 (130-400) K/uL MPV 10.1 (7.4-10.4) fL Immature Gran % (Auto) 0.0 % Neut % (Auto) 72.2 % Lymph % (Auto) 10.9 % [place] % (Auto) 6.0 % Eos % (Auto) 10.2 % Baso % (Auto) 0.7 % Neut # (Auto) 4.10 (1.4-6.5) K/uL Lymph # (Auto) 0.62 L (1.2-3.4) K/uL [place] # (Auto) 0.34 (0.11-0.59) K/uL Eos # (Auto) 0.58 H (0-0.5) K/uL Baso # (Auto) 0.04 (0-0.2) K/uL Immature Gran # (Auto) 0.00 (0.00-0.02) K/uL PT 11.3 (9.0-12.0) Seconds INR 1.1 (0.9-1.1) APTT 32.0 H (21.0-31.0) Seconds PTT Ratio 1.2 Sodium 138 (136-145) mmol/L Potassium 3.6 (3.5-5.1) mmol/L Chloride 102 (98-107) mmol/L Carbon Dioxide 32 (21-32) mmol/L Anion Gap 4.0 (3-11) BUN 25 H (7-18) mg/dl Creatinine 1.28 (0.6-1.4) mg/dl Est Cr Clr Drug Dosing 31.1 ml/min Est GFR ( Amer) 58.3 Est GFR (Non-Af Amer) 50.3 BUN/Creatinine Ratio 19.5 (10-20) Glucose 107 H (70-99) mg/dl Calcium 8.7 (8.5-10.1) mg/dl Magnesium 2.1 (1.8-2.4) mg/dl Total Bilirubin 0.6 (0.2-1) mg/dl AST 17 (15-37) U/L ALT 14 (12-78) U/L Alkaline Phosphatase 82 (45-117) U/L Troponin I 0.016 (0-0.045) ng/ml NT-Pro-B Natriuret Pep > 77323 H (0-1800) pg/ml Total Protein 6.5 (6.4-8.2) gm/dl Albumin 2.8 L (3.4-5.0) gm/dl Globulin 3.7 (2.5-4.0) gm/dl Albumin/Globulin Ratio 0.8 L (0.9-2) Procalcitonin (0-0.5) ng/ml COVID-19 Eval Order SARS-CoV-2 (PCR) (Negative) Influenza Type A (PCR) (Neg) Influenza Type B (PCR) (Neg) RSV (RT-PCR) (Neg) 08/24/20 08/24/20 08/24/20 Range/Units 09:05 09:11 09:11 WBC (4.8-10.8) K/uL RBC (4.7-6.1) M/uL Hgb (14.0-18.0) g/dL Hct (42-52) % MCV (80-100) fL MCH (25-34) pg MCHC (32-36) g/dL RDW Std Deviation (36.4-46.3) fL RDW Coeff of Ayaz (11.5-14.5) % Plt Count (130-400) K/uL MPV (7.4-10.4) fL Immature Gran % (Auto) % Neut % (Auto) % Lymph % (Auto) % [place] % (Auto) % Eos % (Auto) % Baso % (Auto) % Neut # (Auto) (1.4-6.5) K/uL Lymph # (Auto) (1.2-3.4) K/uL [place] # (Auto) (0.11-0.59) K/uL Eos # (Auto) (0-0.5) K/uL Baso # (Auto) (0-0.2) K/uL Immature Gran # (Auto) (0.00-0.02) K/uL PT (9.0-12.0) Seconds INR (0.9-1.1) APTT (21.0-31.0) Seconds PTT Ratio Sodium (136-145) mmol/L Potassium (3.5-5.1) mmol/L Chloride (98-107) mmol/L Carbon Dioxide (21-32) mmol/L Anion Gap (3-11) BUN (7-18) mg/dl Creatinine (0.6-1.4) mg/dl Est Cr Clr Drug Dosing ml/min Est GFR ( Amer) Est GFR (Non-Af Amer) BUN/Creatinine Ratio (10-20) Glucose (70-99) mg/dl Calcium (8.5-10.1) mg/dl Magnesium (1.8-2.4) mg/dl Total Bilirubin (0.2-1) mg/dl AST (15-37) U/L ALT (12-78) U/L Alkaline Phosphatase (45-117) U/L Troponin I (0-0.045) ng/ml NT-Pro-B Natriuret Pep (0-1800) pg/ml Total Protein (6.4-8.2) gm/dl Albumin (3.4-5.0) gm/dl Globulin (2.5-4.0) gm/dl Albumin/Globulin Ratio (0.9-2) Procalcitonin < 0.05 (0-0.5) ng/ml COVID-19 Eval Order CovFluRsv at [facility] SARS-CoV-2 (PCR) NEGATIVE (Negative) Influenza Type A (PCR) Negative (Neg) Influenza Type B (PCR) Negative (Neg) RSV (RT-PCR) Negative (Neg) Administered Medications Discontinued Medications Albuterol (Albut/Ipratrop 3mg/0.5mg Neb 3 Ml Vial) 3 ml NEB NOW STA Stop: 08/24/20 12:44 Last Admin: 08/24/20 12:51 Dose: 3 ml Documented by: [id number] Furosemide (Furosemide 40 Mg/4 Ml Vial) 20 mg IV 1300 ONE Stop: 08/24/20 13:01 Last Admin: 08/24/20 13:02 Dose: 20 mg Documented by: [id number] Ioversol (Optiray 350 500ml) 119 ml IV ONCE ONE Stop: 08/24/20 12:00 Last Admin: 08/24/20 12:00 Dose: 119 ml Documented by: [id number] Methylprednisolone (Methylprednisolone 40 Mg/Ml Vial) 40 mg IV 1315 ONE Stop: 08/24/20 13:16 Last Admin: 08/24/20 13:02 Dose: 40 mg Documented by: [id number] Imaging Data Radiologist's Impression: Chest X-Ray 08/24/20 08:41 XR chest 1V portable CLINICAL HISTORY: Dyspnea COMPARISON STUDY: 06/15/2020 FINDINGS: The heart remains enlarged. There is no overt failure. There is no lobar consolidation. There is interval decrease in size and small bilateral pleural effusions. There are minor basilar atelectatic changes.[There are old rib deformities. IMPRESSION: 1. Cardiomegaly and interval decrease in the size of bilateral pleural effusions 2. Improving aeration of the lung bases with suspected mild atelectatic change 3. No current evidence of failure ACT 112: Negative or not required by law. Electronically signed by: Trenton Claros M.D. 08/24/2020 8:53 AM Chest CTA 08/24/20 11:40 CT angio chest PE protocol CT DOSE: 258.00 mGy.cm HISTORY: 84 years-old Male with PE. Acute shortness of breath TECHNIQUE: Multiple CTA images of the chest were obtained after the intravenous administration of 119 ml Optiray. Coronal and sagittal MIPS were obtained from the axial data set and were submitted for review. All measurements were obtained according to NASCET criteria. A dose lowering technique was utilized adhering to the principles of ALARA. COMPARISON: Chest radiograph of same day, CTA chest 06/13/2020 FINDINGS: CTA: Moderate to marked cardiomegaly. No pericardial effusion. Left heart structures are not well opacified secondary to contrast bolus timing. Extensive coronary artery calcifications. Unchanged mild fusiform dilation of the ascending thoracic aorta, 4.0 cm. Prior median sternotomy with CABG. The central pulmonary artery is well opacified. There is decreased opacification of the segmental and subsegmental pulmonary arterial branches of the level of the lung bases bilaterally. Notably there is a question filling defects within a segmental pulmonary arterial branch of the right lower lobe on image 133. CT CHEST: No thyroid nodule or adenopathy. Moderate layering pleural effusions. No pneumothorax. Dependent bibasilar consolidative and groundglass opacities. 4 mm solid nodule of the left upper lobe on image 252 appears new from comparison. Mild bibasilar mucous plugging. Central airways are patent. There is no pneumoperitoneum. There are a few scattered hypodensities of the liver redemonstrated measuring up to 10 mm the left hepatic lobe, notably william acterize however possibly represent above cysts. Generalized body wall edema. Degenerative changes of the shoulders and spine. Healed chronic bilateral rib fractures. Numerous chronic thoracic compression deformities. No acute fracture identified. IMPRESSION: 1. Limited study secondary to contrast bolus timing. There is a questioned filling defect within a segmental pulmonary arterial branch of the right lower lobe which is favored to be artifact with pulmonary embolus considered less likely. Consider a follow-up study and/or lower extremity duplex venous Doppler. 2. Moderate pleural effusions with bibasilar groundglass and consolidative opacities suggestive of atelectasis. 3. Mild bibasilar mucous plugging. 4. Cardiomegaly. ACT 112: Negative or not required by law. The above report was generated using voice recognition software. It may contain grammatical, syntax or spelling errors. Electronically signed by: Dheeraj Hansen M.D. 08/24/2020 12:33 PM Discharge Plan Visit Data Chief Complaint: Shortness of Breath/Dyspnea Stated Complaint: SOB ED Provider: Jones Barrera Discharge Problem: Acute respiratory distress, Pleural effusion Patient Disposition: Admitted As Inpatient Condition: Good Discharge Instructions Interventions: ED Discharge Assessment Last Done: 08/24/20 14:24
[2020-08-24 09:29] LABS: Alanine Aminotransferase 14 U/L (12-78); Albumin Level 2.8 gm/dl (3.4-5.0); Aspartate Aminotransferase 17 U/L (15-37); BUN Creatinine Ratio 19.5 (10-20); Blood Urea Nitrogen 25 mg/dl (7-18); Calcium 8.7 mg/dl (8.5-10.1); Carbon Dioxide 32 mmol/L (21-32); Chloride 102 mmol/L (98-107); Creatinine Clr Calc Pharmacy 31.1 ml/min; Est GFR (African American) 58.3; Est GFR (Non-African American) 50.3; Glucose 107 mg/dl (70-99); Magnesium 2.1 mg/dl (1.8-2.4); Potassium 3.6 mmol/L (3.5-5.1); Sodium 138 mmol/L (136-145)
[2020-08-24 09:30] LABS: INR 1.1 (0.9-1.1); Partial Thromboplastin Ratio 1.2; Prothrombin Time 11.3 Seconds (9.0-12.0)
[2020-08-24 09:34] LABS: Albumin Globulin Ratio 0.8 (0.9-2); Alkaline Phosphatase 82 U/L (45-117); Bilirubin,Total 0.6 mg/dl (0.2-1); Globulin 3.7 gm/dl (2.5-4.0); NT Pro B Type Natriuretic Pept > 35000 pg/ml (0-1800); Total Protein 6.5 gm/dl (6.4-8.2); Troponin I 0.016 ng/ml (0-0.045)
[2020-08-24 10:05] LABS: Influenza A virus by PCR Negative (Neg); Influenza B virus by PCR Negative (Neg); RSV by PCR Negative (Neg); SARS CoV2 RNA(COVID-19) InHosp NEGATIVE (Negative)
--- NOTE | 2020-08-24 11:32 | History & Physical Report ---
Date of Service August 24, 2020 Assessment & Plan (1) Shortness of breath: Unlikely cardiac event since this happened last night and troponins negative. Possible run of ventricular tachycardia have given his underlying coronary artery disease I would expect this to raise his troponin in addition. No significant acute left-sided heart failure on exam or imaging. CT for PE negative for pulmonary emboli Likely combination fo asthma exacerbation, mucus plugging and underlying bilateral pleural effusions. (2) Hypoxia: No respiratory distress on admission. Reports significant improvement since coming to the emergency room and receiving O2 however no medications were given. Aim O2 sats > 94% (3) Asthma exacerbation: Expiratory wheezing throughout posterior lung zone auscultation. Solu-medrol 40mg IV daily Duonebs QID + PRN (4) Mucus plugging of bronchi: Duonebs and steroids as above SLT consult to assess for aspiration (5) Bilateral pleural effusion: Noted although improved from prior CXR. Consider thoracocentesis if no improvement of shortness of breath and hypoxia with above measures. Lasix 20mg IV now, then will continue on his usual 20mg PO daily Noted acute CHF on last admission secondary to blood transfusions. (6) Hypothyroidism: TSH WNL in July Continue levothyroxine 137 mcg p.o. daily (7) CAD (coronary artery disease): Continue aspirin, clopidogrel, carvedilol, lisinopril. Not on statin - notable rash allergy to atorvastatin, intolerant to prior therapies per previous cardiology progress notes. (8) Chronic systolic CHF (congestive heart failure): BNP elevated however no JVD on exam, weight close to baseline and chest x- ray markedly improved from prior. Acute congestive heart failure during last admission related to blood transfusions. Continue his usual Lasix 20 mg p.o. daily. (9) Hypertension: Continue carvedilol, furosemide and lisinopril as above with hold parameters (10) Ischemic cardiomyopathy: LVEF 20 to 25% on recent echocardiogram. Continue carvedilol and lisinopril. (11) Severe protein-calorie malnutrition: Consult dietary (12) DVT prophylaxis: SCDs Admission and Anticipated Discharge Date Admission Date: August 24, 2020 History of Present Illness Chief Complaint: Shortness of breath, hypoxia Primary Care Provider: [facility] Jose Leo is an 84 year old male who presents to the ER from [facility] with increased shortness of breath since last night. No associated chest pain or with eating. Possible associated bilateral leg swelling. Came on progressively rather than suddenly. Worse on lying flat. No fever, chills or cough. Normally not on home O2. He reports his asthma is usually well controlled. He was recently admitted in May for left tibial plateau fracture. Had post- operative NSTEMI leading to acute systolic congestive heart failure suspected secondary to blood transfusions which responded to diuretics. In the ER CXR was actually markedly improved from prior XR in May. BNP however remains > 35,000. Initial troponin negative. EKG concerning for ST depressions in lateral leads although this has actually improved from prior. He was referred to medicine for respiratory distress and bilateral pleural effusions. Allergies Allergy/AdvReac Type Severity Reaction Status Date / Time atorvastatin Allergy Mild rash Verified 08/24/20 11:33 Sulfa (Sulfonamide Allergy Mild Rash Verified 08/24/20 11:33 Antibiotics) sulfamethoxazole Allergy Mild Rash Verified 08/24/20 11:33 theophylline Allergy Mild RASH Verified 08/24/20 11:33 trimethoprim Allergy Mild Rash Verified 08/24/20 11:33 Home Medications Medication Instructions Recorded Confirmed Type multivitamin 1 tab PO QAM 01/10/19 08/24/20 History carvedilol 25 mg tablet 25 mg PO BID #180 tab 10/24/19 08/24/20 Rx levothyroxine 137 mcg PO QAM 03/27/20 08/24/20 History lisinopril 5 mg PO QAM 03/27/20 08/24/20 History polyethylene glycol 3350 17 17 g PO DAILY PRN #510 g 04/02/20 08/24/20 Rx gram/dose oral powder Advair Diskus 250 mcg-50 mcg/dose 1 inh INH BID #180 ea NS 05/16/20 08/24/20 Rx powder for inhalation aspirin 81 mg PO BID #60 tab 06/18/20 08/24/20 Rx clopidogrel 75 mg PO QAM #30 tab 06/18/20 08/24/20 Rx ipratropium-albuterol 3 ml NEB Q4R PRN #15 ml 06/18/20 08/24/20 Rx oxycodone 5 mg PO Q4H PRN #10 tab 06/18/20 08/24/20 Rx furosemide 20 mg PO DAILY 08/24/20 08/24/20 History Past Med/Surg History Medical History Anemia Aortic stenosis Asthma (12/25/12) CAD (coronary artery disease) Chronic systolic CHF (congestive heart failure) Constipated History of intestinal obstruction Hypercholesterolemia Hypertension Hypothyroidism (12/25/12) Ischemic cardiomyopathy EF 20-25% Surgical History Cataract Hx of CABG Family History Mother Hypertension Sister Hyperlipemia Other Coronary heart disease Dementia Heart disease Myocardial infarction Denies family history of Ovarian cancer Prostate cancer Breast cancer Colorectal cancer Social History Smoking Status: Never smoker Second Hand Exposure: No; Do You Dip or Chew Tobacco: No; Hx Alcohol Use: Yes Alcohol type: beer and wine Hx Substance Use: No Preferred Language: Faroese Communication Ability: Effective Visual Impairment: No Limitations Hearing Ability: Normal Sales Receptionist Required: No Beliefs That Will Affect Care: None marital status: Current Living Situation: Personal Care Facility current occupational status: retired Other Information That Helps Us Care for You: No Feels Safe at Home: Yes Childhood Exposure to Second-Hand Smoke: No Dental Care, Regularly: Yes Seatbelt Use: always Sunscreen Use: No Assistive Devices: Glasses Review of Systems Review of Systems: All systems reviewed & are unremarkable except as noted in HPI & below Physical Exam Constitutional: well developed; + not well nourished and no acute distress Eyes: + anicteric sclerae; normal pupil size ENMT: external ear and nose normal, oropharynx normal Neck: trachea midline, no thyromegaly Respiratory: normal respiratory effort and able to speak in complete sentences; no respiratory distress, does not use accessory muscles, no cough and expiratory phase not prolonged Auscultation: + diminished lung sounds (bibasal) and + wheezes (expiratory throughout posteriorly); no crackles Cardiovascular: Rate/Rhythm: regular rate and regular rhythm Heart Sounds: no murmur Vessels: no JVD Extremities: normal capillary refill and + pedal edema (1+ to knees b/l equal); no calf tenderness Gastrointestinal (Abdomen): normal bowel sounds, soft, nontender, no hepatosplenomegaly Inspection/Auscultation: + abdomen distended Musculoskeletal: no cyanosis or clubbing, extremities motor strength 5/5 Skin: no rashes, warm and dry Neurologic: moves all extremities and awake; not confused Psychiatric: A+Ox3, euthymic affect Genitourinary: no CVA tenderness Results & Data Results & Data ([facility]) Vital Signs (Past 12 Hours) Vital Signs Temp Pulse Pulse Resp BP BP Pulse Ox 08/24/20 10:31 71 17 100 08/24/20 10:30 71 16 115/68 100 08/24/20 10:20 73 18 100 08/24/20 10:10 67 17 100 08/24/20 10:06 68 18 98/63 L 100 08/24/20 10:01 70 19 98/63 L 100 08/24/20 10:00 71 13 99 08/24/20 09:50 72 20 100 08/24/20 09:40 67 18 100 08/24/20 09:30 66 18 100 08/24/20 09:20 70 18 100 08/24/20 09:10 80 16 100 08/24/20 09:00 87 21 98 08/24/20 08:50 90 25 H 99 08/24/20 08:40 99 H 30 H 100 08/24/20 08:34 36.8 C 103 H 22 129/102 H 94 08/24/20 08:30 103 H 25 H 08/24/20 08:29 101 H 30 H 08/24/20 08:25 101 H 34 H 129/102 H Diagnostic Findings XR chest 1V portable IMPRESSION: 1. Cardiomegaly and interval decrease in the size of bilateral pleural effusions 2. Improving aeration of the lung bases with suspected mild atelectatic change 3. No current evidence of failure Medications Administered ER Medications Given: None ECG Indication: SOB/dyspnea and tachycardia Rate (beats per minute): 102 Rhythm: sinus tachycardia Findings: + ST depression (Lateral) and + T-wave inversion (Lateral) Comparison ECG Date: from (June 15, 2020) Change: the following changes noted (Improved ischemic changes in lateral leads) Code Status & VTE Plan Code Status DNR/DNI per patient wishes VTE Prophylaxis Plan VTE Prophylaxis will be ordered: Yes Reason for no VTE drug order: Treatment not indicated PG Care Time/CCT Total # of Minutes Spent Total Time Spent with Patient: Total time spent is greater than 50% in coordination of care (as documented) at patient's floor/unit and/or counseling patient: Coding Level of Care Code 00761 Initial Inpt Care Lvl 3 Diagnoses Shortness of breath R06.02 Hypoxia R09.02 Asthma exacerbation J45.901 Mucus plugging of bronchi T17.500A Bilateral pleural effusion J90 Hypothyroidism E03.9 Hypothyroidism type: unspecified CAD (coronary artery disease) I25.10 Chronic systolic CHF (congestive heart failure) I50.22 Hypertension I10 Hypertension type: unspecified Ischemic cardiomyopathy I25.5 Severe protein-calorie malnutrition E43 DVT prophylaxis Z29.9 (1) Hypothyroidism Hypothyroidism type: unspecified Qualified Code(s): E03.9 - Hypothyroidism, unspecified (2) Hypertension Hypertension type: unspecified Qualified Code(s): I10 - Essential (primary) hypertension
[2020-08-24] MEDS ORDERED: OPTIRAY 350 500ml IV ONE (11:59)
--- NOTE | 2020-08-24 12:35 | CT Scan Report ---
CT angio chest PE protocol CT DOSE: 258.00 mGy.cm HISTORY: 84 years-old Male with PE. Acute shortness of breath TECHNIQUE: Multiple CTA images of the chest were obtained after the intravenous administration of 119 ml Optiray. Coronal and sagittal MIPS were obtained from the axial data set and were submitted for review. All measurements were obtained according to NASCET criteria. A dose lowering technique was u tilized adhering to the principles of ALARA. COMPARISON: Chest radiograph of same day, CTA chest 06/13/2020 FINDINGS: CTA: Moderate to marked cardiomegaly. No pericardial effusion. Left heart structures are not well opacifie d secondary to contrast bolus timing. Extensive coronary artery calcifications. Unchanged mild fusifo rm dilation of the ascending thoracic aorta, 4.0 cm. Prior median sternotomy with CABG. The central p ulmonary artery is well opacified. There is decreased opacification of the segmental and subsegmental pulmonary arterial branches of the level of the lung bases bilaterally. Notably there is a question filling defects within a segmental pulmonary arterial branch of the right lower lobe on image 133. CT CHEST: No thyroid nodule or adenopathy. Moderate layering pleural effusions. No pneumothorax. Dependent biba silar consolidative and groundglass opacities. 4 mm solid nodule of the left upper lobe on image 252 appears new from comparison. Mild bibasilar mucous plugging. Central airways are patent. There is no pneumoperitoneum. There are a few scattered hypodensities of the liver redemonstrated ligia suring up to 10 mm the left hepatic lobe, notably characterize however possibly represent above cysts . Generalized body wall edema. Degenerative changes of the shoulders and spine. Healed chronic bilate ral rib fractures. Numerous chronic thoracic compression deformities. No acute fracture identified. IMPRESSION: 1. Limited study secondary to contrast bolus timing. There is a questioned filling defect within a se gmental pulmonary arterial branch of the right lower lobe which is favored to be artifact with pulmon matti embolus considered less likely. Consider a follow-up study and/or lower extremity duplex venous D oppler. 2. Moderate pleural effusions with bibasilar groundglass and consolidative opacities suggestive of at electasis. 3. Mild bibasilar mucous plugging. 4. Cardiomegaly. ACT 112: Negative or not required by law. The above report was generated using voice recognition software. It may contain grammatical, syntax o r spelling errors. Electronically signed by: Dheeraj Hansen M.D. 08/24/2020 12:33 PM
[2020-08-24] MEDS ORDERED: ALBUT/IPRATROP 3MG/0.5MG NEB 3 ML VIAL NEB STA (12:43)
[2020-08-24] MEDS ORDERED: FUROSEMIDE 40 MG/4 ML VIAL IV ONE (13:00)
[2020-08-24] MEDS ORDERED: POLYETHYLENE (MIRALAX) 17 GM PACK PO PRN (15:08)
[2020-08-24] MEDS ORDERED: oxyCODONE HCL IR 5 MG TAB (IMMEDIATE RELEASE) PO PRN (15:08)
[2020-08-24] MEDS: ALBUT/IPRATROP 3MG/0.5MG NEB 3 ML VIAL NEB SCH ×2 (16:05→19:31)
[2020-08-24] MEDS: ASPIRIN 81 MG ECTAB PO SCH (20:27)
[2020-08-24] MEDS ORDERED: carvediloL 25 MG TAB PO SCH (21:00)
--- NOTE | 2020-08-24 22:47 | Electrocardiogram Report ---
Test Reason : Blood Pressure : / mmHG Vent. Rate : 102 BPM Atrial Rate : 102 BPM P-R Int : 192 ms QRS Dur : 124 ms QT Int : 374 ms P-R-T Axes : 000 -21 138 degrees QTc Int : 487 ms Poor data quality, interpretation may be adversely affected Sinus tachycardia Possible Anterior infarct (cited on or before 15-JUN-2020) Abnormal ECG When compared with ECG of 15-JUN-2020 09:17, No significant change Confirmed by Denilson Teran ([id number]) on 08/24/2020 10:47:00 PM Referred By: ER Confirmed By:Denilson Teran
[2020-08-25] MEDS: LEVOTHYROXINE SODIUM 137 MCG TABLET PO SCH (05:51)
[2020-08-25 06:48] LABS: Basophils # (auto) 0.01 K/uL (0-0.2); Basophils % (auto) 0.2 %; Hematocrit (blood only) 32.2 % (42-52); Hemoglobin 10.2 g/dL (14.0-18.0); Immature Granulocytes # (auto) 0.01 K/uL (0.00-0.02); Immature Granulocytes % (auto) 0.2 %; Lymphocytes # (auto) 0.47 K/uL (1.2-3.4); Lymphocytes % (auto) 7.9 %; Mean Corpuscular Hemoglobin 29.5 pg (25-34); Mean Corpuscular Hgb Conc 31.7 g/dL (32-36); Mean Corpuscular Volume 93.1 fL (80-100); Mean Platelet Volume 10.3 fL (7.4-10.4); Monocytes # (auto) 0.35 K/uL (0.11-0.59); Monocytes % (auto) 5.9 %; Neutrophils # (auto) 5.08 K/uL (1.4-6.5); Neutrophils % (auto) 85.8 %; Platelet Count 311 K/uL (130-400); RDW Coefficient of Variation 16.3 % (11.5-14.5); RDW Standard Deviation 55.4 fL (36.4-46.3); Red Blood Count 3.46 M/uL (4.7-6.1); White Blood Count 5.92 K/uL (4.8-10.8)
[2020-08-25 07:16] LABS: BUN Creatinine Ratio 17.4 (10-20); Calcium 8.9 mg/dl (8.5-10.1); Creatinine Clr Calc Pharmacy 27.3 ml/min; Est GFR (African American) 49.8; Est GFR (Non-African American) 42.9; Potassium 3.6 mmol/L (3.5-5.1)
[2020-08-25] MEDS: ALBUT/IPRATROP 3MG/0.5MG NEB 3 ML VIAL NEB SCH (07:30)
[2020-08-25] MEDS ORDERED: lisinopril 5 MG TAB PO SCH (09:00)
[2020-08-25] MEDS ORDERED: methylPREDNISolone 40 MG in SYRINGE 0 ML IV SCH (09:00)
[2020-08-25] MEDS: ASPIRIN 81 MG ECTAB PO SCH ×2 (09:41→20:10)
[2020-08-25] MEDS: FUROSEMIDE 20 MG TAB PO SCH (09:42)
[2020-08-25] MEDS: CLOPIDOGREL BISULFATE 75 MG TAB PO SCH (09:42)
[2020-08-25] MEDS: MULTIVITAMIN TAB PO SCH (09:43)
[2020-08-25] MEDS: FLUTICASONE/VILANTEROL 200/25MCG 14 PUFFS/INHALER INH SCH (09:44)
[2020-08-25] MEDS: METOPROLOL SUCC 25MG EXT REL TAB PO SCH (09:44)
--- NOTE | 2020-08-25 11:16 | Ultrasound Report ---
BILATERAL LOWER EXTREMITY VENOUS DOPPLER HISTORY: Acute pain and swelling of the lower legs ?PE on CTA chest; eval DVT COMPARISON STUDY: None. FINDINGS: There is normal compressibility, flow, and augmentation within the bilateral lower extremit y deep venous systems. Moderate diffuse subcutaneous edema. IMPRESSION: No DVT within the right or left lower extremity. ACT 112: Negative or not required by law. Electronically signed by: Dheeraj Hansen M.D. 08/25/2020 11:14 AM
[2020-08-25] MEDS: cephALEXin 250 MG CAP PO SCH (20:15)
--- NOTE | 2020-08-25 21:27 | Hospitalist Progress Note ---
Date of Service August 25, 2020 Assessment & Plan (1) Acute on chronic systolic heart failure: s/p increased PO lasix since late July as directed by his PCP from recent office visit. s/p IV lasix yesterday. looks fairly euvolemic today - no JVD, no LE edema, O2 sats 100% in room air. weight today is below dry weight. re-eval in am with labs, repeat exam. resume coreg albeit at lower dose. hold SARAH for now due to low BP. (2) Shortness of breath: 2nd acute/chronic systolic CHF. mucous plugging may have contributed. no wheezing to suggest active asthma - stop IV steroids. SOB is improved today. (3) Mucus plugging of bronchi: add mucinex 600 BID cont inhalers incentive olman (4) Bilateral pleural effusion: 2nd to CHF as above (5) Hypothyroidism: TSH WNL in July Continue levothyroxine 137 mcg p.o. daily w/o changes (6) CAD (coronary artery disease): Continue aspirin, clopidogrel, carvedilol. statin intolerant/allergic. no evidence of ACS while here. (7) Hypertension: controlled (8) Ischemic cardiomyopathy: LVEF 20 to 25% on recent echocardiogram. Continue carvedilol Hold SARAH due to low-normal BPs perhaps resume later in stay at lower dose (9) Severe protein-calorie malnutrition: Consult dietary (10) Chronic kidney disease, stage IV (severe): baseline CrCL high 20s repeat BMP am (11) UTI (urinary tract infection): recent 2nd to e.coli add keflex 250 BID needs KENAN to r/o prostatitis (12) DVT prophylaxis: patient with ? small filling defect on CTA chest obtained LE dopplers today - neg for DVT if CrCL is acceptable tomorrow am will repeat the CTA chest to ensure no PE PT, OT evals updated family by phone tonight Admission and Anticipated Discharge Date Admission Date: August 24, 2020 Subjective patient states baseline dry weight is 115-120 pounds feels good today no cough, no dyspnea, no PAK no orthopnea asks about his coreg - told him it had been held because of low BP speech performed bedside swallow eval - no aspiration Review of Systems Constitutional: no fever, no chills, no fatigue and no anorexia Respiratory: no cough, no dyspnea, no dyspnea on exertion and no pain on inspiration Cardiovascular: no chest pain Physical Exam Constitutional: + thin; no acute distress and no altered mental status ENMT: external ear and nose normal, oropharynx normal Respiratory: no respiratory distress Auscultation: + diminished lung sounds (bases); no crackles and no wheezes Cardiovascular: Rate/Rhythm: regular rate and regular rhythm Heart Sounds: normal S1, normal S2 and + murmur (2/6 SANDRINE LSB) Vessels: posterior tibial pulses present and dorsalis pedis pulses present; no JVD Extremities: no edema Gastrointestinal (Abdomen): normal bowel sounds, soft, nontender, no hepatosplenomegaly Psychiatric: A+Ox3, euthymic affect Results & Data Results & Data ([facility]) Vital Signs (Past 12 Hours) Vital Signs Temp Pulse Pulse Resp BP BP Pulse Ox 08/25/20 19:25 36.3 C L 100 H 18 110/76 100 08/25/20 16:00 36.6 C 102 H 18 117/74 96 08/25/20 11:32 36.8 C 117 H 16 95/60 L 100 08/25/20 10:49 Pulse Ox 08/25/20 19:25 08/25/20 16:00 08/25/20 11:32 08/25/20 10:49 100 Laboratory Results Laboratory Results - last 24 hr 08/25/20 08/25/20 06:11 06:11 WBC 5.92 RBC 3.46 L Hgb 10.2 L Hct 32.2 L MCV 93.1 MCH 29.5 MCHC 31.7 L RDW Std Deviation 55.4 H RDW Coeff of Ayaz 16.3 H Plt Count 311 MPV 10.3 Immature Gran % (Auto) 0.2 Neut % (Auto) 85.8 Lymph % (Auto) 7.9 Republic % (Auto) 5.9 Eos % (Auto) 0.0 Baso % (Auto) 0.2 Neut # (Auto) 5.08 Lymph # (Auto) 0.47 L Republic # (Auto) 0.35 Eos # (Auto) 0.00 Baso # (Auto) 0.01 Immature Gran # (Auto) 0.01 Sodium 139 Potassium 3.6 Chloride 100 Carbon Dioxide 33 H Anion Gap 6.0 BUN 25 H Creatinine 1.46 H Est Cr Clr Drug Dosing 27.3 Est GFR ( Amer) 49.8 Est GFR (Non-Af Amer) 42.9 BUN/Creatinine Ratio 17.4 Glucose 93 Calcium 8.9 PG Care Time/CCT Total # of Minutes Spent Total Time Spent with Patient: Total time spent is greater than 50% in coordination of care (as documented) at patient's floor/unit and/or counseling patient: Coding Level of Care Code 08501 Subseq Hosp Care Lvl 2 Diagnoses Acute on chronic systolic heart failure I50.23 Shortness of breath R06.02 Mucus plugging of bronchi T17.500A Bilateral pleural effusion J90 Hypothyroidism E03.9 Hypothyroidism type: unspecified CAD (coronary artery disease) I25.10 Hypertension I10 Hypertension type: unspecified Ischemic cardiomyopathy I25.5 Severe protein-calorie malnutrition E43 Chronic kidney disease, stage IV (severe) N18.4 UTI (urinary tract infection) N39.0 DVT prophylaxis Z29.9 (1) Hypothyroidism Hypothyroidism type: unspecified Qualified Code(s): E03.9 - Hypothyroidism, unspecified (2) Hypertension Hypertension type: unspecified Qualified Code(s): I10 - Essential (primary) hypertension
[2020-08-26] MEDS: LEVOTHYROXINE SODIUM 137 MCG TABLET PO SCH (06:25)
[2020-08-26] MEDS: ASPIRIN 81 MG ECTAB PO SCH ×2 (09:06→21:20)
[2020-08-26] MEDS: METOPROLOL SUCC 25MG EXT REL TAB PO SCH (09:07)
[2020-08-26] MEDS: CLOPIDOGREL BISULFATE 75 MG TAB PO SCH (09:07)
[2020-08-26] MEDS: MULTIVITAMIN TAB PO SCH (09:07)
[2020-08-26] MEDS: cephALEXin 250 MG CAP PO SCH ×2 (09:08→21:21)
[2020-08-26] MEDS: FLUTICASONE/VILANTEROL 200/25MCG 14 PUFFS/INHALER INH SCH (09:08)
[2020-08-26] MEDS ORDERED: carvediloL 3.125 MG TAB PO ONE (09:15)
[2020-08-26] MEDS: ALBUT/IPRATROP 3MG/0.5MG NEB 3 ML VIAL NEB PRN ×2 (09:20→18:13)
[2020-08-26 11:19] LABS: BUN Creatinine Ratio 23.5 (10-20); Calcium 8.4 mg/dl (8.5-10.1); Creatinine Clr Calc Pharmacy 28.4 ml/min; Est GFR (African American) 54.7; Est GFR (Non-African American) 47.2; Potassium 3.8 mmol/L (3.5-5.1)
[2020-08-26] MEDS ORDERED: OPTIRAY 350 500ml IV ONE (13:43)
--- NOTE | 2020-08-26 14:05 | CT Scan Report ---
CT ANGIOGRAM OF THE CHEST CLINICAL HISTORY: Shortness of breath. Equivocal pulmonary embolus on recent chest CT. COMPARISON STUDY: 09/11/2020 TECHNIQUE: Following the IV administration of 120 mL of Optiray, CT angiogram of the thorax was perfo rmed from the thoracic inlet to the lung bases utilizing the pulmonary embolus protocol. Images are r eviewed in the axial, sagittal, and coronal planes. IV contrast was administered without complication . MIP imaging was performed. A dose lowering technique was utilized adhering to the principles of AL KIRAN. CT DOSE: 398.17 mGycm FINDINGS: There are several hepatic hypodensities, statistically representing cysts. There is a 2.8 cm left sasha al hypodensity likely representing a cyst. No pathologically enlarged axillary mediastinal or hilar lymph nodes were visualized. There is mild aneurysmal dilatation of the ascending thoracic aorta which measures 43 mm. The heart is enlarged with coronary artery calcifications. There are no pulmonary artery filling defects to indicate acute pulmonary embolism. There are moderate to large bilateral pleural effusions. There are lower lobe compressive atelectatic changes. There is respiratory motion artifact. There are subpleural right apical parenchymal opacities, likely representing focal atelectasis/scarring. A min imal pneumonitis could appear similar The bones are osteopenic. There is exaggerated thoracic arthrosis. There are multiple thoracic verteb ral body compression deformities IMPRESSION: 1. No evidence of acute pulmonary embolism 2. No evidence of pathologic adenopathy 3. Moderate to large bilateral pleural effusions with bibasilar compressive atelectasis 4. Cardiomegaly and coronary artery calcifications. 5. Osteopenia. Multiple thoracic vertebral body compression deformities with an exaggerated thoracic kyphosis ACT 112: Negative or not required by law. Electronically signed by: Trenton Claros M.D. 08/26/2020 2:04 PM
[2020-08-26] MEDS: carvediloL 3.125 MG TAB PO SCH (21:20)
[2020-08-27] MEDS: LEVOTHYROXINE SODIUM 137 MCG TABLET PO SCH (05:57)
--- NOTE | 2020-08-27 06:59 | Hospitalist Progress Note ---
Date of Service August 26, 2020 Assessment & Plan (1) Acute on chronic systolic heart failure: s/p increased PO lasix since late July as directed by his PCP from recent office visit. s/p IV lasix day of admission. weight today again is below his reported dry weight but he continues with pulmonary symptoms and has large b/l pleural effusions, mild JVD, etc. resumed coreg today but at lower dose of 3.125mg BID. hold SARAH for now due to low BP. if Cr is stable in AM will re-attempt diuresis IV. (2) Shortness of breath: 2nd acute/chronic systolic CHF. mucous plugging may have contributed. no wheezing to suggest active asthma - IV steroids stopped. ongoing SOB -- see above. (3) Mucus plugging of bronchi: added mucinex 600 BID cont inhalers incentive olman no issues (4) Bilateral pleural effusion: large on CTA chest today I spoke with Dr Amado from pulmonary ideally patient is off plavix for 5 days before safely attempting thoracentesis will hold plavix attempt IV diuresis if Cr will allow (5) Hypothyroidism: TSH WNL in July Continue levothyroxine 137 mcg p.o. daily w/o changes (6) CAD (coronary artery disease): Continue aspirin and carvedilol. hold plavix in the event he needs thoracentesis. statin intolerant/allergic. no evidence of ACS while here. (7) Hypertension: controlled (8) Ischemic cardiomyopathy: LVEF 20 to 25% on recent echocardiogram. Continue carvedilol Hold SARAH due to low-normal BPs (9) Severe protein-calorie malnutrition: cont MVI nutrition consult (10) Chronic kidney disease, stage IV (severe): baseline CrCL high 20s repeat BMP am (11) UTI (urinary tract infection): recent 2nd to e.coli cont keflex 250 BID needs KENAN to r/o prostatitis (12) DVT prophylaxis: patient with ? small filling defect on CTA chest obtained LE dopplers -- neg for DVT repeat CTA chest today negative for PEs PT, OT evals appreciated updated family by phone yesterday Admission and Anticipated Discharge Date Admission Date: August 24, 2020 Subjective patient still with PAK and orthopnea o2 had to be applied for these symptoms although his O2 sats are normal no cough denies chest pain Review of Systems Constitutional: no fever Respiratory: no pain on inspiration Cardiovascular: + edema; no chest pain Gastrointestinal: no abdominal pain, no nausea and no vomiting Physical Exam Constitutional: + thin; no acute distress and no altered mental status ENMT: external ear and nose normal, oropharynx normal Respiratory: no respiratory distress Auscultation: + diminished lung sounds (bases) and + crackles (bases ); no wheezes Cardiovascular: Rate/Rhythm: regular rate and regular rhythm Heart Sounds: normal S1, normal S2 and + murmur (2/6 SANDRINE LSB) Vessels: + JVD (mild ), posterior tibial pulses present and dorsalis pedis pulses present Extremities: + edema (<1+ b/l ) Gastrointestinal (Abdomen): normal bowel sounds, soft, nontender, no hepatosplenomegaly Psychiatric: A+Ox3, euthymic affect Results & Data Results & Data ([facility]) Vital Signs (Past 12 Hours) Vital Signs Temp Pulse Pulse Pulse Resp BP BP 08/27/20 03:25 36.5 C 84 18 108/71 08/26/20 23:08 36.5 C 84 18 105/65 08/26/20 23:00 92 H 08/26/20 21:15 89 104/69 08/26/20 19:53 36.5 C 89 18 99/64 L Pulse Ox 08/27/20 03:25 99 08/26/20 23:08 97 08/26/20 23:00 08/26/20 21:15 08/26/20 19:53 92 BMP wnl CTA chest - no PEs; large b/l pleural effusions PG Care Time/CCT Total # of Minutes Spent Total Time Spent with Patient: Total time spent is greater than 50% in coordination of care (as documented) at patient's floor/unit and/or counseling patient: Coding Level of Care Code 17453 Subseq Hosp Care Lvl 2 Diagnoses Acute on chronic systolic heart failure I50.23 Shortness of breath R06.02 Mucus plugging of bronchi T17.500A Bilateral pleural effusion J90 Hypothyroidism E03.9 Hypothyroidism type: unspecified CAD (coronary artery disease) I25.10 Hypertension I10 Hypertension type: unspecified Ischemic cardiomyopathy I25.5 Severe protein-calorie malnutrition E43 Chronic kidney disease, stage IV (severe) N18.4 UTI (urinary tract infection) N39.0 DVT prophylaxis Z29.9 (1) Hypothyroidism Hypothyroidism type: unspecified Qualified Code(s): E03.9 - Hypothyroidism, unspecified (2) Hypertension Hypertension type: unspecified Qualified Code(s): I10 - Essential (primary) hypertension
[2020-08-27 07:15] LABS: BUN Creatinine Ratio 23.6 (10-20); Calcium 8.4 mg/dl (8.5-10.1); Creatinine Clr Calc Pharmacy 31.4 ml/min; Est GFR (African American) 61.8; Est GFR (Non-African American) 53.4; Potassium 3.8 mmol/L (3.5-5.1)
[2020-08-27] MEDS ORDERED: FUROSEMIDE 20 MG in SYRINGE 0 ML IV ONE ×2 (07:45→18:45)
[2020-08-27] MEDS: FLUTICASONE/VILANTEROL 200/25MCG 14 PUFFS/INHALER INH SCH (08:22)
[2020-08-27] MEDS: MULTIVITAMIN TAB PO SCH (08:23)
[2020-08-27] MEDS: cephALEXin 250 MG CAP PO SCH (08:23)
[2020-08-27] MEDS: MAGNESIUM OXIDE 400 MG TAB PO SCH (08:23)
[2020-08-27] MEDS: POTASSIUM CHLORIDE CRTAB 20 MEQ TABCR PO SCH (08:23)
[2020-08-27] MEDS: carvediloL 3.125 MG TAB PO SCH ×2 (08:23→21:42)
[2020-08-27] MEDS: METOPROLOL SUCC 25MG EXT REL TAB PO SCH (08:24)
[2020-08-27] MEDS: ASPIRIN 81 MG ECTAB PO SCH ×2 (08:24→21:41)
--- NOTE | 2020-08-27 16:01 | Heart Failure Consultation ---
Date of Consultation August 27, 2020 Assessment & Plan (1) Acute on chronic systolic heart failure: (2) Bilateral pleural effusion: (3) Cardiomyopathy: (4) Chronic kidney disease, stage IV (severe): Patient appears near euvolemic on exam. He continues to report shortness of breath with activity. Evidence of bilateral pleural effusions. May consider thoracentesis if not improving with more aggressive diuresis. Plavix held. Kidney function and electrolytes are stable. Lasix 20 mg IV this am. Minimal output, but unclear if I&Os are accurate. Would recommend discharge on Lasix 40 mg daily. Plan to check BMP, magnesium, and ProBNP in 7-10 days. Continue guideline directed medical therapy- Carvedilol dose lowered due to hypotension. Also getting Metoprolol on admission, will discontinue so he's not on dual beta blockers. Will continue to titrate Carvedilol as able. Previously considering transition of Lisinopril to Entresto. Lisinopril is currently being held- would consider Entresto instead when restarting. Would recommend titrating beta ellen first for improved rate control. Patient is currently at [facility], anticipate return there at discharge. Would recommend continued close monitoring of weight and volume status. Plan to follow up with the heart failure program next week. Disposition: Anticipate close follow up with the heart failure program. History of Present Illness Attending Physician: Rayshawn López Mr. Leo is a very pleasant 84-year-old gentleman with history significant for CAD s/p CABG (RUBI in 1995), ischemic cardiomyopathy (reported EF 20-25%), aortic stenosis, dyslipidemia (intolerant to statin), chronic systolic CHF, and hypertension. His primary diabetes physician is Dr. Barbosa. Recent cardiac studies: 1. 06/13/20 Echo: Normal LV size, reduced systolic function. EF 20-25%. Akinesis of the inferolateral wall, inferior wall, basal inferoseptum, and apex. Otherwise global hypokinesis. Severe left atrial dilation. Mild right atrial dilation. Sclerotic aortic valve without stenosis. Moderate MR. Mild-Mod TR. Mild pulmonary hypertension. Patient was initially admitted in 05/2020 for tibial plateau fracture and subsequent ORIF. Patient then sustained a post op NSTEMI on 06/13/20.He opted for medical therapy rather than cardiac catheterization. Echocardiogram demonstrates reduced left ventricular systolic function which is stable from previous. He was on Carvedilol and Lisinopril. Initially he was euvolemic but then developed worsening dyspnea after blood transfusion. ProBNP > 35k. He was initiated on IV diuretics. He responded well and was discharged to [facility] on Lasix 20 mg daily. He was referred to the heart failure program but cancelled his appointment as well as his cardiology follow up. He presented to the ED 08/24/20 with shortness of breath and orthopnea. CT negative for PE. Bilateral pleural effusions noted on CXR. He did not appear significantly hypervolemic on exam. He was initially treated with Solumedrol and Duonebs. He did get a dose of Lasix 20 mg IV on admission then resumed 20 mg daily.Weight is below dry weight. ACEI held due to hypotension. Carvedilol decreased to 3.125 mg BID. Today he reports he's comfortable at rest but more short of breath with any activity. He's not requiring any supplemental oxygen. He has trace lower extremity edema. He reports he slept well and was able to lay flat through the night. He has a positive cumulative fluid balance but is negative 1200 ml. Weight is 112 by bed scale. He denies chest pain, palpitations, or lightheadedness. Allergies Allergy/AdvReac Type Severity Reaction Status Date / Time atorvastatin Allergy Mild rash Verified 08/24/20 11:33 Sulfa (Sulfonamide Allergy Mild Rash Verified 08/24/20 11:33 Antibiotics) sulfamethoxazole Allergy Mild Rash Verified 08/24/20 11:33 theophylline Allergy Mild RASH Verified 08/24/20 11:33 trimethoprim Allergy Mild Rash Verified 08/24/20 11:33 Home Medications Medication Instructions Recorded Confirmed Type multivitamin 1 tab PO QAM 01/10/19 08/24/20 History carvedilol 25 mg tablet 25 mg PO BID #180 tab 10/24/19 08/24/20 Rx levothyroxine 137 mcg PO QAM 03/27/20 08/24/20 History lisinopril 5 mg PO QAM 03/27/20 08/24/20 History polyethylene glycol 3350 17 17 g PO DAILY PRN #510 g 04/02/20 08/24/20 Rx gram/dose oral powder Advair Diskus 250 mcg-50 mcg/dose 1 inh INH BID #180 ea NS 05/16/20 08/24/20 Rx powder for inhalation aspirin 81 mg PO BID #60 tab 06/18/20 08/24/20 Rx clopidogrel 75 mg PO QAM #30 tab 06/18/20 08/24/20 Rx ipratropium-albuterol 3 ml NEB Q4R PRN #15 ml 06/18/20 08/24/20 Rx oxycodone 5 mg PO Q4H PRN #10 tab 06/18/20 08/24/20 Rx furosemide 20 mg PO DAILY 08/24/20 08/24/20 History Patient History Medical History Anemia Aortic stenosis Asthma (12/25/12) CAD (coronary artery disease) Chronic systolic CHF (congestive heart failure) Constipated History of intestinal obstruction Hypercholesterolemia Hypertension Hypothyroidism (12/25/12) Ischemic cardiomyopathy EF 20-25% Surgical History Cataract Hx of CABG Family History Mother Hypertension Sister Hyperlipemia Other Coronary heart disease Dementia Heart disease Myocardial infarction Denies family history of Ovarian cancer Prostate cancer Breast cancer Colorectal cancer Social History Smoking Status: Never smoker Second Hand Exposure: No; Do You Dip or Chew Tobacco: No; Hx Alcohol Use: Yes Alcohol type: beer and wine Hx Substance Use: No Preferred Language: Urdu Communication Ability: Effective Visual Impairment: No Limitations Hearing Ability: Normal Center Punch Operator Required: No Beliefs That Will Affect Care: None marital status: Current Living Situation: Personal Care Facility current occupational status: retired Other Information That Helps Us Care for You: No Feels Safe at Home: Yes Childhood Exposure to Second-Hand Smoke: No Dental Care, Regularly: Yes Seatbelt Use: always Sunscreen Use: No Assistive Devices: Glasses, Oxygen - Continuous and Walker Physical Exam Physical Exam: The patient is alert and oriented. Mood and affect appeared normal. He answered all questions appropriately. HEENT: Pupils are equal and reactive to light and accommodation. Extraocular movements are intact. The sclerae are anicteric. Neuro: Cranial nerves intact Lungs: Normal respiratory effort. Decreased breath sounds at the bases. Cardiac: Heart demonstrates a regular rate and rhythm. Normal S1 and S2. Soft systolic ejection murmur Pulses: The patient has palpable radial pulses bilaterally that are equal in intensity Extremities: There was no evidence of hypoperfusion. There is no cyanosis or clubbing. Trace BLE edema Skin: No rashes or lesions. Results & Data ([facility]) Vital Signs (Past 12 Hours) Vital Signs Temp Pulse Pulse Resp BP Pulse Ox 08/27/20 15:36 97.5 F L 91 H 20 108/72 92 08/27/20 11:57 98.2 F 81 17 102/70 92 08/27/20 10:56 91 H 08/27/20 10:13 98/62 L 08/27/20 07:34 97.9 F 92 H 20 101/67 90 Coding Level of Care Code 76570 Initial Inpt Care Lvl 3 Diagnoses Acute on chronic systolic heart failure I50.23 Bilateral pleural effusion J90 Cardiomyopathy I42.9 Chronic kidney disease, stage IV (severe) N18.4
[2020-08-27] MEDS: ALBUT/IPRATROP 3MG/0.5MG NEB 3 ML VIAL NEB PRN ×2 (16:18→20:02)
--- NOTE | 2020-08-27 19:42 | Hospitalist Progress Note ---
Date of Service August 27, 2020 Assessment & Plan (1) Acute on chronic systolic heart failure: ongoing. s/p increased PO lasix since late July as directed by his PCP from recent office visit. continue diuresis today - give 20mg IV x 2 doses then re-eval with weight & BMP in am. appreciate Ms Burgess's consultation from CHF clinic. cont coreg 3.125mg BID. titrate higher as tolerated (had been on 25mg BID as outpatient). hold SARAH for now due to low BP. daily weights. (2) Shortness of breath: 2nd acute/chronic systolic CHF. mucous plugging may have contributed - seen on prior CTA chest. considerable wheezing today on exam - uncertain if "Cardiac wheezing" from pulm edema or his asthma. Either way - cont diuresing; cont albuterol nebs prn. (3) Mucus plugging of bronchi: incentive olman nebs (4) Bilateral pleural effusion: large on CTA chest I spoke with Dr Amado from pulmonary ideally patient is off plavix for 5 days before safely attempting thoracentesis last dose of plavix -- 08/26/20 cont diuresis - perhaps effusions will improve with such if they don't get smaller then Dr Amado would intervene cont to hold plavix (5) Hypothyroidism: TSH WNL in July Continue levothyroxine 137 mcg p.o. daily w/o changes (6) CAD (coronary artery disease): Continue aspirin and carvedilol. hold plavix in the event he needs thoracentesis. statin intolerant/allergic. no evidence of ACS while here. (7) Hypertension: controlled (8) Ischemic cardiomyopathy: LVEF 20 to 25% on recent echocardiogram. Continue carvedilol Hold SARAH due to low-normal BPs (9) Severe protein-calorie malnutrition: cont MVI nutrition consult (10) Chronic kidney disease, stage IV (severe): baseline CrCL high 20s Cr stable today despite diuresis repeat BMP am (11) UTI (urinary tract infection): recent 2nd to e.coli cont keflex BID needs KENAN to r/o prostatitis to determine length of abx course (12) DVT prophylaxis: patient with ? small filling defect on CTA chest obtained LE dopplers -- neg for DVT repeat CTA chest 08/26/20 negative for PEs PT, OT evals appreciated Admission and Anticipated Discharge Date Admission Date: August 24, 2020 Subjective tele overnight acceptable patient laying nearly flat during the visit comfortable, no orthopnea, no dyspnea. patient with mild PAK still. no new complaints. Review of Systems Constitutional: no fever Respiratory: + wheezing (received neb this am and this was helpful ) Cardiovascular: no chest pain Gastrointestinal: no abdominal pain Physical Exam Constitutional: + thin; no acute distress and no altered mental status ENMT: external ear and nose normal, oropharynx normal Respiratory: no respiratory distress Auscultation: + diminished lung sounds (bases), + crackles (bases ) and + wheezes (extensive today b/l ) Cardiovascular: Rate/Rhythm: regular rate and regular rhythm Heart Sounds: normal S1, normal S2 and + murmur (2/6 SANDRINE LSB) Vessels: + JVD (improved from prior exams however), posterior tibial pulses present and dorsalis pedis pulses present Extremities: + edema (trace b/l ) Gastrointestinal (Abdomen): normal bowel sounds, soft, nontender, no hepatosplenomegaly Psychiatric: A+Ox3, euthymic affect Results & Data Results & Data ([facility]) Vital Signs (Past 12 Hours) Vital Signs Temp Pulse Pulse Pulse Resp BP BP 08/27/20 19:26 87 94/66 L 08/27/20 18:43 36.9 C 99 H 20 97/63 L 08/27/20 16:39 85 08/27/20 16:19 82 18 08/27/20 15:36 36.4 C L 91 H 20 108/72 08/27/20 11:57 36.8 C 81 17 102/70 08/27/20 10:56 91 H 08/27/20 10:13 98/62 L Pulse Ox 08/27/20 19:26 08/27/20 18:43 93 08/27/20 16:39 08/27/20 16:19 94 08/27/20 15:36 92 08/27/20 11:57 92 08/27/20 10:56 08/27/20 10:13 Laboratory Results Laboratory Results - last 24 hr 08/27/20 06:26 Sodium 140 Potassium 3.8 Chloride 103 Carbon Dioxide 34 H Anion Gap 3.0 BUN 29 H Creatinine 1.22 Est Cr Clr Drug Dosing 31.4 Est GFR ( Amer) 61.8 Est GFR (Non-Af Amer) 53.4 BUN/Creatinine Ratio 23.6 H Glucose 84 Calcium 8.4 L PG Care Time/CCT Total # of Minutes Spent Total Time Spent with Patient: Total time spent is greater than 50% in coordination of care (as documented) at patient's floor/unit and/or counseling patient: Coding Level of Care Code 92850 Subseq Hosp Care Lvl 2 Diagnoses Acute on chronic systolic heart failure I50.23 Shortness of breath R06.02 Mucus plugging of bronchi T17.500A Bilateral pleural effusion J90 Hypothyroidism E03.9 Hypothyroidism type: unspecified CAD (coronary artery disease) I25.10 Hypertension I10 Hypertension type: unspecified Ischemic cardiomyopathy I25.5 Severe protein-calorie malnutrition E43 Chronic kidney disease, stage IV (severe) N18.4 UTI (urinary tract infection) N39.0 DVT prophylaxis Z29.9 (1) Hypothyroidism Hypothyroidism type: unspecified Qualified Code(s): E03.9 - Hypothyroidism, unspecified (2) Hypertension Hypertension type: unspecified Qualified Code(s): I10 - Essential (primary) hypertension
[2020-08-27] MEDS: cephALEXin 500 MG CAP PO SCH (21:42)
[2020-08-28] MEDS: LEVOTHYROXINE SODIUM 137 MCG TABLET PO SCH (06:02)
[2020-08-28] MEDS: ALBUT/IPRATROP 3MG/0.5MG NEB 3 ML VIAL NEB PRN ×2 (06:14→13:01)
[2020-08-28] MEDS: FLUTICASONE/VILANTEROL 200/25MCG 14 PUFFS/INHALER INH SCH (07:29)
[2020-08-28] MEDS: POTASSIUM CHLORIDE CRTAB 20 MEQ TABCR PO SCH (07:30)
[2020-08-28] MEDS: ASPIRIN 81 MG ECTAB PO SCH ×2 (07:30→20:59)
[2020-08-28] MEDS: carvediloL 3.125 MG TAB PO SCH ×2 (07:30→21:00)
[2020-08-28] MEDS: cephALEXin 500 MG CAP PO SCH ×2 (07:30→21:01)
[2020-08-28] MEDS: MAGNESIUM OXIDE 400 MG TAB PO SCH (07:31)
[2020-08-28] MEDS: MULTIVITAMIN TAB PO SCH (07:31)
[2020-08-28 07:35] LABS: BUN Creatinine Ratio 24.4 (10-20); Calcium 8.3 mg/dl (8.5-10.1); Est GFR (African American) 61.2; Est GFR (Non-African American) 52.8; Magnesium 2.2 mg/dl (1.8-2.4); Potassium 3.7 mmol/L (3.5-5.1)
[2020-08-28] MEDS ORDERED: FUROSEMIDE 40 MG in SYRINGE 0 ML IV ONE (08:00)
--- NOTE | 2020-08-28 13:37 | Heart Failure Progress Note ---
Date of Service August 28, 2020 Assessment & Plan (1) Acute on chronic systolic heart failure: (2) Bilateral pleural effusion: (3) Cardiomyopathy: (4) Chronic kidney disease, stage IV (severe): Patient appears slightly hypervolemic on exam. He continues to report shortness of breath with activity. Suspect this is partially restrictive due to his kyphosis now with pleural effusions. May consider thoracentesis if not improving with more aggressive diuresis. Plavix held. Kidney function and electrolytes are stable. Lasix increased to 40 mg IV this am. Minimal output so far, but unclear if I&Os are accurate. Would recommend discharge on Lasix 40 mg daily. Plan to check BMP, magnesium, and ProBNP in 7-10 days. Continue guideline directed medical therapy- Carvedilol dose lowered due to hypotension. Will continue to titrate Carvedilol as able. Previously considering transition of Lisinopril to Entresto. Lisinopril is currently being held- would consider Entresto instead when restarting. Would recommend titrating beta ellen first for improved rate control. Patient is currently at [facility], anticipate return there at discharge. Would recommend continued close monitoring of weight and volume status. Plan to follow up with the heart failure program next week. Disposition: Anticipate close follow up with the heart failure program. Admission and Anticipated Discharge Date Admission Date: August 24, 2020 Subjective Patient reports continued shortness of breath. He is sitting at the bedside this am. He is on room air. Lower extremity edema seems slightly worse on the right today. He slept well with his head slightly elevated. Denies chest pain, palpitations, lightheadedness. Weight 111 lb today. Fluid balance is positive today. Physical Exam Physical Exam: The patient is alert and oriented. Mood and affect appeared normal. He answered all questions appropriately. HEENT: Pupils are equal and reactive to light and accommodation. Extraocular movements are intact. The sclerae are anicteric. Neuro: Cranial nerves intact Spine: Kyphosis Lungs: Normal respiratory effort. Decreased breath sounds at the bases. Cardiac: Heart demonstrates a regular rate and rhythm. Normal S1 and S2. Soft systolic ejection murmur Pulses: The patient has palpable radial pulses bilaterally that are equal in intensity Extremities: There was no evidence of hypoperfusion. There is no cyanosis or clubbing. `1-2+ right lower extremity edema, trace-1+ on the left Skin: No rashes or lesions. Results & Data ([facility]) Vital Signs (Past 12 Hours) Vital Signs Temp Pulse Resp BP BP Pulse Ox 08/28/20 13:02 90 18 95 08/28/20 10:47 97.9 F 98 H 18 110/68 94 08/28/20 06:56 97.9 F 92 H 18 116/72 93 08/28/20 06:15 90 20 95 08/28/20 04:09 97.7 F 93 H 18 94/56 L 89 L PG Care Time/CCT Total # of Minutes Spent Total Time Spent with Patient: Total time spent is greater than 50% in coordination of care (as documented) at patient's floor/unit and/or counseling patient: Coding Level of Care Code 51748 Subseq Hosp Care Lvl 3 Diagnoses Acute on chronic systolic heart failure I50.23 Bilateral pleural effusion J90 Cardiomyopathy I42.9 Chronic kidney disease, stage IV (severe) N18.4
[2020-08-28] MEDS ORDERED: POTASSIUM CHLORIDE CRTAB 20 MEQ TABCR PO STA (16:36)
[2020-08-28] MEDS ORDERED: BUMETANIDE 1 MG in SYRINGE 0 ML IV ONE (16:45)
--- NOTE | 2020-08-28 18:11 | Hospitalist Progress Note ---
Date of Service August 28, 2020 Assessment & Plan (1) Acute on chronic systolic heart failure: ongoing but volume status improving. continue diuresis today then bmp with cxr in am to reassess pleural effusions. appreciate Ms Burgess's consultation from CHF clinic. cont coreg 3.125mg BID. titrate higher as tolerated (had been on 25mg BID as outpatient). hold SARAH due to low-normal / low BPs. daily weights. (2) Shortness of breath: 2nd acute/chronic systolic CHF. mucous plugging may have contributed - seen on prior CTA chest. bigger component likely the CHF. (3) Mucus plugging of bronchi: incentive olman nebs (4) Bilateral pleural effusion: large on CTA chest I spoke with Dr Amado from pulmonary ideally patient is off plavix for 5 days before safely attempting thoracentesis last dose of plavix -- 08/26/20 cont diuresis - perhaps effusions will improve with such if they don't get smaller then Dr Amado would intervene cont to hold plavix repeat cxr in am (5) Hypothyroidism: TSH WNL in July Continue levothyroxine 137 mcg p.o. daily w/o changes (6) CAD (coronary artery disease): Continue aspirin and carvedilol. hold plavix in the event he needs thoracentesis. statin intolerant/allergic. no evidence of ACS while here. (7) Hypertension: controlled (8) Ischemic cardiomyopathy: LVEF 20 to 25% on recent echocardiogram. Continue carvedilol Hold SARAH due to low-normal BPs (9) Severe protein-calorie malnutrition: cont MVI nutrition consult (10) Chronic kidney disease, stage IV (severe): baseline CrCL high 20s Cr stable today despite diuresis repeat BMP again in am (11) UTI (urinary tract infection): recent 2nd to e.coli cont keflex BID needs KENAN to r/o prostatitis to determine length of abx course (12) DVT prophylaxis: patient with ? small filling defect on CTA chest obtained LE dopplers -- neg for DVT repeat CTA chest 08/26/20 negative for PEs PT, OT evals appreciated updated pt's sister by phone 08/28/20 Admission and Anticipated Discharge Date Admission Date: August 24, 2020 Subjective tele - NSR patient not requiring NC O2 still with orthopnea and PAK no dyspnea at rest no cough otherwise feeling ok Review of Systems Constitutional: no fever, no chills, no fatigue and no anorexia Respiratory: no cough and no wheezing Cardiovascular: no chest pain Gastrointestinal: no abdominal pain Physical Exam Constitutional: + thin; no acute distress and no altered mental status ENMT: external ear and nose normal, oropharynx normal Respiratory: no respiratory distress Auscultation: + diminished lung sounds (bases) and + crackles (bases ); no wheezes Cardiovascular: Rate/Rhythm: regular rate and + irregularly irregular (extra beats) Heart Sounds: normal S1, normal S2 and + murmur (2/6 SANDRINE LSB) Vessels: posterior tibial pulses present and dorsalis pedis pulses present; no JVD Extremities: + edema (trace b/l ) Gastrointestinal (Abdomen): normal bowel sounds, soft, nontender, no hepatosplenomegaly Psychiatric: A+Ox3, euthymic affect Results & Data Results & Data ([facility]) Vital Signs (Past 12 Hours) Vital Signs Temp Pulse Pulse Resp BP BP Pulse Ox 08/28/20 15:11 84 08/28/20 14:57 36.3 C L 94 H 20 105/68 94 08/28/20 13:02 90 18 95 08/28/20 10:47 36.6 C 98 H 18 110/68 94 08/28/20 06:56 36.6 C 92 H 18 116/72 93 08/28/20 06:15 90 20 95 Laboratory Results Laboratory Results - last 24 hr 08/28/20 06:36 Sodium 140 Potassium 3.7 Chloride 102 Carbon Dioxide 33 H Anion Gap 5.0 BUN 30 H Creatinine 1.23 Est Cr Clr Drug Dosing 31.0 Est GFR ( Amer) 61.2 Est GFR (Non-Af Amer) 52.8 BUN/Creatinine Ratio 24.4 H Glucose 78 Calcium 8.3 L Magnesium 2.2 PG Care Time/CCT Total # of Minutes Spent Total Time Spent with Patient: Total time spent is greater than 50% in coordin ation of care (as documented) at patient's floor/unit and/or counseling patient: Coding Level of Care Code 44275 Subseq Hosp Care Lvl 2 Diagnoses Acute on chronic systolic heart failure I50.23 Shortness of breath R06.02 Mucus plugging of bronchi T17.500A Bilateral pleural effusion J90 Hypothyroidism E03.9 Hypothyroidism type: unspecified CAD (coronary artery disease) I25.10 Hypertension I10 Hypertension type: unspecified Ischemic cardiomyopathy I25.5 Severe protein-calorie malnutrition E43 Chronic kidney disease, stage IV (severe) N18.4 UTI (urinary tract infection) N39.0 DVT prophylaxis Z29.9 (1) Hypothyroidism Hypothyroidism type: unspecified Qualified Code(s): E03.9 - Hypothyroidism, unspecified (2) Hypertension Hypertension type: unspecified Qualified Code(s): I10 - Essential (primary) hypertension
[2020-08-29] MEDS: LEVOTHYROXINE SODIUM 137 MCG TABLET PO SCH (05:47)
[2020-08-29 06:36] LABS: BUN Creatinine Ratio 22.3 (10-20); Calcium 8.9 mg/dl (8.5-10.1); Creatinine Clr Calc Pharmacy 26.8 ml/min; Est GFR (African American) 55.2; Est GFR (Non-African American) 47.6; Potassium 3.8 mmol/L (3.5-5.1)
[2020-08-29] MEDS: ALBUT/IPRATROP 3MG/0.5MG NEB 3 ML VIAL NEB PRN ×2 (07:19→16:19)
[2020-08-29] MEDS: MULTIVITAMIN TAB PO SCH (07:31)
[2020-08-29] MEDS: POTASSIUM CHLORIDE CRTAB 20 MEQ TABCR PO SCH (07:32)
[2020-08-29] MEDS: MAGNESIUM OXIDE 400 MG TAB PO SCH (07:32)
[2020-08-29] MEDS: cephALEXin 500 MG CAP PO SCH ×2 (07:32→20:16)
[2020-08-29] MEDS: ASPIRIN 81 MG ECTAB PO SCH ×2 (07:32→20:09)
[2020-08-29] MEDS: FLUTICASONE/VILANTEROL 200/25MCG 14 PUFFS/INHALER INH SCH (07:33)
[2020-08-29] MEDS ORDERED: BUMETANIDE 1 MG in SYRINGE 0 ML IV SCH (07:45)
[2020-08-29] MEDS: carvediloL 3.125 MG TAB PO SCH ×2 (08:43→20:05)
--- NOTE | 2020-08-29 09:36 | XRay Report ---
XR chest 2V PA/lateral CLINICAL HISTORY: CHF, effusions; eval size effusions COMPARISON STUDY: 08/24/2020 FINDINGS: The heart remains enlarged. There are bilateral pleural effusions left greater than right, slightly increased from the prior study. There are bibasilar opacity statistically atelectatic. There are multiple old rib deformities.[ IMPRESSION: 1. Cardiomegaly with increasing bilateral pleural effusions left greater than right 2. Bibasilar opacity statistically atelectatic. ACT 112: Negative or not required by law. Electronically signed by: Trenton Claros M.D. 08/29/2020 9:35 AM
[2020-08-29] MEDS: FUROSEMIDE 60 MG in SYRINGE 0 ML IV ONE ×2 (18:04→18:30)
--- NOTE | 2020-08-29 20:21 | Hospitalist Progress Note ---
Date of Service August 29, 2020 Assessment & Plan (1) Acute on chronic systolic heart failure: volume status improving. weight is down about 5kg. [id number] he continues with significant PAK and orthopnea. today - tried bumex this am followed by lasix 60mg x 1 this afternoon. if BUN and Cr are stable tomorrow am consider lasix 60mg iV x 2 doses. increase coreg to 6.25mg BID. titrate higher as tolerated (had been on 25mg BID as outpatient). hold SARAH for now. cxr today with ongoing effusions particularly on left. the left-sided effusion may need thoracentesis - see below. appreciate CHF clinic (Miesha Burgess) consultation. (2) Bilateral pleural effusion: large on CTA chest cxr today with ongoing effusions, L>R I spoke with Dr Amado from pulmonary earlier this week ideally patient is off plavix for 5 days before safely attempting thoracentesis last dose of plavix -- 08/26/20 thus earliest date for thoracentesis would be 08/31 continue IV diuresis in meantime (3) Shortness of breath: 2nd acute/chronic systolic CHF. mucous plugging may have contributed - seen on prior CTA chest. bigger component likely the CHF. still ongoing. of note - pt with 2 CTA chests this admission - 2nd CTA confirmed NO PE (4) Mucus plugging of bronchi: incentive olman nebs (5) Hypothyroidism: TSH WNL in July Continue levothyroxine 137 mcg p.o. daily w/o changes (6) CAD (coronary artery disease): Continue aspirin and carvedilol. hold plavix in the event he needs thoracentesis. statin intolerant/allergic. no evidence of ACS while here. (7) Hypertension: controlled (8) Ischemic cardiomyopathy: LVEF 20 to 25% on recent echocardiogram. Continue carvedilol Hold SARAH due to low-normal BPs (9) Severe protein-calorie malnutrition: cont MVI nutrition consult appreciated given his advanced age and advanced/severe CHF would not pursue work-up for this (10) Chronic kidney disease, stage IV (severe): baseline CrCL high 20s Cr again stable today despite diuresis repeat BMP in am (11) UTI (urinary tract infection): 08/19/20 urine culture (obtained at PCP's office) 2nd to e.coli cont keflex BID needs KENAN to r/o prostatitis to determine length of abx course (12) DVT prophylaxis: heparin 5000 BID PT, OT evals appreciated updated pt's sister by phone 08/28/20 Admission and Anticipated Discharge Date Admission Date: August 24, 2020 Subjective patient with similar complaints to yesterday - dyspnea on exertion (staff report significant dyspnea with just walking a few feet), orthopnea, PND no cough appetite fair no chest pain patient states he has been losing weight for about 6mo - unintentional Review of Systems Constitutional: + fatigue and + anorexia; no fever Respiratory: no cough Cardiovascular: no chest pain Physical Exam Constitutional: + thin; no acute distress and no altered mental status ENMT: external ear and nose normal, oropharynx normal Respiratory: no respiratory distress Auscultation: + diminished lung sounds (bases, L>R) and + crackles (bases - mild ); no wheezes airation much improved RLL Cardiovascular: Rate/Rhythm: regular rate and + irregularly irregular (extra beats) Heart Sounds: normal S1, normal S2 and + murmur (2/6 SANDRINE LSB) Vessels: posterior tibial pulses present and dorsalis pedis pulses present; no JVD Extremities: + edema (1+ b/l ) Gastrointestinal (Abdomen): normal bowel sounds, soft, nontender, no hepatosplenomegaly Psychiatric: A+Ox3, euthymic affect Results & Data Results & Data ([facility]) Vital Signs (Past 12 Hours) Vital Signs Temp Pulse Pulse Pulse Resp BP BP 08/29/20 19:36 36.5 C 88 18 114/79 08/29/20 16:19 90 18 08/29/20 15:02 36.6 C 111 H 18 120/71 08/29/20 11:35 36.4 C L 88 20 108/62 Pulse Ox 08/29/20 19:36 95 08/29/20 16:19 95 08/29/20 15:02 95 08/29/20 11:35 93 Laboratory Results Laboratory Results - last 24 hr 08/29/20 05:55 Sodium 138 Potassium 3.8 Chloride 101 Carbon Dioxide 34 H Anion Gap 4.0 BUN 30 H Creatinine 1.34 Est Cr Clr Drug Dosing 26.8 Est GFR ( Amer) 55.2 Est GFR (Non-Af Amer) 47.6 BUN/Creatinine Ratio 22.3 H Glucose 87 Calcium 8.9 PG Care Time/CCT Total # of Minutes Spent Total Time Spent with Patient: Total time spent is greater than 50% in coordination of care (as documented) at patient's floor/unit and/or counseling patient: Coding Level of Care Code 88391 Subseq Hosp Care Lvl 2 Diagnoses Acute on chronic systolic heart failure I50.23 Bilateral pleural effusion J90 Shortness of breath R06.02 Mucus plugging of bronchi T17.500A Hypothyroidism E03.9 Hypothyroidism type: unspecified CAD (coronary artery disease) I25.10 Hypertension I10 Hypertension type: unspecified Ischemic cardiomyopathy I25.5 Severe protein-calorie malnutrition E43 Chronic kidney disease, stage IV (severe) N18.4 UTI (urinary tract infection) N39.0 DVT prophylaxis Z29.9 (1) Hypothyroidism Hypothyroidism type: unspecified Qualified Code(s): E03.9 - Hypothyroidism, unspecified (2) Hypertension Hypertension type: unspecified Qualified Code(s): I10 - Essential (primary) hypertension
[2020-08-30] MEDS: LEVOTHYROXINE SODIUM 137 MCG TABLET PO SCH (06:16)
[2020-08-30 06:58] LABS: BUN Creatinine Ratio 21.7 (10-20); Calcium 8.5 mg/dl (8.5-10.1); Est GFR (African American) 53.3; Potassium 3.8 mmol/L (3.5-5.1)
[2020-08-30] MEDS: ALBUT/IPRATROP 3MG/0.5MG NEB 3 ML VIAL NEB PRN ×2 (07:26→14:33)
[2020-08-30] MEDS: carvediloL 6.25 MG TAB PO SCH ×2 (08:25→20:30)
[2020-08-30] MEDS: MULTIVITAMIN TAB PO SCH (08:26)
[2020-08-30] MEDS: POTASSIUM CHLORIDE CRTAB 20 MEQ TABCR PO SCH (08:26)
[2020-08-30] MEDS: MAGNESIUM OXIDE 400 MG TAB PO SCH (08:26)
[2020-08-30] MEDS: cephALEXin 500 MG CAP PO SCH (08:26)
[2020-08-30] MEDS: ASPIRIN 81 MG ECTAB PO SCH ×2 (08:26→20:28)
[2020-08-30] MEDS: FLUTICASONE/VILANTEROL 200/25MCG 14 PUFFS/INHALER INH SCH (08:27)
[2020-08-30] MEDS: HEPARIN SOD 5,000 UNIT/0.5 ML VIAL SQ SCH ×2 (08:27→20:29)
[2020-08-30] MEDS ORDERED: FUROSEMIDE 20 MG in SYRINGE 0 ML IV ONE (18:30)
--- NOTE | 2020-08-30 22:30 | Hospitalist Progress Note ---
Date of Service August 30, 2020 Assessment & Plan (1) Acute on chronic systolic heart failure: volume status improving. weight is down about 5kg. [id number] he continues with significant PAK and orthopnea. today - tried bumex this am followed by lasix 60mg x 1 this afternoon. Appears euvolemic, yobani monitor and hold diuretics for this AM and will reassess. In the evening ordered 20 mg of IV lasix. increase coreg to 6.25mg BID. titrate higher as tolerated (had been on 25mg BID as outpatient). hold SARAH for now. cxr today with ongoing effusions particularly on left. the left-sided effusion may need thoracentesis - see below. appreciate CHF clinic (Miesha Burgess) consultation. (2) Bilateral pleural effusion: large on CTA chest cxr today with ongoing effusions, L>R I spoke with Dr Amado from pulmonary earlier this week ideally patient is off plavix for 5 days before safely attempting thoracentesis last dose of plavix -- 08/26/20 thus earliest date for thoracentesis would be 08/31 continue IV diuresis in meantime (3) Shortness of breath: 2nd acute/chronic systolic CHF. mucous plugging may have contributed - seen on prior CTA chest. bigger component likely the CHF. still ongoing. of note - pt with 2 CTA chests this admission - 2nd CTA confirmed NO PE (4) Mucus plugging of bronchi: incentive olman nebs (5) Hypothyroidism: TSH WNL in July Continue levothyroxine 137 mcg p.o. daily w/o changes (6) CAD (coronary artery disease): Continue aspirin and carvedilol. hold plavix in the event he needs thoracentesis. statin intolerant/allergic. no evidence of ACS while here. (7) Hypertension: controlled (8) Ischemic cardiomyopathy: LVEF 20 to 25% on recent echocardiogram. Continue carvedilol Hold SARAH due to low-normal BPs (9) Severe protein-calorie malnutrition: cont MVI nutrition consult appreciated given his advanced age and advanced/severe CHF would not pursue work-up for this (10) Chronic kidney disease, stage IV (severe): baseline CrCL high 20s Cr again stable today despite diuresis repeat BMP in am (11) UTI (urinary tract infection): 08/19/20 urine culture (obtained at PCP's office) 2nd to e.coli cont keflex BID needs KENAN to r/o prostatitis to determine length of abx course (12) DVT prophylaxis: heparin 5000 BID PT, OT evals appreciated updated pt's sister by phone 08/28/20 Admission and Anticipated Discharge Date Admission Date: August 24, 2020 Subjective 84 yo male reports no new symptoms. Review of Systems Review of Systems: All systems reviewed & are unremarkable except as noted in HPI & below Physical Exam Physical Exam: Constitutional: + thin; no acute distress and no altered mental status ENMT: external ear and nose normal, oropharynx normal Respiratory: no respiratory distress Auscultation: + diminished lung sounds (bases, L>R) and + crackles (bases - mild ); no wheezes aspiration much improved RLL Cardiovascular: Rate/Rhythm: regular rate and + irregularly irregular (extra beats) Heart Sounds: normal S1, normal S2 and + murmur (2/6 SANDRINE LSB) Vessels: posterior tibial pulses present and dorsalis pedis pulses present; no JVD Extremities: + edema (1+ b/l ) Gastrointestinal (Abdomen): normal bowel sounds, soft, nontender, no hepatosplenomegaly Psychiatric: A+Ox3, euthymic affect Results & Data Results & Data ([facility]) Vital Signs (Past 12 Hours) Vital Signs Temp Pulse Pulse Pulse Pulse Resp BP 08/30/20 20:27 88 103/66 08/30/20 19:36 36.3 C L 112 H 20 08/30/20 18:19 85 106/69 08/30/20 15:55 100 H 08/30/20 15:33 36.3 C L 89 20 94/56 L 08/30/20 14:33 100 H 20 08/30/20 11:19 36.6 C 78 18 100/67 BP Pulse Ox 08/30/20 20:27 08/30/20 19:36 110/77 97 08/30/20 18:19 98 08/30/20 15:55 08/30/20 15:33 95 08/30/20 14:33 95 08/30/20 11:19 95 PG Care Time/CCT Total # of Minutes Spent Total Time Spent with Patient: Total time spent is greater than 50% in coordination of care (as documented) at patient's floor/unit and/or counseling patient: Coding Level of Care Code 74848 Subseq Hosp Care Lvl 2 Diagnoses Acute on chronic systolic heart failure I50.23 Bilateral pleural effusion J90 Shortness of breath R06.02 Mucus plugging of bronchi T17.500A Hypothyroidism E03.9 Hypothyroidism type: unspecified CAD (coronary artery disease) I25.10 Hypertension I10 Hypertension type: unspecified Ischemic cardiomyopathy I25.5 Severe protein-calorie malnutrition E43 Chronic kidney disease, stage IV (severe) N18.4 UTI (urinary tract infection) N39.0 DVT prophylaxis Z29.9 Time Spent (min) 25 (1) Hypothyroidism Hypothyroidism type: unspecified Qualified Code(s): E03.9 - Hypothyroidism, unspecified (2) Hypertension Hypertension type: unspecified Qualified Code(s): I10 - Essential (primary) hypertension
[2020-08-31] MEDS ORDERED: FUROSEMIDE 40 MG/4 ML VIAL IV ONE (05:10)
[2020-08-31] MEDS ORDERED: FUROSEMIDE 60 MG in SYRINGE 0 ML IV ONE (05:15)
[2020-08-31] MEDS: LEVOTHYROXINE SODIUM 137 MCG TABLET PO SCH (06:06)
[2020-08-31] MEDS: MAGNESIUM OXIDE 400 MG TAB PO SCH (07:34)
[2020-08-31] MEDS: POTASSIUM CHLORIDE CRTAB 20 MEQ TABCR PO SCH (07:35)
[2020-08-31] MEDS: carvediloL 6.25 MG TAB PO SCH ×2 (07:35→20:25)
[2020-08-31] MEDS: MULTIVITAMIN TAB PO SCH (07:36)
[2020-08-31] MEDS: ASPIRIN 81 MG ECTAB PO SCH ×2 (07:37→20:24)
[2020-08-31] MEDS: FLUTICASONE/VILANTEROL 200/25MCG 14 PUFFS/INHALER INH SCH (07:37)
[2020-08-31] MEDS: HEPARIN SOD 5,000 UNIT/0.5 ML VIAL SQ SCH ×2 (07:38→20:39)
[2020-08-31] MEDS: ALBUT/IPRATROP 3MG/0.5MG NEB 3 ML VIAL NEB PRN ×2 (07:50→14:21)
--- NOTE | 2020-08-31 08:58 | XRay Report ---
SINGLE VIEW CHEST CLINICAL HISTORY: Dyspnea. FINDINGS: An AP, portable, upright chest radiograph is compared to study dated 08/29/2020 and correlate d with chest CT dated 08/26/2020. The patient is status post midline sternotomy. The heart is enlarged noting atherosclerotic calcification of the thoracic aorta. The pulmonary vasculature is noncongested . There are layering pleural effusions with bibasilar consolidation. Chronic interstitial thickening is similar to previous. No pneumothorax is seen. The skeletal structures are osteopenic. There are he aled bilateral rib fractures. IMPRESSION: 1. Marked cardiomegaly without radiographic evidence of congestive failure. 2. There are layering pleural effusions with bibasilar consolidation. These have modestly increased a s compared to 08/29/2020. ACT 112: Negative or not required by law. Electronically signed by: Colten Lee M.D. 08/31/2020 8:57 AM
[2020-08-31 17:06] LABS: Basophils # (auto) 0.03 K/uL (0-0.2); Basophils % (auto) 0.5 %; Eosinophils # (auto) 0.21 K/uL (0-0.5); Eosinophils % (auto) 3.3 %; Hematocrit (blood only) 32.7 % (42-52); Hemoglobin 10.1 g/dL (14.0-18.0); Immature Granulocytes # (auto) 0.01 K/uL (0.00-0.02); Immature Granulocytes % (auto) 0.2 %; Lymphocytes # (auto) 0.58 K/uL (1.2-3.4); Mean Corpuscular Hemoglobin 29.4 pg (25-34); Mean Corpuscular Hgb Conc 30.9 g/dL (32-36); Mean Corpuscular Volume 95.1 fL (80-100); Mean Platelet Volume 10.7 fL (7.4-10.4); Monocytes # (auto) 0.42 K/uL (0.11-0.59); Monocytes % (auto) 6.5 %; Neutrophils % (auto) 80.5 %; Platelet Count 274 K/uL (130-400); RDW Coefficient of Variation 16.3 % (11.5-14.5); RDW Standard Deviation 56.6 fL (36.4-46.3); Red Blood Count 3.44 M/uL (4.7-6.1); White Blood Count 6.45 K/uL (4.8-10.8)
[2020-08-31 17:30] LABS: BUN Creatinine Ratio 21.9 (10-20); Blood Urea Nitrogen 31 mg/dl (7-18); Calcium 8.4 mg/dl (8.5-10.1); Carbon Dioxide 35 mmol/L (21-32); Chloride 100 mmol/L (98-107); Creatinine Clr Calc Pharmacy 25.5 ml/min; Est GFR (African American) 51.9; Est GFR (Non-African American) 44.8; Glucose 86 mg/dl (70-99); Sodium 140 mmol/L (136-145)
[2020-08-31 17:34] LABS: NT Pro B Type Natriuretic Pept > 35000 pg/ml (0-1800)
--- NOTE | 2020-08-31 22:06 | Hospitalist Progress Note ---
Date of Service August 31, 2020 Assessment & Plan (1) Acute on chronic systolic heart failure: volume status improving. weight is down about 5kg. [id number] he continues with significant PAK and orthopnea. Required lasix this AM. yobani likely repeat lasix in the evening. Rechecked blod work and his creatinine is bumping up. Continue coreg to 6.25mg BID. titrate higher as tolerated (had been on 25mg BID as outpatient). hold SARAH for now. cxr today with ongoing effusions particularly on left. the left-sided effusion may need thoracentesis - see below. appreciate CHF clinic (Miesha Burgess) consultation. (2) Bilateral pleural effusion: large on CTA chest cxr today with ongoing effusions, L>R I spoke with Dr Amado from pulmonary earlier this week ideally patient is off plavix for 5 days before safely attempting thoracentesis last dose of plavix -- 08/26/20 thus earliest date for thoracentesis would be Tuesday, 08/31 will likely perform on Tuesday. continue IV diuresis in meantime (3) Shortness of breath: 2nd acute/chronic systolic CHF. mucous plugging may have contributed - seen on prior CTA chest. bigger component likely the CHF. still ongoing. of note - pt with 2 CTA chests this admission - 2nd CTA confirmed NO PE (4) Mucus plugging of bronchi: incentive olman nebs (5) Hypothyroidism: TSH WNL in July Continue levothyroxine 137 mcg p.o. daily w/o changes (6) CAD (coronary artery disease): Continue aspirin and carvedilol. hold plavix in the event he needs thoracentesis. statin intolerant/allergic. no evidence of ACS while here. (7) Hypertension: controlled (8) Ischemic cardiomyopathy: LVEF 20 to 25% on recent echocardiogram. Continue carvedilol Hold SARAH due to low-normal BPs (9) Severe protein-calorie malnutrition: cont MVI nutrition consult appreciated given his advanced age and advanced/severe CHF would not pursue work-up for this (10) Chronic kidney disease, stage IV (severe): baseline CrCL high 20s Cr again stable today despite diuresis repeat BMP in am (11) UTI (urinary tract infection): 08/19/20 urine culture (obtained at PCP's office) 2nd to e.coli cont keflex BID needs KENAN to r/o prostatitis to determine length of abx course (12) DVT prophylaxis: heparin 5000 BID PT, OT evals appreciated updated pt's sister by phone 08/28/20 Admission and Anticipated Discharge Date Admission Date: August 24, 2020 Subjective Patient reports no new symptoms. He had SOB in the morning. Required lasix, but currently reports that he is breathing better. Review of Systems Review of Systems: All systems reviewed & are unremarkable except as noted in HPI & below Physical Exam Physical Exam: Constitutional: + thin; no acute distress and no altered mental status ENMT: external ear and nose normal, oropharynx normal Respiratory: no respiratory distress Auscultation: + diminished lung sounds (bases, L>R) and + crackles (bases - mild ); no wheezes aspiration much improved RLL Cardiovascular: Rate/Rhythm: regular rate and + irregularly irregular (extra beats) Heart Sounds: normal S1, normal S2 and + murmur (2/6 SANDRINE LSB) Vessels: posterior tibial pulses present and dorsalis pedis pulses present; no JVD Extremities: + edema (1+ b/l ) Gastrointestinal (Abdomen): normal bowel sounds, soft, nontender, no hepatosplenomegaly Psychiatric: A+Ox3, euthymic affect Results & Data Results & Data ([facility]) Vital Signs (Past 12 Hours) Vital Signs Temp Pulse Pulse Resp BP BP Pulse Ox 08/31/20 20:24 99 H 18 102/65 94 08/31/20 18:34 36.4 C L 87 16 93/60 L 98 08/31/20 15:54 36.4 C L 91 H 18 99/64 L 93 08/31/20 15:45 89 08/31/20 14:21 84 18 99 08/31/20 11:24 36.5 C 80 17 101/59 L 94 08/31/20 11:00 36.3 C L 83 16 94/59 L 93 PG Care Time/CCT Total # of Minutes Spent Total Time Spent with Patient: Total time spent is greater than 50% in coordination of care (as documented) at patient's floor/unit and/or counseling patient: Coding Level of Care Code 19613 Subseq Hosp Care Lvl 3 Diagnoses Acute on chronic systolic heart failure I50.23 Bilateral pleural effusion J90 Shortness of breath R06.02 Mucus plugging of bronchi T17.500A Hypothyroidism E03.9 Hypothyroidism type: unspecified CAD (coronary artery disease) I25.10 Hypertension I10 Hypertension type: unspecified Ischemic cardiomyopathy I25.5 Severe protein-calorie malnutrition E43 Chronic kidney disease, stage IV (severe) N18.4 UTI (urinary tract infection) N39.0 DVT prophylaxis Z29.9 Time Spent (min) 35 (1) Hypothyroidism Hypothyroidism type: unspecified Qualified Code(s): E03.9 - Hypothyroidism, unspecified (2) Hypertension Hypertension type: unspecified Qualified Code(s): I10 - Essential (primary) hypertension
[2020-09-01] MEDS: LEVOTHYROXINE SODIUM 137 MCG TABLET PO SCH (05:49)
[2020-09-01 07:05] LABS: Hematocrit (blood only) 33.2 % (42-52); Hemoglobin 10.2 g/dL (14.0-18.0); Mean Corpuscular Hemoglobin 29.4 pg (25-34); Mean Corpuscular Hgb Conc 30.7 g/dL (32-36); Mean Corpuscular Volume 95.7 fL (80-100); Mean Platelet Volume 10.7 fL (7.4-10.4); Platelet Count 273 K/uL (130-400); RDW Coefficient of Variation 16.5 % (11.5-14.5); RDW Standard Deviation 57.2 fL (36.4-46.3); Red Blood Count 3.47 M/uL (4.7-6.1); White Blood Count 5.61 K/uL (4.8-10.8)
[2020-09-01 07:32] LABS: BUN Creatinine Ratio 21.6 (10-20); Blood Urea Nitrogen 31 mg/dl (7-18); Calcium 8.4 mg/dl (8.5-10.1); Carbon Dioxide 36 mmol/L (21-32); Chloride 101 mmol/L (98-107); Creatinine Clr Calc Pharmacy 25.4 ml/min; Est GFR (African American) 51.5; Est GFR (Non-African American) 44.4; Glucose 84 mg/dl (70-99); Potassium 3.7 mmol/L (3.5-5.1); Sodium 141 mmol/L (136-145)
[2020-09-01 07:37] LABS: NT Pro B Type Natriuretic Pept > 35000 pg/ml (0-1800)
[2020-09-01] MEDS: carvediloL 6.25 MG TAB PO SCH ×2 (09:23→21:52)
[2020-09-01] MEDS: ASPIRIN 81 MG ECTAB PO SCH ×2 (09:24→20:17)
[2020-09-01] MEDS: MULTIVITAMIN TAB PO SCH (09:24)
[2020-09-01] MEDS: FLUTICASONE/VILANTEROL 200/25MCG 14 PUFFS/INHALER INH SCH (09:24)
[2020-09-01] MEDS: MAGNESIUM OXIDE 400 MG TAB PO SCH (09:24)
[2020-09-01] MEDS: POTASSIUM CHLORIDE CRTAB 20 MEQ TABCR PO SCH (09:24)
[2020-09-01] MEDS: HEPARIN SOD 5,000 UNIT/0.5 ML VIAL SQ SCH ×2 (09:28→20:18)
[2020-09-01] MEDS: ALBUT/IPRATROP 3MG/0.5MG NEB 3 ML VIAL NEB PRN (11:07)
--- NOTE | 2020-09-01 15:21 | Pulmonary Consultation ---
Date of Consultation September 01, 2020 Assessment & Plan (1) Acute respiratory failure with hypoxia: Chest x-ray 09/01/2020 personally reviewed: Portable film, bilateral costophrenic angles are blunted. Bilateral pleural effusion appreciated Increased cardiac silhouette --Bilateral pleural effusion Etiology is likely from systolic CHF Patient has been on diuretics but pleural effusion or not responding We will plan to do thoracentesis for symptomatic relief --Acute hypoxic respiratory failure Secondary to above Continue with O2 supplementation to keep oxygen saturations greater than 90% I would recommend patient to be on BiPAP as it will help with transmyocardial gradient increase in cardiac output Plan: We will perform thoracentesis today Risk and benefit of the procedure explained to the patient in depth Consent signed, witnessed and put in the chart Plavix has been held since last 5 days I will try to do thoracentesis on 1 side today. If the patient tolerates well and if he has significant improvement in his breathing will do the other side tomorrow BiPAP nightly and as needed shortness of breath Please note the above document was generated using voice recognition software. It may contain grammatical, syntax or spelling errors.Any formal questions or concerns about the content, text or information contained within the body of this dictation should be directly addressed to the provider for clarification. (2) Acute on chronic systolic heart failure: (3) Bilateral pleural effusion: (4) Shortness of breath: History of Present Illness Attending Physician: Win Phelan History of Present Illness 84-year-old with past medical history of systolic CHF EF 20-25%, hypothyroidism, asthma was admitted to the hospital on 08/24/2020 for shortness of breath getting progressively worse He has been on diuretics since then. But his pleural effusions were still not getting better and he was still significantly short of breath even on minimal exertion Pulmonary were consulted to take care of the pleural effusion At the time of examination patient was on oxygen. He is usually not on oxygen at home He denies any chest pain, no headache, no dizziness, no nausea, no vomiting. He did complain of significant shortness of breath with minimal exertion. It was evident of him using accessory muscles even when I asked him to sit up to listen to his lungs. Social history: Never smoker. 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 There is no family history of asthma Allergies Allergy/AdvReac Type Severity Reaction Status Date / Time atorvastatin Allergy Mild rash Verified 08/24/20 11:33 Sulfa (Sulfonamide Allergy Mild Rash Verified 08/24/20 11:33 Antibiotics) sulfamethoxazole Allergy Mild Rash Verified 08/24/20 11:33 theophylline Allergy Mild RASH Verified 08/24/20 11:33 trimethoprim Allergy Mild Rash Verified 08/24/20 11:33 Home Medications Medication Instructions Recorded Confirmed Type multivitamin 1 tab PO QAM 01/10/19 08/24/20 History carvedilol 25 mg tablet 25 mg PO BID #180 tab 10/24/19 08/24/20 Rx levothyroxine 137 mcg PO QAM 03/27/20 08/24/20 History lisinopril 5 mg PO QAM 03/27/20 08/24/20 History polyethylene glycol 3350 17 17 g PO DAILY PRN #510 g 04/02/20 08/24/20 Rx gram/dose oral powder Advair Diskus 250 mcg-50 mcg/dose 1 inh INH BID #180 ea NS 05/16/20 08/24/20 Rx powder for inhalation aspirin 81 mg PO BID #60 tab 06/18/20 08/24/20 Rx clopidogrel 75 mg PO QAM #30 tab 06/18/20 08/24/20 Rx ipratropium-albuterol 3 ml NEB Q4R PRN #15 ml 06/18/20 08/24/20 Rx oxycodone 5 mg PO Q4H PRN #10 tab 06/18/20 08/24/20 Rx furosemide 20 mg PO DAILY 08/24/20 08/24/20 History Patient History Medical History Anemia Aortic stenosis Asthma (12/25/12) CAD (coronary artery disease) Chronic systolic CHF (congestive heart failure) Constipated History of intestinal obstruction Hypercholesterolemia Hypertension Hypothyroidism (12/25/12) Ischemic cardiomyopathy EF 20-25% Surgical History Cataract Hx of CABG Family History Mother Hypertension Sister Hyperlipemia Other Coronary heart disease Dementia Heart disease Myocardial infarction Denies family history of Ovarian cancer Prostate cancer Breast cancer Colorectal cancer Social History Smoking Status: Never smoker Second Hand Exposure: No; Do You Dip or Chew Tobacco: No; Hx Alcohol Use: Yes Alcohol type: beer and wine Hx Substance Use: No Preferred Language: Welsh Communication Ability: Effective Visual Impairment: No Limitations Hearing Ability: Normal In House Cra Required: No Beliefs That Will Affect Care: None marital status: Current Living Situation: Personal Care Facility current occupational status: retired Other Information That Helps Us Care for You: No Feels Safe at Home: Yes Childhood Exposure to Second-Hand Smoke: No Dental Care, Regularly: Yes Seatbelt Use: always Sunscreen Use: No Assistive Devices: Glasses, Oxygen - at Night and Walker Review of Systems Review of Systems: All systems reviewed & are unremarkable except as noted in HPI & below Physical Exam Physical Exam: Constitutional: No acute distress, frail-appearing HEENT: EOMI, PERRLA Respiratory system: Decreased air entry bilaterally, no wheeze, no rhonchi, positive crackles bilateral lower lobes CVS: S1-S2 positive, no murmurs or gallops, distant heart sounds Abdomen: Soft, nontender, nondistended, positive bowel sounds x4 Extremities: +2 pulses bilaterally radialis/ dorsalis pedis, no cyanosis, +2 pitting edema bilateral lower extremity, cool extremities Neuro: Awake alert oriented x3 Psych: Normal mood and affect G/U: No Salazar Skin: no rashes, warm and dry Lymphatic: no cervical or axillary lymphadenopathy Results & Data Results & Data ([facility]) Vital Signs (Past 12 Hours) Vital Signs Temp Pulse Pulse Pulse Resp BP BP 09/01/20 14:51 36.2 C L 85 16 94/60 L 09/01/20 14:12 09/01/20 11:07 94 H 20 09/01/20 11:00 36.5 C 91 H 92/65 L 09/01/20 07:46 81 09/01/20 06:47 36.4 C L 99 H 16 107/66 Pulse Ox 09/01/20 14:51 100 09/01/20 14:12 99 09/01/20 11:07 92 09/01/20 11:00 100 09/01/20 07:46 09/01/20 06:47 93 09/01/20 06:43 05/10/21 06:43 PG Care Time/CCT Total # of Minutes Spent Total Time Spent with Patient: Total time spent is greater than 50% in coordination of care (as documented) at patient's floor/unit and/or counseling patient: Coding Level of Care Code 51827 Initial Inpt Care Lvl 3 Diagnoses Acute respiratory failure with hypoxia J96.01 Acute on chronic systolic heart failure I50.23 Bilateral pleural effusion J90 Shortness of breath R06.02
--- NOTE | 2020-09-01 16:23 | Procedure Note ---
Procedure Note Date of Service September 01, 2020 Procedure: Diagnostic therapeutic ultrasound-guided catheter thoracentesis Sales Designer: Dr. Maninder Fernández Indication: Pleural effusion Consent: Signed by patient and verified with timeout prior to procedure Anesthesia: 1% lidocaine without epinephrine local. Procedure: Consent was verified and timeout performed. Appropriate imaging studies were reviewed prior to the procedure. Patient was placed in a seated position and limited thoracic ultrasound was performed of the left chest. See separate imaging. Appropriate site above the diaphragm for thoracentesis was selected. The skin was prepped and draped in normal sterile fashion. Lidocaine was used for local analgesia. Fluid was aspirated via the finder needle. A small skin leah was made with the scalpel and the catheter over the needle apparatus was advanced over the rib into the pleural space. Using the syringe one-way valve system, a total of 950 mL's of serous fluid was removed. The catheter was removed and observed to be intact. A sterile dressing was applied. Post procedure chest x-ray was ordered. Good lung sliding was appreciated postprocedure on the ultrasound. Fluid was sent for labs, culture and cytology. Complications: None Blood loss: None Coding CPT Codes Pulmonary/Thoracic - Pulmonary and Thoracic: 25283 Thoracentesis w imaging ([id number]) [facility] [place] ([place]) Pulmonary/Thoracic Procedure 1: Pulmonary and Thoracic: 87142 Thoracentesis w imaging
--- NOTE | 2020-09-01 16:50 | XRay Report ---
XR chest 1V portable CLINICAL HISTORY: S/P Thoracentesis COMPARISON STUDY: Chest radiograph August 31, 2020. FINDINGS: Cardiomegaly is noted. Interstitial thickening has slightly improved. There is no pneumotho rax. Left pleural effusion has decreased in size. A right pleural effusion is again noted. IMPRESSION: 1. No pneumothorax. 2. Significant decrease in size of the left pleural effusion. 3. Cardiomegaly. Slight decrease in pulmonary edema. ACT 112: Negative or not required by law. Electronically signed by: Smith Crisostomo M.D. 09/01/2020 4:49 PM
[2020-09-01 17:09] LABS: Glucose Pleural Fluid 106 mg/dl
[2020-09-01 17:11] LABS: Bilirubin,Total 0.4 mg/dl (0.2-1); Total Protein 6.3 gm/dl (6.4-8.2)
[2020-09-01 17:15] LABS: Amylase Pleural Fluid 38 U/L; LDH Pleural Fluid 64 U/L; Total Protein Pleural Fluid 2.6 g/dl
[2020-09-01 17:21] LABS: Appearance Pleural Fluid CLEAR; Basophils, Fluid 0 %; Color Pleural Fluid PALE YELLOW; Eosinophils, Fluid 0 %; Lymphocytes, Fluid 52 %; Mono,Macrophage,Mesothelial 23 %; Neutrophils, Fluid 25 %; RBC Pleural Fluid (A) < 3000 /uL; Source Pleural Fluid LEFT LUNG; WBC Pleural Fluid (A) 506 /uL
--- NOTE | 2020-09-01 22:06 | Hospitalist Progress Note ---
Date of Service September 01, 2020 Assessment & Plan (1) Acute on chronic systolic heart failure: volume status improving. weight is down about 5kg. [id number] he continues with significant PAK and orthopnea. Required lasix this AM. yobani likely repeat lasix in the evening. Rechecked blod work and his creatinine is bumping up. Continue coreg to 6.25mg BID. titrate higher as tolerated (had been on 25mg BID as outpatient). hold SARAH for now. cxr today with ongoing effusions particularly on left. the left-sided effusion may need thoracentesis - see below. appreciate CHF clinic ([facility]) consultation. (2) Bilateral pleural effusion: large on CTA chest cxr today with ongoing effusions, L>R I spoke with Dr Amado from pulmonary earlier this week ideally patient is off plavix for 5 days before safely attempting thoracentesis last dose of plavix -- 08/26/20 Had thoracocenthesis today. Will do contralateral side on Tuesday. (3) Shortness of breath: 2nd acute/chronic systolic CHF. mucous plugging may have contributed - seen on prior CTA chest. bigger component likely the CHF. still ongoing. of note - pt with 2 CTA chests this admission - 2nd CTA confirmed NO PE (4) Mucus plugging of bronchi: incentive olman nebs (5) Hypothyroidism: TSH WNL in July Continue levothyroxine 137 mcg p.o. daily w/o changes (6) CAD (coronary artery disease): Continue aspirin and carvedilol. hold plavix in the event he needs thoracentesis. statin intolerant/allergic. no evidence of ACS while here. (7) Hypertension: controlled (8) Ischemic cardiomyopathy: LVEF 20 to 25% on recent echocardiogram. Continue carvedilol Hold SARAH due to low-normal BPs (9) Severe protein-calorie malnutrition: cont MVI nutrition consult appreciated given his advanced age and advanced/severe CHF would not pursue work-up for this (10) Chronic kidney disease, stage IV (severe): baseline CrCL high 20s Cr again stable today despite diuresis repeat BMP in am (11) UTI (urinary tract infection): 08/19/20 urine culture (obtained at PCP's office) 2nd to e.coli cont keflex BID needs KENAN to r/o prostatitis to determine length of abx course (12) DVT prophylaxis: heparin 5000 BID PT, OT evals appreciated updated pt's sister by phone 08/28/20 Admission and Anticipated Discharge Date Admission Date: August 24, 2020 Subjective 84 yo male reports feeling better after thoracocenthesis. Review of Systems Review of Systems: All systems reviewed & are unremarkable except as noted in HPI & below Physical Exam Physical Exam: Constitutional: + thin; no acute distress and no altered mental status ENMT: external ear and nose normal, oropharynx normal Respiratory: no respiratory distress Auscultation: + diminished lung sounds (bases, L>R) and + crackles (bases - mild ); no wheezes aspiration much improved RLL Cardiovascular: Rate/Rhythm: regular rate and + irregularly irregular (extra beats) Heart Sounds: normal S1, normal S2 and + murmur (2/6 SANDRINE LSB) Vessels: posterior tibial pulses present and dorsalis pedis pulses present; no JVD Extremities: + edema (1+ b/l ) Gastrointestinal (Abdomen): normal bowel sounds, soft, nontender, no hepatosplenomegaly Psychiatric: A+Ox3, euthymic affect Results & Data Results & Data ([facility]) Vital Signs (Past 12 Hours) Vital Signs Temp Pulse Pulse Pulse Resp BP Pulse Ox 09/01/20 20:13 103 H 90/58 L 09/01/20 19:43 36.5 C 90 20 91/60 L 99 09/01/20 16:00 93 H 09/01/20 14:51 36.2 C L 85 16 94/60 L 100 09/01/20 14:12 99 09/01/20 11:07 94 H 20 92 09/01/20 11:00 36.5 C 91 H 92/65 L 100 PG Care Time/CCT Total # of Minutes Spent Total Time Spent with Patient: Total time spent is greater than 50% in coordination of care (as documented) at patient's floor/unit and/or counseling patient: Coding Level of Care Code 44086 Subseq Hosp Care Lvl 2 Diagnoses Acute on chronic systolic heart failure I50.23 Bilateral pleural effusion J90 Shortness of breath R06.02 Mucus plugging of bronchi T17.500A Hypothyroidism E03.9 Hypothyroidism type: unspecified CAD (coronary artery disease) I25.10 Hypertension I10 Hypertension type: unspecified Ischemic cardiomyopathy I25.5 Severe protein-calorie malnutrition E43 Chronic kidney disease, stage IV (severe) N18.4 UTI (urinary tract infection) N39.0 DVT prophylaxis Z29.9 Time Spent (min) 25 (1) Hypothyroidism Hypothyroidism type: unspecified Qualified Code(s): E03.9 - Hypothyroidism, unspecified (2) Hypertension Hypertension type: unspecified Qualified Code(s): I10 - Essential (primary) hypertension
[2020-09-02] MEDS: LEVOTHYROXINE SODIUM 137 MCG TABLET PO SCH (06:15)
[2020-09-02] MEDS: FLUTICASONE/VILANTEROL 200/25MCG 14 PUFFS/INHALER INH SCH (09:04)
[2020-09-02] MEDS: MULTIVITAMIN TAB PO SCH (09:04)
[2020-09-02] MEDS: carvediloL 6.25 MG TAB PO SCH ×2 (09:04→20:30)
[2020-09-02] MEDS: MAGNESIUM OXIDE 400 MG TAB PO SCH (09:04)
[2020-09-02] MEDS: POTASSIUM CHLORIDE CRTAB 20 MEQ TABCR PO SCH (09:04)
[2020-09-02] MEDS: ASPIRIN 81 MG ECTAB PO SCH ×2 (09:04→20:29)
[2020-09-02] MEDS: HEPARIN SOD 5,000 UNIT/0.5 ML VIAL SQ SCH ×2 (09:06→20:30)
--- NOTE | 2020-09-02 12:25 | Palliative Care Consultation ---
Date of Consultation September 02, 2020 Assessment & Plan (1) Palliative care encounter: I spoke with Jose at bedside. He is concerned about having been away from his home for so long and is anxious to return home. He has a sister who is watching his house. We talked about his need for support and additional care at discharge and he tells me that he is considering hiring caregivers. He has support from his sister and brother in law but doesn't have other family in the area for support. We talked about his goals of care. He confirms that he would not want CPR or intubation. He would not want "heroic measures". He says that he is ready to and is very much looking forward to being with his again. His focus is really on managing symptoms and trying to remain at home until his . We talked about hospice care. He is familiar with this because his had hospice care prior to her and he would be agreeable to that for extra support and being able to remain at home. He tells me that he would not be surprised if he within the next six months. He tells me that his daughter, Estella, is his power of claim attorney and would be his surrogate decision maker. I spoke to his sister, Camelia, who is listed as primary contact. She tells me that the family is concerned about him being at home and they would prefer for him to stay at [facility] where he can get 24 hour care. She gave me the phone number for his daughter, Estella Matt, and I spoke to her at [phone]. She also is concerned about him being at home and would prefer he return to [facility]. We discussed the possibility of hiring caregivers at home and having hospice support. They would be agreeable to hospice but still prefer SNF rather than home. Will discuss further with Jose and coordinate with case management. (2) Acute respiratory failure with hypoxia: (3) Acute on chronic systolic heart failure: (4) Chronic kidney disease, stage IV (severe): (5) Bilateral pleural effusion: (6) Severe protein-calorie malnutrition: (7) Cardiomyopathy: (8) CAD (coronary artery disease): History of Present Illness Reason for Consultation: goals of care Requesting Physician: Dr. Phelan Attending Physician: Win Phelan History of Present Illness 84 yo gentleman with a history of NSTEMI and HFrEF with EF of 20-25%. He had been living independently at home after the of his seven years ago until he sustained a right tibial plateau fracture in May. He went to [facility] on discharge and subsequently to [facility]. He was admitted with shortness of breath and orthopnea and found to have a BNP greater than 35,000 and bilateral pleural effusions. He has a history of asthma and has also been treated for asthma exacerbation. He had thoracentesis with removal of 950 cc on the right yesterday. He has noticed an improvement in his breathing. He is not on O2. He is able to ambulate around the room with his walker. Allergies Allergy/AdvReac Type Severity Reaction Status Date / Time atorvastatin Allergy Mild rash Verified 08/24/20 11:33 Sulfa (Sulfonamide Allergy Mild Rash Verified 08/24/20 11:33 Antibiotics) sulfamethoxazole Allergy Mild Rash Verified 08/24/20 11:33 theophylline Allergy Mild RASH Verified 08/24/20 11:33 trimethoprim Allergy Mild Rash Verified 08/24/20 11:33 Home Medications Medication Instructions Recorded Confirmed Type multivitamin 1 tab PO QAM 01/10/19 08/24/20 History carvedilol 25 mg tablet 25 mg PO BID #180 tab 10/24/19 08/24/20 Rx levothyroxine 137 mcg PO QAM 03/27/20 08/24/20 History lisinopril 5 mg PO QAM 03/27/20 08/24/20 History polyethylene glycol 3350 17 17 g PO DAILY PRN #510 g 04/02/20 08/24/20 Rx gram/dose oral powder Advair Diskus 250 mcg-50 mcg/dose 1 inh INH BID #180 ea NS 05/16/20 08/24/20 Rx powder for inhalation aspirin 81 mg PO BID #60 tab 06/18/20 08/24/20 Rx clopidogrel 75 mg PO QAM #30 tab 06/18/20 08/24/20 Rx ipratropium-albuterol 3 ml NEB Q4R PRN #15 ml 06/18/20 08/24/20 Rx oxycodone 5 mg PO Q4H PRN #10 tab 06/18/20 08/24/20 Rx furosemide 20 mg PO DAILY 08/24/20 08/24/20 History Patient History Medical History Anemia Aortic stenosis Asthma (12/25/12) CAD (coronary artery disease) Chronic systolic CHF (congestive heart failure) Constipated History of intestinal obstruction Hypercholesterolemia Hypertension Hypothyroidism (12/25/12) Ischemic cardiomyopathy EF 20-25% Surgical History Cataract Hx of CABG Family History Mother Hypertension Sister Hyperlipemia Other Coronary heart disease Dementia Heart disease Myocardial infarction Denies family history of Ovarian cancer Prostate cancer Breast cancer Colorectal cancer Social History Smoking Status: Never smoker Second Hand Exposure: No; Do You Dip or Chew Tobacco: No; Hx Alcohol Use: Yes Alcohol type: beer and wine Hx Substance Use: No Preferred Language: Tongan Communication Ability: Effective Visual Impairment: No Limitations Hearing Ability: Normal Rum Processing Operator Required: No Beliefs That Will Affect Care: None marital status: Current Living Situation: Personal Care Facility current occupational status: retired Other Information That Helps Us Care for You: No Feels Safe at Home: Yes Childhood Exposure to Second-Hand Smoke: No Dental Care, Regularly: Yes Seatbelt Use: always Sunscreen Use: No Assistive Devices: Glasses, Oxygen - at Night and Walker Review of Systems Review of Systems: [place] Symptom Assessment Scale Pain 0/3 Dyspnea 0/3 Anxiety 1/3 Fatigue 1/3 Nausea 0/3 Drowsiness 0/3 Palliative Performance Score 50% Physical Exam Constitutional: + thin and + frail appearing; no acute distress ENMT: Mouth: + dry oral mucous membranes Respiratory: normal respiratory effort; no labored breathing and does not use accessory muscles Cardiovascular: Extremities: no edema Gastrointestinal (Abdomen): Inspection/Auscultation: abdomen not distended Musculoskeletal: Extremities: + muscle atrophy Neurologic: awake; not confused Results & Data ([facility]) Vital Signs (Past 12 Hours) Vital Signs Temp Pulse Pulse Resp BP Pulse Ox 09/02/20 11:34 97.3 F L 84 20 95/64 L 94 09/02/20 08:05 97.9 F 93 H 20 103/67 92 09/02/20 07:51 85 05/11/21 04:24 97.7 F 85 18 81/50 L 91 PG Care Time/CCT Total # of Minutes Spent Total Time Spent with Patient: Total time spent is greater than 50% in coordination of care (as documented) at patient's floor/unit and/or counseling patient: total time spent 90 minutes with more than 50% of time spent on goals of care, hospice, prognosis, family update and support. Coding Level of Care Code 32045 Inpt Consult Level 4 Diagnoses Palliative care encounter Z51.5 Acute respiratory failure with hypoxia J96.01 Acute on chronic systolic heart failure I50.23 Chronic kidney disease, stage IV (severe) N18.4 Bilateral pleural effusion J90 Severe protein-calorie malnutrition E43 Cardiomyopathy I42.9 CAD (coronary artery disease) I25.10 Time Spent (min) 90
--- NOTE | 2020-09-02 14:02 | Pulmonology Progress Note ---
Date of Service September 02, 2020 Assessment & Plan (1) Acute respiratory failure with hypoxia: Chest x-ray 09/01/2020 personally reviewed: Portable film, bilateral costophrenic angles are blunted. Bilateral pleural effusion appreciated Increased cardiac silhouette --Bilateral pleural effusion Etiology is likely from systolic CHF Patient has been on diuretics but pleural effusion or not responding Left-sided thoracentesis 09/01/2020, transudate if as per lights criteria Cytology negative for malignancy Pleural fluid: LDH 64, protein 2.6, glucose 106, pH 7.43 Serum: LDH 199, protein 6.3 --Acute hypoxic respiratory failure Secondary to above Continue with O2 supplementation to keep oxygen saturations greater than 90% I would recommend patient to be on BiPAP as it will help with transmyocardial gradient increase in cardiac output Plan: Plan to have thoracentesis on the right side today. Risk and benefit explained to the patient again in depth. Consent was already signed yesterday. Please note the above document was generated using voice recognition software. It may contain grammatical, syntax or spelling errors.Any formal questions or concerns about the content, text or information contained within the body of this dictation should be directly addressed to the provider for clarification. (2) Acute on chronic systolic heart failure: (3) Bilateral pleural effusion: (4) Shortness of breath: Admission and Anticipated Discharge Date Admission Date: August 24, 2020 Subjective Patient seen and examined at bedside. No acute distress Still complains of shortness of breath on minimal exertion. He did state that he felt better after thoracentesis on the left side than yesterday. He wants me to do thoracentesis on the right side today. Denies any chest pain, no headache, no nausea, no vomiting Review of Systems Review of Systems: All systems reviewed & are unremarkable except as noted in Subjective Physical Exam Physical Exam: Constitutional: No acute distress, frail-appearing HEENT: EOMI, PERRLA Respiratory system: Decreased air entry bilaterally, no wheeze, no rhonchi, positive crackles bilateral lower lobes CVS: S1-S2 positive, no murmurs or gallops, distant heart sounds Abdomen: Soft, nontender, nondistended, positive bowel sounds x4 Extremities: +2 pulses bilaterally radialis/ dorsalis pedis, no cyanosis, +2 pitting edema bilateral lower extremity, cool extremities Neuro: Awake alert oriented x3 Psych: Normal mood and affect G/U: No Salazar Skin: no rashes, warm and dry Lymphatic: no cervical or axillary lymphadenopathy Results & Data Results & Data ([facility]) Vital Signs (Past 12 Hours) Vital Signs Temp Pulse Pulse Resp BP Pulse Ox 09/02/20 11:34 36.3 C L 84 20 95/64 L 94 09/02/20 08:05 36.6 C 93 H 20 103/67 92 09/02/20 07:51 85 09/02/20 04:24 36.5 C 85 18 81/50 L 91 09/01/20 06:43 09/01/20 06:43 PG Care Time/CCT Total # of Minutes Spent Total Time Spent with Patient: Total time spent is greater than 50% in coordination of care (as documented) at patient's floor/unit and/or counseling patient: Coding Level of Care Code 78838 Subseq Hosp Care Lvl 3 Diagnoses Acute respiratory failure with hypoxia J96.01 Acute on chronic systolic heart failure I50.23 Bilateral pleural effusion J90 Shortness of breath R06.02
--- NOTE | 2020-09-02 15:17 | Procedure Note ---
Procedure Note Date of Service September 02, 2020 Procedure: Diagnostic therapeutic ultrasound-guided catheter thoracentesis Take Away Worker: Dr. Maninder Fernández Indication: Pleural effusion Consent: Signed by patient and verified with timeout prior to procedure Anesthesia: 1% lidocaine without epinephrine local. Procedure: Consent was verified and timeout performed. Appropriate imaging studies were reviewed prior to the procedure. Patient was placed in a seated position and limited thoracic ultrasound was performed of the right chest. See separate imaging. Appropriate site above the diaphragm for thoracentesis was selected. The skin was prepped and draped in normal sterile fashion. Lidocaine was used for local analgesia. Fluid was aspirated via the finder needle. A small skin leah was made with the scalpel and the catheter over the needle apparatus was advanced over the rib into the pleural space. Using the syringe one-way valve system, a total of 600 mL's of serosanguineous fluid was removed. The catheter was removed and observed to be intact. A sterile dressing was applied. Post procedure chest x-ray was ordered. Good lung sliding was appreciated postprocedure on the ultrasound. Fluid was sent for labs, culture and cytology. Complications: None Blood loss: None Coding CPT Codes Pulmonary/Thoracic - Pulmonary and Thoracic: 68617 Thoracentesis w imaging ([id number]) [facility] Procedure Codes (Charges) Pulmonary/Thoracic Procedure 1: Pulmonary and Thoracic: 11890 Thoracentesis w imaging
[2020-09-02 15:44] LABS: Glucose Pleural Fluid 105 mg/dl
[2020-09-02 15:49] LABS: Amylase Pleural Fluid 20 U/L; LDH Pleural Fluid 71 U/L; Total Protein Pleural Fluid 2.4 g/dl
[2020-09-02 15:50] LABS: Appearance Pleural Fluid HAZY; Color Pleural Fluid AMBER; RBC Pleural Fluid (A) 5000 /uL; Source Pleural Fluid RIGHT LUNG; WBC Pleural Fluid (A) 456 /uL
--- NOTE | 2020-09-02 15:54 | XRay Report ---
XR chest 1V portable HISTORY: 84 years-old Male S/P Thoracentesis follow-up study in a patient with pleural effusions COMPARISON: Chest radiograph 09/01/2020 TECHNIQUE: Portable upright AP view of the chest FINDINGS: Cardiac silhouette is enlarged. Sternotomy wires are noted. Surgical clips project over the mediastin um. Trace pleural effusions have decreased in size from comparison. There is improved aeration of the lung bases with mild persistent left lung base opacities. No pneumothorax. Degenerative changes of t he shoulders and spine. Healed chronic right-sided rib fractures. IMPRESSION: 1. Trace pleural effusions have decreased in size in the interval. 2. No pneumothorax. ACT 112: Negative or not required by law. The above report was generated using voice recognition software. It may contain grammatical, syntax o r spelling errors. Electronically signed by: Lencho Hansen M.D. 09/02/2020 3:52 PM
[2020-09-02 16:12] LABS: Eosinophils, Fluid 0 %; Lymphocytes, Fluid 64 %; Mono,Macrophage,Mesothelial 27 %; Neutrophils, Fluid 9 %
[2020-09-02 16:16] LABS: Albumin Level 2.7 gm/dl (3.4-5.0); Bilirubin,Total 0.5 mg/dl (0.2-1); Total Protein 6.3 gm/dl (6.4-8.2)
--- NOTE | 2020-09-02 16:34 | Heart Failure Progress Note ---
Date of Service September 02, 2020 Assessment & Plan (1) Bilateral pleural effusion: (2) Cardiomyopathy: (3) Chronic kidney disease, stage IV (severe): Patient appears near euvolemic on exam. He continues to report shortness of breath with activity. Suspect this is partially restrictive due to his kyphosis now with pleural effusions. This has improved since yesterday's procedure. He is looking forward to having the right side done later today. He has not had any diuretic or labs today. Check BMP tomorrow, if stable, would recommend resuming home dose of Lasix 20 mg daily. Continue guideline directed medical therapy- Carvedilol dose lowered to 6.25 due to hypotension. He remains hypotensive, will likely be unable to titrate. Previously considering transition of Lisinopril to Entresto. Lisinopril is currently being held. Patient is currently at [facility], anticipate return there at discharge. Would recommend continued close monitoring of weight and volume status. Patient met with palliative care today- prefers a conservative approach, likely considering discharge back to [facility] with hospice. Disposition: Anticipate close follow up with the heart failure program. If patient decides to discharge on hospice, will defer HF management to the hospice team. Admission and Anticipated Discharge Date Admission Date: August 24, 2020 Subjective Patient reports feeling improved s/p L thoracentesis yesterday. He is sitting at the bedside. He appears to be more alert and more comfortable today. He is ambulating to the bathroom with less dyspnea. He is not requiring supplemental O2. He slept well with his head slightly elevated. Physical Exam Physical Exam: The patient is alert and oriented. Frail. Mood and affect appeared normal. He answered all questions appropriately. HEENT: Pupils are equal and reactive to light and accommodation. Extraocular movements are intact. The sclerae are anicteric. Neuro: Cranial nerves intact Spine: Kyphosis Lungs: Normal respiratory effort. Decreased breath sounds at the bases. Cardiac: Heart demonstrates a regular rate and rhythm. Normal S1 and S2. Soft systolic ejection murmur Pulses: The patient has palpable radial pulses bilaterally that are equal in intensity Extremities: There was no evidence of hypoperfusion. There is no cyanosis or clubbing. `1+ right lower extremity edema, trace-1+ on the left Skin: No rashes or lesions. Results & Data ([facility]) Vital Signs (Past 12 Hours) Vital Signs Temp Pulse Pulse Resp BP Pulse Ox 09/02/20 11:34 97.3 F L 84 20 95/64 L 94 09/02/20 08:05 97.9 F 93 H 20 103/67 92 09/02/20 07:51 85 09/02/20 04:24 97.7 F 85 18 81/50 L 91 PG Care Time/CCT Total # of Minutes Spent Total Time Spent with Patient: Total time spent is greater than 50% in coordination of care (as documented) at patient's floor/unit and/or counseling patient: Coding Level of Care Code 08320 Subseq Hosp Care Lvl 3 Diagnoses Bilateral pleural effusion J90 Cardiomyopathy I42.9 Chronic kidney disease, stage IV (severe) N18.4
--- NOTE | 2020-09-02 22:50 | Hospitalist Progress Note ---
Date of Service September 02, 2020 Assessment & Plan (1) Acute on chronic systolic heart failure: volume status improving. weight is down about 5kg. [id number] he continues with significant PAK and orthopnea. Held lasix today. S/P thoracocenthesis for 2 days. Rechecked blod work and his creatinine is bumping up. Continue coreg to 6.25mg BID. titrate higher as tolerated (had been on 25mg BID as outpatient). hold SARAH for now. appreciate CHF clinic ([facility]) consultation. (2) Bilateral pleural effusion: large on CTA chest cxr today with ongoing effusions, L>R I spoke with Dr Amado from pulmonary earlier this week ideally patient is off plavix for 5 days before safely attempting thoracentesis last dose of plavix -- 08/26/20 S/P thoracocenthesis B/L on 09/01 and 09/02 (3) Shortness of breath: 2nd acute/chronic systolic CHF. mucous plugging may have contributed - seen on prior CTA chest. bigger component likely the CHF. still ongoing. of note - pt with 2 CTA chests this admission - 2nd CTA confirmed NO PE (4) Mucus plugging of bronchi: incentive olman nebs (5) Hypothyroidism: TSH WNL in July Continue levothyroxine 137 mcg p.o. daily w/o changes (6) CAD (coronary artery disease): Continue aspirin and carvedilol. hold plavix in the event he needs thoracentesis. statin intolerant/allergic. no evidence of ACS while here. (7) Hypertension: controlled (8) Ischemic cardiomyopathy: LVEF 20 to 25% on recent echocardiogram. Continue carvedilol Hold SARAH due to low-normal BPs (9) Severe protein-calorie malnutrition: cont MVI nutrition consult appreciated given his advanced age and advanced/severe CHF would not pursue work-up for this (10) Chronic kidney disease, stage IV (severe): baseline CrCL high 20s Cr again stable today despite diuresis repeat BMP in am (11) UTI (urinary tract infection): 08/19/20 urine culture (obtained at PCP's office) 2nd to e.coli cont keflex BID needs KENAN to r/o prostatitis to determine length of abx course (12) DVT prophylaxis: heparin 5000 BID PT, OT evals appreciated updated pt's sister by phone 08/28/20 Admission and Anticipated Discharge Date Admission Date: August 24, 2020 Subjective Patient reports no new symptoms. Feeling better after thoracocenthesis He reports he wants to live at home due to not liking the accommodations at [facility] Review of Systems Review of Systems: All systems reviewed & are unremarkable except as noted in HPI & below Physical Exam Physical Exam: Constitutional: + thin; no acute distress and no altered mental status ENMT: external ear and nose normal, oropharynx normal Respiratory: no respiratory distress Auscultation: + crackles (bases - mild ); no wheezes aspiration much improved RLL Cardiovascular: Rate/Rhythm: regular rate and + irregularly irregular (extra beats) Heart Sounds: normal S1, normal S2 and + murmur (2/6 SANDRINE LSB) Vessels: posterior tibial pulses present and dorsalis pedis pulses present; no JVD Extremities: + edema (1+ b/l ) Gastrointestinal (Abdomen): normal bowel sounds, soft, nontender, no hepatosplenomegaly Psychiatric: A+Ox3, euthymic affect Results & Data Results & Data ([facility]) Vital Signs (Past 12 Hours) Vital Signs Temp Pulse Resp BP Pulse Ox 09/02/20 19:34 36.7 C 77 20 105/55 L 92 09/02/20 11:34 36.3 C L 84 20 95/64 L 94 PG Care Time/CCT Total # of Minutes Spent Total Time Spent with Patient: Total time spent is greater than 50% in coordination of care (as documented) at patient's floor/unit and/or counseling patient: Coding Level of Care Code 40956 Subseq Hosp Care Lvl 2 Diagnoses Acute on chronic systolic heart failure I50.23 Bilateral pleural effusion J90 Shortness of breath R06.02 Mucus plugging of bronchi T17.500A Hypothyroidism E03.9 Hypothyroidism type: unspecified CAD (coronary artery disease) I25.10 Hypertension I10 Hypertension type: unspecified Ischemic cardiomyopathy I25.5 Severe protein-calorie malnutrition E43 Chronic kidney disease, stage IV (severe) N18.4 UTI (urinary tract infection) N39.0 DVT prophylaxis Z29.9 Time Spent (min) 25 (1) Hypothyroidism Hypothyroidism type: unspecified Qualified Code(s): E03.9 - Hypothyroidism, unspecified (2) Hypertension Hypertension type: unspecified Qualified Code(s): I10 - Essential (primary) hypertension
[2020-09-03] MEDS: LEVOTHYROXINE SODIUM 137 MCG TABLET PO SCH (06:12)
[2020-09-03 08:06] LABS: Calcium 8.9 mg/dl (8.5-10.1); Creatinine Clr Calc Pharmacy 29.6 ml/min; Est GFR (African American) 63.7; Potassium 4.3 mmol/L (3.5-5.1)
[2020-09-03] MEDS: MAGNESIUM OXIDE 400 MG TAB PO SCH (08:18)
[2020-09-03] MEDS: POTASSIUM CHLORIDE CRTAB 20 MEQ TABCR PO SCH (08:18)
[2020-09-03] MEDS: ASPIRIN 81 MG ECTAB PO SCH ×2 (08:18→20:44)
[2020-09-03] MEDS: HEPARIN SOD 5,000 UNIT/0.5 ML VIAL SQ SCH ×2 (08:19→20:44)
[2020-09-03] MEDS: MULTIVITAMIN TAB PO SCH (08:19)
[2020-09-03] MEDS: FLUTICASONE/VILANTEROL 200/25MCG 14 PUFFS/INHALER INH SCH (08:19)
[2020-09-03] MEDS: carvediloL 6.25 MG TAB PO SCH ×2 (08:19→20:44)
[2020-09-03] MEDS: FUROSEMIDE 20 MG TAB PO SCH (11:38)
--- NOTE | 2020-09-03 12:07 | Pulmonology Progress Note ---
Date of Service September 03, 2020 Assessment & Plan (1) Acute respiratory failure with hypoxia: Chest x-ray 09/01/2020 personally reviewed: Portable film, bilateral costophrenic angles are blunted. Bilateral pleural effusion appreciated Increased cardiac silhouette --Bilateral pleural effusion Etiology is likely from systolic CHF Patient has been on diuretics but pleural effusion or not responding Left-sided thoracentesis 09/01/2020, transudate if as per lights criteria Cytology negative for malignancy Pleural fluid: LDH 64, protein 2.6, glucose 106, pH 7.43 Serum: LDH 199, protein 6.3 Right-sided thoracentesis 09/02/2020, transudate as per lights criteria Cytology pending Pleural fluid: LDH 71, protein 2.4, pH 7.47, glucose 105 Serum: LDH 169, protein 6.3 --Acute hypoxic respiratory failure Secondary to above Continue with O2 supplementation to keep oxygen saturations greater than 90% I would recommend patient to be on BiPAP as it will help with transmyocardial gradient increase in cardiac output Plan: Patient clinically doing better after bilateral thoracentesis done No further recommendation from pulmonary perspective. Please follow-up cytology of the right-sided effusion We will sign off. Please call with any questions Please note the above document was generated using voice recognition software. It may contain grammatical, syntax or spelling errors.Any formal questions or concerns about the content, text or information contained within the body of this dictation should be directly addressed to the provider for clarification. (2) Acute on chronic systolic heart failure: (3) Bilateral pleural effusion: (4) Shortness of breath: Admission and Anticipated Discharge Date Admission Date: August 24, 2020 Subjective Patient seen and examined at bedside. No acute distress, no adverse events overnight. S/p thoracentesis right side on 09/02/2020 Patient said his breathing is significantly improved. He was on room air at the time of examination asking when he can go home. Denies any chest pain, no nausea vomiting. No headache, no dizziness. Urinating well Review of Systems Review of Systems: All systems reviewed & are unremarkable except as noted in Subjective Physical Exam Physical Exam: Constitutional: No acute distress, frail-appearing HEENT: EOMI, PERRLA Respiratory system: Decreased air entry bilaterally (improved from before), no wheeze, no rhonchi, positive crackles bilateral lower lobes CVS: S1-S2 positive, no murmurs or gallops, distant heart sounds Abdomen: Soft, nontender, nondistended, positive bowel sounds x4 Extremities: +2 pulses bilaterally radialis/ dorsalis pedis, no cyanosis, +1 pitting edema bilateral lower extremity Neuro: Awake alert oriented x3 Psych: Normal mood and affect G/U: No Salazar Skin: no rashes, warm and dry Lymphatic: no cervical or axillary lymphadenopathy Results & Data Results & Data ([facility]) Vital Signs (Past 12 Hours) Vital Signs Temp Pulse Pulse Resp BP BP Pulse Ox 09/03/20 11:01 36.4 C L 78 16 95/62 L 99 09/03/20 08:30 87 09/03/20 07:14 36.5 C 86 16 101/59 L 97 09/03/20 04:00 36.5 C 67 18 95/61 L 94 09/01/20 06:43 09/03/20 06:14 PG Care Time/CCT Total # of Minutes Spent Total Time Spent with Patient: Total time spent is greater than 50% in coordination of care (as documented) at patient's floor/unit and/or counseling patient: Coding Level of Care Code 27408 Subseq Hosp Care Lvl 3 Diagnoses Acute respiratory failure with hypoxia J96.01 Acute on chronic systolic heart failure I50.23 Bilateral pleural effusion J90 Shortness of breath R06.02
--- NOTE | 2020-09-03 15:36 | Palliative Care Progress Note ---
Date of Service September 03, 2020 Assessment & Plan (1) Palliative care encounter: I spoke with Jose about return to [facility] and he is agreeable to this. He tells me that he'll give it a 30 day trial. Family would like hospice to follow him at [facility]. I discussed POLST with him and completed based on our discussion for DNR, comfort measures, antibiotics as indicated and no artificial nutrition or hydration. He did sign it but we will also get Estella's signature on the POLST. I was not able to reach Estella after three calls today. Will hold POLST until we can confirm with her. (2) Chronic kidney disease, stage IV (severe): (3) Acute on chronic systolic heart failure: Admission and Anticipated Discharge Date Admission Date: August 24, 2020 Subjective Resting in bed. Appears comfortable. Denies dyspnea. Review of Systems Review of Systems: [place] Symptom Assessment Scale Pain 0/3 Anxiety 0/3 Fatigue 2/3 Dyspnea 0/3 Nausea 0/3 Palliative Performance Score 50% Physical Exam Constitutional: + thin and + frail appearing Respiratory: normal respiratory effort; no labored breathing Cardiovascular: Extremities: no edema Musculoskeletal: Extremities: + muscle atrophy Neurologic: awake; not confused Results & Data ([facility]) Vital Signs (Past 12 Hours) Vital Signs Temp Pulse Pulse Pulse Resp BP BP 09/03/20 15:21 97.5 F L 83 83 16 91/50 L 09/03/20 11:01 97.5 F L 78 16 95/62 L 09/03/20 08:30 87 09/03/20 07:14 97.7 F 86 16 101/59 L 09/03/20 04:00 97.7 F 67 18 95/61 L Pulse Ox 09/03/20 15:21 93 09/03/20 11:01 99 09/03/20 08:30 09/03/20 07:14 97 09/03/20 04:00 94 PG Care Time/CCT Total # of Minutes Spent Total Time Spent with Patient: Total time spent is greater than 50% in coordination of care (as documented) at patient's floor/unit and/or counseling patient: Coding Level of Care Code 93729 Subseq Hosp Care Lvl 2 Diagnoses Palliative care encounter Z51.5 Chronic kidney disease, stage IV (severe) N18.4 Acute on chronic systolic heart failure I50.23
--- NOTE | 2020-09-03 17:53 | Hospitalist Progress Note ---
Date of Service September 03, 2020 Assessment & Plan (1) Acute on chronic systolic heart failure: Presented with significant volume overload, bilateral large pleural effusions, weight gain, and lower extremity edema Diuresing quite well and has had bilateral thoracenteses-transudative as per lights criteria on both sides, cytology negative for malignancy on left, pending on the right With acute hypoxic respiratory failure now resolved I's and O's cumulative recorded as +3.7 L, however this is not including the 1.6 l total he had drained during bilateral thoracenteses, so more like +2.1 L weight is down though about 6.1 kg and he appears better-likely I's and O's are wrong He is weaned off oxygen and no longer has any orthopnea or dyspnea Echocardiogram here with severely reduced systolic function, LVEF 20-25% with multiple wall motion abnormalities, moderate MR, mild to moderate TR, mild pulmonary hypertension Continue Lasix 20 mg p.o. once daily-restarted today Continue coreg to 6.25mg BID-note this is a reduced dose from home dose as he was having hypotension -Continue to hold SARAH inhibitor for now due to low blood pressures -Continue daily weights, strict I's and O's, low-sodium diet appreciate CHF clinic ([facility]) consultation-plan for close follow-up with CHF clinic as he is not yet enrolling in hospice (2) Bilateral pleural effusion: large on CTA chest S/P thoracocenthesis B/L on 09/01 and 09/02 and much improved Transudate of as above Cytology pending on second sample but first was negative Pleural fluid AFB and cultures negative preliminary (3) Shortness of breath: 2nd acute/chronic systolic CHF with pleural effusions. mucous plugging may have contributed - seen on prior CTA chest. bigger component likely the CHF. Much improved of note - pt with 2 CTA chests this admission - 2nd CTA confirmed NO PE (4) Mucus plugging of bronchi: incentive olman nebs (5) Hypothyroidism: TSH WNL in July Continue levothyroxine 137 mcg p.o. daily w/o changes (6) CAD (coronary artery disease): Continue aspirin and carvedilol. Restart Plavix as now completed with thoracenteses statin intolerant/allergic. no evidence of ACS while here. (7) Hypertension: controlled to low normal blood pressures Reduced dose of carvedilol as above and holding lisinopril from home Starting Lasix 20 mg p.o. once daily (8) Ischemic cardiomyopathy: LVEF 20 to 25% on recent echocardiogram. Continue carvedilol Hold SARAH due to low-normal BPs (9) Severe protein-calorie malnutrition: cont MVI nutrition consult appreciated given his advanced age and advanced/severe CHF would not pursue work-up for this (10) Chronic kidney disease, stage IV (severe): baseline CrCL high 20s Cr again stable today despite diuresis repeat BMP in am (11) UTI (urinary tract infection): 08/19/20 urine culture (obtained at PCP's office) 2nd to e.coli Completed 1 week of cephalexin (12) DVT prophylaxis: heparin 5000 BID PT, OT evals appreciated-recommend back to personal care facility with home PT Disposition-likely discharge home at personal care facility tomorrow as long as remains stable Downgrade off telemetry to medical/surgical floor Admission and Anticipated Discharge Date Admission Date: August 24, 2020 Subjective Patient reports feeling better today, not short of breath, denies chest pain. No nausea or abdominal pain. He has been weaned off oxygen. He is now had bilateral thoracenteses Telemetry with normal sinus rhythm with rates in the 80s to 90s Review of Systems Review of Systems: All systems reviewed & are unremarkable except as noted in HPI & below Physical Exam Constitutional: + thin; no acute distress Eyes: + anicteric sclerae Neck: trachea midline, no thyromegaly Respiratory: normal respiratory effort Auscultation: + crackles (Mild at the bases); no rhonchi and no wheezes Cardiovascular: Rate/Rhythm: regular rate and regular rhythm Heart Sounds: no murmur Extremities: + edema (1+ pitting edema bilateral lower extremities) Chest (Breasts): Chest: normal inspection of chest Gastrointestinal (Abdomen): normal bowel sounds, soft, nontender, no hepatosplenomegaly Musculoskeletal: Extremities: extremities normal to inspection; no cyanosis and no clubbing Skin: no rashes, warm and dry Neurologic: moves all extremities and awake; no focal motor deficits Psychiatric: A+Ox3, euthymic affect Lymphatic: no lymphedema Results & Data Results & Data ([facility]) Vital Signs (Past 12 Hours) Vital Signs Temp Pulse Pulse Pulse Resp BP Pulse Ox 09/03/20 15:21 36.4 C L 83 83 16 91/50 L 93 09/03/20 11:01 36.4 C L 78 16 95/62 L 99 09/03/20 08:30 87 09/03/20 07:14 36.5 C 86 16 101/59 L 97 Laboratory Results 09/01/20 06:43 09/03/20 06:14 PG Care Time/CCT Total # of Minutes Spent Total Time Spent with Patient: Total time spent is greater than 50% in coordination of care (as documented) at patient's floor/unit and/or counseling patient: Coding Level of Care Code 54987 Subseq Hosp Care Lvl 3 Diagnoses Acute on chronic systolic heart failure I50.23 Bilateral pleural effusion J90 Shortness of breath R06.02 Mucus plugging of bronchi T17.500A Hypothyroidism E03.9 Hypothyroidism type: unspecified CAD (coronary artery disease) I25.10 Hypertension I10 Hypertension type: unspecified Ischemic cardiomyopathy I25.5 Severe protein-calorie malnutrition E43 Chronic kidney disease, stage IV (severe) N18.4 UTI (urinary tract infection) N39.0 DVT prophylaxis Z29.9 (1) Hypothyroidism Hypothyroidism type: unspecified Qualified Code(s): E03.9 - Hypothyroidism, unspecified (2) Hypertension Hypertension type: unspecified Qualified Code(s): I10 - Essential (primary) hypertension
[2020-09-04] MEDS: LEVOTHYROXINE SODIUM 137 MCG TABLET PO SCH (05:57)
[2020-09-04 07:54] LABS: BUN Creatinine Ratio 25.4 (10-20); Calcium 8.6 mg/dl (8.5-10.1); Creatinine Clr Calc Pharmacy 29.3 ml/min; Est GFR (African American) 63.1 ml/min; Est GFR (Non-African American) 54.4 ml/min; Potassium 4.2 mmol/L (3.5-5.1)
[2020-09-04] MEDS: carvediloL 6.25 MG TAB PO SCH (08:02)
[2020-09-04] MEDS: ASPIRIN 81 MG ECTAB PO SCH (08:02)
[2020-09-04] MEDS: CLOPIDOGREL BISULFATE 75 MG TAB PO SCH (08:02)
[2020-09-04] MEDS: FLUTICASONE/VILANTEROL 200/25MCG 14 PUFFS/INHALER INH SCH (08:02)
[2020-09-04] MEDS: FUROSEMIDE 20 MG TAB PO SCH (08:03)
[2020-09-04] MEDS: MULTIVITAMIN TAB PO SCH (08:03)
[2020-09-04] MEDS: MAGNESIUM OXIDE 400 MG TAB PO SCH (08:03)
[2020-09-04] MEDS: POTASSIUM CHLORIDE CRTAB 20 MEQ TABCR PO SCH (08:03)
[2020-09-04] MEDS: HEPARIN SOD 5,000 UNIT/0.5 ML VIAL SQ SCH (08:03)
--- NOTE | 2020-09-04 09:10 | Palliative Care Progress Note ---
Date of Service September 04, 2020 Assessment & Plan (1) Palliative care encounter: Plan for return to [facility] with hospice care. I spoke with his daughter and POA, Estella Matt, on the phone and reviewed POLST form. She is in agreement and will cosign ARCELIA when she visits him at [facility]. (2) Acute on chronic systolic heart failure: (3) Chronic kidney disease, stage IV (severe): (4) Cardiomyopathy: (5) Tibial plateau fracture, left: Admission and Anticipated Discharge Date Admission Date: August 24, 2020 Subjective Resting comfortably. No complaints. Review of Systems Review of Systems: [place] Symptom Assessment Scale Pain 0/3 Dyspnea 0/3 Anxiety 1/3 Fatigue 2/3 Palliative Performance Score 40% Physical Exam Constitutional: + thin and + frail appearing Respiratory: normal respiratory effort; no labored breathing Cardiovascular: Extremities: no edema Musculoskeletal: Extremities: + muscle atrophy Neurologic: not confused Results & Data ([facility]) Vital Signs (Past 12 Hours) Vital Signs Temp Pulse Pulse Resp BP BP Pulse Ox 09/04/20 07:10 97.9 F 80 20 105/65 96 09/03/20 23:32 97.7 F 100 H 18 102/70 96 PG Care Time/CCT Total # of Minutes Spent Total Time Spent with Patient: Total time spent is greater than 50% in coordination of care (as documented) at patient's floor/unit and/or counseling patient: Coding Level of Care Code 24251 Subseq Hosp Care Lvl 2 Diagnoses Palliative care encounter Z51.5 Acute on chronic systolic heart failure I50.23 Chronic kidney disease, stage IV (severe) N18.4 Cardiomyopathy I42.9 Tibial plateau fracture, left S82.142A
--- NOTE | 2020-09-04 14:16 | Discharge Summary ---
Date of Service September 04, 2020 Admission HPI Per Admitting Provider Jose Leo is an 84 year old male who presents to the ER from [facility] with increased shortness of breath since last night. No associated chest pain or with eating. Possible associated bilateral leg swelling. Came on progressively rather than suddenly. Worse on lying flat. No fever, chills or cough. Normally not on home O2. He reports his asthma is usually well controlled. He was recently admitted in May for left tibial plateau fracture. Had post- operative NSTEMI leading to acute systolic congestive heart failure suspected secondary to blood transfusions which responded to diuretics. In the ER CXR was actually markedly improved from prior XR in May. BNP however remains > 35,000. Initial troponin negative. EKG concerning for ST depressions in lateral leads although this has actually improved from prior. He was referred to medicine for respiratory distress and bilateral pleural effusions. Principal Diagnosis Acute on chronic systolic CHF, Bilateral pleural effusions Discharge Exam Constitutional + thin; no acute distress Eyes + anicteric sclerae Neck trachea midline, no thyromegaly Respiratory normal respiratory effort Auscultation: + crackles (Mild at the bases); no rhonchi and no wheezes Cardiovascular Rate/Rhythm: regular rate and regular rhythm Heart Sounds: no murmur Extremities: + edema (1+ pitting edema bilateral lower extremities) Chest (Breasts) Chest: normal inspection of chest Gastrointestinal (Abdomen) normal bowel sounds, soft, nontender, no hepatosplenomegaly Musculoskeletal Extremities: extremities normal to inspection; no cyanosis and no clubbing Skin no rashes, warm and dry Neurologic moves all extremities and awake; no focal motor deficits Psychiatric A+Ox3, euthymic affect Lymphatic no lymphedema Discharge Data Allergies Allergy/AdvReac Type Severity Reaction Status Date / Time atorvastatin Allergy Mild rash Verified 08/24/20 11:33 Sulfa (Sulfonamide Allergy Mild Rash Verified 08/24/20 11:33 Antibiotics) sulfamethoxazole Allergy Mild Rash Verified 08/24/20 11:33 theophylline Allergy Mild RASH Verified 08/24/20 11:33 trimethoprim Allergy Mild Rash Verified 08/24/20 11:33 Consultations 08/24/20 09:58 ED Decision to Admit Stat 09/01/20 09:04 Consult Pulmonology Routine 09/01/20 22:06 Consult Palliative Care Routine Ordered Studies 08/24/20 11:40 CT angio chest PE protocol Stat 08/25/20 10:30 US venous doppler LE BI Routine 08/26/20 11:37 CT angio chest PE protocol Routine 09/01/20 13:27 US point of care ultrasound Urgent 09/02/20 13:00 US point of care ultrasound Urgent Chest X-Ray 08/24/20 08:41 XR chest 1V portable CLINICAL HISTORY: Dyspnea COMPARISON STUDY: 06/15/2020 FINDINGS: The heart remains enlarged. There is no overt failure. There is no lobar consolidation. There is interval decrease in size and small bilateral pleural effusions. There are minor basilar atelectatic changes.[There are old rib deformities. IMPRESSION: 1. Cardiomegaly and interval decrease in the size of bilateral pleural effusions 2. Improving aeration of the lung bases with suspected mild atelectatic change 3. No current evidence of failure ACT 112: Negative or not required by law. Electronically signed by: Trenton Claros M.D. 08/24/2020 8:53 AM Chest CTA 08/24/20 11:40 CT angio chest PE protocol CT DOSE: 258.00 mGy.cm HISTORY: 84 years-old Male with PE. Acute shortness of breath TECHNIQUE: Multiple CTA images of the chest were obtained after the intravenous administration of 119 ml Optiray. Coronal and sagittal MIPS were obtained from the axial data set and were submitted for review. All measurements were obtained according to NASCET criteria. A dose lowering technique was utilized adhering to the principles of ALARA. COMPARISON: Chest radiograph of same day, CTA chest 06/13/2020 FINDINGS: CTA: Moderate to marked cardiomegaly. No pericardial effusion. Left heart structures are not well opacified secondary to contrast bolus timing. Extensive coronary artery calcifications. Unchanged mild fusiform dilation of the ascending thoracic aorta, 4.0 cm. Prior median sternotomy with CABG. The central pulmonary artery is well opacified. There is decreased opacification of the segmental and subsegmental pulmonary arterial branches of the level of the lung bases bilaterally. Notably there is a question filling defects within a segmental pulmonary arterial branch of the right lower lobe on image 133. CT CHEST: No thyroid nodule or adenopathy. Moderate layering pleural effusions. No pneumothorax. Dependent bibasilar consolidative and groundglass opacities. 4 mm solid nodule of the left upper lobe on image 252 appears new from comparison. Mild bibasilar mucous plugging. Central airways are patent. There is no pneumoperitoneum. There are a few scattered hypodensities of the liver redemonstrated measuring up to 10 mm the left hepatic lobe, notably characterize however possibly represent above cysts. Generalized body wall edema. Degenerative changes of the shoulders and spine. Healed chronic bilateral rib fractures. Numerous chronic thoracic compression deformities. No acute fracture identified. IMPRESSION: 1. Limited study secondary to contrast bolus timing. There is a questioned filling defect within a segmental pulmonary arterial branch of the right lower lobe which is favored to be artifact with pulmonary embolus considered less likely. Consider a follow-up study and/or lower extremity duplex venous Doppler. 2. Moderate pleural effusions with bibasilar groundglass and consolidative opacities suggestive of atelectasis. 3. Mild bibasilar mucous plugging. 4. Cardiomegaly. ACT 112: Negative or not required by law. The above report was generated using voice recognition software. It may contain grammatical, syntax or spelling errors. Electronically signed by: Dheeraj Hansen M.D. 08/24/2020 12:33 PM Venous Doppler Study 08/25/20 10:30 BILATERAL LOWER EXTREMITY VENOUS DOPPLER HISTORY: Acute pain and swelling of the lower legs ?PE on CTA chest; eval DVT COMPARISON STUDY: None. FINDINGS: There is normal compressibility, flow, and augmentation within the bilateral lower extremity deep venous systems. Moderate diffuse subcutaneous edema. IMPRESSION: No DVT within the right or left lower extremity. ACT 112: Negative or not required by law. Electronically signed by: Dheeraj Hansen M.D. 08/25/2020 11:14 AM Chest CTA 08/26/20 11:37 CT ANGIOGRAM OF THE CHEST CLINICAL HISTORY: Shortness of breath. Equivocal pulmonary embolus on recent chest CT. COMPARISON STUDY: 09/11/2020 TECHNIQUE: Following the IV administration of 120 mL of Optiray, CT angiogram of the thorax was performed from the thoracic inlet to the lung bases utilizing the pulmonary embolus protocol. Images are reviewed in the axial, sagittal, and coronal planes. IV contrast was administered without complication. MIP imaging was performed. A dose lowering technique was utilized adhering to the principles of ALARA. CT DOSE: 398.17 mGycm FINDINGS: There are several hepatic hypodensities, statistically representing cysts. There is a 2.8 cm left renal hypodensity likely representing a cyst. No pathologically enlarged axillary mediastinal or hilar lymph nodes were visualized. There is mild aneurysmal dilatation of the ascending thoracic aorta which measures 43 mm. The heart is enlarged with coronary artery calcifications. There are no pulmonary artery filling defects to indicate acute pulmonary embolism. There are moderate to large bilateral pleural effusions. There are lower lobe compressive atelectatic changes. There is respiratory motion artifact. There are subpleural right apical parenchymal opacities, likely representing focal atelectasis/scarring. A minimal pneumonitis could appear similar The bones are osteopenic. There is exaggerated thoracic arthrosis. There are multiple thoracic vertebral body compression deformities IMPRESSION: 1. No evidence of acute pulmonary embolism 2. No evidence of pathologic adenopathy 3. Moderate to large bilateral pleural effusions with bibasilar compressive atelectasis 4. Cardiomegaly and coronary artery calcifications. 5. Osteopenia. Multiple thoracic vertebral body compression deformities with an exaggerated thoracic kyphosis ACT 112: Negative or not required by law. Electronically signed by: Trenton Claros M.D. 08/26/2020 2:04 PM Chest X-Ray 08/29/20 07:00 XR chest 2V PA/lateral CLINICAL HISTORY: CHF, effusions; eval size effusions COMPARISON STUDY: 08/24/2020 FINDINGS: The heart remains enlarged. There are bilateral pleural effusions left greater than right, slightly increased from the prior study. There are bibasilar opacity statistically atelectatic. There are multiple old rib deformities.[ IMPRESSION: 1. Cardiomegaly with increasing bilateral pleural effusions left greater than right 2. Bibasilar opacity statistically atelectatic. ACT 112: Negative or not required by law. Electronically signed by: Trenton Claros M.D. 08/29/2020 9:35 AM Chest X-Ray 08/31/20 04:49 SINGLE VIEW CHEST CLINICAL HISTORY: Dyspnea. FINDINGS: An AP, portable, upright chest radiograph is compared to study dated 08/29/2020 and correlated with chest CT dated 08/26/2020. The patient is status post midline sternotomy. The heart is enlarged noting atherosclerotic calcification of the thoracic aorta. The pulmonary vasculature is noncongested. There are layering pleural effusions with bibasilar consolidation. Chronic interstitial thickening is similar to previous. No pneumothorax is seen. The skeletal structures are osteopenic. There are healed bilateral rib fractures. IMPRESSION: 1. Marked cardiomegaly without radiographic evidence of congestive failure. 2. There are layering pleural effusions with bibasilar consolidation. These have modestly increased as compared to 08/29/2020. ACT 112: Negative or not required by law. Electronically signed by: Colten Lee M.D. 08/31/2020 8:57 AM Chest X-Ray 09/01/20 16:18 XR chest 1V portable CLINICAL HISTORY: S/P Thoracentesis COMPARISON STUDY: Chest radiograph August 31, 2020. FINDINGS: Cardiomegaly is noted. Interstitial thickening has slightly improved. There is no pneumothorax. Left pleural effusion has decreased in size. A right pleural effusion is again noted. IMPRESSION: 1. No pneumothorax. 2. Significant decrease in size of the left pleural effusion. 3. Cardiomegaly. Slight decrease in pulmonary edema. ACT 112: Negative or not required by law. Electronically signed by: Smith Crisostomo M.D. 09/01/2020 4:49 PM Chest X-Ray 09/02/20 15:15 XR chest 1V portable HISTORY: 84 years-old Male S/P Thoracentesis follow-up study in a patient with pleural effusions COMPARISON: Chest radiograph 09/01/2020 TECHNIQUE: Portable upright AP view of the chest FINDINGS: Cardiac silhouette is enlarged. Sternotomy wires are noted. Surgical clips project over the mediastinum. Trace pleural effusions have decreased in size from comparison. There is improved aeration of the lung bases with mild persistent left lung base opacities. No pneumothorax. Degenerative changes of the shoulders and spine. Healed chronic right-sided rib fractures. IMPRESSION: 1. Trace pleural effusions have decreased in size in the interval. 2. No pneumothorax. ACT 112: Negative or not required by law. The above report was generated using voice recognition software. It may contain grammatical, syntax or spelling errors. Electronically signed by: Lencho Hansen M.D. 09/02/2020 3:52 PM Hospital Course (1) Acute on chronic systolic heart failure: Presented with significant volume overload, bilateral large pleural effusions, weight gain, and lower extremity edema Diuresed quite well and had bilateral thoracenteses-transudative as per lights criteria on both sides, cytology negative for malignancy on left, pending on the right With acute hypoxic respiratory failure now resolved weight is down 6.1 kg and he appears better clinically He is weaned off oxygen and no longer has any orthopnea or dyspnea Echocardiogram here with severely reduced systolic function, LVEF 20-25% with multiple wall motion abnormalities, moderate MR, mild to moderate TR, mild pulmonary hypertension Continue Lasix 20 mg p.o. once daily upon discharge Continue coreg to 6.25mg BID-note this is a reduced dose from home dose as he was having hypotension -Continue to hold SARAH inhibitor for now due to low blood pressures -Continue daily weights, strict I's and O's, low-sodium diet appreciate CHF clinic (Miesha Burgess) consultation-no need for f/u as enrolling in Hospice (2) Bilateral pleural effusion: large on CTA chest S/P thoracocenthesis B/L on 09/01 and 09/02 and much improved Transudate of as above Cytology pending on second sample but first was negative Pleural fluid AFB and cultures negative preliminary (3) Shortness of breath: 2nd acute/chronic systolic CHF with pleural effusions. mucous plugging may have contributed - seen on prior CTA chest. bigger component likely the CHF. Much improved of note - pt with 2 CTA chests this admission - 2nd CTA confirmed NO PE (4) Mucus plugging of bronchi: incentive olman nebs (5) Hypothyroidism: TSH WNL in July Continue levothyroxine 137 mcg p.o. daily w/o changes (6) CAD (coronary artery disease): Continue aspirin and carvedilol. Restarted Plavix as now completed with thoracenteses statin intolerant/allergic. no evidence of ACS while here. (7) Hypertension: controlled to low normal blood pressures Reduced dose of carvedilol as above and holding lisinopril from home continue Lasix 20 mg p.o. once daily (8) Ischemic cardiomyopathy: LVEF 20 to 25% on recent echocardiogram. Continue carvedilol Hold SARAH due to low-normal BPs (9) Severe protein-calorie malnutrition: cont MVI nutrition consult appreciated given his advanced age and advanced/severe CHF would not pursue work-up for this (10) Chronic kidney disease, stage IV (severe): baseline CrCL high 20s Cr again stable today despite diuresis (11) UTI (urinary tract infection): 4/27/21 urine culture (obtained at PCP's office) 2nd to e.coli Completed 1 week of cephalexin (12) DVT prophylaxis: heparin 5000 BID PT, OT thiago appreciated-recommend back to personal care facility with home PT Disposition- discharge home at personal care facility todfay on Hospice Total Time Total Time Spent Total Time Spent (In Minutes): 40 min Total Time Includes: Examination of the Patient, Discharge Planning and Medication Reconciliation Discharge Plan Discharge Items Patient Disposition: Hospice - Home Reason For Visit: HYPOXIA, MUCOUS PLUGGING, ASTHMA EXACERBATION Discharge Diagnosis: Acute CHF Condition on Discharge: Fair Activity: As commented below Bathing: No limitations Exercise/Sports: As tolerated Non-emergency contact: Primary Care Provider Call non-emergency contact if: you have any medication questions and your symptoms worsen Follow-up/Referrals: [facility] MORO[facility] [Primary Care Provider] - Diet: Low Sodium (2gm) Addtl Attending Provider Instructions: You were admitted and treated for congestive heart failure and had low oxygen levels. This improved with giving you diuretics through the IV and drainage of the fluid from around your lungs. Due to your end-stage condition, in consultation with palliative care, you have decided to transition to hospice care at home. Arrangements have been made for you through case management. You do not need to follow-up with the congestive heart failure clinic at this point as the focus will be more on comfort. Pending Studies at Discharge: No Stand-Alone Forms: [facility] Medications and DC Order Prescriptions: New carvedilol 6.25 mg Tablet 6.25 mg PO BID Qty: 60 RF: 0 potassium chloride 10 mEq tablet extended release 10 meq PO DAILY Qty: 30 RF: 0 magnesium oxide 400 mg (241.3 mg magnesium) Tablet 400 mg PO QAM Qty: 30 RF: 0 Continued fluticasone propion-salmeterol [Advair Diskus] 250-50 mcg/dose blister with device 1 inh INH BID Qty: 180 RF: 1 polyethylene glycol 3350 [Miralax] 17 gram/dose powder 17 g PO DAILY PRN (Reason: constipation) Qty: 510 RF: 0 multivitamin tablet 1 tab PO QAM RF: 0 clopidogrel 75 mg Tablet 75 mg PO QAM Qty: 30 RF: 0 ipratropium-albuterol 0.5 mg-3 mg(2.5 mg base)/3 mL Solution For Nebulization 3 ml NEB Q4R PRN (Reason: shortness of breath) Qty: 15 RF: 0 aspirin 81 mg tablet,delayed release (DR/EC) 81 mg PO BID Qty: 60 RF: 0 levothyroxine 137 mcg tablet 137 mcg PO QAM RF: 0 furosemide 20 mg tablet 20 mg PO DAILY RF: 0 Discontinued carvedilol 25 mg tablet 25 mg PO BID Qty: 180 RF: 3 oxycodone 5 mg Tablet 5 mg PO Q4H PRN (Reason: pain) Qty: 10 RF: 0 lisinopril 5 mg tablet 5 mg PO QAM RF: 0 Discharge Orders: Discharge Order (Routine); Ordered 09/04/20 Ordered By: Elizabeth Campos Admission Data Admit Date/Time: 08/24/20 12:44 Attending Provider: Elizabeth Campos Admit Provider: Rayshawn Cornelius Primary Care Provider: [facility] MORO[facility] Other Providers: [facility] ; Rayshawn Cornelius ; Maninder Fernández ; Cookie Cadet Other Interventions: Discharge Summary Assessment (RN) Last Done: 09/04/20 15:54 Coding Level of Care Code D/C Day Management >30 mins Diagnoses Acute on chronic systolic heart failure I50.23 Bilateral pleural effusion J90 Shortness of breath R06.02 Mucus plugging of bronchi T17.500A Hypothyroidism E03.9 Hypothyroidism type: unspecified CAD (coronary artery disease) I25.10 Hypertension I10 Hypertension type: unspecified Ischemic cardiomyopathy I25.5 Severe protein-calorie malnutrition E43 Chronic kidney disease, stage IV (severe) N18.4 UTI (urinary tract infection) N39.0 DVT prophylaxis Z29.9
== END 2020-09-04 17:13 | disposition hospice, home (50) ==
LOC: ED 08:22 → SUATTDRO 12:44 → 2N 12:44